=== PATIENT | female | born 1945 | race Caucasian/White ===

== ENCOUNTER 2024-10-03 07:36 | Inpatient (IN) | payer MEDICARE, SELFPAY ==
[2024-10-03] VITALS (14 sets, daily range): BP systolic 109–166; BP diastolic 65–121; PULSE 82–124; RESP 15–92; TEMP 36.5–36.7; O2SAT 94–100; BMI 22.1; BMI 23.0
--- NOTE | 2024-10-03 08:03 | XR_ITS ---
Examination: AP chest single view TECHNIQUE: AP portable upright chest single view Exam date and time: General 25/04/2025 0813 hours COMPARISON: June 14, 2013 INDICATIONS: Onset shortness of breath today. FINDINGS: Moderate enlargement left ventricle Ectatic thoracic aorta Accentuation basilar bronchovascular markings. No pulmonary edema or lobar pneumonia Prominent osteopenia IMPRESSION: Moderate enlargement left ventricle Basilar bronchitis pattern
--- NOTE | 2024-10-03 08:06 | PD.EDADULT ---
ED General RME/HPI General Chief complaint: Shortness of Breath/Dyspnea Stated complaint: SOB Time Seen by Provider: 10/03/24 08:08 Arrival date/time: 10/03/24 07:36 RME / HPI RME / HPI narrative: Chief complaint: shortness of breath HPI: Patient is a 79 year old female with past medical history of asthma, seasonal allergy and sinus arrythmia, who was BIBA for progressively worsening shortness of breath which started 3 days ago. Patient was in her usual state of health, ambulates at baseline, able to carry out ADLs, until 3 days ago whens he started experiencing SOB on strenous activity. But at that time her symptoms improved with rest and home inhalers. Over the next 48 hours patient had significant SOB and audible wheezing even at rest, which was refractory to inhalers. Per patient, she usually has to use oral steroids during this itme of the year because of worsening bronchoconstriction. She has a long standing history of asthma and frequently has exacerbations during winter months. She confirms receiving her flu shot for and denies any fevers or exposure to sick individuals recently. Medication list: Rescue Albuterol INH Combivent INH Metoprolol XL Fexofenadine Allergies: Sulfa drugs - hives Shellfish - angioedema Social history: Marital?Status:? Tobacco?Use:?Denies ETOH?Use:?Denies Drug?Note:?Denies Social?History?Note:?Lives at home?with? Family history: Denies any SCd or stroke or cancers in the family. Related Data Home Medications ?Medication ?Instructions ?Recorded ?Confirmed fluticasone propionate 45 2 puff inhalation BID 12/27/17 05/02/18 mcg-salmeterol 21 mcg/actuation HFA inhaler (Advair HFA) fexofenadine 60 mg tablet (Sharon 60 mg PO BID 05/02/18 05/02/18 Allergy) metoprolol succinate 25 mg 25 mg PO QDAY 05/02/18 05/02/18 tablet,extended release 24 hr Previous Rx's ?Medication ?Instructions ?Recorded albuterol sulfate 90 mcg/actuation 2 puff inhalation Q6HR PRN 04/19/17 aerosol inhaler (ProAir HFA) shortness of breath #1 inh albuterol sulfate 2.5 mg/3 mL 2.5 mg (3 mL) inhalation Q4H PRN 10/03/24 (0.083 %) solution for nebulization shortness of breath or wheezing #75 mL azithromycin 500 mg tablet 500 mg PO QDAY 3 days #3 tabs 10/03/24 (Zithromax TRI-VINCE) prednisone 20 mg tablet 40 mg PO BID 3 days #12 tabs 10/03/24 Allergies Allergy/AdvReac Type Severity Reaction Status Date / Time shellfish derived Allergy Severe ITCHING,DROP Verified 05/02/18 13:31 IN BP Sulfa (Sulfonamide Allergy Severe HIVES AND Verified 05/02/18 13:31 Antibiotics) SWELLING Review of Systems Review of Systems Narrative Review of Systems: GENERAL: Denies fevers/chills or diaphoresis. HEENT: Denies headache or visual/hearing changes. Denies nasal discharge. NEURO: Denies unusual weakness or difficulty speaking. CARDIO: Denies chest pain or palpitations. PULM: SOB, mild coughing, and wheezing. GI: Denies abdominal pain, N/V/C/D. Reports having BMs URO: Denies burning/itching/pain/urinary changes. FUSE COILER: Denies menstrual changes, hot flashes. MSK/EXT/SKIN: Denies joint/skeletal/muscle pain, issues/changes in upper or lower extremities, itchiness, or superficial pain. PSYCH: Cooperative, pleasant mood & affect. The rest of the review of systems is otherwise negative. ED Exam Narrative Physical exam: Constitutional Alert, oriented x4 and on 4L oxygen via NC HEENT Vision grossly intact. Patent nares. Trachea midline. Respiratory Chest normal on inspection and diffuse wheezes and crackles on auscultation bilaterally. Cardiovascular S1 and S2 audible, RRR. No murmurs or carotid bruit. No gross JVD. Abdominal Soft and non tender to palpation in all quadrants. BS + Genitourinary No bladder tenderness, no flank pain. Normal to palpation. Musculoskeletal Extremities tone within normal limits. No LE edema. Neurological CN II - XII grossly intact. Extremity motor and sensation grossly intact. Skin Warm, dry and intact. Senile purpura Psychiatric Patient has a good affect, is cooperative. Course Course Course Narrative: Patient receiving albuterol, budesonide, levalbuterol nebs Also given IV Methylpred 125mg and Unasyn 3g Labs : mild leukocytosis and mild resp acidosis CXR : basilar bronchitis Influenza and COViD negative Quality Measures none Orders Category Date Time Status Bedside COVID-19 Antigen Test NOW Care 10/03/24 08:05 Active Bedside Influenza A&B Antigen Test NOW Care 10/03/24 08:05 Completed COVID-19 Screening Questionnaire NOW Care 10/03/24 13:49 Active Decision to Admit X1 Care 10/03/24 13:49 Active EKG (ED ONLY) *Do not use* NOW Care 10/03/24 07:52 Completed CXRP [XR chest 1V portable] Stat Exams 10/03/24 08:03 Completed EKG (ED Only) Stat Exams 10/03/24 07:52 Ordered ABG [Arterial Blood Gas] Stat Lab 10/03/24 08:47 Completed BNP [B-Type Natriuretic Peptide] Stat Lab 10/03/24 08:31 Completed CBC Stat Lab 10/03/24 08:31 Completed CMP [Comprehensive Metabolic Panel] Stat Lab 10/03/24 08:31 Completed Magnesium Stat Lab 10/03/24 08:31 Completed Sputum Culture and Gram Stain Stat Lab 10/03/24 13:30 Received Troponin I Stat Lab 10/03/24 08:31 Completed Urinalysis Stat Lab 10/03/24 14:00 Completed ACETAMINOPHEN w/COD 300-30 [Tylenol w/Cod #3] Med 10/03/24 08:51 Discontinued 2 tab PO X1 ONE ALBUTEROL RT 3ml [Proventil Rt 3ml] Med 10/03/24 08:03 Discontinued 2.5 mg INH X1 ONE Ampicillin/Sulbac Inj [Unasyn Inj] 3 gm Med 10/03/24 10:15 Discontinued Sodium Chloride 0.9% (P) [NS 0.9% mini bag] 100 ml IV X1 Budesonide Rt [Pulmicort Rt Violet] Med 10/03/24 08:03 Discontinued 0.5 mg INH X1 ONE Levalbuterol Rt [Xopenex Rt Violet] Med 10/03/24 08:49 Discontinued 1.25 mg INH X1 ONE Levalbuterol Rt [Xopenex Rt Violet] Med 10/03/24 09:01 Discontinued 3.75 mg INH X1 ONE Magnesium Sulfate 2 GM Ivpb [Magnesium Sulfate Ivpb] Med 10/03/24 08:27 Discontinued 2 gm in 50 ml IV X1 Magnesium Sulfate 2 GM Ivpb [Magnesium Sulfate Ivpb] Med 10/03/24 08:27 Discontinued 2 gm in 50 ml IV X1 MethylPREDNISolone.* [SoluMEDROL Inj] Med 10/03/24 08:26 Discontinued 125 mg IVP X1 ONE Sodium Chloride Rt Violet 10% [NS Rt Violet 10%] Med 10/03/24 09:31 Discontinued 5 ml INH X1 ONE guaiFENesin/DM [Mucinex DM] Med 10/03/24 08:07 Discontinued 1 each PO X1 ONE Oxygen Delivery NOW RT 10/03/24 08:08 Active Sputum Induction PRN RT 10/03/24 09:45 Ordered Reevaluation(s) Reevaluation #1: 10:07 Patient continues to need oxygen to maintain sats >92% Vital Signs Vital signs: Vital Signs Temperature 97.7 F 10/03/24 07:45 Pulse Rate 83 10/03/24 07:45 Respiratory Rate 17 10/03/24 07:45 Blood Pressure 166/85 H 10/03/24 07:45 Pulse Oximetry (%) 99 10/03/24 07:45 Oxygen Delivery Method Nasal Cannula 10/03/24 07:45 Oxygen Flow Rate 2 10/03/24 07:45 [facility] Patient data External records reviewed:: [facility] previous records Clinical information provided by:: patient Social determinants that could affect healthcare access:: none Patient has the following chronic illnesses:: asthma, seasonal allergy and sinus arrythmia How is presenting disease/condition affected by chronic disease/condition?: exacerbated by Evaluation data The following diagnostics were reviewed and interpreted by me:: lab results, radiology exam(s) and EKG tracing(s) (Sinus rhythm with no acute ST-T changes.) Lab and/or radiology exams considered but not ordered:: None Interpretation Summary: Asthma exacerbation and respiratory failure and low respiratory infection Medications Medications considered but not ordered:: None Medication administrations:: Medication Administration History Acetaminophen (Acetaminophen 325 Mg Tablet) 650 mg PO Q6H PRN PRN Reason: Fever >100.5 Stop: 11/02/24 13:51 Acetaminophen (Acetaminophen 325 Mg Tablet) 650 mg PO Q6H PRN PRN Reason: PAIN SCALE 1-3 (mild Stop: 11/02/24 13:51 Docusate Sodium (Docusate Sod 100 Mg Capsule) 100 mg PO QDAY SONYA; Protocol Stop: 11/03/24 08:59 Heparin Sodium (Porcine) (Heparin Sod Inj 5000 Unit/Ml Vial) 5,000 unit SC Q8HR [facility] Stop: 10/17/24 13:59 Azithromycin 500 mg/ Sodium (Chloride) 250 mls @ 250 mls/hr IV QDAY [facility] Stop: 10/11/24 08:59 Ipratropium [place] (Ipratropium Rt 0.5 Mg/ 2.5 Ml Nebu) 0.5 mg INH Q4HRRT PRN PRN Reason: shortness of breath or wheezing Stop: 11/02/24 14:59 Ipratropium [place] (Ipratropium Rt 0.5 Mg/ 2.5 Ml Nebu) 0.5 mg INH Q6HRRT [facility] Stop: 11/02/24 18:59 Levalbuterol HCl (Levalbuterol Rt 1.25 Mg/0.5 Ml Nebu) 1.25 mg INH Q4HRRT PRN PRN Reason: bronch Stop: 11/02/24 14:59 Levalbuterol HCl (Levalbuterol Rt 1.25 Mg/0.5 Ml Nebu) 1.25 mg INH Q6HRRT [facility] Stop: 11/02/24 18:59 Methylprednisolone Sodium Succinate (Methylprednisolone Sod Succ 40 Mg Vial) 40 mg IVP QDAY [facility] Stop: 10/11/24 08:59 Ondansetron HCl (Ondansetron Inj 2 Mg/Ml Inj 2 Ml) 4 mg IV Q6H PRN; Protocol PRN Reason: NAUSEA OR VOMITING Stop: 11/02/24 13:51 Sodium Chloride (Sodium Chloride Rt Violet 0.9% 3 Ml Nebu) 3 ml INH PRN PRN PRN Reason: SOLN Stop: 11/02/24 13:51 Discontinued Medications Acetaminophen/Codeine Phosphate (Acetaminophen W/Cod 300-30 Tablet) 2 tab PO X1 ONE Stop: 10/03/24 08:52 Last Admin: 10/03/24 10:11 Dose: 2 tab Documented By: MALISSA Albuterol (Albuterol Rt 2.5 Mg/3 Ml Nebu) 2.5 mg INH X1 ONE Stop: 10/03/24 08:04 Last Admin: 10/03/24 08:33 Dose: 2.5 mg Documented By: DENIS Azithromycin (Azithromycin 250 Mg Tablet) 500 mg PO QDAY [facility] Stop: 10/11/24 08:59 Budesonide (Budesonide Rt 0.5 Mg/2 Ml Nebu) 0.5 mg INH X1 ONE Stop: 10/03/24 08:04 Last Admin: 10/03/24 08:33 Dose: 0.5 mg Documented By: DENIS Guaifenesin/Dextromethorphan (Guaifenesin/Dm Tablet) 1 each PO X1 ONE Stop: 10/03/24 08:08 Last Admin: 10/03/24 08:27 Dose: 1 each Documented By: MALISSA Magnesium Sulfate (Magnesium Sulfate Ivpb) 2 gm in 50 mls @ 25 mls/hr IV X1 ONE Stop: 10/03/24 10:26 Last Infusion: 10/03/24 09:00 Dose: 0 mls/hr Documented By: Admin: 10/03/24 08:39 Dose: 25 mls/hr Documented By: MALISSA Magnesium Sulfate (Magnesium Sulfate Ivpb) 2 gm in 50 mls @ 999 mls/hr IV X1 ONE Stop: 10/03/24 08:29 Last Infusion: 10/03/24 09:39 Dose: Infused Documented By: Admin: 10/03/24 09:15 Dose: 999 mls/hr Documented By: MALISSA Ampicillin Sodium/Sulbactam (Sodium 3 gm/ Sodium Chloride) 100 mls @ 200 mls/hr IV X1 ONE Stop: 10/03/24 10:44 Last Infusion: 10/03/24 11:03 Dose: Infused Documented By: Admin: 10/03/24 10:15 Dose: 200 mls/hr Documented By: MALISSA Azithromycin 500 mg/ Sodium (Chloride) 250 mls @ 250 mls/hr IV X1 ONE Stop: 10/03/24 15:14 Ipratropium [place] (Ipratropium Rt 0.5 Mg/ 2.5 Ml Nebu) 0.5 mg INH Q6HR SONYA Stop: 11/02/24 17:59 Levalbuterol HCl (Levalbuterol Rt 1.25 Mg/0.5 Ml Nebu) 1.25 mg INH X1 ONE Stop: 10/03/24 08:50 Last Admin: 10/03/24 09:03 Dose: 1.25 mg Documented By: DENIS Levalbuterol HCl (Levalbuterol Rt 1.25 Mg/0.5 Ml Nebu) 3.75 mg INH X1 ONE Stop: 10/03/24 09:02 Last Admin: 10/03/24 09:03 Dose: 3.75 mg Documented By: DENIS Levalbuterol HCl (Levalbuterol Rt 1.25 Mg/0.5 Ml Nebu) 1.25 mg INH Q6HR SONYA Stop: 11/02/24 17:59 Methylprednisolone Sodium Succinate (Methylprednisolone Sod Succ 62.5 Mg/Ml 2ml Vial) 125 mg IVP X1 ONE Stop: 10/03/24 08:27 Last Admin: 10/03/24 08:34 Dose: 125 mg Documented By: DB Sodium Chloride (Sodium Chloride Rt 10% 15 Ml Nebu) 5 ml INH X1 ONE Stop: 10/03/24 09:32 Neb treatments and Solu-Medrol and magnesium Consultations Consultation(s) initiated? (list below): No Diagnosis Differential Diagnosis ED Complaint MDM: Pneumonia, respiratory failure, asthma exacerbation, CHF, [place] Most likely diagnosis given after review of the tests above:: Asthma exacerbation and respiratory failure and low respiratory infection Admission Indicated Admission indicated?: indicated Explain why admission is indicated or not indicated:: still needing oxygen and no significant improvement Admission Request Was there a request for admission?: Yes Admission Attestation Admission request attestation: Discussed case with Hospitalist service regarding admission. Discussed patients ED course, exam findings, labs, and radiology results. The Hospitalist [agrees,declines] to accept the patient for admission. Disposition Plan Disposition Plan: Admit Medical Decision Making MDM Narrative MDM Narrative: Patient is a 79 year old female BIBA for SOB due to acuet asthma exacerbation. She was treated with nebulizations, IV methylpred and Unasyn, but continues to need oxygen to maintain saturations >90% Diagnosis: Acute asthma exacerbation due to severe bronchitis Plan: - Requested admission for continued oxygen requirement - Sputum culture ordered, follow up results Differential Diagnosis Differential Diagnosis: Pneumonia, respiratory failure, asthma exacerbation, CHF, [place] Lab Data 10/03/24 08:31 10/03/24 08:31 Labs: Lab Results 10/03/24 10/03/24 Range/Units 08:31 08:47 WBC 11.8 H (3.6-11.0) Thou/mm3 RBC 4.92 (4.00-5.20) Miln/mm3 Hgb 14.1 (12.0-16.0) g/dL Hct 42.7 (36.0-46.0) % MCV 87 (80-100) fL MCH 28.7 (25.0-35.0) pg MCHC 33.0 (31.0-37.0) g/dl RDW Std Deviation 42.0 (36.4-46.3) fL Plt Count 275 (140-440) Thou/mm3 Neut % (Auto) 75 (37-80) % Lymph % (Auto) 8 L (10-50) % [place] % (Auto) 7 (0-12) % Eos % (Auto) 10 (0-10) % Baso % (Auto) 1 (0-2.5) % Neut # (Auto) 8.8 H (1.8-7.7) Thou/mm3 Lymph # (Auto) 0.9 L (1.0-4.8) Thou/mm3 [place] # (Auto) 0.8 (0.0-0.8) Thou/mm3 Eos # (Auto) 1.1 H (0.0-0.5) Thou/mm3 Baso # (Auto) 0.2 (0.0-0.2) Thou/mm3 Immature Gran # (Auto) 0.02 H (0.00-0.00) Thou/mm3 Absolute Nucleated RBC 0.00 (0.00-0.00) Thou/mm3 Immature Gran % 0 (0-0) % Nucleated RBC % 0 (0) /100 WBC Puncture Site Right Radial ABG pH 7.34 L (7.35-7.45) ABG pCO2 54 H (32.0-48.0) mmHg ABG pO2 102 (83-108) mmHg ABG HCO3 30 H (20-26) mEq/L ABG O2 Saturation 99 H (91-98) % ABG Base Excess 3 (-3-3) Oxygen Liter Flow 2 L/min Sodium 134 L (136-145) mMol/L Potassium 3.4 (3.4-5.1) mMol/L Chloride 94 L (98-107) mMol/L Carbon Dioxide 30.6 (20.0-31.0) mMol/L Anion Gap 9 (7-16) BUN 9 (9-23) mg/dL Creatinine 0.6 (0.6-1.3) mg/dL Estim Creat Clear Calc 63.9 (>60) mL/min eGFR > 60 (60 - ) See Note BUN/Creatinine Ratio 15 (12-20) Ratio Glucose 101 (74-106) mg/dL Calculated Osmolality 266 L (275-295) Calcium 9.3 (8.3-10.6) mg/dL Corrected Calcium 9.3 (8.5-10.1) mg/dL Magnesium 1.9 (1.6-2.6) mg/dL Total Bilirubin 0.9 (0.3-1.2) mg/dL AST 26 (0-34) U/L ALT 14 (10-49) U/L Alkaline Phosphatase 76 (46-116) U/L Troponin I 0.035 (0.0-0.045) ng/mL B-Natriuretic Peptide 39 (0-100) pg/mL Total Protein 6.9 (5.7-8.2) gm/dL Albumin 4.5 (3.4-4.8) gm/dL Globulin 2.4 (2.3-3.5) gm/dL Albumin/Globulin Ratio 1.9 (1.2-2.2) Discharge Plan Plan Patient Disposition: Admit Acute Care w/in Hospital Patient condition on transfer: Stable Problem List Clinical Impression: Acute asthma exacerbation, Lower respiratory infection, Acute respiratory failure with hypoxia and hypercapnia Patient/Caregiver Discharge Instructions Discharge Activity: activity as tolerated
[2024-10-03] MEDS: guaiFENesin/DM TABLET 1 EACH PO (08:27)
[2024-10-03] MEDS: ALBUTEROL RT 2.5 MG/3 ML NEBU INH (08:33)
[2024-10-03] MEDS: BUDESONIDE RT 0.5 MG/2 ML NEBU INH (08:33)
[2024-10-03] MEDS: MethylPREDNISolone SOD SUCC 62.5 MG/ML 2ML VIAL 125 MG IVP (08:34)
[2024-10-03 08:39] LABS: Basophils # (Auto) 0.2 Thou/mm3 (0.0-0.2); Basophils % (Auto) 1 % (0-2.5); Eosinophils # (Auto) 1.1 Thou/mm3 (0.0-0.5); Eosinophils % (Auto) 10 % (0-10); Hematocrit 42.7 % (36.0-46.0); Hemoglobin 14.1 g/dL (12.0-16.0); Immature Granulocytes % (Auto) 0 % (0-0); Immature Granulocytes Auto 0.02 Thou/mm3 (0.00-0.00); Lymphocytes # (Auto) 0.9 Thou/mm3 (1.0-4.8); Lymphocytes % (Auto) 8 % (10-50); Mean Corpuscular Hemoglobin 28.7 pg (25.0-35.0); Mean Corpuscular Volume 87 fL (80-100); Monocytes # (Auto) 0.8 Thou/mm3 (0.0-0.8); Monocytes % (Auto) 7 % (0-12); Neutrophils # (Auto) 8.8 Thou/mm3 (1.8-7.7); Neutrophils % (Auto) 75 % (37-80); Nucleated Red Blood Cell % 0 /100 WBC (0); Platelet Count 275 Thou/mm3 (140-440); Red Blood Count 4.92 Miln/mm3 (4.00-5.20); White Blood Count 11.8 Thou/mm3 (3.6-11.0)
[2024-10-03] MEDS: Magnesium Sulfate 2 GM Ivpb 2 GM/50 ML BAG IV ×2 (08:39→09:15)
[2024-10-03 08:52] LABS: Base Excess 3 (-3-3); HCO3 30 mEq/L (20-26); O2 Saturation 99 % (91-98); PCO2 54 mmHg (32.0-48.0); PO2 102 mmHg (83-108); pH, Arterial 7.34 (7.35-7.45)
[2024-10-03 08:58] LABS: Alanine Aminotransferase 14 U/L (10-49); Albumin, Serum 4.5 gm/dL (3.4-4.8); Albumin/Globulin Ratio 1.9 (1.2-2.2); Alkaline Phosphatase 76 U/L (46-116); Anion Gap 9 (7-16); Aspartate Amino Transferase 26 U/L (0-34); BUN/Creatinine Ratio 15 Ratio (12-20); Bilirubin,Total 0.9 mg/dL (0.3-1.2); Blood Urea Nitrogen 9 mg/dL (9-23); Calcium 9.3 mg/dL (8.3-10.6); Calcium (Corrected) 9.3 mg/dL (8.5-10.1); Carbon Dioxide 30.6 mMol/L (20.0-31.0); Chloride 94 mMol/L (98-107); Creatinine (Component) 0.6 mg/dL (0.6-1.3); Estimated Creatinine Clearance 63.9 mL/min (>60); Globulin 2.4 gm/dL (2.3-3.5); Glucose 101 mg/dL (74-106); Magnesium 1.9 mg/dL (1.6-2.6); Osmolality,Calculated 266 (275-295); Potassium 3.4 mMol/L (3.4-5.1); Sodium 134 mMol/L (136-145); Total Protein 6.9 gm/dL (5.7-8.2); Troponin I 0.035 ng/mL (0.0-0.045); eGFR > 60 See Note
--- NOTE | 2024-10-03 09:00 | PC.NURSE ---
Dr Rose requests to increase rate of Magnesium. Pharmacy contacted and admised the rate should be no more than over 1 hour. Pharmacy will adjust the ordered rate. made aware.
[2024-10-03] MEDS: LEVALBUTEROL RT 1.25 MG/0.5 ML NEBU INH ×3 (09:03→22:25)
[2024-10-03] MEDS: LEVALBUTEROL RT 1.25 MG/0.5 ML NEBU 3.75 MG INH (09:03)
[2024-10-03 09:09] LABS: Allen Test Performed/OK; Inspired O2, VO2 Liters 2 L/min; Puncture Site Right Radial
[2024-10-03 09:38] LABS: B-Type Natriuretic Peptide 39 pg/mL (0-100)
[2024-10-03] MEDS: ACETAMINOPHEN w/COD 300-30 TABLET 2 TAB PO (10:11)
[2024-10-03] MEDS: AMPICILLIN/SULBAC INJ 3 GM in SODIUM CHLORIDE 0.9% (P) 100 ML IV (10:15)
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
[2024-10-03 14:20] LABS: Collection Type, Urine Clean Catch
--- NOTE | 2024-10-03 14:21 | ECHO_ITS ---
Transthoracic Echo Report Ht (in): 63 Wt (lb): 125 Exam Location: Echo Lab Status: Inpatient Developer Programmer Analyst: Viridiana Saldivar Indications: Procedure Performed: BP: 149 / 86 HR: Technical Quality: Technically difficult study MEASUREMENTS (Male / Female) Normal Values 2D ECHO LV Diastolic Diameter PLAX 4.3 cm 4.2 - 5.9 / 3.9 - 5.3 cm LV Systolic Diameter PLAX 2.6 cm IVS Diastolic Thickness 0.8 cm 0.6 - 1.0 / 0.6 - 0.9 cm LVPW Diastolic Thickness 0.9 cm 0.6 - 1.0 / 0.6 - 0.9 cm LV Relative Wall Thickness 0.4 LVOT Diameter 1.8 cm LA Volume Index 11.0 cm?/m? 16 - 28 cm?/m? M-MODE Aortic Root Diameter MM 3.0 cm LA Systolic Diameter MM 3.3 cm LA Ao Ratio MM 1.1 AV Cusp Separation MM 1.7 cm DOPPLER AV Peak Velocity 109.0 cm/s AV Peak Gradient 4.8 mmHg AV Mean Gradient 3.0 mmHg AV Velocity Time Integral 21.6 cm LVOT Peak Velocity 86.5 cm/s LVOT Peak Gradient 3.0 mmHg LVOT Velocity Time Integral 17.5 cm AV Area Cont Eq vti 2.1 cm? AV Area Cont Eq pk 2.0 cm? MV Area PHT 4.8 cm? MR Peak Velocity 536.0 cm/s MR Peak Gradient 114.9 mmHg Mitral E Point Velocity 79.1 cm/s Mitral A Point Velocity 102.0 cm/s Mitral E to A Ratio 0.8 LV E' Lateral Velocity 5.4 cm/s Mitral E to LV E' Lateral Ratio 14.5 LV E' Septal Velocity 7.6 cm/s Mitral E to LV E' Septal Ratio 10.4 TR Peak Velocity 254.5 cm/s TR Peak Gradient 25.9 mmHg FINDINGS Left Ventricle Normal left ventricular size, wall thickness, systolic function with no obvious regional wall motion abnormalities. Normal left ventricular diastolic filling pattern for age. The ejection fraction is visually estimated at 65 %. Right Ventricle The right ventricle is normal in size and systolic function. The estimated right ventricular systolic pressure, 41mmHg. RAP 5. Left Atrium The left atrium is normal by two-dimensional, color flow and Doppler imaging with no structural abnormalities, no thrombus formation present. Right Atrium The right atrium is normal by two-dimensional imaging, color flow and Doppler imaging with no structural abnormalities, no thrombus formation present. Atrial Septum The interatrial septum appears normal with no evidence of a shunt. Aorta The aorta is normal by two-dimensional, color flow and Doppler interrogation. Mitral Valve Moderate mitral regurgitation. Mild thickening of the mitral valve leaflets. Aortic Valve The aortic valve is trileaflet and normal by two-dimensional, color flow and Doppler interrogation. There is no significant aortic valve regurgitation. Tricuspid Valve The tricuspid valve is normal by two-dimensional, color flow and Doppler interrogation. There is mild to moderate tricuspid valve regurgitation. Pulmonic Valve The pulmonic valve is not well visualized. There is no significant pulmonic valve regurgitation. Vessels The pulmonary artery appears normal. The inferior vena cava pulmonary and hepatic veins appear normal. Pericardium The pericardium is normal by two-dimensional imaging. There is no significant pericardial effusion. CONCLUSIONS Indication: CHF Normal LV size, wall thickness.Estimated EF 65 %. RV is normal in size and systolic function. Estimated RVSP, 41mmHg. RAP 5. Mild thickening of the MV leaflets with moderate 2+mitral regurgitation Mild to modearte DELISA Chambers (Electronically Signed) Final Date: 07 October 2024 00:31
[2024-10-03 14:25] LABS: Bilirubin,Urine Negative (Negative); Blood,Urine Trace (Negative); Clarity,Urine Clear (Clear/Hazy); Color,Urine Yellow (Lt Yel-Yel); Glucose, Urine Negative (Negative); Ketones,Urine 1+ (Negative); Leukocyte Esterase,Urine Negative (Negative); Nitrite,Urine Negative (Negative); PH,Urine 5.5 (5.0-7.0); Protein,Urine Trace (Neg - Trace); RBC,Urine 6 /hpf (0-3); Specific Gravity,Urine 1.025 (1.001-1.035); Squamous Epithelial Cell,Urine 1 /hpf (0-5); Urobilinogen,Urine Negative mg/dL (0.0-1.0); WBC,Urine 1 /hpf (0-5)
[2024-10-03] MEDS: AZITHROMYCIN INJ 500 MG in SODIUM CHLORIDE 0.9% 250 ML 250 ML 250 MG IV (16:46)
[2024-10-03] MEDS: HEPARIN SOD INJ 5000 UNIT/ML VIAL SC (16:47)
[2024-10-03] MEDS: IPRATROPIUM RT 0.5 MG/ 2.5 ML NEBU INH ×2 (18:52→22:24)
[2024-10-04] VITALS (12 sets, daily range): BP systolic 117–134; BP diastolic 67–89; PULSE 88–119; RESP 16–97; TEMP 36.3–36.6; O2SAT 92–98
[2024-10-04] MEDS: LEVALBUTEROL RT 1.25 MG/0.5 ML NEBU INH ×3 (01:51→10:04)
[2024-10-04] MEDS: IPRATROPIUM RT 0.5 MG/ 2.5 ML NEBU INH ×6 (01:51→22:27)
[2024-10-04] MEDS: HEPARIN SOD INJ 5000 UNIT/ML VIAL SC ×2 (05:07→13:22)
[2024-10-04 06:16] LABS: Basophils % (Auto) 0 % (0-2.5); Eosinophils % (Auto) 0 % (0-10); Hematocrit 40.4 % (36.0-46.0); Hemoglobin 13.4 g/dL (12.0-16.0); Immature Granulocytes % (Auto) 0 % (0-0); Immature Granulocytes Auto 0.03 Thou/mm3 (0.00-0.00); Lymphocytes # (Auto) 0.9 Thou/mm3 (1.0-4.8); Lymphocytes % (Auto) 8 % (10-50); Mean Corpuscular HGB Conc 33.2 g/dl (31.0-37.0); Mean Corpuscular Hemoglobin 28.7 pg (25.0-35.0); Mean Corpuscular Volume 87 fL (80-100); Monocytes # (Auto) 1.2 Thou/mm3 (0.0-0.8); Monocytes % (Auto) 11 % (0-12); Neutrophils # (Auto) 8.8 Thou/mm3 (1.8-7.7); Neutrophils % (Auto) 80 % (37-80); Nucleated Red Blood Cell % 0 /100 WBC (0); Platelet Count 294 Thou/mm3 (140-440); RDW Standard Deviation 42.6 fL (36.4-46.3); Red Blood Count 4.67 Miln/mm3 (4.00-5.20)
[2024-10-04 06:57] LABS: Alanine Aminotransferase 12 U/L (10-49); Albumin/Globulin Ratio 1.7 (1.2-2.2); Alkaline Phosphatase 69 U/L (46-116); Anion Gap 8 (7-16); Aspartate Amino Transferase 26 U/L (0-34); BUN/Creatinine Ratio 18 Ratio (12-20); Bilirubin,Total 0.7 mg/dL (0.3-1.2); Blood Urea Nitrogen 11 mg/dL (9-23); Calcium 9.7 mg/dL (8.3-10.6); Calcium (Corrected) 9.7 mg/dL (8.5-10.1); Carbon Dioxide 30.4 mMol/L (20.0-31.0); Chloride 101 mMol/L (98-107); Creatinine (Component) 0.6 mg/dL (0.6-1.3); Estimated Creatinine Clearance 61.1 mL/min (>60); Globulin 2.3 gm/dL (2.3-3.5); Glucose 89 mg/dL (74-106); Magnesium 2.5 mg/dL (1.6-2.6); Osmolality,Calculated 275 (275-295); Potassium 3.8 mMol/L (3.4-5.1); Sodium 139 mMol/L (136-145); Thyroid Stimulating Hormone 0.83 uIU/mL (0.55-4.78); Total Protein 6.3 gm/dL (5.7-8.2); eGFR > 60 See Note
[2024-10-04 07:23] LABS: Cardiac Risk Estimate 2.3 RATIO (3.7-5.6); Cholesterol 154 mg/dL (132-200); HDL Cholesterol 68 mg/dL (40-60); LDL Cholesterol,Calculated 73 mg/dL (0-130); Triglycerides 63 mg/dL (30-150)
[2024-10-04] MEDS: AZITHROMYCIN INJ 500 MG in SODIUM CHLORIDE 0.9% 250 ML 250 ML 250 MG IV (09:50)
[2024-10-04] MEDS: guaiFENesin SYRUP 200 MG/10 ML UDC PO ×3 (11:26→20:37)
--- NOTE | 2024-10-04 12:12 | PC.CC ---
Reported by hospitalist team that patient's steroid Rx from her specialist is getting stuck at [facility] and she has been unable to fill. Per external med history, Rx for prednisolone last filled 05/2024. S/W [facility] - My, her Rx has no refills and her prescriber is not responding to refill requests. Updated Dr. Goldstein.
[2024-10-04] MEDS: LEVALBUTEROL RT 0.63 MG/3 ML NEBU INH ×3 (14:13→22:27)
--- NOTE | 2024-10-04 14:36 | PC.NURSE ---
This am patient resting comfortably on RA with o2 sats of 94% upon ambulation to restroom sats decreased to 79%. Placed on 2L o2 and saturation increased to 93%.
--- NOTE | 2024-10-04 15:41 | PC.SS ---
ACCOUNT LIAISON informed bedside nurse of need to conduct room air evaluation to confirm patient's need for home oxygen.
--- NOTE | 2024-10-04 15:42 | PC.SS ---
Rounding Note: Plan is for the patient to discharge home tomorrow.
--- NOTE | 2024-10-04 15:46 | PC.SS ---
STONE MASON conducted bedside contact with the patient conduct initial assessment and to discuss discharge planning.? Patient confirmed demographic information.? Patient resides at home with spouse, Abel Jansen .? Patient does not utilize any form of DME to assist with ambulation.? Patient does not utilize home oxygen.? Patient currently utilizing 2L of oxygen.? Patient describes the ability to complete ADL?s independently.? Patient identified spouse, Abel Jansen; as medical surrogate decision maker.? Patient?s PCP is Dr. Ochoa, [facility].? Patient does not participate with dialysis.? Patient?s mold filler plastic dolls is Dr. Rojo.? Patient utilizes [facility] for medication services.? Plan is for the patient to return home at the time of discharge.? Family will provide transportation on behalf of the patient.? If home oxygen is required no preferred vendor identified.? No further intervention required at this time, social secretary will be available to address any further concerns.? Next of Kin: Abel Inderjit D/C Plan: Home
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
[2024-10-05] VITALS (12 sets, daily range): BP systolic 139–156; BP diastolic 76–94; PULSE 91–112; RESP 16–96; TEMP 36.2–36.8; O2SAT 90–98
[2024-10-05] MEDS: IPRATROPIUM RT 0.5 MG/ 2.5 ML NEBU INH ×6 (02:07→22:06)
[2024-10-05] MEDS: LEVALBUTEROL RT 0.63 MG/3 ML NEBU INH ×6 (02:08→22:06)
[2024-10-05 05:59] LABS: Basophils % (Auto) 0 % (0-2.5); Eosinophils % (Auto) 0 % (0-10); Hematocrit 43.6 % (36.0-46.0); Hemoglobin 14.3 g/dL (12.0-16.0); Immature Granulocytes % (Auto) 1 % (0-0); Immature Granulocytes Auto 0.06 Thou/mm3 (0.00-0.00); Lymphocytes # (Auto) 0.5 Thou/mm3 (1.0-4.8); Lymphocytes % (Auto) 4 % (10-50); Mean Corpuscular HGB Conc 32.8 g/dl (31.0-37.0); Mean Corpuscular Hemoglobin 28.9 pg (25.0-35.0); Mean Corpuscular Volume 88 fL (80-100); Monocytes # (Auto) 0.3 Thou/mm3 (0.0-0.8); Monocytes % (Auto) 3 % (0-12); Neutrophils # (Auto) 11.9 Thou/mm3 (1.8-7.7); Neutrophils % (Auto) 93 % (37-80); Nucleated Red Blood Cell % 0 /100 WBC (0); Platelet Count 325 Thou/mm3 (140-440); RDW Standard Deviation 43.9 fL (36.4-46.3); Red Blood Count 4.94 Miln/mm3 (4.00-5.20); White Blood Count 12.9 Thou/mm3 (3.6-11.0)
[2024-10-05] MEDS: guaiFENesin SYRUP 200 MG/10 ML UDC PO ×4 (06:30→21:39)
[2024-10-05 06:32] LABS: Alanine Aminotransferase 14 U/L (10-49); Albumin, Serum 4.2 gm/dL (3.4-4.8); Albumin/Globulin Ratio 1.6 (1.2-2.2); Alkaline Phosphatase 69 U/L (46-116); Anion Gap 9 (7-16); Aspartate Amino Transferase 20 U/L (0-34); BUN/Creatinine Ratio 25 Ratio (12-20); Bilirubin,Total 0.6 mg/dL (0.3-1.2); Blood Urea Nitrogen 15 mg/dL (9-23); Calcium 9.4 mg/dL (8.3-10.6); Calcium (Corrected) 9.4 mg/dL (8.5-10.1); Carbon Dioxide 31.1 mMol/L (20.0-31.0); Chloride 99 mMol/L (98-107); Creatinine (Component) 0.6 mg/dL (0.6-1.3); Estimated Creatinine Clearance 61.1 mL/min (>60); Globulin 2.6 gm/dL (2.3-3.5); Glucose 141 mg/dL (74-106); Magnesium 2.2 mg/dL (1.6-2.6); Osmolality,Calculated 280 (275-295); Potassium 3.8 mMol/L (3.4-5.1); Sodium 139 mMol/L (136-145); Total Protein 6.8 gm/dL (5.7-8.2); eGFR > 60 See Note
[2024-10-05] MEDS: HEPARIN SOD INJ 5000 UNIT/ML VIAL SC ×3 (06:32→21:40)
[2024-10-05] MEDS: AZITHROMYCIN INJ 500 MG in SODIUM CHLORIDE 0.9% 250 ML 250 ML 250 MG IV (09:14)
[2024-10-05] MEDS: DOCUSATE SOD 100 MG CAPSULE PO (09:15)
[2024-10-05] MEDS: POTASSIUM CHLORIDE 20 mEq TABCR 40 MEQ PO (09:16)
--- NOTE | 2024-10-05 09:22 | PC.SS ---
SS update: plan is to wean down patient from O2.
--- NOTE | 2024-10-05 10:51 | PC.SS ---
Addendum entered by RYAN Ardon 10/05/24 14:34: SS update: met at bed side with the patient. Patient is refusing home O2. Explained the importance of having her own home DME and patient continues to refuse stating the doctor told her they would wean her off the oxygen. Attending Dr. Goldstein was notified. Original Note: SS met with pt to inform her physicians are ordering home O2. Pt refuses O2 at home. Pt states she does not have room for O2 tanks and concentrator. Pt is refusing for SS to order her own O2. Pt is aware to follow up with PCP for portable O2. SS has spoken to bedside nurse to perform O2 test to check if pt is reacquiring home O2.
--- NOTE | 2024-10-05 13:07 | PD.RESDS ---
Planned Discharge Date 10/05/24 DS: Providers Provider Date of admission: 10/03/24 13:51 Primary care physician: Quinton Ochoa MD Admitting Provider: aFdia Goldstein DO Attending Provider on Admission: Fadia Goldstein DO Consults: 10/03/24 14:22 Consult to Cardiology Stat Comment: Consulting Provider: Darius Rojo Attending Provider on DC: Peewee Naylor MD Discharging Provider: Peewee Naylor MD Hospital Course Hospital Course Hospital course: Patient seen today at the bedside fine awake, alert, oriented x 3. No overnight events reported. States no active complaints at this time. On examination patient is noted to continued bilateral wheezing. Nebulization therapy frequency adjusted. Steroid medication frequency adjusted to 40 mg twice daily. Antitussive was added. Will continue to monitor. Time Spent with Patient Time attestation: Total time spent providing and/or coordinating discharge services: Exam Vital Signs Temp Pulse Resp BP Pulse Ox O2 Del Method O2 Flow Rate 97.7 F 106 H 20 156/76 H 91 L Nasal Cannula 1 10/05/24 12:00 10/05/24 12:00 10/05/24 12:00 10/05/24 12:00 10/05/24 12:10/05/24 12:00 10/05/24 12:00 Discharge Plan Plan Patient condition on transfer: Stable Care Plan Goals: Recommended to follow-up with primary care physician within 1 week of discharge. Recommended to continue antibiotic azithromycin 500 mg for 1 more day. Albuterol inhaler will be discontinued and patient will be started on ipratropium albuterol nebulizations. Patient will be started on guaifenesin liquid as a mucolytic Patient will be discharged on Medrol pack for steroid taper. Should patient's symptoms recur or worsen patient was instructed to return to the ED. Prescriptions/Referrals Prescriptions/Med Rec: New guaifenesin 100 mg/5 mL Liquid 200 mg PO QID 5 Days Qty: 200 0RF ipratropium-albuterol 0.5 mg-3 mg(2.5 mg base)/3 mL solution for nebulization 3 ml inhalation Q6H PRN (Reason: shortness of breath or wheezing) Qty: 180 0RF fluticasone propion-salmeterol [Advair HFA] 115-21 mcg/actuation HFA aerosol inhaler 2 puff inhalation BID Qty: 12 0RF Rx Instructions: administer with spacer azithromycin 500 mg tablet 500 mg PO QDAY 1 Days Qty: 1 0RF methylprednisolone [Medrol (Lobo)] 4 mg tablets,dose pack 4 mg PO QDAY Qty: 21 0RF Continued fexofenadine [Sharon Allergy] 60 mg Tablet 60 mg PO BID metoprolol succinate 25 mg Tablet Extended Release 24 Hr 25 mg PO QDAY Discontinued albuterol sulfate [ProAir HFA] 8.5 GM HFA aerosol inhaler 2 puff Inhalation Q6HR PRN (Reason: shortness of breath) Qty: 1 0RF No Action fluticasone propion-salmeterol [Advair HFA] 45-21 mcg/actuation Hfa Aerosol Inhaler 2 puff INHALATION BID Referrals: Quinton Ochoa MD [Primary Care Provider] - Patient/Caregiver Discharge Instructions Discharge Activity: activity as tolerated Print Language: Frisian Discharge Order Discharge Orders: Discharge (Routine); Ordered 10/05/24 Ordered By: Peewee Naylor
--- NOTE | 2024-10-05 13:11 | PC.NURSE ---
Pt SpO2 at rest on room air 86%, pt SpO2 at rest on 1L O2 via NC 95%
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
--- NOTE | 2024-10-05 15:42 | PC.SS ---
OXYGEN Pt is discharged in a chronic stable state and has been treated optimally and has other respiratory needs. Oxygen has been ordered due to CHF.
[2024-10-06] VITALS (14 sets, daily range): BP systolic 138–148; BP diastolic 74–99; PULSE 83–118; RESP 17–97; TEMP 36.1–36.8; O2SAT 92–99; BMI 23.1
[2024-10-06] MEDS: LEVALBUTEROL RT 0.63 MG/3 ML NEBU INH ×6 (02:23→22:29)
[2024-10-06] MEDS: IPRATROPIUM RT 0.5 MG/ 2.5 ML NEBU INH ×6 (02:23→22:29)
[2024-10-06] MEDS: guaiFENesin SYRUP 200 MG/10 ML UDC PO ×4 (05:22→21:43)
[2024-10-06] MEDS: HEPARIN SOD INJ 5000 UNIT/ML VIAL SC ×2 (05:23→21:43)
[2024-10-06 05:33] LABS: Basophils % (Auto) 0 % (0-2.5); Eosinophils % (Auto) 0 % (0-10); Hematocrit 43.2 % (36.0-46.0); Hemoglobin 14.2 g/dL (12.0-16.0); Immature Granulocytes % (Auto) 0 % (0-0); Immature Granulocytes Auto 0.04 Thou/mm3 (0.00-0.00); Lymphocytes # (Auto) 0.6 Thou/mm3 (1.0-4.8); Lymphocytes % (Auto) 5 % (10-50); Mean Corpuscular HGB Conc 32.9 g/dl (31.0-37.0); Mean Corpuscular Volume 88 fL (80-100); Monocytes # (Auto) 0.5 Thou/mm3 (0.0-0.8); Monocytes % (Auto) 4 % (0-12); Neutrophils # (Auto) 11.4 Thou/mm3 (1.8-7.7); Neutrophils % (Auto) 91 % (37-80); Nucleated Red Blood Cell % 0 /100 WBC (0); Platelet Count 329 Thou/mm3 (140-440); RDW Standard Deviation 43.8 fL (36.4-46.3); White Blood Count 12.6 Thou/mm3 (3.6-11.0)
[2024-10-06 06:07] LABS: Alanine Aminotransferase 14 U/L (10-49); Albumin/Globulin Ratio 1.5 (1.2-2.2); Alkaline Phosphatase 67 U/L (46-116); Anion Gap 9 (7-16); Aspartate Amino Transferase 18 U/L (0-34); BUN/Creatinine Ratio 20 Ratio (12-20); Bilirubin,Total 0.7 mg/dL (0.3-1.2); Blood Urea Nitrogen 12 mg/dL (9-23); Calcium 9.3 mg/dL (8.3-10.6); Calcium (Corrected) 9.3 mg/dL (8.5-10.1); Chloride 103 mMol/L (98-107); Creatinine (Component) 0.6 mg/dL (0.6-1.3); Estimated Creatinine Clearance 61.1 mL/min (>60); Globulin 2.7 gm/dL (2.3-3.5); Glucose 141 mg/dL (74-106); Magnesium 2.1 mg/dL (1.6-2.6); Osmolality,Calculated 282 (275-295); Sodium 141 mMol/L (136-145); Total Protein 6.7 gm/dL (5.7-8.2); eGFR > 60 See Note
--- NOTE | 2024-10-06 07:23 | PC.NURSE ---
Pt SpO2 at rest 85%, pt SpO2 on 1L O2 via NC at rest 93%. pt SpO2 while ambulating on 1L via NC 91%.
[2024-10-06] MEDS: DOCUSATE SOD 100 MG CAPSULE PO (09:26)
[2024-10-06] MEDS: AZITHROMYCIN INJ 500 MG in SODIUM CHLORIDE 0.9% 250 ML 250 ML 250 MG IV (09:40)
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
--- NOTE | 2024-10-06 15:56 | PC.SS ---
Rounding Note: Plan is to d/c the patient home tomorrow. Patient will have family bring home oxygen to bedside prior to discharge.
[2024-10-07] VITALS (13 sets, daily range): BP systolic 121–152; BP diastolic 75–99; PULSE 87–120; RESP 21–31; TEMP 36.2–36.8; O2SAT 91–99
[2024-10-07] MEDS: LEVALBUTEROL RT 0.63 MG/3 ML NEBU INH ×6 (02:48→22:29)
[2024-10-07] MEDS: IPRATROPIUM RT 0.5 MG/ 2.5 ML NEBU INH ×6 (02:48→22:29)
[2024-10-07] MEDS: HEPARIN SOD INJ 5000 UNIT/ML VIAL SC ×3 (05:44→21:42)
[2024-10-07] MEDS: guaiFENesin SYRUP 200 MG/10 ML UDC PO ×4 (05:44→21:24)
[2024-10-07 06:07] LABS: Basophils % (Auto) 0 % (0-2.5); Eosinophils % (Auto) 0 % (0-10); Hematocrit 42.4 % (36.0-46.0); Immature Granulocytes % (Auto) 0 % (0-0); Immature Granulocytes Auto 0.03 Thou/mm3 (0.00-0.00); Lymphocytes # (Auto) 0.7 Thou/mm3 (1.0-4.8); Lymphocytes % (Auto) 6 % (10-50); Mean Corpuscular Hemoglobin 28.6 pg (25.0-35.0); Mean Corpuscular Volume 87 fL (80-100); Monocytes # (Auto) 0.6 Thou/mm3 (0.0-0.8); Monocytes % (Auto) 4 % (0-12); Neutrophils # (Auto) 11.1 Thou/mm3 (1.8-7.7); Neutrophils % (Auto) 90 % (37-80); Nucleated Red Blood Cell % 0 /100 WBC (0); Platelet Count 297 Thou/mm3 (140-440); RDW Standard Deviation 42.8 fL (36.4-46.3); White Blood Count 12.4 Thou/mm3 (3.6-11.0)
[2024-10-07 06:33] LABS: Alanine Aminotransferase 16 U/L (10-49); Albumin, Serum 3.9 gm/dL (3.4-4.8); Albumin/Globulin Ratio 1.6 (1.2-2.2); Alkaline Phosphatase 66 U/L (46-116); Anion Gap 7 (7-16); Aspartate Amino Transferase 17 U/L (0-34); BUN/Creatinine Ratio 23 Ratio (12-20); Bilirubin,Total 0.7 mg/dL (0.3-1.2); Blood Urea Nitrogen 14 mg/dL (9-23); Calcium 9.3 mg/dL (8.3-10.6); Calcium (Corrected) 9.4 mg/dL (8.5-10.1); Carbon Dioxide 29.6 mMol/L (20.0-31.0); Chloride 103 mMol/L (98-107); Creatinine (Component) 0.6 mg/dL (0.6-1.3); Estimated Creatinine Clearance 58.3 mL/min (>60); Globulin 2.5 gm/dL (2.3-3.5); Glucose 138 mg/dL (74-106); Magnesium 2.2 mg/dL (1.6-2.6); Osmolality,Calculated 281 (275-295); Sodium 140 mMol/L (136-145); Total Protein 6.4 gm/dL (5.7-8.2); eGFR > 60 See Note
[2024-10-07] MEDS: AZITHROMYCIN INJ 500 MG in SODIUM CHLORIDE 0.9% 250 ML 250 ML 250 MG IV (08:45)
--- NOTE | 2024-10-07 10:23 | PD.RESDS ---
Planned Discharge Date 10/07/24 DS: Providers Provider Date of admission: 10/03/24 13:51 Primary care physician: Quinton Ochoa MD Admitting Provider: Fadia Goldstein DO Attending Provider on Admission: Fadia Goldstein DO Consults: 10/03/24 14:22 Consult to Cardiology Stat Comment: Consulting Provider: Darius Rojo Attending Provider on DC: Gavino Carranza MD Discharging Provider: Gavino Carranza MD Hospital Course Hospital Course Hospital course: Patient seen today at the bedside found awake, alert, x 3. No overnight events reported. On examination patient continues to have bilateral wheezing. Still unable to wean off oxygen. Steroid medication was increased to 3 times a day. Acapella was also given. Will continue current management Time Spent with Patient Time attestation: Total time spent providing and/or coordinating discharge services: Exam Vital Signs Temp Pulse Resp BP Pulse Ox O2 Del Method O2 Flow Rate 97.1 F 98 23 H 147/99 H 92 L Nasal Cannula 2 10/07/24 08:00 10/07/24 08:00 10/07/24 08:00 10/07/24 08:00 10/07/24 08:00 10/07/24 08:00 10/07/24 08:00 Discharge Plan Plan Patient condition on transfer: Stable Care Plan Goals: Recommended to follow-up with primary care physician within 1 week of discharge. Albuterol inhaler will be discontinued and patient will be started on ipratropium albuterol nebulizations. Patient will be started on guaifenesin liquid as a mucolytic Patient will be discharged on Medrol pack for steroid taper. If you experience any new, worsening or persistent symptoms either call your PCP, dial 911 or present to the emergency department. Prescriptions/Referrals Prescriptions/Med Rec: New guaifenesin 100 mg/5 mL Liquid 200 mg PO QID 5 Days Qty: 200 0RF ipratropium-albuterol 0.5 mg-3 mg(2.5 mg base)/3 mL solution for nebulization 3 ml inhalation Q6H PRN (Reason: shortness of breath or wheezing) Qty: 180 0RF fluticasone propion-salmeterol [Advair HFA] 115-21 mcg/actuation HFA aerosol inhaler 2 puff inhalation BID Qty: 12 0RF Rx Instructions: administer with spacer methylprednisolone [Medrol (Lobo)] 4 mg tablets,dose pack 4 mg PO QDAY Qty: 21 0RF Continued fexofenadine [Sharon Allergy] 60 mg Tablet 60 mg PO BID metoprolol succinate 25 mg Tablet Extended Release 24 Hr 25 mg PO QDAY Discontinued albuterol sulfate [ProAir HFA] 8.5 GM HFA aerosol inhaler 2 puff Inhalation Q6HR PRN (Reason: shortness of breath) Qty: 1 0RF No Action fluticasone propion-salmeterol [Advair HFA] 45-21 mcg/actuation Hfa Aerosol Inhaler 2 puff INHALATION BID Referrals: Quinton Ochoa MD [Primary Care Provider] - Patient/Caregiver Discharge Instructions Discharge Activity: activity as tolerated Print Language: German
--- NOTE | 2024-10-07 11:35 | PC.NURSE ---
0830 PATIENT FOUND WITH O2 OF, O2 SAT 88%. PATIENT INSTRUCTED TO PUT O2 NC BACK ON. STATES SHE TOOK IT OFF TO EAT. PATIENT INFORMED SHE MUST NOT REMOVE THE O2, HER O2 SAT DROPS TO MUCH. PATIENT RESISTANT TO INFORMATION. STATING SHE EATS FAST. PATIENT INFORMED THAT EATING USES MORE OXYGEN CONSUMPTION AND TO PLEASE KEEP THE 02 INPLACE, IT CAN BE LIFE THREATENING IF SHE KEEPS IT OFF AND HER O2 SAT DROPS SIGNIFICANTLY.
--- NOTE | 2024-10-07 11:56 | PC.NURSE ---
WAS CALLED BY CLINICAL REVIEW NURSE THAT PATIENTS HR HAD JUMPED TO 180. WENT TO SEE PATIENT AND FOUND HER WITH HER LEGS DANGLING. ASKED PATIENT IF SHE HAD BEEN UP. STATED SHE WAS TRYING TO DECIDE IF SHE NEEDED TO GO TO THE BATHROOM. HR AT THIS TIME 114. INFORMED PATIENT THAT SHE WILL NEED TO USE A BEDSIDE COMMODE. PATIENT ADAMANTLY REFUSED STATING SHE CAN NOT USE A BEDSIDE COMMODE. PATIENT INFORMED HER HR GOES EXTREMELY HIGH WHEN SHE TRIES TO GET UP AND THEREFORE WALKING TO T HE BATHROOM IS NOT FEASIBLE. PATIENT GOT VERY ANGRY AND STARTED YELLING AT ME. INFORMED PATIENT I WOULD SPEAK THE HER DOCTOR ABOUT PERMISSION TO GET UP. CALLED AND SPOKE TO DR CORDOVA AND INFORMED OF ABOVE ISSUE. STATED HE WAS NOT AWARE AND ASKED IF THIS WAS SOMETHING NEW. INFORMED IT WAS REPORTED FROM THE MANAGER RESPIRATORY CARE. ASKED THAT A DOCTOR COME TO SPEAK TO HER ABOUT THE ABOVE ISSUE. STATED WOULD COME TO SEE PATIENT AND TALK TO HER.
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
[2024-10-07 12:59] LABS: D-Dimer < 250 ng/mL (<600)
--- NOTE | 2024-10-07 15:00 | PC.SS ---
SS met with pt bedside, alert and oriented times 4; provided medicare info
--- NOTE | 2024-10-07 15:00 | PC.SS ---
SS learned pt does not want O2 to be ordered as she has concentrator at home and has O2 portable
--- NOTE | 2024-10-07 15:04 | PC.SS ---
Confirmed services are with [facility]
[2024-10-07] MEDS: predniSONE 20 MG TABLET 40 MG PO (21:24)
[2024-10-08] VITALS (10 sets, daily range): BP systolic 120–147; BP diastolic 78–97; PULSE 72–115; RESP 15–28; TEMP 36.2–36.8; O2SAT 91–100
[2024-10-08] MEDS: LEVALBUTEROL RT 0.63 MG/3 ML NEBU INH ×4 (02:13→14:18)
[2024-10-08] MEDS: IPRATROPIUM RT 0.5 MG/ 2.5 ML NEBU INH ×4 (02:13→14:18)
[2024-10-08 05:44] LABS: Basophils % (Auto) 0 % (0-2.5); Eosinophils % (Auto) 0 % (0-10); Hematocrit 42.3 % (36.0-46.0); Immature Granulocytes % (Auto) 1 % (0-0); Immature Granulocytes Auto 0.06 Thou/mm3 (0.00-0.00); Lymphocytes # (Auto) 0.8 Thou/mm3 (1.0-4.8); Lymphocytes % (Auto) 6 % (10-50); Mean Corpuscular HGB Conc 33.1 g/dl (31.0-37.0); Mean Corpuscular Hemoglobin 28.9 pg (25.0-35.0); Mean Corpuscular Volume 87 fL (80-100); Monocytes # (Auto) 0.5 Thou/mm3 (0.0-0.8); Monocytes % (Auto) 4 % (0-12); Neutrophils # (Auto) 11.4 Thou/mm3 (1.8-7.7); Neutrophils % (Auto) 90 % (37-80); Nucleated Red Blood Cell % 0 /100 WBC (0); Platelet Count 277 Thou/mm3 (140-440); RDW Standard Deviation 44.2 fL (36.4-46.3); Red Blood Count 4.84 Miln/mm3 (4.00-5.20); White Blood Count 12.7 Thou/mm3 (3.6-11.0)
[2024-10-08 06:18] LABS: Alanine Aminotransferase 16 U/L (10-49); Albumin, Serum 3.6 gm/dL (3.4-4.8); Albumin/Globulin Ratio 1.5 (1.2-2.2); Alkaline Phosphatase 60 U/L (46-116); Anion Gap 8 (7-16); Aspartate Amino Transferase 18 U/L (0-34); BUN/Creatinine Ratio 27 Ratio (12-20); Bilirubin,Total 0.8 mg/dL (0.3-1.2); Blood Urea Nitrogen 16 mg/dL (9-23); Calcium 8.6 mg/dL (8.3-10.6); Calcium (Corrected) 8.9 mg/dL (8.5-10.1); Carbon Dioxide 28.7 mMol/L (20.0-31.0); Chloride 102 mMol/L (98-107); Creatinine (Component) 0.6 mg/dL (0.6-1.3); Estimated Creatinine Clearance 58.3 mL/min (>60); Globulin 2.4 gm/dL (2.3-3.5); Glucose 133 mg/dL (74-106); Magnesium 2.1 mg/dL (1.6-2.6); Osmolality,Calculated 280 (275-295); Sodium 139 mMol/L (136-145); eGFR > 60 See Note
[2024-10-08] MEDS: predniSONE 20 MG TABLET PO (09:36)
--- NOTE | 2024-10-08 13:13 | PD.RESDS ---
Planned Discharge Date 10/08/24 DS: Providers Provider Date of admission: 10/03/24 13:51 Primary care physician: Quinton Ochoa MD Admitting Provider: Fadia Goldstein DO Attending Provider on Admission: Fadia Goldstein DO Consults: 10/03/24 14:22 Consult to Cardiology Stat Comment: Consulting Provider: Darius Rojo Attending Provider on DC: Gama Vang MD Discharging Provider: Gama Vang MD DS: Diagnosis Problem List Completed Was Problem List Reviewed/Reconciled?: Yes Hospital Course Hospital Course Hospital course: 79-year-old female with past medical history of asthma, breast cancer, osteoporosis, sinus arrhythmia, eczema and psoriasis seen in the ED on 10/03/2024 for shortness of breath. In the ED patient was saturating 99 on 4 L nasal cannula as a result was started on albuterol, budesonide, methylprednisolone, levalbuterol and chest x-ray showed bronchitis pattern. There was some suspicion for possible CHF the patient having pitting edema in the lower extremities; patient seen by Dr. Rojo outpatient. Patient was not treated for CHF in the hospital; moreover, patient echo on 10/03/2024 showed normal LV function with EF 65%, mild pulmonary hypertension with RVSP of 41 mmHg along with mild thickening of the MV leaflets with moderate 2+ mitral regurgitation. Patient improved initially; however, while ambulating oxygen saturation desatted to less than 88% along with tachycardia. D-dimer was ordered which was negative; suspicion for PE was low. Patient has home oxygen which required recalibration. Patient will be discharged with the following strict instructions. Recommended to follow-up with primary care physician within 1 week of discharge. Albuterol inhaler will be discontinued and patient will be started on ipratropium albuterol nebulizations. Patient will be started on guaifenesin liquid as a mucolytic Patient will be discharged on Medrol pack for steroid taper. If you experience any new, worsening or persistent symptoms either call your PCP, dial 911 or present to the emergency department. Hospital Diagnosis #Acute bronchitis #Asthma exacerbation #Chronic Diastolic Heart Failure [EF 65%] #History of sinus arrhythmia #Mitral Regurgitation #Mild Pulmonaary Hypertension #History of eczema #History of psoriasis #History of osteoporosis Gama Vnag, PGY-1 Senior resident attestation: Patient evaluated and examined at the bedside, plan of care discussed with rest of the team including my attending physician, except as noted. Magdiel PGY2 Status at Discharge Overall status at discharge: patient is progressing back to baseline Time Spent with Patient Time attestation: Total time spent providing and/or coordinating discharge services: 45 minutes Time spent: Greater than 30 minutes Exam Vital Signs Temp Pulse Resp BP Pulse Ox O2 Del Method O2 Flow Rate 98.3 F 114 H 26 H 125/78 93 L Nasal Cannula 0.5 10/08/24 12:10/08/24 12:10/08/24 12:10/08/24 12:10/08/24 12:10/08/24 12:10/08/24 12:00 Narrative Exam Constitutional Alert, oriented x 3 and comfortable. Elderly female, thin HEENT Vision grossly intact. Patent nares. Trachea midline Respiratory Chest normal on inspection and clear auscultation bilaterally, Scattered wheeze in the mid to lower zones Cardiovascular S1 and S2 audible, RRR. No murmurs carotid bruit. No gross JVD. Abdominal Soft and non tender to palpation in all quadrants. BS + Genitourinary No bladder tenderness, no flank pain. Normal to palpation Musculoskeletal Extremities tone within normal limits. No LE edema. Neurological CN II - XII grossly intact. Extremity motor and sensation grossly intact. Skin Warm, dry and intact. No apparent lesions. Psychiatric Patient has good affect, is cooperative Discharge Plan Plan Patient Disposition: HOME (Self Care) Patient condition on transfer: Stable Care Plan Goals: Recommended to follow-up with primary care physician within 1 week of discharge. Albuterol inhaler will be discontinued and patient will be started on ipratropium albuterol nebulizations. Patient will be started on guaifenesin liquid as a mucolytic Patient will be discharged on Medrol pack for steroid taper. If you experience any new, worsening or persistent symptoms either call your PCP, dial 911 or present to the emergency department. Prescriptions/Referrals Prescriptions/Med Rec: New guaifenesin 100 mg/5 mL Liquid 200 mg PO QID 5 Days Qty: 200 0RF ipratropium-albuterol 0.5 mg-3 mg(2.5 mg base)/3 mL solution for nebulization 3 ml inhalation Q6H PRN (Reason: shortness of breath or wheezing) Qty: 180 0RF fluticasone propion-salmeterol [Advair HFA] 115-21 mcg/actuation HFA aerosol inhaler 2 puff inhalation BID Qty: 12 0RF Rx Instructions: administer with spacer methylprednisolone [Medrol (Lobo)] 4 mg tablets,dose pack 4 mg PO QDAY Qty: 21 0RF prednisolone 5 mg tablet 10 mg PO QDAY Qty: 60 0RF budesonide 0.5 mg/2 mL suspension for nebulization 0.5 mg inhalation QDAY Qty: 60 0RF Continued fluticasone propion-salmeterol [Advair HFA] 45-21 mcg/actuation Hfa Aerosol Inhaler 2 puff INHALATION BID fexofenadine [Sharon Allergy] 60 mg Tablet 60 mg PO BID metoprolol succinate 25 mg Tablet Extended Release 24 Hr 25 mg PO QDAY Discontinued albuterol sulfate [ProAir HFA] 8.5 GM HFA aerosol inhaler 2 puff Inhalation Q6HR PRN (Reason: shortness of breath) Qty: 1 0RF Referrals: Quinton Ochoa MD [Primary Care Provider] - Patient/Caregiver Discharge Instructions Discharge Activity: activity as tolerated Education Materials: Asthma and COPD, Asthma Trigger Checklist Print Language: Citizen Of [place] Stand Alone Forms: Shelia Award Info., Patient Portal Info Letter Discharge Order Discharge Orders: Discharge (Routine); Ordered 10/08/24 Ordered By: Gama Vang Quality Discharge Quality Measures VTE prophylaxis Attestestation Attestation I discussed with and supervised the resident physician who took care of this patient. I agree with the assessment and discharge plan as above. Patient should contact her PCP or return to the emergency room for recurrent symptoms.
[2024-10-08] MEDS: HEPARIN SOD INJ 5000 UNIT/ML VIAL SC (13:39)
[2024-10-08] MEDS: guaiFENesin SYRUP 200 MG/10 ML UDC PO (13:39)
--- NOTE | 2024-10-08 17:02 | PC.NURSE ---
Discharging patient home, patient has oxygen equipment and everything needed for transport. Son brought oxygen equipment at bedside for transport home. Called Dr. Rojo because consulted, but did not answer. Called Dr. Vang and said ok for patient to just follow up with primary care physician. Dr. Ly number given to patient in case needs to call to make an appointment. Son was not able to pickle processor budesonide prescription. Notified Dr. Vang about prescription not being able to pickle processor. Ok to still discharge and new order for prescription sent for patient to pickle processor in the morning. Patient verbalized feels safe to discharge and has no further questions.
== END 2024-10-08 17:20 | disposition home or self-care (01) | DRG 202 ==
LOC: SERX 13:50 → SERHOLD 14:01 → S3EX 21:03 → S3SX 10-06 16:26
PROVIDERS: Student in an Organized Health Care Education/Training Program; Admitting Provider Internal Medicine; Emergency Provider Emergency Medicine; PCP Family Medicine; Visit Provider Internal Medicine
DX: J45.901 Unspecified asthma with (acute) exacerbation (principal); I50.32 Chronic diastolic (congestive) heart failure; J20.9 Acute bronchitis, unspecified; M81.0 Age-related osteoporosis without current pathological fracture; L40.9 Psoriasis, unspecified; L30.9 Dermatitis, unspecified; M79.89 Other specified soft tissue disorders; E86.9 Volume depletion, unspecified; R00.0 Tachycardia, unspecified; I27.20 Pulmonary hypertension, unspecified; I34.0 Nonrheumatic mitral (valve) insufficiency; Z96.649 Presence of unspecified artificial hip joint; Z85.3 Personal history of malignant neoplasm of breast; Z79.52 Long term (current) use of systemic steroids; Z90.13 Acquired absence of bilateral breasts and nipples; Z88.2 Allergy status to sulfonamides; Z87.891 Personal history of nicotine dependence; Z91.013 Allergy to seafood; Z90.49 Acquired absence of other specified parts of digestive tract; Z11.52 Encounter for screening for COVID-19
CPT/HCPCS: 36415; 36600; 71045; 80053; 80061; 81001; 82803; 83735; 83880; 84443; 84484; 85025; 85379; 87040; 87205; 87400; 87811; 93005; 93225; 93306; 94640; 94644; 94664; 94667; 96365; 96367; 96372; 96375; 99285; J0295; J0456; J1643; J2919; J3475; J7050; J7512; A9270

== ENCOUNTER 2025-01-22 07:15 | Emergency (ER) | payer MEDICARE, SELFPAY ==
[2025-01-22] VITALS (10 sets, daily range): BP systolic 125–152; BP diastolic 73–91; PULSE 88–110; RESP 16–26; TEMP 36.1–36.7; O2SAT 92–100; BMI 22.8
--- NOTE | 2025-01-22 07:22 | EKG_ITS ---
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
--- NOTE | 2025-01-22 07:42 | EDNOTE_ITS ---
ED SOB =RME/HPI General Chief Complaint: Shortness of Breath/Dyspnea Stated Complaint: SOB Time Seen by Provider: 01/22/25 07:45 Arrival date/time: 01/22/25 07:15 RME / HPI RME / HPI Narrative: DR. CHAIREZ MAIN ED EVALUATION: 79 year old female with past medical history significant for asthma presents to the Emergency Department [facility] with complaint of shortness of breath worsening for the last 3 days. Denies any chest pain or other symptoms at this time. Patient takes prednisode at home and has been on it for the past 2 weeks, last took 40 mg yesterday. Patient has an albuterol inhaler and took more than 10 puffs yesterday; also she has a nebulizer machine and she had x4 treatments at home yesterday. She states she also was prescribed BREO by her lens dotter, last used was 3-4 weeks. No antibiotics. Home oxygen but only uses when needed. Patient denies any tobacco, alcohol, or substance use. Related Data Home Medications ?Medication ?Instructions ?Recorded ?Confirmed fluticasone propionate 45 2 puff inhalation BID 10/03/24 mcg-salmeterol 21 mcg/actuation HFA inhaler (Advair HFA) fexofenadine 60 mg tablet (Sharon 60 mg PO BID 10/03/24 Allergy) metoprolol succinate 25 mg 25 mg PO QDAY 05/02/1809/07 tablet,extended release 24 hr Previous Rx's ?Medication ?Instructions ?Recorded fluticasone propionate 115 2 puff inhalation BID #12 g christine 10/05/24 mcg-salmeterol 21 mcg/actuation HFA inhaler (Advair HFA) ipratropium 0.5 mg-albuterol 3 mg 3 ml inhalation Q6H PRN shortness 10/05/24 (2.5 mg base)/3 mL nebulization of breath or wheezing #180 mL soln methylprednisolone 4 mg tablets in 4 mg PO QDAY #21 ta bs 10/05/24 a dose pack (Medrol (Lobo)) prednisolone 5 mg tablet 10 mg (2 x 5 mg) PO QDAY #60 tabs 10/07/24 budesonide 0.5 mg/2 mL suspension 0.5 mg (2 mL) inhala tion QDAY #60 10/08/24 for nebulization mL Allergies Allergy/AdvReac Type Severity Reaction Status Date / Time shellfish derived Allergy Severe ITCHING,DROP Verified 05/02/18 13:31 IN BP Sulfa (Sulfonamide Allergy Severe HIVES AND Verified 05/02/18 13:31 Antibiotics) SWELLING Review of Systems Review of Systems Systems Reviewed: All systems reviewed, normal except as documented Narrative Review of Systems: GEN: No fever, no chills, no weight loss EYES: No discharge, no visual changes, no pain HEENT: No ear pain, no congestion, no sore throat PULM: + shortness of breath, no cough, no congestion CV: No chest pain, no dyspnea on exertion, no palpitations GI: No nausea, no vomiting, no diarrhea, no pain, no constipation : No frequency, no urgency and no dysuria MUSC/SKEL: No joint pain, no back pain SKIN: No rash PSYCH: No hallucinations, no depression HEME/LYMPH: No easy bleeding or bruising tendencies NEURO: No weakness, no headache Past Medical History Past Medical History NEUROLOGIC: Positive Neurological Disorders and Migraine CARDIAC: Positive Cardiac Arrhythmia and Hypertension RESPIRATORY: Positive Asthma GASTROINTESTINAL: Positive Gastrointestinal Disorders and Diverticulosis REPRODUCTIVE: Positive Breast Cancer (Bilateral) and Previous Pregnancies (3) MUSCULOSKELETAL: Positive Musculoskeletal Disorders, Arthritis and Osteoporosis HEMATOLOGIC: Positive Blood Disorders and Clotting Problems OTHER HISTORY: Positive Hospitalization, Anesthesia Reactions (post op nausea), Chicken Pox, Measles, Mumps, Rubella (Setswana Measles) and Breast Cancer (Bilateral) Family History FAMILY HISTORY: Positive Family Cancer (father-prostate) Surgical History SURGICAL: Positive Joint Replacement (right hip), Arthroscopy and Mastectomy (bilateral) Social History SMOKING STATUS: Never smoker SUBSTANCE USE: does not use ALCOHOL: Never ED Exam Narrative Physical exam: GENERAL APPEARANCE: AxOx4, generally well-appearing, mild tachypnea speaking 5-7 word sentences HEENT: NC, AT. MMM. EOMI, clear conjunctiva, oropharynx clear. NECK: Supple without lymphadenopathy. No stiffness or restricted ROM. HEART: Normal rate and regular rhythm, normal S1/S1, no m/r/g LUNGS: mild tachypnea; bo expiratory wheezing and early inspiratory wheezing; coarse rhonchi throughout ABDOMEN: Soft, nontender, nondistended with good bowel sounds heard. BACK: No midline C/T/L spine pain or deformity, No CVAT, no obvious deformity. EXTREMITIES: Without cyanosis, clubbing or edema. MUSCULOSKELETAL: FROM of all major joints, no chest tenderness NEUROLOGICAL: Grossly nonfocal. Alert and oriented, moving all 4 extremities. CN not formally tested but appear grossly intact. Observed to ambulate with normal gait. Skin: Warm and dry without any rash. Course Quality Measures none Orders Category Date Time Status EKG (ED ONLY) *Do not use* NOW Care 01/22/25 07:22 Completed EKG (ED Only) Stat Exams 01/22/25 07:22 Draft BMP [Basic Metabolic Panel] Stat Lab 01/22/25 12:11 Completed ALBUTEROL RT 0.5ml [Proventil Rt 0.5ml] Med 01/22/25 07:43 Discontinued 10 mg INH X1 ONE ALBUTEROL RT 0.5ml [Proventil Rt 0.5ml] Med 01/22/25 09:53 Discontinued 2.5 mg INH X1 ONE Potassium Chloride [K-Dur] Med 01/22/25 14:12 Discontinued 20 meq PO X1 ONE Sodium Chloride Rt Violet 0.9% [NS Rt Violet 0.9%] Med 01/22/25 07:43 Active 3 ml INH PRN PRN Sodium Chloride Rt Violet 0.9% [NS Rt Violet 0.9%] Med 01/22/25 09:53 Discontinued 3 ml INH PRN PRN predniSONE Med 01/22/25 07:43 Discontinued 60 mg PO X1 ONE Vital Signs Vital signs: Vital Signs Temperature 96.9 F 01/22/25 07:22 Pulse Rate 96 01/22/25 07:22 Respiratory Rate 18 01/22/25 07:22 Blood Pressure 152/91 H 01/22/25 07:22 Pulse Oximetry (%) 100 01/22/25 07:22 Oxygen Delivery Method Nasal Cannula 01/22/25 07:22 Oxygen Flow Rate 6 01/22/25 07:22 Procedures -ED EKG Interpretation #1: Date of EK01/22/25 Time of EK: Rate: 112 Interpretation: Interpreted by me Additional EKG comment: sinus tachycardia, rate 112, no acute ST-T wave changes Shortness of Breath / Dyspnea MDM Narrative MDM Narrative:: IIsatu am scribing for and in the presence of Dr. Chairez. Patient data External records reviewed:: EMS form Clinical information provided by:: patient and EMS Social determinants that could affect healthcare access:: none Patient has the following chronic illnesses:: Asthma How is presenting disease/condition affected by chronic disease/condition?: exacerbated by Evaluation data The following diagnostics were reviewed and interpreted by me:: lab results and EKG tracing(s) Lab and/or radiology exams considered but not ordered:: none Interpretation Summary: Potassium 3.3; will give potassium then discharge. Medications / Prescriptions Medications or Prescriptions considered but not ordered:: none Medication administrations:: Medication Administration History Sodium Chloride (Sodium Chloride Rt Violet 0.9% 3 Ml Nebu) 3 ml INH PRN PRN PRN Reason: SOLN Stop: 02/21/25 07:42 Last Admin: 01/22/25 10:06 Dose: 3 ml Documented By: [facility] Discontinued Medications Albuterol (Albuterol Rt 2.5 Mg/0.5 Ml Nebu) 10 mg INH X1 ONE Stop: 01/22/25 07:44 Last Admin: 01/22/25 07:53 Dose: 10 mg Documented By: [facility] Albuterol (Albuterol Rt 2.5 Mg/0.5 Ml Nebu) 2.5 mg INH X1 ONE Stop: 01/22/25 09:54 Last Admin: 01/22/25 10:07 Dose: 2.5 mg Documented By: [facility] Potassium Chloride (Potassium Chloride 20 Meq Tabcr) 20 meq PO X1 ONE Stop: 01/22/25 14:13 Last Admin: 01/22/25 14:35 Dose: 20 meq Documented By: MALISSA Prednisone (Prednisone 20 Mg Tablet) 60 mg PO X1 ONE Stop: 01/22/25 07:44 Last Admin: 01/22/25 07:50 Dose: 60 mg Documented By: MALISSA Sodium Chloride (Sodium Chloride Rt Violet 0.9% 3 Ml Nebu) 3 ml INH PRN PRN PRN Reason: SOLN Stop: 02/21/25 09:52 see above Consultations Consultation(s) initiated? (list below): No Diagnosis Shortness of Breath Differential Diagnosis: acute exacerbation of chronic obstructive airways disease, community acquired pneumonia and asthma with exacerbation Most likely diagnosis given after review of the tests above:: Acute asthma exacerbation Admission Indicated Admission indicated?: not indicated Admission Request Was there a request for admission?: No Disposition Plan Disposition Plan: Discharge Discharge Attestation Discharge Attestation: The patient and all family members were given an opportunity to ask questions and understood the discharge instructions. Discharge instructions specifically effects, indications for sooner follow up or return to the emergency department, and the expected course of current diagnosis. Patient condition: Stable Critical Care Time Critical Care Time Critical Care Time: Yes Total Critical Care Time (min.): 45 Attestation: The high probability of sudden, clinically significant deterioration in the patient?s condition required the highest level of my preparedness to intervene urgently. The services I provided to this patient were to treat and/or prevent clinically significant deterioration. Services included the following: chart data review, reviewing nursing notes and/or old charts, documentation time, healthcare management consultant collaboration regarding findings and treatment options, medication orders and management, direct patient care, vital sign assessments and ordering, interpreting and reviewing diagnostic studies and lab tests. Aggregate critical care time includes only time during which I was engaged in work directly related to the patient?s care, as described above, whether at bedside or elsewhere in the Emergency Department. It did not include time spent performing other reported procedures or the services of residents, students, nurses or physician assistants. Discharge Plan Plan Patient Disposition: HOME (Self Care) Prescriptions/Referrals Prescriptions/Med Rec: No Action fluticasone propion-salmeterol [Advair HFA] 45-21 mcg/actuation Hfa Aerosol Inhaler 2 puff INHALATION BID fexofenadine [Sharon Allergy] 60 mg Tablet 60 mg PO BID metoprolol succinate 25 mg Tablet Extended Release 24 Hr 25 mg PO QDAY ipratropium-albuterol 0.5 mg-3 mg(2.5 mg base)/3 mL solution for nebulization 3 ml inhalation Q6H PRN (Reason: shortness of breath or wheezing) Qty: 180 0RF fluticasone propion-salmeterol [Advair HFA] 115-21 mcg/actuation HFA aerosol inhaler 2 puff inhalation BID Qty: 12 0RF Rx Instructions: administer with spacer methylprednisolone [Medrol (Lobo)] 4 mg tablets,dose pack 4 mg PO QDAY Qty: 21 0RF prednisolone 5 mg tablet 10 mg PO QDAY Qty: 60 0RF budesonide 0.5 mg/2 mL suspension for nebulization 0.5 mg inhalation QDAY Qty: 60 0RF Referrals: Quinton Ochoa MD [Primary Care Provider] - In 1 week Problem List Clinical Impression: Acute asthma exacerbation Patient/Caregiver Discharge Instructions Education Materials: ED Asthma, Acute (Adult) Additional Instructions: Keep your oxygen on at your setting of 2 L for the next 3 days. Also in these next 3 days give yourself 1 treatment from your albuterol nebulizer every 6 hours while awake. Follow-up with your primary care doctor in 3 to 5 days for recheck. You can return to the emergency department sooner if symptoms worsen or if you notice any new, concerning issues Print Language: Hong Konger Stand Alone Forms: Shelia Award Info., Patient Portal Info Letter
[2025-01-22] MEDS: predniSONE 20 MG TABLET 60 MG PO (07:50)
[2025-01-22] MEDS: ALBUTEROL RT 2.5 MG/0.5 ML NEBU 10 MG INH (07:53)
[2025-01-22] MEDS: SODIUM CHLORIDE RT SOL 0.9% 3 ML NEBU INH (10:06)
[2025-01-22] MEDS: ALBUTEROL RT 2.5 MG/0.5 ML NEBU INH (10:07)
[2025-01-22 13:17] LABS: Anion Gap 12 (7-16); BUN/Creatinine Ratio 13 Ratio (12-20); Blood Urea Nitrogen 8 mg/dL (9-23); Calcium 8.7 mg/dL (8.3-10.6); Carbon Dioxide 27.8 mMol/L (20.0-31.0); Chloride 100 mMol/L (98-107); Creatinine (Component) 0.6 mg/dL (0.6-1.3); Estimated Creatinine Clearance 61.1 mL/min (>60); Glucose 128 mg/dL (74-106); Osmolality,Calculated 279 (275-295); Potassium 3.3 mMol/L (3.4-5.1); Sodium 140 mMol/L (136-145); eGFR > 60 See Note
[2025-01-22] MEDS: POTASSIUM CHLORIDE 20 mEq TABCR PO (14:35)
== END 2025-01-22 14:42 | disposition home or self-care (01) ==
PROVIDERS: Emergency Provider Emergency Medicine; PCP Family Medicine
DX: J45.901 Unspecified asthma with (acute) exacerbation (principal); R00.0 Tachycardia, unspecified; I10 Essential (primary) hypertension; Z79.51 Long term (current) use of inhaled steroids
CPT/HCPCS: 36415; 80048; 93005; 94640; 94644; 99284; J7512; A9270

== ENCOUNTER 2025-01-24 08:37 | Inpatient (IN) | payer MEDICARE, SELFPAY ==
[2025-01-24] VITALS (10 sets, daily range): BP systolic 127–151; BP diastolic 86–106; PULSE 96–128; RESP 18–92; TEMP 36.4–36.8; O2SAT 93–100; BMI 22.8
--- NOTE | 2025-01-24 08:43 | EKG_ITS ---
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
--- NOTE | 2025-01-24 08:44 | EDNOTE_ITS ---
ED General RME/HPI General Chief complaint: Asthma Stated complaint: SHORTNESS OF BREATH Time Seen by Provider: 01/24/25 08:43 Arrival date/time: 01/24/25 08:37 RME / HPI RME / HPI narrative: DR. URBANO MAIN ED EVALUATION: 79 year old female with past medical history significant for asthma presents to the Emergency Department [facility] with complaint of shortness of breath with wheezing since yesterday and worsening today. Patient had x3 albuterol treatments at home and got x2 albuterol treatments prior to arrival by EMS. Per EMS, patient satting at 98% after treatments and sinus tachycardia on the monitor, at 106. She reports smoking cigarettes 6 months in college only. Other PMHx includes osteoarthritis. Related Data Home Medications ?Medication ?Instructions ?Recorded ?Confirmed fluticasone propionate 45 2 puff inhalation BID 10/03/24 mcg-salmeterol 21 mcg/actuation HFA inhaler (Advair HFA) fexofenadine 60 mg tablet (Sharon 60 mg PO BID 10/03/24 Allergy) metoprolol succinate 25 mg 25 mg PO QDAY 05/02/1809/07 tablet,extended release 24 hr Previous Rx's ?Medication ?Instructions ?Recorded fluticasone propionate 115 2 puff inhalation BID #12 g christine 10/05/24 mcg-salmeterol 21 mcg/actuation HFA inhaler (Advair HFA) ipratropium 0.5 mg-albuterol 3 mg 3 ml inhalation Q6H PRN shortness 10/05/24 (2.5 mg base)/3 mL nebulization of breath or wheezing #180 mL soln methylprednisolone 4 mg tablets in 4 mg PO QDAY #21 ta bs 10/05/24 a dose pack (Medrol (Lobo)) prednisolone 5 mg tablet 10 mg (2 x 5 mg) PO QDAY #60 tabs 10/07/24 budesonide 0.5 mg/2 mL suspension 0.5 mg (2 mL) inhala tion QDAY #60 10/08/24 for nebulization mL Allergies Allergy/AdvReac Type Severity Reaction Status Date / Time shellfish derived Allergy Severe ITCHING,DROP Verified 05/02/18 13:31 IN BP Sulfa (Sulfonamide Allergy Severe HIVES AND Verified 05/02/18 13:31 Antibiotics) SWELLING Review of Systems Review of Systems Systems Reviewed: All systems reviewed, normal except as documented Narrative Review of Systems: Constitutional: DENIES: fevers; Eyes: DENIES: loss of vision; Head/Ear/Nose: DENIES: loss of hearing. Throat: DENIES: dysphagia. Cardiovascular: DENIES: chest pain, dyspnea, or syncope. Respiratory: POSITIVES: shortness of breath with wheezing Gastrointestinal: DENIES: rectal bleeding or melena. Genitourinary: DENIES: dysuria (painful or difficult urination); Musculoskeletal: DENIES: arthralgia (pain in a joint); Skin: DENIES: rash; Neurological: DENIES: loss of function or movement; Psychiatric: DENIES: recent major life stressor, emotional problem, illicit drug use or abuse; Endocrinology: DENIES: weight change,; Hematologic/Lymphatic: DENIES: abnormal bruising. Allergic/Immunologic: DENIES: urticaria (hives). Past Medical History Past Medical History NEUROLOGIC: Positive Neurological Disorders and Migraine CARDIAC: Positive Cardiac Disorders, Cardiac Arrhythmia and Hypertension RESPIRATORY: Positive Asthma GASTROINTESTINAL: Positive Gastrointestinal Disorders and Diverticulosis REPRODUCTIVE: Positive Breast Cancer (Bilateral) and Previous Pregnancies (3) MUSCULOSKELETAL: Positive Musculoskeletal Disorders, Arthritis and Osteoporosis HEMATOLOGIC: Positive Blood Disorders and Clotting Problems OTHER HISTORY: Positive Hospitalization, Anesthesia Reactions (post op nausea), Chicken Pox, Measles, Mumps, Rubella ([place] Measles) and Breast Cancer (Bilateral) Family History FAMILY HISTORY: Positive Family Cancer (father-prostate) Surgical History SURGICAL: Positive Joint Replacement (right hip), Arthroscopy and Mastectomy (bilateral) Social History SMOKING STATUS: Former smoker SUBSTANCE USE: does not use ALCOHOL: Never ED Exam Narrative Physical exam: Physical Exam: General: The vital signs were reviewed. The patient is non-toxic, in no apparent distress and appears healthy with a patent airway, no respiratory distress and has no apparent circulatory problems. Head & Scalp: Normocephalic, atraumatic. Face: Appears normal and is without lesions, deformity. Ears: Left external pinna appears normal. Right external pinna appears normal. Eyes: The sclera is anicteric. No obvious photophobia. The Left and Right Orbit/Lid/Conjunctiva appears normal without swelling, discoloration or injection. Nose: The nose is without deformity, discharge or tenderness; Throat: Appears normal. The mucous membranes are pink and moist without exudates, redness or mass seen. The tongue appears normal. Neck: The neck is supple and no apparent mass or adenopathy. Chest: The chest wall is normal in size and symmetry and has no chest wall ten derness or crepitus. The patient displays normal ventilator effort without retractions, accessory muscle use and has bilateral decreased air movement with diffuse wheezes in all lung nayak. Cardiovascular: Regular rate and rhythm; No murmurs, rubs, or gallops; Gastrointestinal: The abdomen appears normal. No obvious hernias or mass. The abdomen is soft and benign, non-distended, with no pain, no guarding and no rebound tenderness. Bowel sounds are present and normal sounding. No CVA tenderness. Genitourinary: Back/Spine: Normal inspection Extremities/Musculoskeletal/lymphatic: The bilateral upper and lower extremities are warm. There is no evidence of arterial insufficiency. There is no evidence of venous insufficiency/edema. The patient spontaneously moves bilateral upper and lower extremities with no pain and no limitation of movement. There is no apparent, injury or trauma. Skin: The skin is warm, dry and intact. No rashes. No petechia. No purpura. No abnormal bruising. The color is appropriate with no cyanosis. Mental status/Psychiatric: Mental status is appropriate for age. The patient has no apparent delusions, visual hallucinations, no apparent audible hallucinations. The patient has no apparent suicidal thoughts/ideation and no apparent homicidal thoughts/ideation. Neurological: The patient is awake, alert, interactive, cordial, cooperative and is oriented to name and situation. The patient follows commands and answers historical question with no impairment. There is no visual disturbance apparent. The pupils are equal and reactive bilaterally with normal eye movements and no diplopia The bilateral upper and lower extremities have normal strength, normal range of motion and normal functioning. The gait, station and balance not tested due to acuity Course Quality Measures none Orders Category Date Time Status Tong Carrier STAT Care 01/24/25 08:43 Active Continuous Pulse Oximetry STAT Care 01/24/25 08:43 Completed EKG (ED ONLY) *Do not use* NOW Care 01/24/25 08:43 Completed Insert IV NOW Care 01/24/25 08:43 Active Miscellaneous Nursing Order NOW Care 01/24/25 08:43 Active NPO STAT Care 01/24/25 08:43 Active EKG (ED Only) Stat Exams 01/24/25 08:43 Draft XR chest 1V portable Stat Exams 01/24/25 08:43 Completed B-Type Natriuretic Peptide Stat Lab 01/24/25 09:05 Completed CBC Stat Lab 01/24/25 09:05 Completed Comprehensive Metabolic Panel Stat Lab 01/24/25 09:05 Completed Lactate (Lactic Acid) Stat Lab 01/24/25 09:05 Completed Magnesium Stat Lab 01/24/25 09:05 Completed Troponin I Stat Lab 01/24/25 09:05 Completed Urinalysis Stat Lab 01/24/25 08:43 Ordered Venous Blood Gas Stat Lab 01/24/25 09:05 Completed ALBUTEROL RT 0.5ml [Proventil Rt 0.5ml] Med 01/24/25 08:43 Discontinued 10 mg INH X1 ONE Ipratropium [place] Rt Violet [Atrovent Rt Violet] Med 01/24/25 08:43 Discontinued 0.5 mg INH X1 ONE MethylPREDNISolone.* [SoluMEDROL Inj] Med 01/24/25 08:43 Discontinued 125 mg IVP X1 ONE Oxygen Delivery NOW RT 01/24/25 08:43 Active Vital Signs Vital signs: Vital Signs Temperature 97.9 F 01/24/25 08:51 Pulse Rate 96 01/24/25 08:51 Respiratory Rate 22 H 01/24/25 08:51 Blood Pressure 151/98 H 01/24/25 08:51 Pulse Oximetry (%) 94 L 01/24/25 08:51 Oxygen Delivery Method Room Air 01/24/25 08:51 Critical Care Time Critical Care Time Critical Care Time: Yes Total Critical Care Time (min.): 45 Attestation: The high probability of sudden, clinically significant deterioration in the patient?s condition required the highest level of my preparedness to intervene urgently. The services I provided to this patient were to treat and/or prevent clinically significant deterioration. Services included the following: chart data review, reviewing nursing notes and/or old charts, documentation time, data power consultant collaboration regarding findings and treatment options, medication orders and management, direct patient care, vital sign assessments and ordering, interpreting and reviewing diagnostic studies and lab tests. Aggregate critical care time includes only time during which I was engaged in work directly related to the patient?s care, as described above, whether at bedside or elsewhere in the Emergency Department. It did not include time spent performing other reported procedures or the services of residents, students, nurses or physician assistants. Discharge Plan Plan Patient Disposition: Admit Acute Care w/in Hospital Discharge Disposition comment: Hospitalist to admit Problem List Clinical Impression: Asthmaticus, status, Acute respiratory distress [facility] Narrative [facility] hospital course: I, Isatudiane Barnes, navin scribing for and in the presence of Dr. Urbano. Patient comes in with a 1 day history of worsening wheezing with a history of asthma took some treatments at home x 3 yesterday and today EMS picked her up and she had 2 more treatments and route and on arrival she was still wheezing with fair to minimal air movement but she is speaking full sentences. No retractions. Will give continuous nebs and reevaluate this patient. Got initial continuous nebs ordered 10 mg albuterol and then was observed for a good hour or 2 and she was still wheezing although slightly improved close she has status asthmaticus. Medical workup reveals white count of 13,000 VBG with a pH of 7.3 creased PaCO2 of 66 with obvious CO2 retention but no old to compare to. Electrolytes are within normal limits other than CO2 is elevated 33.2 BUN 12 creatinine 0.7 glucose was 101 lactic acid 1.0 transaminases are basically normal. Troponin BNP was negative Chest x-ray was clear with some mild cardiomegaly but no infiltration no effusion normal parenchymal appearance. Since patient has status asthmaticus she was admitted hospitalist was called.. Clinical Information Provided by patient Medical Records Reviewed [facility] and EMS Meds/Rx Considered, not Ordered None Labs/Rad/Tests considered, not Ordered None Chronic Illness/Social Conditions Add or document further as needed: asthma and osteoarthritis. She reports smoking cigarettes 6 months in college only. EKG Interpretation EKG #1: Date/time of EK01/24/25 0858 am EKG interpretation: Interpreted by me: sinus rhythm, rate 85, no STEMI Lab Interpretation Labs: see narrative above Imaging Imaging interpretation: see narrative above Radiology reports / interpretation(s): Procedure(s): XR chest 1V portable Accession Number(s): [id number] cc: Te Urbano MD; Ricardo Eubanks MD; Quinton Ochoa MD~ Examination: AP chest single view TECHNIQUE: Portable sitting AP chest single view Date and time: January 24, 2025 0905 hours Comparison October 03, 2024. INDICATIONS: Coughing shortness of breath today. FINDINGS: Mild prominence left ventricle No pneumonia or pulmonary edema Prominent osteopenia IMPRESSION: Mild cardiomegaly No pneumonia or pulmonary edema Dictated By: Ricardo Eubanks MD Medication Administration(s) Medication Administration History Acetaminophen (Acetaminophen 325 Mg Tablet) 650 mg PO Q6H PRN PRN Reason: Fever >101.5 Stop: 02/23/25 14:16 Acetaminophen (Acetaminophen 500 Mg Tablet) 1,000 mg PO Q6H PRN PRN Reason: PAIN SCALE 1-3 (mild Stop: 02/23/25 14:16 Azithromycin (Azithromycin 250 Mg Tablet) 500 mg PO QDAY [facility] Stop: 01/31/25 14:29 Last Admin: 01/24/25 14:47 Dose: 500 mg Documented By: ER Docusate Sodium (Docusate Sod 100 Mg Capsule) 100 mg PO QDAY [facility]; Protocol Stop: 02/24/25 08:59 Enoxaparin Sodium (Enoxaparin Sod Inj 40 Mg/0.4 Ml Syringe) 40 mg SC QDAY [facility] Stop: 02/08/25 08:59 Ipratropium [place] (Ipratropium Rt 0.5 Mg/ 2.5 Ml Nebu) 0.5 mg INH Q6HRRT [facility] Stop: 02/23/25 18:59 Ipratropium [place] (Ipratropium Rt 0.5 Mg/ 2.5 Ml Nebu) 0.5 mg INH Q4HR PRN PRN Reason: SHORTNESS OF BREATH Stop: 02/23/25 14:35 Levalbuterol HCl (Levalbuterol Rt 1.25 Mg/0.5 Ml Nebu) 1.25 mg INH Q6HRRT [facility] Stop: 02/23/25 18:59 Levalbuterol HCl (Levalbuterol Rt 1.25 Mg/0.5 Ml Nebu) 1.25 mg INH Q4HR PRN PRN Reason: WHEEZING Stop: 02/23/25 14:35 Methylprednisolone Sodium Succinate (Methylprednisolone Sod Succ 62.5 Mg/Ml 2ml Vial) 125 mg IVP BID [facility] Stop: 01/31/25 20:59 Ondansetron HCl (Ondansetron Inj 2 Mg/Ml Inj 2 Ml) 4 mg IV Q6H PRN; Protocol PRN Reason: NAUSEA OR VOMITING Stop: 02/23/25 14:16 Sennosides (Senna Tablet) 1 tab PO QDAY [facility]ON[facility]; Protocol Stop: 02/24/25 08:59 Sodium Chloride (Sodium Chloride Rt Violet 0.9% 3 Ml Nebu) 3 ml INH PRN PRN PRN Reason: SOLN Stop: 02/23/25 14:20 Sodium Chloride (Sodium Chloride Rt Violet 0.9% 3 Ml Nebu) 3 ml INH PRN PRN PRN Reason: SOLN Stop: 02/23/25 14:35 Discontinued Medications Albuterol (Albuterol Rt 2.5 Mg/0.5 Ml Nebu) 10 mg INH X1 ONE Stop: 01/24/25 08:44 Last Admin: 01/24/25 09:22 Dose: 10 mg Documented By: AA Ipratropium [place] (Ipratropium Rt 0.5 Mg/ 2.5 Ml Nebu) 0.5 mg INH X1 ONE Stop: 01/24/25 08:44 Last Admin: 01/24/25 09:22 Dose: 0.5 mg Documented By: AA Methylprednisolone Sodium Succinate (Methylprednisolone Sod Succ 62.5 Mg/Ml 2ml Vial) 125 mg IVP X1 ONE Stop: 01/24/25 08:44 Last Admin: 01/24/25 09:08 Dose: 125 mg Documented By: ER Methylprednisolone Sodium Succinate (Methylprednisolone Sod Succ 62.5 Mg/Ml 2ml Vial) 125 mg IVP Q6HR [facility] Stop: 01/31/25 17:59 Methylprednisolone Sodium Succinate (Methylprednisolone Sod Succ 62.5 Mg/Ml 2ml Vial) 125 mg IVP Q8HR [facility] Stop: 01/31/25 21:59 Sodium Chloride (Sodium Chloride Rt 10% 15 Ml Nebu) 5 ml INH X1 ONE Stop: 01/24/25 14:42 Last Admin: 01/24/25 16:17 Dose: Not Given Documented By: DANIELA Non-Admin Reason: Other, see note Consultations/Discussions re: Management Consult #1: Date/time: 01/24/25 1:49 pm Physician, specialty, service, details: Discussed test HPI, PMHx, lab, radiology results and/or management with resident Dr. García working with the hospitalist. Will admit for further evaluation and management. Accepts patient for admission. Diagnosis Differential diagnosis: asthma exacerbation, PE, pneumonia Most likely dx, and/or detailed dx discussion: Asthmaticus, status Acute respiratory distress Dispositon Disposition: Admit Disposition comments: Hospitalist admit for status asthmaticus.
--- NOTE | 2025-01-24 09:01 | PC.NURSE ---
BIBA due to SOB since last night. Patient has hx of Asthma, wheezing at this time. Paient is A&O X4. POC updated patient verbalized understanding.
[2025-01-24] MEDS: MethylPREDNISolone SOD SUCC 62.5 MG/ML 2ML VIAL 125 MG IVP ×2 (09:08→20:44)
[2025-01-24 09:17] LABS: Base Excess, Venous 6 (-3-3); O2 Saturation, Venous 63 % (96-97); PCO2, Venous 66 mmHg (36-56); PO2, Venous 35 mmHg (15-58); pH, Venous 7.33 (7.33-7.66)
[2025-01-24] MEDS: ALBUTEROL RT 2.5 MG/0.5 ML NEBU 10 MG INH (09:22)
[2025-01-24] MEDS: IPRATROPIUM RT 0.5 MG/ 2.5 ML NEBU INH ×2 (09:22→18:45)
[2025-01-24 09:27] LABS: Basophils # (Auto) 0.2 Thou/mm3 (0.0-0.2); Basophils % (Auto) 2 % (0-2.5); Eosinophils # (Auto) 0.8 Thou/mm3 (0.0-0.5); Eosinophils % (Auto) 7 % (0-10); Hematocrit 44.2 % (36.0-46.0); Hemoglobin 14.9 g/dL (12.0-16.0); Immature Granulocytes % (Auto) 0 % (0-0); Immature Granulocytes Auto 0.03 Thou/mm3 (0.00-0.00); Lymphocytes # (Auto) 1.8 Thou/mm3 (1.0-4.8); Lymphocytes % (Auto) 14 % (10-50); Mean Corpuscular HGB Conc 33.7 g/dl (31.0-37.0); Mean Corpuscular Volume 86 fL (80-100); Monocytes # (Auto) 1.1 Thou/mm3 (0.0-0.8); Monocytes % (Auto) 9 % (0-12); Neutrophils % (Auto) 70 % (37-80); Nucleated Red Blood Cell % 0 /100 WBC (0); Platelet Count 354 Thou/mm3 (140-440); RDW Standard Deviation 43.7 fL (36.4-46.3); Red Blood Count 5.13 Miln/mm3 (4.00-5.20)
[2025-01-24 09:41] LABS: Alanine Aminotransferase 33 U/L (10-49); Albumin, Serum 4.4 gm/dL (3.4-4.8); Albumin/Globulin Ratio 1.8 (1.2-2.2); Alkaline Phosphatase 63 U/L (46-116); Anion Gap 10 (7-16); Aspartate Amino Transferase 69 U/L (0-34); BUN/Creatinine Ratio 17 Ratio (12-20); Bilirubin,Total 0.9 mg/dL (0.3-1.2); Blood Urea Nitrogen 12 mg/dL (9-23); Calcium 8.8 mg/dL (8.3-10.6); Calcium (Corrected) 8.8 mg/dL (8.5-10.1); Carbon Dioxide 33.2 mMol/L (20.0-31.0); Chloride 98 mMol/L (98-107); Creatinine (Component) 0.7 mg/dL (0.6-1.3); Estimated Creatinine Clearance 52.4 mL/min (>60); Globulin 2.5 gm/dL (2.3-3.5); Glucose 101 mg/dL (74-106); Magnesium 2.2 mg/dL (1.6-2.6); Osmolality,Calculated 280 (275-295); Potassium 3.5 mMol/L (3.4-5.1); Sodium 141 mMol/L (136-145); Total Protein 6.9 gm/dL (5.7-8.2); Troponin I < 0.020 ng/mL (0.0-0.045); eGFR > 60 See Note
[2025-01-24 09:53] LABS: B-Type Natriuretic Peptide 24 pg/mL (0-100)
--- NOTE | 2025-01-24 14:24 | PD.RESHP ---
Documentation for date of: 01/24/25 HPI History of Present Illness Chief complaint: Shortness of breath History of present illness: 79-year-old female with past medical history of asthma, breast cancer, osteoporosis, sinus arrhythmia is seen by Dr. Garza, eczema, psoriasis who came to the ED due to progressive shortness of breath for about 1 week. Patient states she started having some shortness of breath and saw DrNuris Was prescribed some medications however shortness of breath got worse and called a friend who told her to come to the ER. Patient does also endorse unable to lay flat and is reclined due to the shortness of breath. Patient denies fevers, chest pain, nausea, vomiting, abdominal pain, urinary changes, diarrhea. Patient will be admitted for acute bronchitis secondary to asthma exacerbation. ED course: ED vitals: 151/98, HR 96, RR 22, O2 sat 94% on room air. ED labs: Leukocytosis, elevated bicarb, AST 69, VBG shows some CO2 retention. In the ED patient was given Solu-Medrol 125 mg IV x 1, albuterol, ipratropium PMHx: As above SxHx: Bilateral mastectomy, hip replacement, cholecystectomy Social Hx: Smokes 6 months when she was in college, denies smoking, denies alcohol use, denies illicit drug use including THC FHx: Breast cancer Review of Systems Review of Systems Systems Reviewed: All systems reviewed, normal except as documented Narrative Review of Systems: All 12 systems reviewed and are normal unless otherwise specified in HPI Exam Vital Signs Temp Pulse Resp BP Pulse Ox O2 Del Method O2 Flow Rate 97.9 F 110 H 20 151/98 H 100 Room Air 4 01/24/25 08:51 01/24/25 09:28 01/24/25 09:28 01/24/25 08:51 01/24/25 09:28 01/24/25 08:51 01/24/25 09:28 Narrative Exam Physical Exam GENERAL: NAD, AAOx3, thin, frail HEENT: Moist mucosa. Eyes open, symmetrical, & clear CARDIO: Heart RRR, no obvious murmurs PULM: Coughing and dyspnea, bilateral wheezing GI: Abdomen soft, nondistended, no pain on palpation. BSx4 SKIN/MSK/EXT: Mild scabbed wound in the right lower extremity., no pain Results: Labs 01/25/25 05:20 01/25/25 05:20 Labs: Short CBC 01/24/25 Range/Units 09:05 WBC 13.0 H (3.6-11.0) Thou/mm3 Hgb 14.9 (12.0-16.0) g/dL Hct 44.2 (36.0-46.0) % Plt Count 354 (140-440) Thou/mm3 BMP 01/24/25 09:05 Sodium 141 Potassium 3.5 Chloride 98 Carbon Dioxide 33.2 H BUN 12 Creatinine 0.7 Glucose 101 Calcium 8.8 Cardiac Enzymes 01/24/25 Range/Units 09:05 Troponin I < 0.020 (0.0-0.045) ng/mL Liver Function 01/24/25 Range/Units 09:05 Total Bilirubin 0.9 (0.3-1.2) mg/dL AST 69 H (0-34) U/L ALT 33 (10-49) U/L Alkaline Phosphatase 63 (46-116) U/L Albumin 4.4 (3.4-4.8) gm/dL ABG Interpretation ABG results: 01/24/25 09:05 VBG pH 7.33 VBG pCO2 66 H VBG pO2 35 VBG Base Excess 6 H Quality Measures Quality Measures none Advance care planning discussed with:: patient Medications Home Medications and Allergies Home Medications ?Medication ?Instructions ?Recorded ?Confirmed ?Type fluticasone propionate 45 2 puff inhalation BID 12/27/17 01/25/25 History mcg-salmeterol 21 mcg/actuation HFA inhaler (Advair HFA) fexofenadine 60 mg tablet (Sharon 60 mg PO BID 05/02/18 01/25/25 History Allergy) metoprolol succinate 25 mg 25 mg PO QDAY 05/02/18 01/24/25 History tablet,extended release 24 hr amlodipine 2.5 mg tablet 2.5 mg PO 1XD 01/24/25 01/25/25 History clotrimazole-betamethasone 1 1 applic topical BID 01/24/25 01/24/25 History %-0.05 % topical cream prednisone 20 mg tablet 20 mg PO .COMPLEX 01/24/25 01/25/25 History Allergies Allergy/AdvReac Type Severity Reaction Status Date / Time shellfish derived Allergy Severe ITCHING,DROP Verified 05/02/18 13:31 IN BP Sulfa (Sulfonamide Allergy Severe HIVES AND Verified 05/02/18 13:31 Antibiotics) SWELLING Visit Medications Acetaminophen (Acetaminophen 325 Mg Tablet) 650 mg PO Q6H PRN PRN Reason: Fever >101.5 Stop: 02/23/25 14:16 Acetaminophen (Acetaminophen 500 Mg Tablet) 1,000 mg PO Q6H PRN PRN Reason: PAIN SCALE 1-3 (mild Stop: 02/23/25 14:16 Docusate Sodium (Docusate Sod 100 Mg Capsule) 100 mg PO QDAY [facility]; Protocol Stop: 02/24/25 08:59 Enoxaparin Sodium (Enoxaparin Sod Inj 40 Mg/0.4 Ml Syringe) 40 mg SC QDAY [facility] Stop: 02/08/25 08:59 Ondansetron HCl (Ondansetron Inj 2 Mg/Ml Inj 2 Ml) 4 mg IV Q6H PRN; Protocol PRN Reason: NAUSEA OR VOMITING Stop: 02/23/25 14:16 Sennosides (Senna Tablet) 1 tab PO QDAY [facility]; Protocol Stop: 02/24/25 08:59 Discontinued Medications Albuterol (Albuterol Rt 2.5 Mg/0.5 Ml Nebu) 10 mg INH X1 ONE Stop: 01/24/25 08:44 Last Admin: 01/24/25 09:22 Dose: 10 mg Ipratropium [place] (Ipratropium Rt 0.5 Mg/ 2.5 Ml Nebu) 0.5 mg INH X1 ONE Stop: 01/24/25 08:44 Last Admin: 01/24/25 09:22 Dose: 0.5 mg Methylprednisolone Sodium Succinate (Methylprednisolone Sod Succ 62.5 Mg/Ml 2ml Vial) 125 mg IVP X1 ONE Stop: 01/24/25 08:44 Last Admin: 01/24/25 09:08 Dose: 125 mg Assessment & Plan Assessment 79-year-old female with past medical history of asthma, sinus arrhythmia, eczema, psoriasis presented to the ED due to shortness of breath that was progressive for 1 week patient also reports orthopnea symptoms. Patient will be admitted for acute bronchitis secondary to asthma exacerbation. #Acute bronchitis #Asthma exacerbation For the past week he started developing shortness of breath and wheezing. 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 Rojo Patient does have bilateral leg swelling, no crackles though Echo done in september shows: Normal LV size, wall thickness. Estimated EF 65%. RV is normal in size and systolic function. Estimated RVSP, 41mmHg. RAP 5. Mild thickening of the MV leaflets with moderate 2+mitral regurgitation. 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 Stefani Naylor MD PGY-1 Plan 79-year-old female with multiple comorbidities including history of breast cancer, asthma and sinus arrhythmia follows up with outpatient cardiology who presented to the ER with complaints of shortness of breath found to have acute asthma exacerbation with significant wheezing. As of now, plan to continue breathing treatment, Solu-Medrol 125 mg twice daily and continue to monitor closely. Patient continues to require close telemetry monitoring as patient is at risk for respiratory compromise given significant wheezing on physical exam requiring IV Solu-Medrol therapy.I reviewed above note and agree with findings and plans. I have also personally examined the patient with medicine team and went over assessment and plan with medical team including paid intern and resident physician.
[2025-01-24] MEDS: AZITHROMYCIN 250 MG TABLET 500 MG PO (14:47)
--- NOTE | 2025-01-24 15:39 | PC.RT ---
Sputum sent to lab
[2025-01-24] MEDS: LEVALBUTEROL RT 1.25 MG/0.5 ML NEBU INH (18:45)
[2025-01-24 22:31] LABS: Collection Type, Urine Clean Catch; Squamous Epithelial Cell,Urine 0 /hpf (0-5)
[2025-01-24 22:52] LABS: Bilirubin,Urine Negative (Negative); Blood,Urine Negative (Negative); Clarity,Urine Clear (Clear/Hazy); Color,Urine Colorless (Lt Yel-Yel); Glucose, Urine Negative (Negative); Ketones,Urine Negative (Negative); Leukocyte Esterase,Urine Negative (Negative); Nitrite,Urine Negative (Negative); PH,Urine 6.5 (5.0-7.0); Protein,Urine Negative (Neg - Trace); RBC,Urine < 1 /hpf (0-3); Specific Gravity,Urine 1.006 (1.001-1.035); Urobilinogen,Urine Negative mg/dL (0.0-1.0); WBC,Urine < 1 /hpf (0-5)
[2025-01-25] VITALS (17 sets, daily range): BP systolic 110–152; BP diastolic 64–101; PULSE 86–135; RESP 15–32; TEMP 36.1–36.6; O2SAT 82–99
[2025-01-25] MEDS: IPRATROPIUM RT 0.5 MG/ 2.5 ML NEBU INH ×7 (00:57→22:54)
[2025-01-25] MEDS: LEVALBUTEROL RT 1.25 MG/0.5 ML NEBU INH ×7 (00:57→22:54)
[2025-01-25 05:47] LABS: Basophils % (Auto) 0 % (0-2.5); Eosinophils % (Auto) 0 % (0-10); Hematocrit 44.6 % (36.0-46.0); Hemoglobin 14.8 g/dL (12.0-16.0); Immature Granulocytes % (Auto) 1 % (0-0); Immature Granulocytes Auto 0.07 Thou/mm3 (0.00-0.00); Lymphocytes # (Auto) 0.7 Thou/mm3 (1.0-4.8); Lymphocytes % (Auto) 5 % (10-50); Mean Corpuscular HGB Conc 33.2 g/dl (31.0-37.0); Mean Corpuscular Hemoglobin 29.4 pg (25.0-35.0); Mean Corpuscular Volume 89 fL (80-100); Monocytes # (Auto) 0.3 Thou/mm3 (0.0-0.8); Monocytes % (Auto) 2 % (0-12); Neutrophils # (Auto) 11.6 Thou/mm3 (1.8-7.7); Neutrophils % (Auto) 92 % (37-80); Nucleated Red Blood Cell % 0 /100 WBC (0); Platelet Count 303 Thou/mm3 (140-440); RDW Standard Deviation 44.4 fL (36.4-46.3); Red Blood Count 5.03 Miln/mm3 (4.00-5.20); White Blood Count 12.6 Thou/mm3 (3.6-11.0)
[2025-01-25 06:18] LABS: Alanine Aminotransferase 27 U/L (10-49); Albumin, Serum 3.8 gm/dL (3.4-4.8); Albumin/Globulin Ratio 1.6 (1.2-2.2); Alkaline Phosphatase 54 U/L (46-116); Anion Gap 9 (7-16); Aspartate Amino Transferase 43 U/L (0-34); BUN/Creatinine Ratio 20 Ratio (12-20); Bilirubin,Total 0.7 mg/dL (0.3-1.2); Blood Urea Nitrogen 12 mg/dL (9-23); Calcium (Corrected) 9.2 mg/dL (8.5-10.1); Carbon Dioxide 30.8 mMol/L (20.0-31.0); Chloride 97 mMol/L (98-107); Creatinine (Component) 0.6 mg/dL (0.6-1.3); Estimated Creatinine Clearance 66.1 mL/min (>60); Globulin 2.4 gm/dL (2.3-3.5); Glucose 143 mg/dL (74-106); Magnesium 2.3 mg/dL (1.6-2.6); Osmolality,Calculated 275 (275-295); Potassium 4.4 mMol/L (3.4-5.1); Sodium 137 mMol/L (136-145); Total Protein 6.2 gm/dL (5.7-8.2); eGFR > 60 See Note
[2025-01-25] MEDS: MethylPREDNISolone SOD SUCC 62.5 MG/ML 2ML VIAL 125 MG IVP ×2 (08:27→20:20)
[2025-01-25] MEDS: AZITHROMYCIN 250 MG TABLET 500 MG PO (08:27)
[2025-01-25] MEDS: ENOXAPARIN SOD INJ 40 MG/0.4 ML SYRINGE SC (08:27)
[2025-01-25] MEDS: SENNA TABLET 1 TAB PO (08:28)
[2025-01-25] MEDS: DOCUSATE SOD 100 MG CAPSULE PO (08:28)
[2025-01-25] MEDS: METOPROLOL SUCCINATE XL 25 MG TABCR PO (08:28)
[2025-01-25] MEDS: amLODIPine BESYLATE 2.5 MG TABLET PO (08:31)
[2025-01-25] MEDS: PANTOPRAZOLE 40 MG TABLET PO (10:31)
--- NOTE | 2025-01-25 14:22 | PD.RESPRO ---
Documentation for date of: 01/25/25 Subjective Subjective Interval history: Patient seen today at the bedside found awake, alert, orientedx3. No overnight events reported. States no active complaints at this time, reports symptoms seem to be improving. Vitals and labs reviewed. On physical exam patient is still having bilateral wheezing however improved compared to previously examinations. Will continue current management with breathing treatments, steroids, azithromycin. Exam Vital Signs Temp Pulse Resp BP Pulse Ox O2 Del Method O2 Flow Rate 97.1 F 100 18 140/88 H 98 Nasal Cannula 3 01/25/25 08:00 01/25/25 12:25 01/25/25 12:25 01/25/25 08:31 01/25/25 12:25 01/25/25 08:00 01/25/25 12:25 Narrative Exam Physical Exam GENERAL: NAD, AAOx3, thin, frail HEENT: Moist mucosa. Eyes open, symmetrical, & clear CARDIO: Heart RRR, no obvious murmurs PULM: Coughing and dyspnea, bilateral wheezing-improving GI: Abdomen soft, nondistended, no pain on palpation. BSx4 SKIN/MSK/EXT: Mild scabbed wound in the right lower extremity., no pain Objective Labs 01/25/25 05:20 01/25/25 05:20 Labs: Laboratory Results - last 24 hr 01/24/25 01/25/25 22:00 05:20 WBC 12.6 H RBC 5.03 Hgb 14.8 Hct 44.6 MCV 89 MCH 29.4 MCHC 33.2 RDW Std Deviation 44.4 Plt Count 303 D Neut % (Auto) 92 H Lymph % (Auto) 5 L [place] % (Auto) 2 Eos % (Auto) 0 Baso % (Auto) 0 Neut # (Auto) 11.6 H Lymph # (Auto) 0.7 L [place] # (Auto) 0.3 Eos # (Auto) 0.0 Baso # (Auto) 0.0 Immature Gran # (Auto) 0.07 H Absolute Nucleated RBC 0.00 Immature Gran % 1 H Nucleated RBC % 0 Sodium 137 Potassium 4.4 D Chloride 97 L Carbon Dioxide 30.8 Anion Gap 9 BUN 12 Creatinine 0.6 Estim Creat Clear Calc 66.1 eGFR > 60 BUN/Creatinine Ratio 20 Glucose 143 H Calculated Osmolality 275 Calcium 9.0 Corrected Calcium 9.2 Phosphorus 4.0 Magnesium 2.3 Total Bilirubin 0.7 AST 43 H ALT 27 Alkaline Phosphatase 54 Total Protein 6.2 Albumin 3.8 D Globulin 2.4 Albumin/Globulin Ratio 1.6 Ur Collection Type Clean Catch Urine Color Colorless A Urine Clarity Clear Urine pH 6.5 Ur Specific [place] 1.006 Urine Protein Negative Urine Glucose (UA) Negative Urine Ketones Negative Urine Blood Negative Urine Nitrite Negative Urine Bilirubin Negative Urine Urobilinogen (Auto) Negative Ur Leukocyte Esterase Negative Urine RBC < 1 Urine WBC < 1 Ur Squamous Epith Cells 0 Urine Bacteria None ABG Interpretation ABG results: 01/24/25 09:05 VBG pH 7.33 VBG pCO2 66 H VBG pO2 35 VBG Base Excess 6 H Quality Measures Quality Measures none Advance care planning discussed with:: patient Assessment & Plan Assessment Current Active Medications: Generic Name Dose Route Start Last Admin Trade Name Freq PRN Reason Stop Dose Admin Acetaminophen 650 mg 01/24/25 14:17 Acetaminophen 325 Mg Tablet PO 02/23/25 14:16 Q6H PRN Fever >101.5 Acetaminophen 1,000 mg 01/24/25 14:17 Acetaminophen 500 Mg Tablet PO 02/23/25 14:16 Q6H PRN PAIN SCALE 1-3 (mild Amlodipine Besylate 2.5 mg 01/25/25 08:00 01/25/25 08:31 Amlodipine Besylate 2.5 Mg Tablet PO 02/24/25 07:59 2.5 mg QDAY SONYA Administration Azithromycin 500 mg 01/24/25 14:30 01/25/25 08:27 Azithromycin 250 Mg Tablet PO 01/31/25 14:29 500 mg QDAY SONYA Administration Docusate Sodium 100 mg 01/25/25 09:00 01/25/25 08:28 Docusate Sod 100 Mg Capsule PO 02/24/25 08:59 100 mg QDAY SONYA Administration Protocol Enoxaparin Sodium 40 mg 01/25/25 09:00 01/25/25 08:27 Enoxaparin Sod Inj 40 Mg/0.4 Ml Syringe SC 02/08/25 08:59 40 mg QDAY SONYA Administration Ipratropium [place] 0.5 mg 01/24/25 19:00 01/25/25 12:24 Ipratropium Rt 0.5 Mg/ 2.5 Ml Nebu INH 02/23/25 18:59 0.5 mg Q6HRRT SONYA Administration Ipratropium [place] 0.5 mg 01/24/25 14:36 01/25/25 10:40 Ipratropium Rt 0.5 Mg/ 2.5 Ml Nebu INH 02/23/25 14:35 0.5 mg Q4HR PRN Administration SHORTNESS OF BREATH Levalbuterol HCl 1.25 mg 01/24/25 19:00 01/25/25 12:24 Levalbuterol Rt 1.25 Mg/0.5 Ml Nebu INH 02/23/25 18:59 1.25 mg Q6HRRT SONYA Administration Levalbuterol HCl 1.25 mg 01/24/25 14:36 01/25/25 10:40 Levalbuterol Rt 1.25 Mg/0.5 Ml Nebu INH 02/23/25 14:35 1.25 mg Q4HR PRN Administration WHEEZING Methylprednisolone Sodium Succinate 125 mg 01/24/25 21:00 01/25/25 08:27 Methylprednisolone Sod Succ 62.5 Mg/Ml 2ml Vial IVP 01/31/25 20:59 125 mg BID SONYA Administration Metoprolol Succinate 25 mg 01/25/25 09:00 01/25/25 08:28 Metoprolol Succinate Xl 25 Mg Tabcr PO 02/24/25 08:59 25 mg QDAY SONYA Administration Ondansetron HCl 4 mg 01/24/25 14:17 Ondansetron Inj 2 Mg/Ml Inj 2 Ml IV 02/23/25 14:16 Q6H PRN NAUSEA OR VOMITING Protocol Pantoprazole Sodium 40 mg 01/25/25 10:15 01/25/25 10:31 Pantoprazole 40 Mg Tablet PO 02/24/25 10:14 40 mg QDAY SONYA Administration Sennosides 1 tab 01/25/25 09:00 01/25/25 08:28 Senna Tablet PO 02/24/25 08:59 1 tab QDAY SONYA Administration Protocol Sodium Chloride 3 ml 01/24/25 14:36 Sodium Chloride Rt Violet 0.9% 3 Ml Nebu INH 02/23/25 14:35 PRN PRN SOLN Plan 79-year-old female with past medical history of asthma, sinus arrhythmia, eczema, psoriasis presented to the ED due to shortness of breath that was progressive for 1 week patient also reports orthopnea symptoms. Patient will be admitted for acute bronchitis secondary to asthma exacerbation. #Acute hypoxic respiratory failure secondary to #Acute bronchitis #Asthma exacerbation For the past week he started developing shortness of breath and wheezing. 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 Rojo Patient does have bilateral leg swelling, no crackles though Echo done in september shows: Normal LV size, wall thickness. Estimated EF 65%. RV is normal in size and systolic function. Estimated RVSP, 41mmHg. RAP 5. Mild thickening of the MV leaflets with moderate 2+mitral regurgitation. 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 [facility] -Monitor at this time -Can follow-up as outpatient Disposition: medtele, acute bronchitis, breathing tx, steroids Fluids: None Feeding: Cardiac diet Thrombo prophylaxis: lovenox Gastric Ulcer prophylaxis: none CODE STATUS: Full code Case discussed with my attending Dr. Stefani Naylor MD PGY-1 Attending Provider Attestation/Addendum 79-year-old female with multiple comorbidities including history of breast cancer, asthma and sinus arrhythmia follows up with outpatient cardiology who presented to the ER with complaints of shortness of breath found to have acute asthma exacerbation with significant wheezing. As of now, plan to continue breathing treatment, Solu-Medrol 125 mg twice daily and continue to monitor closely. Patient continues to require close telemetry monitoring as patient is at risk for respiratory compromise given significant wheezing on physical exam requiring IV Solu-Medrol therapy. Overnight, wheezing appears to be improving however continues to be persistent despite being on Solu-Medrol 125 mg twice daily. Respiratory rate in the mid to high 20s for which we will continue to monitor closely and continues to require hospitalization for IV steroid therapy and monitor respiratory function. I reviewed above note and agree with findings and plans. I have also personally examined the patient with medicine team and went over assessment and plan with medical team including internet manager and resident physician.
--- NOTE | 2025-01-25 15:30 | PC.SS ---
SS met with patient who is alert/oriented. Patient was able to verify demographics. Patient resides with her . Patient was admitted for SOB. Patient is independent with ADL's. No DME. She drives. Patient states she has 02 ([employer]) as needed. Patient follows with Dr. Rojo and sees Dr. Ochoa. Last appt. was last week. 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 Patient states her son, Moy, is her alt medical decision maker. Patient d/c plans are to return home. Alt medical decision maker: Moy,
[2025-01-26] VITALS (14 sets, daily range): BP systolic 122–142; BP diastolic 74–90; PULSE 85–120; RESP 17–36; TEMP 36.4–37.2; O2SAT 90–99
[2025-01-26] MEDS: LEVALBUTEROL RT 1.25 MG/0.5 ML NEBU INH ×6 (02:03→18:15)
[2025-01-26] MEDS: IPRATROPIUM RT 0.5 MG/ 2.5 ML NEBU INH ×6 (02:04→18:15)
[2025-01-26 05:58] LABS: Basophils % (Auto) 0 % (0-2.5); Eosinophils % (Auto) 0 % (0-10); Hematocrit 41.7 % (36.0-46.0); Immature Granulocytes % (Auto) 0 % (0-0); Immature Granulocytes Auto 0.05 Thou/mm3 (0.00-0.00); Lymphocytes # (Auto) 0.5 Thou/mm3 (1.0-4.8); Lymphocytes % (Auto) 3 % (10-50); Mean Corpuscular HGB Conc 33.6 g/dl (31.0-37.0); Mean Corpuscular Volume 87 fL (80-100); Monocytes # (Auto) 0.5 Thou/mm3 (0.0-0.8); Monocytes % (Auto) 3 % (0-12); Neutrophils # (Auto) 13.9 Thou/mm3 (1.8-7.7); Neutrophils % (Auto) 93 % (37-80); Nucleated Red Blood Cell % 0 /100 WBC (0); Platelet Count 292 Thou/mm3 (140-440); RDW Standard Deviation 43.8 fL (36.4-46.3); Red Blood Count 4.82 Miln/mm3 (4.00-5.20); White Blood Count 14.9 Thou/mm3 (3.6-11.0)
[2025-01-26 06:26] LABS: Alanine Aminotransferase 24 U/L (10-49); Albumin, Serum 3.9 gm/dL (3.4-4.8); Albumin/Globulin Ratio 1.8 (1.2-2.2); Alkaline Phosphatase 55 U/L (46-116); Anion Gap 8 (7-16); Aspartate Amino Transferase 29 U/L (0-34); BUN/Creatinine Ratio 24 Ratio (12-20); Bilirubin,Total 0.6 mg/dL (0.3-1.2); Blood Urea Nitrogen 17 mg/dL (9-23); Calcium 8.8 mg/dL (8.3-10.6); Calcium (Corrected) 8.9 mg/dL (8.5-10.1); Carbon Dioxide 33.3 mMol/L (20.0-31.0); Chloride 100 mMol/L (98-107); Creatinine (Component) 0.7 mg/dL (0.6-1.3); Estimated Creatinine Clearance 56.7 mL/min (>60); Globulin 2.2 gm/dL (2.3-3.5); Glucose 161 mg/dL (74-106); Magnesium 2.2 mg/dL (1.6-2.6); Osmolality,Calculated 285 (275-295); Phosphorous 3.9 mg/dL (2.4-5.1); Potassium 4.3 mMol/L (3.4-5.1); Sodium 141 mMol/L (136-145); Total Protein 6.1 gm/dL (5.7-8.2); eGFR > 60 See Note
[2025-01-26] MEDS: amLODIPine BESYLATE 2.5 MG TABLET PO (09:04)
[2025-01-26] MEDS: ENOXAPARIN SOD INJ 40 MG/0.4 ML SYRINGE SC (09:04)
[2025-01-26] MEDS: METOPROLOL SUCCINATE XL 25 MG TABCR PO (09:04)
[2025-01-26] MEDS: MethylPREDNISolone SOD SUCC 62.5 MG/ML 2ML VIAL 125 MG IVP (09:04)
[2025-01-26] MEDS: SENNA TABLET 1 TAB PO (09:04)
[2025-01-26] MEDS: AZITHROMYCIN 250 MG TABLET 500 MG PO (09:05)
[2025-01-26] MEDS: DOCUSATE SOD 100 MG CAPSULE PO (09:05)
[2025-01-26] MEDS: PANTOPRAZOLE 40 MG TABLET PO (09:05)
--- NOTE | 2025-01-26 13:51 | ESPR_ITS ---
Documentation for date of: 01/26/25 Subjective Subjective Interval history: Patient seen today at the bedside found awake, alert, orientedx3. No overnight events reported. Vitals and labs reviewed. Leukocytosis noted likely secondary to steroid medication. Patient continues to have bilateral wheezing however improving compared to previous examinations we will decrease steroid medication to once a day, will continue with breathing treatments and azithromycin. Chest physiotherapy and mucinex. Possible discharge in the next 24 hours. Exam Vital Signs Temp Pulse Resp BP Pulse Ox O2 Del Method O2 Flow Rate 98.2 F 93 21 H 142/87 H 99 Nasal Cannula 2 01/26/25 08:00 01/26/25 12:39 01/26/25 12:39 01/26/25 09:04 01/26/25 12:39 01/26/25 08:00 01/26/25 12:39 Narrative Exam Physical Exam GENERAL: NAD, AAOx3, thin, frail HEENT: Moist mucosa. Eyes open, symmetrical, & clear CARDIO: Heart RRR, no obvious murmurs PULM: Coughing and dyspnea, bilateral wheezing-improving GI: Abdomen soft, nondistended, no pain on palpation. BSx4 SKIN/MSK/EXT: Mild scabbed wound in the right lower extremity., no pain Objective Labs 01/27/25 05:33 01/27/25 05:33 Labs: Laboratory Results - last 24 hr 01/26/25 05:29 WBC 14.9 H RBC 4.82 Hgb 14.0 Hct 41.7 MCV 87 MCH 29.0 MCHC 33.6 RDW Std Deviation 43.8 Plt Count 292 Neut % (Auto) 93 H Lymph % (Auto) 3 L [place] % (Auto) 3 Eos % (Auto) 0 Baso % (Auto) 0 Neut # (Auto) 13.9 H Lymph # (Auto) 0.5 L [place] # (Auto) 0.5 Eos # (Auto) 0.0 Baso # (Auto) 0.0 Immature Gran # (Auto) 0.05 H Absolute Nucleated RBC 0.00 Immature Gran % 0 Nucleated RBC % 0 Sodium 141 Potassium 4.3 Chloride 100 Carbon Dioxide 33.3 H Anion Gap 8 BUN 17 Creatinine 0.7 Estim Creat Clear Calc 56.7 L eGFR > 60 BUN/Creatinine Ratio 24 H Glucose 161 H Calculated Osmolality 285 Calcium 8.8 Corrected Calcium 8.9 Phosphorus 3.9 Magnesium 2.2 Total Bilirubin 0.6 AST 29 ALT 24 Alkaline Phosphatase 55 Total Protein 6.1 Albumin 3.9 Globulin 2.2 L Albumin/Globulin Ratio 1.8 ABG Interpretation ABG results: 01/24/25 09:05 VBG pH 7.33 VBG pCO2 66 H VBG pO2 35 VBG Base Excess 6 H Quality Measures Quality Measures none Advance care planning discussed with:: patient Assessment & Plan Assessment Current Active Medications: Generic Name Dose Route Start Last Admin Trade Name Freq PRN Reason Stop Dose Admin Acetaminophen 650 mg 01/24/25 14:17 Acetaminophen 325 Mg Tablet PO 02/23/25 14:16 Q6H PRN Fever >101.5 Acetaminophen 1,000 mg 01/24/25 14:17 Acetaminophen 500 Mg Tablet PO 02/23/25 14:16 Q6H PRN PAIN SCALE 1-3 (mild Amlodipine Besylate 2.5 mg 01/25/25 08:00 01/26/25 09:04 Amlodipine Besylate 2.5 Mg Tablet PO 02/24/25 07:59 2.5 mg QDAY SONYA Administration Azithromycin 500 mg 01/24/25 14:30 01/26/25 09:05 Azithromycin 250 Mg Tablet PO 01/31/25 14:29 500 mg QDAY SONYA Administration Docusate Sodium 100 mg 01/25/25 09:00 01/26/25 09:05 Docusate Sod 100 Mg Capsule PO 02/24/25 08:59 100 mg QDAY SONYA Administration Protocol Enoxaparin Sodium 40 mg 01/25/25 09:00 01/26/25 09:04 Enoxaparin Sod Inj 40 Mg/0.4 Ml Syringe SC 02/08/25 08:59 40 mg QDAY SONYA Administration Ipratropium [place] 0.5 mg 01/24/25 19:00 01/26/25 12:36 Ipratropium Rt 0.5 Mg/ 2.5 Ml Nebu INH 02/23/25 18:59 0.5 mg Q6HRRT SONYA Administration Ipratropium [place] 0.5 mg 01/24/25 14:36 01/26/25 10:13 Ipratropium Rt 0.5 Mg/ 2.5 Ml Nebu INH 02/23/25 14:35 0.5 mg Q4HR PRN Administration SHORTNESS OF BREATH Levalbuterol HCl 1.25 mg 01/24/25 19:00 01/26/25 12:36 Levalbuterol Rt 1.25 Mg/0.5 Ml Nebu INH 02/23/25 18:59 1.25 mg Q6HRRT SONYA Administration Levalbuterol HCl 1.25 mg 01/24/25 14:36 01/26/25 10:13 Levalbuterol Rt 1.25 Mg/0.5 Ml Nebu INH 02/23/25 14:35 1.25 mg Q4HR PRN Administration WHEEZING Methylprednisolone Sodium Succinate 125 mg 01/24/25 21:00 01/26/25 09:04 Methylprednisolone Sod Succ 62.5 Mg/Ml 2ml Vial IVP 01/31/25 20:59 125 mg BID SONYA Administration Metoprolol Succinate 25 mg 01/25/25 09:00 01/26/25 09:04 Metoprolol Succinate Xl 25 Mg Tabcr PO 02/24/25 08:59 25 mg QDAY SONYA Administration Ondansetron HCl 4 mg 01/24/25 14:17 Ondansetron Inj 2 Mg/Ml Inj 2 Ml IV 02/23/25 14:16 Q6H PRN NAUSEA OR VOMITING Protocol Pantoprazole Sodium 40 mg 01/25/25 10:15 01/26/25 09:05 Pantoprazole 40 Mg Tablet PO 02/24/25 10:14 40 mg QDAY SONYA Administration Sennosides 1 tab 01/25/25 09:00 01/26/25 09:04 Senna Tablet PO 02/24/25 08:59 1 tab QDAY SONYA Administration Protocol Sodium Chloride 3 ml 01/24/25 14:36 Sodium Chloride Rt Violet 0.9% 3 Ml Nebu INH 02/23/25 14:35 PRN PRN SOLN Plan 79-year-old female with past medical history of asthma, sinus arrhythmia, eczema, psoriasis presented to the ED due to shortness of breath that was progressive for 1 week patient also reports orthopnea symptoms. Patient will be admitted for acute bronchitis secondary to asthma exacerbation. #Acute hypoxic respiratory failure secondary to #Acute bronchitis #Asthma exacerbation For the past week he started developing shortness of breath and wheezing. 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 Rojo Patient does have bilateral leg swelling, no crackles though Echo done in september shows: Normal LV size, wall thickness. Estimated EF 65%. RV is normal in size and systolic function. Estimated RVSP, 41mmHg. RAP 5. Mild thickening of the MV leaflets with moderate 2+mitral regurgitation. 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 Triston Naylor MD PGY-1 Attending Provider Attestation/Addendum I, Fadia Goldstein, , attest that I was physically present for the [place] portions of the service and evaluated the patient with the resident and I reviewed and discussed the case with the resident and agree with the resident's findings and plans of care as documented above Patient seen and eval this a.m. Patient continues to have some mild wheezing in bilateral lung nayak. Will continue with breathing treatments and steroids. Anticipate discharge in the next 24 to 48 hours if patient condition continues to improve. Patient uses 2 L nasal cannula as needed at home. Will titrate O2 as tolerated. Will add Mucinex as patient reports having some congestion she is unable to expectorate.
[2025-01-26] MEDS: guaiFENesin/P-EPHED TABLET 1 TAB PO ×2 (14:29→21:24)
--- NOTE | 2025-01-26 14:53 | PC.SS ---
Rounding note: patient continues wheezing. Possible d/c over the weekend. Plan to return home.
[2025-01-27] VITALS (15 sets, daily range): BP systolic 136–155; BP diastolic 82–96; PULSE 89–115; RESP 19–28; TEMP 36.1–36.3; O2SAT 91–99
[2025-01-27] MEDS: IPRATROPIUM RT 0.5 MG/ 2.5 ML NEBU INH ×5 (00:55→18:52)
[2025-01-27] MEDS: LEVALBUTEROL RT 1.25 MG/0.5 ML NEBU INH ×5 (00:55→18:52)
[2025-01-27] MEDS: ACETAMINOPHEN 500 MG TABLET 1000 MG PO (04:18)
[2025-01-27 06:09] LABS: Basophils % (Auto) 0 % (0-2.5); Eosinophils % (Auto) 0 % (0-10); Hematocrit 42.9 % (36.0-46.0); Hemoglobin 14.4 g/dL (12.0-16.0); Immature Granulocytes % (Auto) 0 % (0-0); Immature Granulocytes Auto 0.06 Thou/mm3 (0.00-0.00); Lymphocytes # (Auto) 0.9 Thou/mm3 (1.0-4.8); Lymphocytes % (Auto) 6 % (10-50); Mean Corpuscular HGB Conc 33.6 g/dl (31.0-37.0); Mean Corpuscular Volume 86 fL (80-100); Monocytes # (Auto) 1.1 Thou/mm3 (0.0-0.8); Monocytes % (Auto) 7 % (0-12); Neutrophils # (Auto) 13.1 Thou/mm3 (1.8-7.7); Neutrophils % (Auto) 87 % (37-80); Nucleated Red Blood Cell % 0 /100 WBC (0); Platelet Count 267 Thou/mm3 (140-440); RDW Standard Deviation 43.8 fL (36.4-46.3); Red Blood Count 4.97 Miln/mm3 (4.00-5.20); White Blood Count 15.2 Thou/mm3 (3.6-11.0)
[2025-01-27 06:33] LABS: Alanine Aminotransferase 23 U/L (10-49); Albumin, Serum 3.9 gm/dL (3.4-4.8); Alkaline Phosphatase 55 U/L (46-116); Anion Gap 8 (7-16); Aspartate Amino Transferase 30 U/L (0-34); BUN/Creatinine Ratio 29 Ratio (12-20); Bilirubin,Total 0.7 mg/dL (0.3-1.2); Blood Urea Nitrogen 20 mg/dL (9-23); Calcium 8.7 mg/dL (8.3-10.6); Calcium (Corrected) 8.8 mg/dL (8.5-10.1); Carbon Dioxide 33.9 mMol/L (20.0-31.0); Chloride 99 mMol/L (98-107); Creatinine (Component) 0.7 mg/dL (0.6-1.3); Estimated Creatinine Clearance 56.7 mL/min (>60); Glucose 117 mg/dL (74-106); Magnesium 2.1 mg/dL (1.6-2.6); Osmolality,Calculated 284 (275-295); Phosphorous 3.3 mg/dL (2.4-5.1); Potassium 4.1 mMol/L (3.4-5.1); Sodium 141 mMol/L (136-145); Total Protein 5.9 gm/dL (5.7-8.2); eGFR > 60 See Note
[2025-01-27] MEDS: amLODIPine BESYLATE 2.5 MG TABLET PO (08:43)
[2025-01-27] MEDS: MethylPREDNISolone SOD SUCC 62.5 MG/ML 2ML VIAL 125 MG IVP (08:43)
[2025-01-27] MEDS: ENOXAPARIN SOD INJ 40 MG/0.4 ML SYRINGE SC (08:43)
[2025-01-27] MEDS: DOCUSATE SOD 100 MG CAPSULE PO (08:44)
[2025-01-27] MEDS: AZITHROMYCIN 250 MG TABLET 500 MG PO (08:44)
[2025-01-27] MEDS: PANTOPRAZOLE 40 MG TABLET PO (08:44)
[2025-01-27] MEDS: METOPROLOL SUCCINATE XL 25 MG TABCR PO (08:44)
[2025-01-27] MEDS: SENNA TABLET 1 TAB PO (08:44)
[2025-01-27] MEDS: guaiFENesin/P-EPHED TABLET 1 TAB PO ×2 (08:45→20:00)
--- NOTE | 2025-01-27 11:36 | PD.RESPRO ---
Documentation for date of: 01/27/25 Subjective Subjective Interval history: Patient seen today at the bedside found awake, alert, orientedx3. No overnight events reported. Vitals and labs reviewed. Leukocytosis noted likely secondary to steroid medication. Patient continues to have bilateral wheezing however, will continue with breathing treatments and azithromycin,Chest physiotherapy and mucinex. Budesonide added today. Exam Vital Signs Temp Pulse Resp BP Pulse Ox O2 Del Method O2 Flow Rate 97.1 F 89 21 H 155/96 H 99 Nasal Cannula 2 01/27/25 07:55 01/27/25 10:22 01/27/25 10:22 01/27/25 08:44 01/27/25 10:22 01/27/25 07:55 01/27/25 10:22 Narrative Exam Physical Exam GENERAL: NAD, AAOx3, thin, frail HEENT: Moist mucosa. Eyes open, symmetrical, & clear CARDIO: Heart RRR, no obvious murmurs PULM: Coughing and dyspnea, bilateral wheezing GI: Abdomen soft, nondistended, no pain on palpation. BSx4 SKIN/MSK/EXT: Mild scabbed wound in the right lower extremity., no pain Objective Labs 01/28/25 04:52 01/28/25 04:52 Labs: Laboratory Results - last 24 hr 01/27/25 05:33 WBC 15.2 H RBC 4.97 Hgb 14.4 Hct 42.9 MCV 86 MCH 29.0 MCHC 33.6 RDW Std Deviation 43.8 Plt Count 267 Neut % (Auto) 87 H Lymph % (Auto) 6 L [place] % (Auto) 7 Eos % (Auto) 0 Baso % (Auto) 0 Neut # (Auto) 13.1 H Lymph # (Auto) 0.9 L [place] # (Auto) 1.1 H Eos # (Auto) 0.0 Baso # (Auto) 0.0 Immature Gran # (Auto) 0.06 H Absolute Nucleated RBC 0.00 Immature Gran % 0 Nucleated RBC % 0 Sodium 141 Potassium 4.1 Chloride 99 Carbon Dioxide 33.9 H Anion Gap 8 BUN 20 Creatinine 0.7 Estim Creat Clear Calc 56.7 L eGFR > 60 BUN/Creatinine Ratio 29 H Glucose 117 H Calculated Osmolality 284 Calcium 8.7 Corrected Calcium 8.8 Phosphorus 3.3 Magnesium 2.1 Total Bilirubin 0.7 AST 30 ALT 23 Alkaline Phosphatase 55 Total Protein 5.9 Albumin 3.9 Globulin 2.0 L Albumin/Globulin Ratio 2.0 ABG Interpretation ABG results: 01/24/25 09:05 VBG pH 7.33 VBG pCO2 66 H VBG pO2 35 VBG Base Excess 6 H Quality Measures Quality Measures VTE prophylaxis and none Advance care planning discussed with:: patient Assessment & Plan Assessment Current Active Medications: Generic Name Dose Route Start Last Admin Trade Name Freq PRN Reason Stop Dose Admin Acetaminophen 650 mg 01/24/25 14:17 Acetaminophen 325 Mg Tablet PO 02/23/25 14:16 Q6H PRN Fever >101.5 Acetaminophen 1,000 mg 01/24/25 14:17 01/27/25 04:18 Acetaminophen 500 Mg Tablet PO 02/23/25 14:16 1,000 mg Q6H PRN Administration PAIN SCALE 1-3 (mild Amlodipine Besylate 2.5 mg 01/25/25 08:00 01/27/25 08:43 Amlodipine Besylate 2.5 Mg Tablet PO 02/24/25 07:59 2.5 mg QDAY SONYA Administration Azithromycin 500 mg 01/24/25 14:30 01/27/25 08:44 Azithromycin 250 Mg Tablet PO 01/31/25 14:29 500 mg QDAY SONYA Administration Docusate Sodium 100 mg 01/25/25 09:00 01/27/25 08:44 Docusate Sod 100 Mg Capsule PO 02/24/25 08:59 100 mg QDAY SONYA Administration Protocol Enoxaparin Sodium 40 mg 01/25/25 09:00 01/27/25 08:43 Enoxaparin Sod Inj 40 Mg/0.4 Ml Syringe SC 02/08/25 08:59 40 mg QDAY SONYA Administration Guaifenesin 1 tab 01/26/25 14:00 01/27/25 08:45 Guaifenesin/P-Ephed Tablet PO 02/25/25 13:59 1 tab BID SONYA Administration Ipratropium [place] 0.5 mg 01/24/25 19:00 01/27/25 06:52 Ipratropium Rt 0.5 Mg/ 2.5 Ml Nebu INH 02/23/25 18:59 0.5 mg Q6HRRT SONYA Administration Ipratropium [place] 0.5 mg 01/24/25 14:36 01/27/25 10:21 Ipratropium Rt 0.5 Mg/ 2.5 Ml Nebu INH 02/23/25 14:35 0.5 mg Q4HR PRN Administration SHORTNESS OF BREATH Protocol Levalbuterol HCl 1.25 mg 01/24/25 19:00 01/27/25 06:52 Levalbuterol Rt 1.25 Mg/0.5 Ml Nebu INH 02/23/25 18:59 1.25 mg Q6HRRT SONYA Administration Levalbuterol HCl 1.25 mg 01/24/25 14:36 01/27/25 10:21 Levalbuterol Rt 1.25 Mg/0.5 Ml Nebu INH 02/23/25 14:35 1.25 mg Q4HR PRN Administration WHEEZING Protocol Methylprednisolone Sodium Succinate 125 mg 01/27/25 09:00 01/27/25 08:43 Methylprednisolone Sod Succ 62.5 Mg/Ml 2ml Vial IVP 02/03/25 08:59 125 mg DAILY SONYA Administration Metoprolol Succinate 25 mg 01/25/25 09:00 01/27/25 08:44 Metoprolol Succinate Xl 25 Mg Tabcr PO 02/24/25 08:59 25 mg QDAY SONYA Administration Ondansetron HCl 4 mg 01/24/25 14:17 Ondansetron Inj 2 Mg/Ml Inj 2 Ml IV 02/23/25 14:16 Q6H PRN NAUSEA OR VOMITING Protocol Pantoprazole Sodium 40 mg 01/25/25 10:15 01/27/25 08:44 Pantoprazole 40 Mg Tablet PO 02/24/25 10:14 40 mg QDAY SONYA Administration Sennosides 1 tab 01/25/25 09:00 01/27/25 08:44 Senna Tablet PO 02/24/25 08:59 1 tab QDAY SONYA Administration Protocol Sodium Chloride 3 ml 01/24/25 14:36 Sodium Chloride Rt Violet 0.9% 3 Ml Nebu INH 02/23/25 14:35 PRN PRN SOLN Plan 79-year-old female with past medical history of asthma, sinus arrhythmia, eczema, psoriasis presented to the ED due to shortness of breath that was progressive for 1 week patient also reports orthopnea symptoms. Patient will be admitted for acute bronchitis secondary to asthma exacerbation. #Acute hypoxic respiratory failure secondary to #Acute bronchitis #Asthma exacerbation For the past week he started developing shortness of breath and wheezing. 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 Rojo Patient does have bilateral leg swelling, no crackles though Echo done in september shows: Normal LV size, wall thickness. Estimated EF 65%. RV is normal in size and systolic function. Estimated RVSP, 41mmHg. RAP 5. Mild thickening of the MV leaflets with moderate 2+mitral regurgitation. 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 Triston Naylor MD PGY-1 Attending Provider Attestation/Addendum Fadia Garcia DO, attest that I was physically present for the [place] portions of the service and evaluated the patient with the resident and I reviewed and discussed the case with the resident and agree with the resident's findings and plans of care as documented above Patient seen and eval this a.m. She states that she is feeling worse today. She was not able to get one half of her breathing treatments overnight due to an emergency. Patient continues to complain of some congestion. She remains on 2 L nasal cannula at this time. Patient has scattered wheezing and rhonchi noted on exam, worse than yesterday. Will continue with breathing treatments and IV steroids. Encourage patient to use her Acapella to help with expectorating her phlegm.
[2025-01-27] MEDS: LIDOCAINE 5% 1 PATCH TOP (11:54)
--- NOTE | 2025-01-27 12:01 | PC.NURSE ---
Patient ambulated in hallway with assistance approximately 30ft on RA O2 saturation 86%. Patient back in room sitting on edge of bed O2 at 2LNC 92% after 2mins.
--- NOTE | 2025-01-27 13:43 | PC.SS ---
SS met pt bedside to [facility] [employer]; pt alert and oriented x4
[2025-01-27] MEDS: BUDESONIDE RT 0.5 MG/2 ML NEBU 1 MG INH (18:51)
[2025-01-28] VITALS (13 sets, daily range): BP systolic 117–154; BP diastolic 71–91; PULSE 83–107; RESP 17–28; TEMP 36–36.9; O2SAT 93–100
[2025-01-28] MEDS: LEVALBUTEROL RT 1.25 MG/0.5 ML NEBU INH ×4 (00:37→18:16)
[2025-01-28] MEDS: IPRATROPIUM RT 0.5 MG/ 2.5 ML NEBU INH ×4 (00:38→18:15)
[2025-01-28 05:53] LABS: Basophils % (Auto) 0 % (0-2.5); Eosinophils % (Auto) 0 % (0-10); Hematocrit 42.1 % (36.0-46.0); Hemoglobin 14.2 g/dL (12.0-16.0); Immature Granulocytes % (Auto) 0 % (0-0); Immature Granulocytes Auto 0.05 Thou/mm3 (0.00-0.00); Lymphocytes # (Auto) 1.6 Thou/mm3 (1.0-4.8); Lymphocytes % (Auto) 12 % (10-50); Mean Corpuscular HGB Conc 33.7 g/dl (31.0-37.0); Mean Corpuscular Volume 86 fL (80-100); Monocytes # (Auto) 1.1 Thou/mm3 (0.0-0.8); Monocytes % (Auto) 8 % (0-12); Neutrophils # (Auto) 10.2 Thou/mm3 (1.8-7.7); Neutrophils % (Auto) 78 % (37-80); Nucleated Red Blood Cell % 0 /100 WBC (0); Platelet Count 295 Thou/mm3 (140-440); Red Blood Count 4.89 Miln/mm3 (4.00-5.20)
[2025-01-28 06:31] LABS: Alanine Aminotransferase 27 U/L (10-49); Albumin, Serum 3.8 gm/dL (3.4-4.8); Albumin/Globulin Ratio 1.9 (1.2-2.2); Alkaline Phosphatase 51 U/L (46-116); Anion Gap 7 (7-16); Aspartate Amino Transferase 28 U/L (0-34); BUN/Creatinine Ratio 25 Ratio (12-20); Bilirubin,Total 0.8 mg/dL (0.3-1.2); Blood Urea Nitrogen 15 mg/dL (9-23); Calcium 8.5 mg/dL (8.3-10.6); Calcium (Corrected) 8.7 mg/dL (8.5-10.1); Carbon Dioxide 34.6 mMol/L (20.0-31.0); Chloride 100 mMol/L (98-107); Creatinine (Component) 0.6 mg/dL (0.6-1.3); Estimated Creatinine Clearance 66.6 mL/min (>60); Glucose 91 mg/dL (74-106); Magnesium 2.1 mg/dL (1.6-2.6); Osmolality,Calculated 283 (275-295); Phosphorous 3.1 mg/dL (2.4-5.1); Potassium 3.7 mMol/L (3.4-5.1); Sodium 142 mMol/L (136-145); Total Protein 5.8 gm/dL (5.7-8.2); eGFR > 60 See Note
[2025-01-28] MEDS: BUDESONIDE RT 0.5 MG/2 ML NEBU 1 MG INH ×2 (06:43→18:16)
[2025-01-28] MEDS: MethylPREDNISolone SOD SUCC 62.5 MG/ML 2ML VIAL 125 MG IVP (09:07)
[2025-01-28] MEDS: ENOXAPARIN SOD INJ 40 MG/0.4 ML SYRINGE SC (09:07)
[2025-01-28] MEDS: DOCUSATE SOD 100 MG CAPSULE PO (09:08)
[2025-01-28] MEDS: PANTOPRAZOLE 40 MG TABLET PO (09:08)
[2025-01-28] MEDS: guaiFENesin/P-EPHED TABLET 1 TAB PO ×2 (09:08→20:22)
[2025-01-28] MEDS: METOPROLOL SUCCINATE XL 25 MG TABCR PO ×2 (09:08→10:02)
[2025-01-28] MEDS: amLODIPine BESYLATE 2.5 MG TABLET PO (09:08)
[2025-01-28] MEDS: SENNA TABLET 1 TAB PO (09:08)
[2025-01-28] MEDS: AZITHROMYCIN 250 MG TABLET 500 MG PO (09:08)
[2025-01-28] MEDS: LIDOCAINE 5% 1 PATCH TOP (09:09)
--- NOTE | 2025-01-28 13:21 | ESPR_ITS ---
Documentation for date of: 01/28/25 Subjective Subjective Interval history: Patient seen today at the bedside found awake, alert, orientedx3. No overnight events reported. Vitals and labs reviewed. Leukocytosis noted likely secondary to steroid medication. Patient continues to have bilateral wheezing however, improving compared to previous examinations, will continue with breathing treatments and azithromycin,Chest physiotherapy, mucinex and Budesonide Exam Vital Signs Temp Pulse Resp BP Pulse Ox O2 Del Method O2 Flow Rate 97.2 F 83 24 H 135/90 H 99 Nasal Cannula 2 01/28/25 12:00 01/28/25 12:22 01/28/25 12:22 01/28/25 12:00 01/28/25 12:22 01/28/25 12:00 01/28/25 12:22 Narrative Exam Physical Exam GENERAL: NAD, AAOx3, thin, frail HEENT: Moist mucosa. Eyes open, symmetrical, & clear CARDIO: Heart RRR, no obvious murmurs PULM: Coughing and dyspnea, bilateral wheezing-improving GI: Abdomen soft, nondistended, no pain on palpation. BSx4 SKIN/MSK/EXT: Mild scabbed wound in the right lower extremity., no pain Objective Labs 01/28/25 04:52 01/28/25 04:52 Labs: Laboratory Results - last 24 hr 01/28/25 04:52 WBC 13.0 H RBC 4.89 Hgb 14.2 Hct 42.1 MCV 86 MCH 29.0 MCHC 33.7 RDW Std Deviation 43.0 Plt Count 295 Neut % (Auto) 78 Lymph % (Auto) 12 [place] % (Auto) 8 Eos % (Auto) 0 Baso % (Auto) 0 Neut # (Auto) 10.2 H Lymph # (Auto) 1.6 [place] # (Auto) 1.1 H Eos # (Auto) 0.0 Baso # (Auto) 0.0 Immature Gran # (Auto) 0.05 H Absolute Nucleated RBC 0.00 Immature Gran % 0 Nucleated RBC % 0 Sodium 142 Potassium 3.7 Chloride 100 Carbon Dioxide 34.6 H Anion Gap 7 BUN 15 Creatinine 0.6 Estim Creat Clear Calc 66.6 eGFR > 60 BUN/Creatinine Ratio 25 H Glucose 91 Calculated Osmolality 283 Calcium 8.5 Corrected Calcium 8.7 Phosphorus 3.1 Magnesium 2.1 Total Bilirubin 0.8 AST 28 ALT 27 Alkaline Phosphatase 51 Total Protein 5.8 Albumin 3.8 Globulin 2.0 L Albumin/Globulin Ratio 1.9 ABG Interpretation ABG results: 01/24/25 09:05 VBG pH 7.33 VBG pCO2 66 H VBG pO2 35 VBG Base Excess 6 H Quality Measures Quality Measures VTE prophylaxis and none Advance care planning discussed with:: patient Assessment & Plan Assessment Current Active Medications: Generic Name Dose Route Start Last Admin Trade Name Freq PRN Reason Stop Dose Admin Acetaminophen 650 mg 01/24/25 14:17 Acetaminophen 325 Mg Tablet PO 02/23/25 14:16 Q6H PRN Fever >101.5 Acetaminophen 1,000 mg 01/24/25 14:17 01/27/25 04:18 Acetaminophen 500 Mg Tablet PO 02/23/25 14:16 1,000 mg Q6H PRN Administration PAIN SCALE 1-3 (mild Amlodipine Besylate 2.5 mg 01/25/25 08:00 01/28/25 09:08 Amlodipine Besylate 2.5 Mg Tablet PO 02/24/25 07:59 2.5 mg QDAY SONYA Administration Azithromycin 500 mg 01/24/25 14:30 01/28/25 09:08 Azithromycin 250 Mg Tablet PO 01/31/25 14:29 500 mg QDAY SONYA Administration Budesonide 1 mg 01/27/25 19:00 01/28/25 06:43 Budesonide Rt 0.5 Mg/2 Ml Nebu INH 02/26/25 18:59 1 mg BIDRT SONYA Administration Docusate Sodium 100 mg 01/25/25 09:00 01/28/25 09:08 Docusate Sod 100 Mg Capsule PO 02/24/25 08:59 100 mg QDAY SONYA Administration Protocol Enoxaparin Sodium 40 mg 01/25/25 09:00 01/28/25 09:07 Enoxaparin Sod Inj 40 Mg/0.4 Ml Syringe SC 02/08/25 08:59 40 mg QDAY SONYA Administration Guaifenesin 1 tab 01/26/25 14:00 01/28/25 09:08 Guaifenesin/P-Ephed Tablet PO 02/25/25 13:59 1 tab BID SONYA Administration Ipratropium [place] 0.5 mg 01/24/25 19:00 01/28/25 12:20 Ipratropium Rt 0.5 Mg/ 2.5 Ml Nebu INH 02/23/25 18:59 0.5 mg Q6HRRT SONYA Administration Ipratropium [place] 0.5 mg 01/24/25 14:36 01/27/25 10:21 Ipratropium Rt 0.5 Mg/ 2.5 Ml Nebu INH 02/23/25 14:35 0.5 mg Q4HR PRN Administration SHORTNESS OF BREATH Protocol Levalbuterol HCl 1.25 mg 01/24/25 19:00 01/28/25 12:20 Levalbuterol Rt 1.25 Mg/0.5 Ml Nebu INH 02/23/25 18:59 1.25 mg Q6HRRT SONYA Administration Levalbuterol HCl 1.25 mg 01/24/25 14:36 01/27/25 10:21 Levalbuterol Rt 1.25 Mg/0.5 Ml Nebu INH 02/23/25 14:35 1.25 mg Q4HR PRN Administration WHEEZING Protocol Lidocaine 1 patch 01/27/25 11:48 01/28/25 09:09 Lidocaine 5% 1 Patch TOP 02/26/25 11:47 1 patch UD PRN Administration PAIN Methylprednisolone Sodium Succinate 125 mg 01/27/25 09:00 01/28/25 09:07 Methylprednisolone Sod Succ 62.5 Mg/Ml 2ml Vial IVP 02/03/25 08:59 125 mg DAILY SONYA Administration Metoprolol Succinate 50 mg 01/29/25 09:00 Metoprolol Succinate Xl 25 Mg Tabcr PO 02/28/25 08:59 QDAY SONYA Ondansetron HCl 4 mg 01/24/25 14:17 Ondansetron Inj 2 Mg/Ml Inj 2 Ml IV 02/23/25 14:16 Q6H PRN NAUSEA OR VOMITING Protocol Pantoprazole Sodium 40 mg 01/25/25 10:15 01/28/25 09:08 Pantoprazole 40 Mg Tablet PO 02/24/25 10:14 40 mg QDAY SONYA Administration Sennosides 1 tab 01/25/25 09:00 01/28/25 09:08 Senna Tablet PO 02/24/25 08:59 1 tab QDAY SONYA Administration Protocol Sodium Chloride 3 ml 01/24/25 14:36 Sodium Chloride Rt Violet 0.9% 3 Ml Nebu INH 02/23/25 14:35 PRN PRN SOLN Plan 79-year-old female with past medical history of asthma, sinus arrhythmia, eczema, psoriasis presented to the ED due to shortness of breath that was progressive for 1 week patient also reports orthopnea symptoms. Patient will be admitted for acute bronchitis secondary to asthma exacerbation. #Acute hypoxic respiratory failure secondary to #Acute bronchitis #Asthma exacerbation For the past week he started developing shortness of breath and wheezing. 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 Rojo Patient does have bilateral leg swelling, no crackles though Echo done in september shows: Normal LV size, wall thickness. Estimated EF 65%. RV is normal in size and systolic function. Estimated RVSP, 41mmHg. RAP 5. Mild thickening of the MV leaflets with moderate 2+mitral regurgitation. 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 Triston Naylor MD PGY-1 Attending Provider Attestation/Addendum I, Fadia Goldstein, DO, attest that I was physically present for the [place] portions of the service and evaluated the patient with the resident and I reviewed and discussed the case with the resident and agree with the resident's findings and plans of care as documented above Patient seen and evaluated this a.m. She states that she is feeling somewhat improved. She continues to have some rhonchi and wheezing in her left lower lung nayak. Patient states she uses her 's oxygen and does not wish to get her own. She is currently on 2 L nasal cannula which is her baseline. Will continue with current management. Encourage patient to use Acapella. If she continues to improve and remains stable, anticipate discharge within the next 24 hours.
[2025-01-29] VITALS (15 sets, daily range): BP systolic 114–139; BP diastolic 58–87; PULSE 79–103; RESP 16–28; TEMP 36.1–36.6; O2SAT 91–99; BMI 24.8
[2025-01-29] MEDS: IPRATROPIUM RT 0.5 MG/ 2.5 ML NEBU INH ×3 (00:04→10:50)
[2025-01-29] MEDS: LEVALBUTEROL RT 1.25 MG/0.5 ML NEBU INH ×5 (00:04→23:09)
[2025-01-29 06:44] LABS: Basophils % (Auto) 0 % (0-2.5); Eosinophils # (Auto) 0.1 Thou/mm3 (0.0-0.5); Eosinophils % (Auto) 1 % (0-10); Hemoglobin 13.8 g/dL (12.0-16.0); Immature Granulocytes % (Auto) 0 % (0-0); Immature Granulocytes Auto 0.05 Thou/mm3 (0.00-0.00); Lymphocytes # (Auto) 1.9 Thou/mm3 (1.0-4.8); Lymphocytes % (Auto) 16 % (10-50); Mean Corpuscular HGB Conc 33.7 g/dl (31.0-37.0); Mean Corpuscular Hemoglobin 29.7 pg (25.0-35.0); Mean Corpuscular Volume 88 fL (80-100); Monocytes % (Auto) 9 % (0-12); Neutrophils # (Auto) 8.7 Thou/mm3 (1.8-7.7); Neutrophils % (Auto) 74 % (37-80); Nucleated Red Blood Cell % 0 /100 WBC (0); Platelet Count 322 Thou/mm3 (140-440); RDW Standard Deviation 44.6 fL (36.4-46.3); Red Blood Count 4.64 Miln/mm3 (4.00-5.20); White Blood Count 11.7 Thou/mm3 (3.6-11.0)
[2025-01-29 06:55] LABS: Alanine Aminotransferase 34 U/L (10-49); Albumin, Serum 3.5 gm/dL (3.4-4.8); Albumin/Globulin Ratio 1.9 (1.2-2.2); Alkaline Phosphatase 48 U/L (46-116); Anion Gap 6 (7-16); Aspartate Amino Transferase 27 U/L (0-34); BUN/Creatinine Ratio 25 Ratio (12-20); Bilirubin,Total 0.8 mg/dL (0.3-1.2); Blood Urea Nitrogen 15 mg/dL (9-23); Calcium 8.5 mg/dL (8.3-10.6); Calcium (Corrected) 8.9 mg/dL (8.5-10.1); Carbon Dioxide 34.8 mMol/L (20.0-31.0); Chloride 101 mMol/L (98-107); Creatinine (Component) 0.6 mg/dL (0.6-1.3); Estimated Creatinine Clearance 66.6 mL/min (>60); Globulin 1.8 gm/dL (2.3-3.5); Glucose 88 mg/dL (74-106); Magnesium 2.1 mg/dL (1.6-2.6); Osmolality,Calculated 282 (275-295); Phosphorous 2.9 mg/dL (2.4-5.1); Potassium 3.8 mMol/L (3.4-5.1); Sodium 142 mMol/L (136-145); Total Protein 5.3 gm/dL (5.7-8.2); eGFR > 60 See Note
[2025-01-29] MEDS: BUDESONIDE RT 0.5 MG/2 ML NEBU 1 MG INH ×2 (06:55→18:48)
[2025-01-29] MEDS: AZITHROMYCIN 250 MG TABLET 500 MG PO (09:10)
[2025-01-29] MEDS: amLODIPine BESYLATE 2.5 MG TABLET PO (09:10)
[2025-01-29] MEDS: METOPROLOL SUCCINATE XL 25 MG TABCR 50 MG PO (09:11)
[2025-01-29] MEDS: PANTOPRAZOLE 40 MG TABLET PO (09:11)
[2025-01-29] MEDS: ENOXAPARIN SOD INJ 40 MG/0.4 ML SYRINGE SC (09:12)
[2025-01-29] MEDS: MethylPREDNISolone SOD SUCC 62.5 MG/ML 2ML VIAL 60 MG IVP (09:12)
--- NOTE | 2025-01-29 11:31 | PC.NURSE ---
pt was up to the bathroom without oxygen, O2 saturation was 86% when she was done (approx 5 min)
--- NOTE | 2025-01-29 13:22 | ESPR_ITS ---
Documentation for date of: 01/29/25 Subjective Subjective Interval history: Patient was seen and examined at bedside this AM. No acute events overnight. Patient tolerating diet, adequate urine output and mentation is at baseline. She endorses improvement of shortness of breath, oxygen sats now trending 96-99% on 2L. Will titrate down to 1L of oxygen. RN informed of goal sats 88-92%. Patient encouraged to ambulate as tolerated. Steroid dose reduced from 125 -> 60mg IV daily for now. Will continue q4H duonebs as needed. Ordered a bedside inhaler as well for wheezing between nebs. Anticipate DC in 24 hours. Exam Vital Signs Temp Pulse Resp BP Pulse Ox O2 Del Method O2 Flow Rate 97.6 F 92 16 129/83 96 Nasal Cannula 2 01/29/25 12:00 01/29/25 12:01 01/29/25 12:00 01/29/25 12:00 01/29/25 12:00 01/29/25 12:00 01/29/25 12:00 Narrative Exam Constitutional Alert, oriented x3 and comfortable on 2L -> 1L on oxygen via NC HEENT Vision grossly intact. Patent nares. Trachea midline. O2 sats 96-98% at rest Respiratory Chest normal on inspection and diffuse wheezes on auscultation. Cardiovascular S1 and S2 audible, RRR. No murmurs or carotid bruit. No gross JVD. Abdominal Soft and BS + ; non tender to palpation in all quadrants. Genitourinary No bladder tenderness, no flank pain. Normal to palpation. Musculoskeletal Extremities tone within normal limits. No LE edema. Neurological CN II - XII grossly intact. Extremity motor and sensation grossly intact. Skin Warm, dry and intact. No apparent lesions. Senile purpurae, thin build. Psychiatric Patient has a good affect, is cooperative. Objective Labs 01/30/25 04:47 01/30/25 04:47 Labs: Laboratory Results - last 24 hr 01/29/25 04:49 WBC 11.7 H RBC 4.64 Hgb 13.8 Hct 41.0 MCV 88 MCH 29.7 MCHC 33.7 RDW Std Deviation 44.6 Plt Count 322 Neut % (Auto) 74 Lymph % (Auto) 16 [place] % (Auto) 9 Eos % (Auto) 1 Baso % (Auto) 0 Neut # (Auto) 8.7 H Lymph # (Auto) 1.9 [place] # (Auto) 1.0 H Eos # (Auto) 0.1 Baso # (Auto) 0.0 Immature Gran # (Auto) 0.05 H Absolute Nucleated RBC 0.00 Immature Gran % 0 Nucleated RBC % 0 Sodium 142 Potassium 3.8 Chloride 101 Carbon Dioxide 34.8 H Anion Gap 6 L BUN 15 Creatinine 0.6 Estim Creat Clear Calc 66.6 eGFR > 60 BUN/Creatinine Ratio 25 H Glucose 88 Calculated Osmolality 282 Calcium 8.5 Corrected Calcium 8.9 Phosphorus 2.9 Magnesium 2.1 Total Bilirubin 0.8 AST 27 ALT 34 Alkaline Phosphatase 48 Total Protein 5.3 L Albumin 3.5 Globulin 1.8 L Albumin/Globulin Ratio 1.9 ABG Interpretation ABG results: 01/24/25 09:05 VBG pH 7.33 VBG pCO2 66 H VBG pO2 35 VBG Base Excess 6 H Quality Measures Quality Measures VTE prophylaxis and none Advance care planning discussed with:: patient Assessment & Plan Assessment Current Active Medications: Generic Name Dose Route Start Last Admin Trade Name Freq PRN Reason Stop Dose Admin Acetaminophen 650 mg 01/24/25 14:17 Acetaminophen 325 Mg Tablet PO 02/23/25 14:16 Q6H PRN Fever >101.5 Acetaminophen 1,000 mg 01/24/25 14:17 01/27/25 04:18 Acetaminophen 500 Mg Tablet PO 02/23/25 14:16 1,000 mg Q6H PRN Administration PAIN SCALE 1-3 (mild Hydrocodone Bitart/Acetaminophen 1 tab 01/29/25 08:07 Hydrocodone/Apap 5/325 Tablet PO 02/03/25 08:06 Q6HR PRN Pain 4-10 Albuterol 2 puff 01/29/25 09:45 Albuterol Inh 8 Gm INH 02/28/25 09:44 Q1H PRN SHORTNESS OF BREATH OR WHEEZE Amlodipine Besylate 2.5 mg 01/25/25 08:00 01/29/25 09:10 Amlodipine Besylate 2.5 Mg Tablet PO 02/24/25 07:59 2.5 mg QDAY SONYA Administration Azithromycin 500 mg 01/24/25 14:30 01/29/25 09:10 Azithromycin 250 Mg Tablet PO 01/31/25 14:29 500 mg QDAY SONYA Administration Budesonide 1 mg 01/27/25 19:00 01/29/25 06:55 Budesonide Rt 0.5 Mg/2 Ml Nebu INH 02/26/25 18:59 1 mg BIDRT SONYA Administration Docusate Sodium 100 mg 01/25/25 09:00 01/29/25 09:15 Docusate Sod 100 Mg Capsule PO 02/24/25 08:59 Not Given QDAY SONYA Protocol Enoxaparin Sodium 40 mg 01/25/25 09:00 01/29/25 09:12 Enoxaparin Sod Inj 40 Mg/0.4 Ml Syringe SC 02/08/25 08:59 40 mg QDAY SONYA Administration Ipratropium [place] 0.5 mg 01/29/25 09:51 01/29/25 10:50 Ipratropium Rt 0.5 Mg/ 2.5 Ml Nebu INH 02/23/25 14:35 0.5 mg Q4HR PRN Administration SHORTNESS OF BREATH Protocol Levalbuterol HCl 1.25 mg 01/29/25 09:51 01/29/25 10:50 Levalbuterol Rt 1.25 Mg/0.5 [facility] 02/23/25 14:35 1.25 mg Q4HR PRN Administration WHEEZING Protocol Lidocaine 1 patch 01/27/25 11:48 01/28/25 09:09 Lidocaine 5% 1 Patch TOP 02/26/25 11:47 1 patch UD PRN Administration PAIN Methylprednisolone Sodium Succinate 60 mg 01/30/25 09:00 Methylprednisolone Sod Succ 40 Mg Vial IVP 02/05/25 08:59 DAILY SONYA Metoprolol Succinate 50 mg 01/29/25 09:00 01/29/25 09:11 Metoprolol Succinate Xl 25 Mg Tabcr PO 02/28/25 08:59 50 mg QDAY SONYA Administration Ondansetron HCl 4 mg 01/24/25 14:17 Ondansetron Inj 2 Mg/Ml Inj 2 Ml IV 02/23/25 14:16 Q6H PRN NAUSEA OR VOMITING Protocol Pantoprazole Sodium 40 mg 01/25/25 10:15 01/29/25 09:11 Pantoprazole 40 Mg Tablet PO 02/24/25 10:14 40 mg QDAY SONYA Administration Sennosides 1 tab 01/25/25 09:00 01/29/25 09:19 Senna Tablet PO 02/24/25 08:59 Not Given QDAY [facility] Protocol Sodium Chloride 3 ml 01/24/25 14:36 Sodium Chloride Rt Violet 0.9% 3 Ml Nebu INH 02/23/25 14:35 PRN PRN SOLN Plan Ms Jansen is a 79-year-old female with past medical history of asthma, sinus arrhythmia, eczema, psoriasis presented to the ED due to shortness of breath that was progressive for 1 week patient also reports orthopnea symptoms. Patient will be admitted for acute bronchitis secondary to asthma exacerbation. Acute bronchitis In the setting of Asthma exacerbation COPD, unspecified For the past week he started developing shortness of breath and wheezing. 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 Will titrate down to 1L of oxygen. RN informed of goal sats 88-92%. Patient encouraged to ambulate as tolerated. Plan: - PRN Levalbuterol + ipratropium q4H - SONYA Budesonide INH BID - Chest physiotherapy daily - Mucinex BID for congestion - COntinue Azithromycin 500mg qD (01/24 - - IV Methylprednisolone 125 -> 60mg daily Sinus arrhythmia Mitral Regurgitation Pulmonary Hypertension Chronic Diastolic HF pEF 65% Patient is seen by Dr. Rojo Patient does have bilateral leg swelling, no crackles though Echo done in september shows: Normal LV size, wall thickness. Estimated EF 65%. RV is normal in size and systolic function. Estimated RVSP, 41mmHg. RAP 5. Mild thickening of the MV leaflets with moderate 2+mitral regurgitation. Mild to modearte TR 01/29: Metoprolol XL increased from home dose 25 -> 50mg daily. HR trending 80- 90s Plan: - Keep potassium above 4, magnesium above 2 - Continue rate control: Metoprolol XL 50mg daily - Close monitoring while on Duonebs beta agonists History of eczema History of psoriasis History of osteoporosis Patient follows up with Student Development Specialist in [facility] Plan: -Monitor at this time -Can follow-up as outpatient Health maintenance: Disposition: Medtele for acute bronchitis. On duonebs, titrating steroids. A nticipate DC in 24 hours. Feeding: Cardiac diet Thrombo prophylaxis: Lovenox 40mg SC qD Gastric Ulcer prophylaxis: none CODE STATUS: Full code Plan of care discussed with attending Keyshawn Finley M.D. 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 Attending Provider Attestation/Addendum Fadia Garcia DO, attest that I was physically present for the [place] portions of the service and evaluated the patient with the resident and I reviewed and discussed the case with the resident and agree with the resident's findings and plans of care as documented above Patient seen and evaluated this a.m. Patient continues to have scattered wheezing and rhonchi. She states she feels more short of breath today and remains on 2L/NC. Will increase frequency of breathing treatments and continue with rest of management. Anticipate DC within next 24-48hrs if respiratory status improves.
--- NOTE | 2025-01-29 14:52 | PC.SS ---
rounding note: pt requires at least one more day monitoring O2 levels
[2025-01-29] MEDS: SODIUM CHLORIDE RT SOL 0.9% 3 ML NEBU INH (23:09)
[2025-01-30] VITALS (11 sets, daily range): BP systolic 127–152; BP diastolic 72–84; PULSE 80–110; RESP 15–90; TEMP 36.1–36.6; O2SAT 92–99
[2025-01-30] MEDS: IPRATROPIUM RT 0.5 MG/ 2.5 ML NEBU INH ×2 (02:35→11:41)
[2025-01-30] MEDS: LEVALBUTEROL RT 1.25 MG/0.5 ML NEBU INH ×2 (02:35→11:41)
[2025-01-30 05:41] LABS: Basophils % (Auto) 0 % (0-2.5); Eosinophils # (Auto) 0.1 Thou/mm3 (0.0-0.5); Eosinophils % (Auto) 1 % (0-10); Hematocrit 40.6 % (36.0-46.0); Hemoglobin 13.2 g/dL (12.0-16.0); Immature Granulocytes % (Auto) 1 % (0-0); Immature Granulocytes Auto 0.05 Thou/mm3 (0.00-0.00); Lymphocytes % (Auto) 19 % (10-50); Mean Corpuscular HGB Conc 32.5 g/dl (31.0-37.0); Mean Corpuscular Volume 89 fL (80-100); Monocytes # (Auto) 0.9 Thou/mm3 (0.0-0.8); Monocytes % (Auto) 8 % (0-12); Neutrophils # (Auto) 7.7 Thou/mm3 (1.8-7.7); Neutrophils % (Auto) 72 % (37-80); Nucleated Red Blood Cell % 0 /100 WBC (0); Platelet Count 295 Thou/mm3 (140-440); RDW Standard Deviation 44.8 fL (36.4-46.3); Red Blood Count 4.55 Miln/mm3 (4.00-5.20); White Blood Count 10.8 Thou/mm3 (3.6-11.0)
[2025-01-30 06:05] LABS: Alanine Aminotransferase 32 U/L (10-49); Albumin, Serum 3.5 gm/dL (3.4-4.8); Albumin/Globulin Ratio 1.8 (1.2-2.2); Alkaline Phosphatase 47 U/L (46-116); Anion Gap 6 (7-16); Aspartate Amino Transferase 19 U/L (0-34); BUN/Creatinine Ratio 27 Ratio (12-20); Bilirubin,Total 0.9 mg/dL (0.3-1.2); Blood Urea Nitrogen 16 mg/dL (9-23); Calcium 9.3 mg/dL (8.3-10.6); Calcium (Corrected) 9.7 mg/dL (8.5-10.1); Carbon Dioxide 34.2 mMol/L (20.0-31.0); Chloride 99 mMol/L (98-107); Creatinine (Component) 0.6 mg/dL (0.6-1.3); Estimated Creatinine Clearance 64.9 mL/min (>60); Globulin 1.9 gm/dL (2.3-3.5); Glucose 90 mg/dL (74-106); Magnesium 2.3 mg/dL (1.6-2.6); Osmolality,Calculated 278 (275-295); Potassium 3.4 mMol/L (3.4-5.1); Sodium 139 mMol/L (136-145); Total Protein 5.4 gm/dL (5.7-8.2); eGFR > 60 See Note
[2025-01-30] MEDS: BUDESONIDE RT 0.5 MG/2 ML NEBU 1 MG INH (06:41)
[2025-01-30] MEDS: AZITHROMYCIN 250 MG TABLET 500 MG PO (09:18)
[2025-01-30] MEDS: PANTOPRAZOLE 40 MG TABLET PO (09:18)
[2025-01-30] MEDS: METOPROLOL SUCCINATE XL 25 MG TABCR 50 MG PO (09:18)
[2025-01-30] MEDS: amLODIPine BESYLATE 2.5 MG TABLET PO (09:19)
[2025-01-30] MEDS: ENOXAPARIN SOD INJ 40 MG/0.4 ML SYRINGE SC (09:19)
--- NOTE | 2025-01-30 10:35 | ESDS_ITS ---
Planned Discharge Date 01/30/25 DS: Providers Provider Date of admission: 01/25/25 15:03 Primary care physician: Physician No Primary/Family Admitting Provider: Kelle Ko MD Attending Provider on Admission: Fadia Goldstein DO Attending Provider on DC: Fadia Goldstein DO Discharging Provider: Fadia Goldstein DO Diagnosis Problem List Completed Was Problem List Reviewed/Reconciled?: Yes Hospital Course - Hospitalist Hospital Course Hospital course: Acute asthma/COPD exacerbation Acute bronchitis Sinus arrhythmia Mitral regurgitation Pulmonary hypertension Chronic diastolic heart failure with preserved EF Patient is a 79-year-old female with past medical history of asthma, breast cancer, osteoporosis, questionable arrhythmia, psoriasis who scented to the ED with worsening shortness of breath for past 1 week. Patient was admitted for acute bronchitis and asthma exacerbation. Patient received antibiotics and IV steroids with scheduled breathing treatments. Patient uses 2 L nasal cannula as needed at home. Patient was able to be weaned to room air today and resolution of wheezing. Patient is cleared for discharge home and is to follow-up with her PCP within 1 week of discharge. Will refill nebulizers and start patient on Trelegy and to be discharged home with steroid taper. All questions and concerns addressed at bedside. Time Spent with Patient Time attestation: Total time spent providing and/or coordinating discharge services: Time spent: Greater than 30 minutes Discharge Results Labs Diagrams: 01/30/25 04:47 01/30/25 04:47 Labs: Short CBC 01/30/25 Range/Units 04:47 WBC 10.8 (3.6-11.0) Thou/mm3 Hgb 13.2 (12.0-16.0) g/dL Hct 40.6 (36.0-46.0) % Plt Count 295 (140-440) Thou/mm3 BMP 01/30/25 04:47 Sodium 139 Potassium 3.4 Chloride 99 Carbon Dioxide 34.2 H BUN 16 Creatinine 0.6 Glucose 90 Calcium 9.3 Liver Function 01/30/25 Range/Units 04:47 Total Bilirubin 0.9 (0.3-1.2) mg/dL AST 19 (0-34) U/L ALT 32 (10-49) U/L Alkaline Phosphatase 47 (46-116) U/L Albumin 3.5 (3.4-4.8) gm/dL Exam Vital Signs Temp Pulse Resp BP Pulse Ox O2 Del Method O2 Flow Rate 96.9 F 102 H 21 H 132/84 H 92 L Nasal Cannula 2 01/30/25 08:00 01/30/25 09:19 01/30/25 08:00 01/30/25 09:19 01/30/25 08:00 01/30/25 04:00 01/30/25 02:35 Narrative Gen: No acute distress HEENT: NCAT, PERRLOU, Sclera anicteric, conjunctiva noninjected, oral mucosa moist without erythema Neck: Supple, full range of motion, no LAD CV: RRR, no murmurs, rubs or gallops Resp: Mild rhonchi in bibasilar lung nayak GI: abdomen soft, bowel sounds noted, no tenderness to palpation, no guarding or rebound tenderness, no organomegaly Skin: clean, dry, no rashes, lesions or ecchymosis Ext: no clubbing, cyanosis, or edema Neuro: A&O x3, CN II- XII intact b/l, no focal neurological deficits Discharge Plan Plan Patient Disposition: HOME (Self Care) Patient condition on transfer: Stable Prescriptions/Referrals Prescriptions/Med Rec: New metoprolol succinate 25 mg Tablet Extended Release 24 Hr 50 mg PO QDAY 30 Days Qty: 60 0RF amlodipine 2.5 mg Tablet 2.5 mg PO QDAY 30 Days Qty: 30 0RF albuterol sulfate [Ventolin HFA] 90 mcg/actuation Hfa Aerosol Inhaler 2 puff INH Q6H PRN (Reason: Shortness Of Breath Or Wheeze) 30 Days Qty: 6.7 0RF Trelegy Ellipta 100-62.5-25 mcg blister with device 1 inh inhalation Q24H Qty: 28 0RF methylprednisolone [Medrol (Lobo)] 4 mg tablets,dose pack 4 mg PO QDAY Qty: 21 0RF Continued budesonide 0.5 mg/2 mL suspension for nebulization 0.5 mg inhalation QDAY Qty: 60 0RF Discontinued metoprolol succinate 25 mg Tablet Extended Release 24 Hr 25 mg PO QDAY prednisone 20 mg tablet 20 mg PO .COMPLEX Patient Comments: TAKE 2 TABLETS BY MOUTH EVERY DAY FOR 5 DAYS Rx Instructions: 20 mg orally BID for 5 days; amlodipine 2.5 mg tablet 2.5 mg PO 1XD Patient Comments: TAKE 1 TABLET BY MOUTH EVERY DAY ipratropium-albuterol 0.5 mg-3 mg(2.5 mg base)/3 mL solution for nebulization 3 ml inhalation Q6H PRN (Reason: shortness of breath or wheezing) Qty: 180 0RF methylprednisolone [Medrol (Lobo)] 4 mg tablets,dose pack 4 mg PO QDAY Qty: 21 0RF prednisolone 5 mg tablet 10 mg PO QDAY Qty: 60 0RF No Action fluticasone propion-salmeterol [Advair HFA] 45-21 mcg/actuation Hfa Aerosol Inhaler 2 puff INHALATION BID fexofenadine [Sharon Allergy] 60 mg Tablet 60 mg PO BID clotrimazole-betamethasone 1-0.05 % cream 1 applic topical BID fluticasone propion-salmeterol [Advair HFA] 115-21 mcg/actuation HFA aerosol inhaler 2 puff inhalation BID Qty: 12 0RF Rx Instructions: administer with spacer Referrals: No Primary/Family,Physician [Primary Care Provider] - Patient/Caregiver Discharge Instructions Other Discharge Activity Instructions:: Please f/u with PCP wtihin 1 week of discharge Print Language: Cymraes Stand Alone Forms: Shelia Award Info., Patient Portal Info Letter Discharge Order Discharge Orders: Discharge (Routine); Ordered 01/30/25 Ordered By: Fadia Goldstein Quality Discharge Quality Measures VTE prophylaxis (Lovenox)
--- NOTE | 2025-01-30 13:02 | PC.NURSE ---
pt is discharged, discharge instructions are signed, IV is out, she is waiting for her son to pick her up
== END 2025-01-30 16:29 | disposition home or self-care (01) | DRG 202 ==
LOC: SERX 13:48 → SERHOLD 01-25 06:05 → S3NX 01-25 06:05
PROVIDERS: Student in an Organized Health Care Education/Training Program; Admitting Provider Internal Medicine; Emergency Provider Emergency Medicine; Visit Provider Internal Medicine
DX: J20.9 Acute bronchitis, unspecified (principal); J96.01 Acute respiratory failure with hypoxia; I50.32 Chronic diastolic (congestive) heart failure; J45.902 Unspecified asthma with status asthmaticus; J44.0 Chronic obstructive pulmonary disease with (acute) lower respiratory infection; E87.29 Other acidosis; J44.1 Chronic obstructive pulmonary disease with (acute) exacerbation; M19.90 Unspecified osteoarthritis, unspecified site; Z85.3 Personal history of malignant neoplasm of breast; I11.0 Hypertensive heart disease with heart failure; Z90.13 Acquired absence of bilateral breasts and nipples; I34.0 Nonrheumatic mitral (valve) insufficiency; F17.210 Nicotine dependence, cigarettes, uncomplicated; I27.20 Pulmonary hypertension, unspecified; M81.0 Age-related osteoporosis without current pathological fracture; Z96.649 Presence of unspecified artificial hip joint
CPT/HCPCS: 36415; 71045; 80053; 81001; 82803; 83605; 83735; 83880; 84100; 84484; 85025; 87205; 87811; 93005; 93225; 94640; 94644; 94664; 94667; 96374; 99291; G0378; J1650; J2919; J3490; A9270

== ENCOUNTER 2025-02-08 11:50 | Emergency (ER) | payer MEDICARE, SELFPAY ==
[2025-02-08 11:51] VITALS: BMI 22.8
[2025-02-08 12:00] VITALS: BP 152/88; PULSE 98; RESP 18; TEMP 36.7; O2SAT 94
--- NOTE | 2025-02-08 12:05 | EKG_ITS ---
[facility] Test Date: 2025-02-08 Pat Name: HONG BORJA Department: Room: - Gender: Female Education Coordinator: : 1945 Requested By: Navi Ornelas Order Number: [id number] Reading MD: Navi Ornelas Measurements Intervals [place] Rate: 101 P: 63 HI: 155 QRS: -51 QRSD: 98 T: 35 QT: 336 QTc: 437 Interpretive Statements SINUS TACHYCARDIA POSSIBLE LEFT ATRIAL ENLARGEMENT [-0.1mV P-WAVE IN V1/V2] LEFT ANTERIOR FASCICULAR BLOCK [QRS AXIS <= -45, QR IN I, RS IN II] NONSPECIFIC T-WAVE ABNORMALITY Compared to ECG 01/24/2025 08:58:26 Left anterior fascicular block now present T-wave abnormality now present Sinus rhythm no longer present Left-axis deviation no longer present /store/S0/[id number].pdf
--- NOTE | 2025-02-08 12:05 | XR_ITS ---
Examination: PA lateral chest 2 views TECHNIQUE: Upright PA lateral chest 2 views Date and time: February 08, 2025 1321 hours Comparison January 24, 2025 INDICATIONS: Chest pain shortness of breath beginning this morning. FINDINGS: Moderate enlargement left ventricle Moderate hyperexpansion No pneumonia or pulmonary edema Prominent osteopenia with chronic osteoporotic compression upper dorsal vertebral body IMPRESSION: Moderate enlargement left ventricle COPD No pneumonia or pulmonary edema
--- NOTE | 2025-02-08 12:05 | PD.EDRME ---
Rapid Medical Screening Exam RME Arrival date/time: 02/08/25 11:50 79-year-old female with a history of hypertension, asthma, presents to the emergency room with a chief complaint of 5 out of 10 sternal chest pain that radiates to her back x 2 days. I have greeted and performed a focused initial assessment of this patient. A comprehensive ED assessment and evaluation of the patient, analysis of all test results, and completion of the medical decision making process will be conducted by additional ED providers. Chief Complaint: Back Pain/Injury Time Seen by Provider: 02/08/25 11:53 Vital signs: Vital Signs Temperature 98.1 F 02/08/25 12:00 Pulse Rate 98 02/08/25 12:00 Respiratory Rate 18 02/08/25 12:00 Blood Pressure 152/88 H 02/08/25 12:00 Pulse Oximetry (%) 94 L 02/08/25 12:00 Oxygen Delivery Method Room Air 02/08/25 12:00 Vital signs reviewed by provider: Yes
[2025-02-08 13:02] LABS: Basophils # (Auto) 0.1 Thou/mm3 (0.0-0.2); Basophils % (Auto) 1 % (0-2.5); Eosinophils # (Auto) 0.3 Thou/mm3 (0.0-0.5); Eosinophils % (Auto) 2 % (0-10); Hematocrit 41.4 % (36.0-46.0); Hemoglobin 14.1 g/dL (12.0-16.0); Immature Granulocytes % (Auto) 0 % (0-0); Immature Granulocytes Auto 0.05 Thou/mm3 (0.00-0.00); Lymphocytes # (Auto) 0.6 Thou/mm3 (1.0-4.8); Lymphocytes % (Auto) 5 % (10-50); Mean Corpuscular HGB Conc 34.1 g/dl (31.0-37.0); Mean Corpuscular Hemoglobin 29.1 pg (25.0-35.0); Mean Corpuscular Volume 85 fL (80-100); Monocytes # (Auto) 0.3 Thou/mm3 (0.0-0.8); Monocytes % (Auto) 2 % (0-12); Neutrophils # (Auto) 10.9 Thou/mm3 (1.8-7.7); Neutrophils % (Auto) 90 % (37-80); Nucleated Red Blood Cell % 0 /100 WBC (0); Platelet Count 299 Thou/mm3 (140-440); RDW Standard Deviation 43.8 fL (36.4-46.3); Red Blood Count 4.85 Miln/mm3 (4.00-5.20); White Blood Count 12.2 Thou/mm3 (3.6-11.0)
[2025-02-08 13:11] LABS: Partial Thromboplastin Time 28.2 Seconds (22.0-36.0); Prothrombin Time 10.8 Seconds (9.0-12.2)
[2025-02-08 13:13] LABS: B-Type Natriuretic Peptide 22 pg/mL (0-100)
[2025-02-08 13:14] LABS: Alanine Aminotransferase 24 U/L (10-49); Albumin, Serum 4.3 gm/dL (3.4-4.8); Albumin/Globulin Ratio 2.2 (1.2-2.2); Alkaline Phosphatase 65 U/L (46-116); Anion Gap 9 (7-16); Aspartate Amino Transferase 26 U/L (0-34); BUN/Creatinine Ratio 16 Ratio (12-20); Blood Urea Nitrogen 11 mg/dL (9-23); Calcium 9.1 mg/dL (8.3-10.6); Calcium (Corrected) 9.1 mg/dL (8.5-10.1); Chloride 104 mMol/L (98-107); Creatinine (Component) 0.7 mg/dL (0.6-1.3); Estimated Creatinine Clearance 52.4 mL/min (>60); Glucose 97 mg/dL (74-106); Osmolality,Calculated 286 (275-295); Potassium 3.5 mMol/L (3.4-5.1); Sodium 144 mMol/L (136-145); Total Protein 6.3 gm/dL (5.7-8.2); Troponin I < 0.020 ng/mL (0.0-0.045); eGFR > 60 See Note
[2025-02-08 14:42] VITALS: BP 157/92; PULSE 106; RESP 18; TEMP 36.8; O2SAT 95
--- NOTE | 2025-02-08 14:56 | PD.EDADULT ---
ED General RME/HPI General Chief complaint: Back Pain/Injury Stated complaint: BACK PAIN/SOB SINCE YESTERDAY Time Seen by Provider: 02/08/25 11:53 Arrival date/time: 02/08/25 11:50 79-year-old female presents to the ED with a complaint of bilateral mid back pressure with shortness of breath and increased use of her inhaler as well as nausea. She denies fever or chills, she denies any pain in the anterior portion of her chest or radiation to her neck, shoulders or left arm. The pain came on at rest, it is described as a 3/10, and lasted most of the morning. It has since resolved after she fell asleep in the waiting room. She has a past medical history of asthma for which she uses a nebulizer and an albuterol inhaler. She was recently hospitalized in this facility for acute asthma exacerbation with respiratory distress. She contacted her wad lubricator who recommended she come to the ED for further workup and evaluation. Mode of arrival: ambulatory RME / HPI RME / HPI narrative: 02/08/25 11:50 79-year-old female with a history of hypertension, asthma, presents to the emergency room with a chief complaint of 5 out of 10 sternal chest pain that radiates to her back x 2 days. I have greeted and performed a focused initial assessment of this patient. A comprehensive ED assessment and evaluation of the patient, analysis of all test results, and completion of the medical decision making process will be conducted by additional ED providers. Related Data Home Medications ?Medication ?Instructions ?Recorded ?Confirmed fluticasone propionate 45 2 puff inhalation BID 12/27/17 01/25/25 mcg-salmeterol 21 mcg/actuation HFA inhaler (Advair HFA) fexofenadine 60 mg tablet (Sharon 60 mg PO BID 05/02/18 01/25/25 Allergy) clotrimazole-betamethasone 1 1 applic topical BID 01/24/25 01/24/25 %-0.05 % topical cream Previous Rx's ?Medication ?Instructions ?Recorded fluticasone propionate 115 2 puff inhalation BID #12 grams 10/05/24 mcg-salmeterol 21 mcg/actuation HFA inhaler (Advair HFA) budesonide 0.5 mg/2 mL suspension 0.5 mg (2 mL) inhalation QDAY #60 10/08/24 for nebulization mL albuterol sulfate 90 mcg/actuation 2 puff INH Q6H PRN Shortness Of 01/30/25 aerosol inhaler (Ventolin HFA) Breath Or Wheeze 30 days #6.7 grams amlodipine 2.5 mg tablet 2.5 mg PO QDAY 30 days #30 tabs 01/30/25 fluticasone fur. 100 mcg-umeclid 1 inh inhalation Q24H #28 ea 01/30/25 62.5 mcg-vilant 25 mcg inhalat.powder (Trelegy Ellipta) methylprednisolone 4 mg tablets in 4 mg PO QDAY #21 tabs 01/30/25 a dose pack (MINDBODY (Lobo)) metoprolol succinate 25 mg 50 mg (2 x 25 mg) PO QDAY 30 days 01/30/25 tablet,extended release 24 hr #60 tabs Allergies Allergy/AdvReac Type Severity Reaction Status Date / Time shellfish derived Allergy Severe ITCHING,DROP Verified 02/08/25 11:54 IN BP Sulfa (Sulfonamide Allergy Severe HIVES AND Verified 02/08/25 11:54 Antibiotics) SWELLING Review of Systems Review of Systems Systems Reviewed: All systems reviewed, normal except as documented Past Medical History Past Medical History NEUROLOGIC: Positive Neurological Disorders and Migraine; Negative Seizures CARDIAC: Positive Cardiac Disorders, Cardiac Arrhythmia and Hypertension; Negative Congestive Heart Failure RESPIRATORY: Positive Asthma; Negative Chronic Obstructive Pulmonary Disease (COPD) GASTROINTESTINAL: Positive Gastrointestinal Disorders and Diverticulosis GENITOURINARY: Negative Genitourinary Disorders or Renal Disease REPRODUCTIVE: Positive Breast Cancer and Previous Pregnancies MUSCULOSKELETAL: Positive Musculoskeletal Disorders, Arthritis and Osteoporosis ENDOCRINE: Negative Endocrine Disorders, Diabetes Mellitus Type 1 or Diabetes Mellitus Type 2 HEMATOLOGIC: Positive Blood Disorders and Clotting Problems OTHER HISTORY: Positive Hospitalization, Anesthesia Reactions, Chicken Pox, Measles, Mumps, Rubella (Malaysian Measles) and Breast Cancer; Negative Falls, Blood Transfusions or Blood Transfusion Reaction Family History FAMILY HISTORY: Positive Family Cancer Surgical History SURGICAL: Positive Joint Replacement, Arthroscopy and Mastectomy (bilateral) Social History SMOKING STATUS: Former smoker SUBSTANCE USE: does not use ED Exam Narrative Physical exam: Alert and oriented 79-year-old female, no acute distress, breath sounds reveal diminished breath sounds at the bases with mild wheezing noted in the upper nayak, regular rate and rhythm without murmurs, chest is without tenderness to AP or lateral Chest compression. Abdomen is soft and nontender, extremities reveal 1-2+ pitting edema which patient states is new to her since just this morning. Course Orders Category Date Time Status EKG (ED ONLY) *Do not use* NOW Care 02/08/25 12:05 Completed EKG (ED ONLY) *Do not use* NOW Care 02/08/25 15:16 Completed EKG (ED Only) Stat Exams 02/08/25 12:05 Draft EKG (ED Only) Stat Exams 02/08/25 15:16 Draft XR chest 2V Stat Exams 02/08/25 12:05 Completed B-Type Natriuretic Peptide Stat Lab 02/08/25 12:32 Completed CBC Stat Lab 02/08/25 12:32 Completed Comprehensive Metabolic Panel Stat Lab 02/08/25 12:32 Completed Partial Thromboplastin Time Stat Lab 02/08/25 12:32 Completed Prothrombin Time with INR Stat Lab 02/08/25 12:32 Completed Troponin I Stat Lab 02/08/25 12:32 Completed Troponin I Stat Lab 02/08/25 15:24 Completed Urinalysis Stat Lab 02/08/25 16:12 Completed Urine Culture Stat Lab 02/08/25 16:12 Received Vital Signs Vital signs: Vital Signs Temperature 98.1 F 02/08/25 12:00 Pulse Rate 98 02/08/25 12:00 Respiratory Rate 18 02/08/25 12:00 Blood Pressure 152/88 H 02/08/25 12:00 Pulse Oximetry (%) 94 L 02/08/25 12:00 Oxygen Delivery Method Room Air 02/08/25 12:00 Discharge Plan Plan Patient Disposition: HOME (Self Care) Discharge Disposition comment: Stable Prescriptions/Referrals Prescriptions/Med Rec: No Action fluticasone propion-salmeterol [Advair HFA] 45-21 mcg/actuation Hfa Aerosol Inhaler 2 puff INHALATION BID fexofenadine [Sharon Allergy] 60 mg Tablet 60 mg PO BID clotrimazole-betamethasone 1-0.05 % cream 1 applic topical BID metoprolol succinate 25 mg Tablet Extended Release 24 Hr 50 mg PO QDAY 30 Days Qty: 60 0RF amlodipine 2.5 mg Tablet 2.5 mg PO QDAY 30 Days Qty: 30 0RF albuterol sulfate [Ventolin HFA] 90 mcg/actuation Hfa Aerosol Inhaler 2 puff INH Q6H PRN (Reason: Shortness Of Breath Or Wheeze) 30 Days Qty: 6.7 0RF Trelegy Ellipta 100-62.5-25 mcg blister with device 1 inh inhalation Q24H Qty: 28 0RF methylprednisolone [Medrol (Lobo)] 4 mg tablets,dose pack 4 mg PO QDAY Qty: 21 0RF fluticasone propion-salmeterol [Advair HFA] 115-21 mcg/actuation HFA aerosol inhaler 2 puff inhalation BID Qty: 12 0RF Rx Instructions: administer with spacer budesonide 0.5 mg/2 mL suspension for nebulization 0.5 mg inhalation QDAY Qty: 60 0RF Referrals: Quinton Ochoa MD [Primary Care Provider] - In 1 week Problem List Clinical Impression: Chest wall pain Patient/Caregiver Discharge Instructions Education Materials: ED Chest Pain, Uncertain Cause Additional Instructions: Contact Dr. Garza's office tomorrow to schedule a follow-up appointment sometime next week. Follow-up with your primary care physician in 24 to 48 hours. Return to the ED for any new or worsening symptoms. Print Language: Hong Konger Stand Alone Forms: Shelia Award Info., Patient Portal Info Letter PA/PRASANNA Supervising Physician PA/PRASANNA Supervising Physician: Dr Contreras [facility] Radiology reports / interpretation(s): XR Chest: FINDINGS: Moderate enlargement left ventricle Moderate hyperexpansion No pneumonia or pulmonary edema Prominent osteopenia with chronic osteoporotic compression upper dorsal vertebral body IMPRESSION: Moderate enlargement left ventricle COPD No pneumonia or pulmonary edema
--- NOTE | 2025-02-08 15:16 | EKG_ITS ---
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1945 Requested By: Haylie Helton Order Number: [id number] Reading MD: Haylie Helton Measurements Intervals [place] Rate: 99 P: 39 IN: 159 QRS: -40 QRSD: 95 T: 1 QT: 320 QTc: 412 Interpretive Statements SINUS RHYTHM LEFT ATRIAL ENLARGEMENT [-0.15mV P-WAVE IN V1/V2] LEFT AXIS DEVIATION [QRS AXIS < -30] PATTERN CONSISTENT WITH PULMONARY DISEASE POSSIBLE LEFT VENTRICULAR HYPERTROPHY [VOLTAGE CRITERIA PLUS LAE OR QRS WIDENING] Compared to ECG 02/08/2025 12:23:03 Left-axis deviation now present Sinus tachycardia no longer present Left anterior fascicular block no longer present T-wave abnormality no longer present /store/S0/[id number].pdf
[2025-02-08 16:06] LABS: Troponin I < 0.020 ng/mL (0.0-0.045)
[2025-02-08 16:19] LABS: Collection Type, Urine Clean Catch; Squamous Epithelial Cell,Urine 0 /hpf (0-5)
[2025-02-08 16:25] LABS: Bilirubin,Urine Negative (Negative); Blood,Urine Negative (Negative); Clarity,Urine Clear (Clear/Hazy); Color,Urine Lt-Yellow (Lt Yel-Yel); Glucose, Urine Negative (Negative); Ketones,Urine Trace (Negative); Leukocyte Esterase,Urine Negative (Negative); Nitrite,Urine Negative (Negative); PH,Urine 6.5 (5.0-7.0); Protein,Urine Negative (Neg - Trace); RBC,Urine 2 /hpf (0-3); Specific Gravity,Urine 1.016 (1.001-1.035); Urobilinogen,Urine Negative mg/dL (0.0-1.0); WBC,Urine 1 /hpf (0-5)
== END 2025-02-08 17:33 | disposition home or self-care (01) ==
PROVIDERS: Nurse Practitioner Family; Physician Assistant; Emergency Provider Emergency Medicine; PCP Family Medicine
DX: R07.89 Other chest pain (principal); I10 Essential (primary) hypertension; J44.89 Other specified chronic obstructive pulmonary disease; M54.9 Dorsalgia, unspecified
CPT/HCPCS: 36415; 71046; 80053; 81001; 83880; 84484; 85025; 85610; 85730; 87077; 87086; 87186; 93005; 99283

== ENCOUNTER 2025-02-27 07:02 | Inpatient (IN) | payer MEDICARE, SELFPAY ==
[2025-02-27] VITALS (14 sets, daily range): BP systolic 109–137; BP diastolic 64–84; PULSE 90–116; RESP 17–93; TEMP 36.4–37.1; O2SAT 94–99; BMI 23.8; BMI 22.8
--- NOTE | 2025-02-27 07:14 | PD.EDSOB ---
ED SOB =RME/HPI General Chief Complaint: Shortness of Breath/Dyspnea Stated Complaint: SOB Time Seen by Provider: 02/27/25 07:17 Arrival date/time: 02/27/25 07:02 Limitations: no limitations RME / HPI RME / HPI Narrative: DR. PATTERSON MAIN ED EVALUATION: 79 year old female with past medical history significant for asthma presents to the Emergency Department [facility] with complaint of shortness of breath with wheezing onset 3 days, worse today. Associated symptoms a cough and bilateral leg swelling. Patient took an albuterol treatment at 5 AM, prior to arrival, and then EMS gave her another en route. Patient states she has home oxygen and a nebulizer. Other PMHx includes a cholecystectomy. Related Data Home Medications ?Medication ?Instructions ?Recorded ?Confirmed fluticasone propionate 45 2 puff inhalation BID 12/27/17 01/25/25 mcg-salmeterol 21 mcg/actuation HFA inhaler (Advair HFA) fexofenadine 60 mg tablet (Sharon 60 mg PO BID 05/02/18 01/25/25 Allergy) clotrimazole-betamethasone 1 1 applic topical BID 01/24/25 01/24/25 %-0.05 % topical cream Previous Rx's ?Medication ?Instructions ?Recorded fluticasone propionate 115 2 puff inhalation BID #12 grams 10/05/24 mcg-salmeterol 21 mcg/actuation HFA inhaler (Advair HFA) budesonide 0.5 mg/2 mL suspension 0.5 mg (2 mL) inhalation QDAY #60 10/08/24 for nebulization mL albuterol sulfate 90 mcg/actuation 2 puff INH Q6H PRN Shortness Of 01/30/25 aerosol inhaler (Ventolin HFA) Breath Or Wheeze 30 days #6.7 grams amlodipine 2.5 mg tablet 2.5 mg PO QDAY 30 days #30 tabs 01/30/25 fluticasone fur. 100 mcg-umeclid 1 inh inhalation Q24H #28 ea 01/30/25 62.5 mcg-vilant 25 mcg inhalat.powder (Trelegy Ellipta) methylprednisolone 4 mg tablets in 4 mg PO QDAY #21 tabs 01/30/25 a dose pack (Medrol (Lobo)) metoprolol succinate 25 mg 50 mg (2 x 25 mg) PO QDAY 30 days 01/30/25 tablet,extended release 24 hr #60 tabs Allergies Allergy/AdvReac Type Severity Reaction Status Date / Time shellfish derived Allergy Severe ITCHING,DROP Verified 02/27/25 07:16 IN BP Sulfa (Sulfonamide Allergy Severe HIVES AND Verified 02/27/25 07:16 Antibiotics) SWELLING Review of Systems Review of Systems Systems Reviewed: All systems reviewed, normal except as documented Past Medical History Past Medical History NEUROLOGIC: Positive Neurological Disorders and Migraine; Negative Seizures CARDIAC: Positive Cardiac Disorders, Cardiac Arrhythmia and Hypertension; Negative Congestive Heart Failure RESPIRATORY: Positive Asthma; Negative Chronic Obstructive Pulmonary Disease (COPD) GASTROINTESTINAL: Positive Gastrointestinal Disorders and Diverticulosis GENITOURINARY: Negative Genitourinary Disorders or Renal Disease REPRODUCTIVE: Positive Breast Cancer and Previous Pregnancies MUSCULOSKELETAL: Positive Musculoskeletal Disorders, Arthritis and Osteoporosis ENDOCRINE: Negative Endocrine Disorders, Diabetes Mellitus Type 1 or Diabetes Mellitus Type 2 HEMATOLOGIC: Positive Blood Disorders and Clotting Problems OTHER HISTORY: Positive Hospitalization, Anesthesia Reactions, Chicken Pox, Measles, Mumps, Rubella (Persian Measles) and Breast Cancer; Negative Falls, Blood Transfusions or Blood Transfusion Reaction Family History FAMILY HISTORY: Positive Family Cancer Surgical History SURGICAL: Positive Joint Replacement, Arthroscopy and Mastectomy (bilateral) Social History SMOKING STATUS: Former smoker SUBSTANCE USE: does not use ED Exam General Limitations: Present no limitations General appearance: Present alert and in no apparent distress Head Head exam: Present atraumatic, normocephalic and normal inspection Eye Eye exam: Present normal appearance, PERRL and EOMI ENT ENT exam: Present normal exam, normal oropharynx and mucous membranes moist Neck Neck exam: Present normal inspection, full ROM and trachea midline Chest Chest inspection: Present normal inspection and symmetric chest wall rise Respiratory Respiratory exam: Present respiratory distress, wheezes (throughout), accessory muscle use, prolonged expiratory phase and other (rhonchi throughout; decreased breath sounds) Cardiovascular Cardiovascular exam: Present normal rhythm, tachycardia and normal heart sounds Abdominal Exam Abdominal exam: Present soft and normal bowel sounds Extremities Exam Extremities exam: Present full ROM and pedal edema (1-2+ pitting edema bilaterally) Back Exam Back exam: Present normal inspection and full ROM Neurological Exam Neurological exam: Present alert, oriented X3 and CN II-XII intact Psychiatric Psychiatric exam: Present normal affect and normal mood Skin Skin exam: Present warm, dry, intact and normal color Course Quality Measures none Orders Category Date Time Status Bedside COVID-19 Antigen Test NOW Care 02/27/25 11:42 Active COVID-19 Screening Questionnaire NOW Care 02/27/25 11:07 Active Decision to Admit X1 Care 02/27/25 11:07 Completed EKG (ED ONLY) *Do not use* NOW Care 02/27/25 07:19 Completed Insert [Insert IV] NOW Care 02/27/25 07:22 Completed CXRP [XR chest 1V portable] Stat Exams 02/27/25 08:51 Completed EKG (ED Only) Stat Exams 02/27/25 07:19 Draft B-Type Natriuretic Peptide Stat Lab 02/27/25 07:50 Completed Blood Culture (Lab) Stat Lab 02/27/25 08:15 Received CBC Stat Lab 02/27/25 07:50 Completed Comprehensive Metabolic Panel Stat Lab 02/27/25 07:50 Completed Lactic Acid [Lactate (Lactic Acid)] Stat Lab 02/27/25 07:50 Completed Magnesium Stat Lab 02/27/25 07:50 Completed Partial Thromboplastin Time Stat Lab 02/27/25 07:50 Completed Prothrombin Time with INR Stat Lab 02/27/25 07:50 Completed Troponin I Stat Lab 02/27/25 07:50 Completed Urinalysis Stat Lab 02/27/25 09:56 Completed Venous Blood Gas Stat Lab 02/27/25 07:50 Completed ALBUTEROL RT 3ml [Proventil Rt 3ml] Med 02/27/25 07:23 Discontinued 5 mg INH X1 ONE ALBUTEROL RT 3ml [Proventil Rt 3ml] Med 02/27/25 08:50 Discontinued 5 mg INH X1 ONE MethylPREDNISolone.* [SoluMEDROL Inj] Med 02/27/25 07:19 Discontinued 125 mg IVP X1 ONE Sodium Chloride 0.9% 500 ml [Ns] 500 ml Med 02/27/25 07:19 Discontinued IV 999 mls/hr Oxygen Delivery PRN RT 02/27/25 07:45 Active Vital Signs Vital signs: Vital Signs Temperature 97.8 F 02/27/25 07:09 Pulse Rate 91 02/27/25 07:09 Respiratory Rate 18 02/27/25 07:09 Blood Pressure 130/77 02/27/25 07:09 Pulse Oximetry (%) 97 02/27/25 07:09 Oxygen Delivery Method Nasal Cannula 02/27/25 07:09 Oxygen Flow Rate 2 02/27/25 07:09 Shortness of Breath / Dyspnea MDM Narrative MDM Narrative:: I, Isatu Barnes, am scribing for and in the presence of Dr. Patterson. Patient data External records reviewed:: [facility] previous records and EMS form Clinical information provided by:: patient and EMS Social determinants that could affect healthcare access:: other (specify) (She reports smoking cigarettes 6 months in college only. ) Patient has the following chronic illnesses:: Asthma and osteoarthritis. She reports smoking cigarettes 6 months in college only. Cholecystectomy. How is presenting disease/condition affected by chronic disease/condition?: exacerbated by Evaluation data The following diagnostics were reviewed and interpreted by me:: lab results and EKG tracing(s) Lab and/or radiology exams considered but not ordered:: none Interpretation Summary: EKG: Dated 02/27/2025 at 0733 hours. Interpreted by me: sinus rhythm, rate 82, no acute changes Procedure(s): XR chest 1V portable Accession Number(s): [id number] cc: Bartolo Patterson MD; Ricardo Eubanks MD; Quinton Ochoa MD~ Examination: AP chest single view Technique an AP portable upright chest single view Date and time: February 27, 2025 0924 hours INDICATIONS: Shortness of breath today. FINDINGS: Mild prominence left ventricle No pneumonia or pulmonary edema Prominent osteopenia IMPRESSION: No pneumonia or pulmonary edema Dictated By: Ricardo Eubanks MD Medications / Prescriptions Medications or Prescriptions considered but not ordered:: none Medication administrations:: Medication Administration History Acetaminophen (Acetaminophen 325 Mg Tablet) 650 mg PO Q6H PRN PRN Reason: PAIN OR FEVER > 101 Stop: 03/29/25 12:09 Albuterol/Ipratropium (Albuterol/Ipratropium (Duoneb) Rt Violet 3 Ml Nebu) 3 ml INH Q4HRRT [facility] Stop: 03/29/25 14:59 Last Admin: 02/27/25 15:44 Dose: 3 ml Documented By: MACY Amlodipine Besylate (Amlodipine Besylate 2.5 Mg Tablet) 2.5 mg PO QDAY [facility] Stop: 03/30/25 08:59 Heparin Sodium (Porcine) (Heparin Sod Inj 5000 Unit/Ml Vial) 5,000 unit SC Q12H [facility] Stop: 03/13/25 12:14 Last Admin: 02/27/25 15:59 Dose: 5,000 unit Documented By: DANIELA Co-signed By: MELVI Azithromycin 500 mg/ Sodium (Chloride) 250 mls @ 250 mls/hr IV QDAY [facility] Stop: 03/07/25 08:59 Methylprednisolone Sodium Succinate (Methylprednisolone Sod Succ 40 Mg Vial) 40 mg IVP BID [facility] Stop: 03/06/25 20:59 Ondansetron HCl (Ondansetron Inj 2 Mg/Ml Inj 2 Ml) 4 mg IVP Q6H PRN; Protocol PRN Reason: NAUSEA OR VOMITING Stop: 03/29/25 12:09 Pantoprazole Sodium (Pantoprazole 40 Mg Tablet) 40 mg PO QDAY [facility] Stop: 03/29/25 12:14 Last Admin: 02/27/25 15:59 Dose: 40 mg Documented By: DANIELA Sennosides (Senna Tablet) 1 tab PO QDAY [facility]; Protocol Stop: 03/30/25 08:59 Discontinued Medications Albuterol (Albuterol Rt 2.5 Mg/3 Ml Nebu) 5 mg INH X1 ONE Stop: 02/27/25 07:24 Last Admin: 02/27/25 07:44 Dose: 5 mg Documented By: MACY Albuterol (Albuterol Rt 2.5 Mg/3 Ml Nebu) 5 mg INH X1 ONE Stop: 02/27/25 08:51 Last Admin: 02/27/25 09:58 Dose: 5 mg Documented By: MACY Sodium Chloride (Ns) 500 mls @ 999 mls/hr IV .Q31M ONE Stop: 02/27/25 07:49 Last Infusion: 02/27/25 08:33 Dose: Infused Documented By: Admin: 02/27/25 07:47 Dose: 999 mls/hr Documented By: DANIELA Azithromycin 500 mg/ Sodium (Chloride) 250 mls @ 250 mls/hr IV X1 ONE Stop: 02/27/25 13:29 Last Admin: 02/27/25 16:00 Dose: 250 mls/hr Documented By: DANIELA Methylprednisolone Sodium Succinate (Methylprednisolone Sod Succ 62.5 Mg/Ml 2ml Vial) 125 mg IVP X1 ONE Stop: 02/27/25 07:20 Last Admin: 02/27/25 07:47 Dose: 125 mg Documented By: DANIELA Methylprednisolone Sodium Succinate (Methylprednisolone Sod Succ 40 Mg Vial) 40 mg IVP QDAY [facility] Stop: 03/07/25 08:59 see above if any Consultations Consultation(s) initiated? (list below): Yes Consultation #1 (Physician, Specialty, Details): Discussed test HPI, PMHx, lab, radiology results and/or management with resident working with the hospitalist. Will admit for further evaluation and management. Accepts patient for admission. Time: 11:09 Diagnosis Shortness of Breath Differential Diagnosis: acute exacerbation of chronic obstructive airways disease, congestive heart failure, community acquired pneumonia, asthma with exacerbation and pulmonary embolism Most likely diagnosis given after review of the tests above:: COPD exacerbation Admission Indicated Admission indicated?: indicated Admission Request Was there a request for admission?: Yes Admission Attestation Admission request attestation: Discussed case with [] from Hospitalist service regarding admission. Discussed patients ED course, exam findings, labs, and radiology results. The Hospitalist [agrees,declines] to accept the patient for admission. Disposition Plan Disposition Plan: Admit Discharge Plan Plan Patient Disposition: Admit Acute Care w/in Hospital Patient condition on transfer: Stable Problem List Clinical Impression: COPD exacerbation
--- NOTE | 2025-02-27 07:19 | EKG_ITS ---
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
[2025-02-27] MEDS: ALBUTEROL RT 2.5 MG/3 ML NEBU 5 MG INH ×2 (07:44→09:58)
[2025-02-27] MEDS: SODIUM CHLORIDE 0.9% 500 ML 500 ML 999 ML IV (07:47)
[2025-02-27] MEDS: MethylPREDNISolone SOD SUCC 62.5 MG/ML 2ML VIAL 125 MG IVP (07:47)
[2025-02-27 08:10] LABS: Base Excess, Venous 5 (-3-3); Lactate (Lactic Acid) 1.4 mMol/L (0.4-2.0); O2 Saturation, Venous 64 % (96-97); PCO2, Venous 60 mmHg (36-56); PO2, Venous 36 mmHg (15-58); pH, Venous 7.34 (7.33-7.66)
[2025-02-27 08:22] LABS: Basophils # (Auto) 0.2 Thou/mm3 (0.0-0.2); Basophils % (Auto) 1 % (0-2.5); Eosinophils % (Auto) 8 % (0-10); Hematocrit 43.6 % (36.0-46.0); Hemoglobin 14.9 g/dL (12.0-16.0); Immature Granulocytes % (Auto) 0 % (0-0); Immature Granulocytes Auto 0.05 Thou/mm3 (0.00-0.00); Lymphocytes % (Auto) 8 % (10-50); Mean Corpuscular HGB Conc 34.2 g/dl (31.0-37.0); Mean Corpuscular Hemoglobin 28.8 pg (25.0-35.0); Mean Corpuscular Volume 84 fL (80-100); Monocytes # (Auto) 1.2 Thou/mm3 (0.0-0.8); Monocytes % (Auto) 9 % (0-12); Neutrophils # (Auto) 9.6 Thou/mm3 (1.8-7.7); Neutrophils % (Auto) 74 % (37-80); Nucleated Red Blood Cell % 0 /100 WBC (0); Platelet Count 343 Thou/mm3 (140-440); RDW Standard Deviation 42.8 fL (36.4-46.3); Red Blood Count 5.17 Miln/mm3 (4.00-5.20)
--- NOTE | 2025-02-27 08:34 | PC.NURSE ---
PATIENT PRESENTS TO ED VIA AMBULANCE WITH C/O SOB X3 DAY, COUGH, WHEEZING AND DIFF BREATHING. PATIENT IS ALERT ORIENTED, ABLE TO SELF TRANSFER SPEAKING IN 2WORD SENTENCES, NOTED AUDIBLE WHEEZING. PER PRODUCTION HAND ADM X1 NEB TREATMENT, IVL AND BLOOD SUGAR CHECK. PATIENT WITH HOME USE OF 2L OXYGEN VIA NC. PATIENT PLACED ON 2L WITH 93% SATS, PATIENT UPDATED WITH PLAN OF CARE.
[2025-02-27 08:48] LABS: Alanine Aminotransferase 17 U/L (10-49); Albumin, Serum 4.2 gm/dL (3.4-4.8); Albumin/Globulin Ratio 1.9 (1.2-2.2); Alkaline Phosphatase 71 U/L (46-116); Anion Gap 8 (7-16); Aspartate Amino Transferase 29 U/L (0-34); BUN/Creatinine Ratio 16 Ratio (12-20); Blood Urea Nitrogen 8 mg/dL (9-23); Calcium 9.2 mg/dL (8.3-10.6); Calcium (Corrected) 9.2 mg/dL (8.5-10.1); Chloride 95 mMol/L (98-107); Creatinine (Component) 0.5 mg/dL (0.6-1.3); Estimated Creatinine Clearance 73.3 mL/min (>60); Globulin 2.2 gm/dL (2.3-3.5); Glucose 82 mg/dL (74-106); Osmolality,Calculated 265 (275-295); Potassium 3.8 mMol/L (3.4-5.1); Sodium 134 mMol/L (136-145); Total Protein 6.4 gm/dL (5.7-8.2); Troponin I < 0.020 ng/mL (0.0-0.045); eGFR > 60 See Note
--- NOTE | 2025-02-27 08:51 | XR_ITS ---
Examination: AP chest single view Technique an AP portable upright chest single view Date and time: February 27, 2025 0924 hours INDICATIONS: Shortness of breath today. FINDINGS: Mild prominence left ventricle No pneumonia or pulmonary edema Prominent osteopenia IMPRESSION: No pneumonia or pulmonary edema
[2025-02-27 08:54] LABS: Partial Thromboplastin Time 34.3 Seconds (22.0-36.0); Prothrombin Time 11.4 Seconds (9.0-12.2)
[2025-02-27 08:56] LABS: B-Type Natriuretic Peptide 24 pg/mL (0-100)
[2025-02-27 10:02] LABS: Collection Type, Urine Clean Catch
[2025-02-27 10:28] LABS: Bacteria,Urine Rare; Bilirubin,Urine Negative (Negative); Blood,Urine Negative (Negative); Clarity,Urine Clear (Clear/Hazy); Color,Urine Colorless (Lt Yel-Yel); Glucose, Urine Negative (Negative); Ketones,Urine 1+ (Negative); Leukocyte Esterase,Urine Negative (Negative); Nitrite,Urine Negative (Negative); PH,Urine 6.5 (5.0-7.0); Protein,Urine Negative (Neg - Trace); RBC,Urine 1 /hpf (0-3); Specific Gravity,Urine 1.004 (1.001-1.035); Squamous Epithelial Cell,Urine < 1 /hpf (0-5); Urobilinogen,Urine Negative mg/dL (0.0-1.0); WBC,Urine < 1 /hpf (0-5)
[2025-02-27] MEDS: ALBUTEROL/IPRATROPIUM (Duoneb) RT SOL 3 ML NEBU INH ×3 (15:44→22:07)
[2025-02-27] MEDS: PANTOPRAZOLE 40 MG TABLET PO (15:59)
[2025-02-27] MEDS: HEPARIN SOD INJ 5000 UNIT/ML VIAL SC (15:59)
[2025-02-27] MEDS: AZITHROMYCIN INJ 500 MG in SODIUM CHLORIDE 0.9% 250 ML 250 ML 250 MG IV (16:00)
--- NOTE | 2025-02-27 16:18 | PC.NURSE ---
report given to xena palacios patient transferring to [id number].
--- NOTE | 2025-02-27 16:25 | ESHP_ITS ---
Documentation for date of: 02/27/25 [facility] History of Present Illness Chief complaint: SOB History of present illness: Patient is a 79-year-old female with past medical history of asthma, breast cancer, osteoporosis, questionable arrhythmia, psoriasis presenting to ED on 02/27/25 due to worsening dyspnea and cough since past 3-4 days. Patient endorses oxygen use at night on 2 L. Experiences dyspnea that also wakes her up at night occasionally. The past few days there has been increased amount of sputum which is normally clear but now has slight yellow discoloration to it. Denies any intubation in the past. Was not able to recall any specific triggers that cause acute attacks. She has no significant smoking history. Patient denies fevers, chest pain, nausea, vomiting, abdominal pain, urinary changes, diarrhea. In the ED, vitals were stable. Mild leukocytosis 13, VBG unremarkable, sodium 134, potassium 3.8. Chest x-ray negative for any underlying pneumonia or edema. She was given albuterol, half liter NS, IV methylprednisone 125 mg in the ED. Patient will be admitted for management of acute COPD exacerbation. PMH: As noted above PSH:Bilateral mastectomy, hip replacement, cholecystectomy Family Hx: Significant for breast cancer Social: Smoked for 2 months while in college otherwise not an active smoker, denies alcohol use, denies drug use. Meds: Med rec pending Allergies: Sulfa causing rash Review of Systems Review of Systems Systems Reviewed: All systems reviewed, normal except as documented Exam Vital Signs Temp Pulse Resp BP Pulse Ox O2 Del Method O2 Flow Rate 98.7 F 105 H 20 137/84 H 99 Nasal Cannula 2 02/27/25 15:59 02/27/25 15:59 02/27/25 15:59 02/27/25 15:59 02/27/25 15:59 02/27/25 15:59 02/27/25 15:59 Narrative Exam General: Elderly female, no acute distress, cooperative HEENT: NCAT, No JVD noted. Mucosa moist. Pupils are equal and reactive to light bilaterally Cardiovascular: Normal S1 and S2. Regular rate and rhythm. Respiratory: End expiratory wheezing, on 2 L NC Abdomen: Soft, nontender, not distended, normal bowel sounds. Skin: Warm to touch, dry, no rashes noted, senile purpura upper extremities Musculoskeletal: No gross injuries. Able to move all 4 extremities. No pitting edema Neuro: Alert and oriented x3. No focal neuro deficits. Psych: Normal affect and mood Results: Labs 02/28/25 04:46 02/28/25 04:46 Labs: Short CBC 02/27/25 Range/Units 07:50 WBC 13.0 H (3.6-11.0) Thou/mm3 Hgb 14.9 (12.0-16.0) g/dL Hct 43.6 (36.0-46.0) % Plt Count 343 D (140-440) Thou/mm3 BMP 02/27/25 07:50 Sodium 134 L Potassium 3.8 Chloride 95 L Carbon Dioxide 31.0 BUN 8 L Creatinine 0.5 L Glucose 82 Calcium 9.2 Cardiac Enzymes 02/27/25 Range/Units 07:50 Troponin I < 0.020 (0.0-0.045) ng/mL Liver Function 02/27/25 Range/Units 07:50 Total Bilirubin 1.0 (0.3-1.2) mg/dL AST 29 (0-34) U/L ALT 17 (10-49) U/L Alkaline Phosphatase 71 (46-116) U/L Albumin 4.2 (3.4-4.8) gm/dL Urine 02/27/25 Range/Units 09:56 Urine Color Colorless A (Lt Yel-Yel) Urine Clarity Clear (Clear/Hazy) Urine pH 6.5 (5.0-7.0) Ur Specific [place] 1.004 (1.001-1.035) Urine Protein Negative (Neg - Trace) Urine Glucose (UA) Negative (Negative) ABG Interpretation ABG results: 02/27/25 07:50 VBG pH 7.34 VBG pCO2 60 H VBG pO2 36 VBG Base Excess 5 H Quality Measures Quality Measures none Advance care planning discussed with:: patient Medications Home Medications and Allergies Home Medications ?Medication ?Instructions ?Recorded ?Confirmed ?Type fluticasone propionate 45 2 puff inhalation BID 01/25/25 History mcg-salmeterol 21 mcg/actuation HFA inhaler (Advair HFA) fexofenadine 60 mg tablet (Sharon 60 mg PO BID 01/25/25 History Allergy) clotrimazole-betamethasone 1 1 applic topical BID 0509/3001/24/25 History %-0.05 % topical cream Allergies Allergy/AdvReac Type Severity Reaction Status Date / Time shellfish derived Allergy Severe ITCHING,DROP Verified 02/27/25 07:16 IN BP Sulfa (Sulfonamide Allergy Severe HIVES AND Verified 02/27/25 07:16 Antibiotics) SWELLING Visit Medications Acetaminophen (Acetaminophen 325 Mg Tablet) 650 mg PO Q6H PRN PRN Reason: PAIN OR FEVER > 101 Stop: 03/29/25 12:09 Albuterol/Ipratropium (Albuterol/Ipratropium (Duoneb) Rt Violte 3 Ml Nebu) 3 ml INH Q4HRRT SONYA Stop: 03/29/25 14:59 Last Admin: 02/27/25 15:44 Dose: 3 ml Amlodipine Besylate (Amlodipine Besylate 2.5 Mg Tablet) 2.5 mg PO QDAY [facility] Stop: 03/30/25 08:59 Heparin Sodium (Porcine) (Heparin Sod Inj 5000 Unit/Ml Vial) 5,000 unit SC Q12H [facility] Stop: 03/13/25 12:14 Last Admin: 02/27/25 15:59 Dose: 5,000 unit Azithromycin 500 mg/ Sodium (Chloride) 250 mls @ 250 mls/hr IV QDAY [facility] Stop: 03/07/25 08:59 Methylprednisolone Sodium Succinate (Methylprednisolone Sod Succ 40 Mg Vial) 40 mg IVP QDAY [facility] Stop: 03/07/25 08:59 Ondansetron HCl (Ondansetron Inj 2 Mg/Ml Inj 2 Ml) 4 mg IVP Q6H PRN; Protocol PRN Reason: NAUSEA OR VOMITING Stop: 03/29/25 12:09 Pantoprazole Sodium (Pantoprazole 40 Mg Tablet) 40 mg PO QDAY [facility] Stop: 03/29/25 12:14 Last Admin: 02/27/25 15:59 Dose: 40 mg Sennosides (Senna Tablet) 1 tab PO QDAY [facility]; Protocol Stop: 03/30/25 08:59 Discontinued Medications Albuterol (Albuterol Rt 2.5 Mg/3 Ml Nebu) 5 mg INH X1 ONE Stop: 02/27/25 07:24 Last Admin: 02/27/25 07:44 Dose: 5 mg Albuterol (Albuterol Rt 2.5 Mg/3 Ml Nebu) 5 mg INH X1 ONE Stop: 02/27/25 08:51 Last Admin: 02/27/25 09:58 Dose: 5 mg Sodium Chloride (Ns) 500 mls @ 999 mls/hr IV .Q31M ONE Stop: 02/27/25 07:49 Last Infusion: 02/27/25 08:33 Dose: Infused Azithromycin 500 mg/ Sodium (Chloride) 250 mls @ 250 mls/hr IV X1 ONE Stop: 02/27/25 13:29 Last Admin: 02/27/25 16:00 Dose: 250 mls/hr Methylprednisolone Sodium Succinate (Methylprednisolone Sod Succ 62.5 Mg/Ml 2ml Vial) 125 mg IVP X1 ONE Stop: 02/27/25 07:20 Last Admin: 02/27/25 07:47 Dose: 125 mg Assessment & Plan Plan Patient is a 79-year-old female with past medical history of asthma, breast cancer, osteoporosis, questionable arrhythmia, psoriasis presenting to ED on 02/27/25 due to worsening dyspnea and cough since past 3-4 days. Patient will be admitted for management of acute COPD exacerbation. #COPD exacerbation Patient endorses oxygen use at night on 2 L. Experiences dyspnea that also wakes her up at night occasionally. Increased sputum, yellow color. Has needed to use rescue inhaler more often past days. Vitals in ED stable, oxygen saturation stable on 2 L nasal cannula, mild leukocytosis 13. Chest x-ray negative for any underlying pneumonia or edema. She was given albuterol, half liter NS, IV methylprednisone 125 mg in the ED. ?IV Azithromycin 500 mg p.o. daily -IV Solu-Medrol 40 mg BID -Duonebs Q4HRRT scheduled -Oxygen Support, goal of 88-92% SpO2 ? Follow-up with blood cultures from ED #Sinus arrhythmia #Mitral Regurgitation #Mild Pulmonary Hypertension #Chronic Diastolic Heart Failure [EF 65%] Patient is seen by Dr. Rojo. No crackles, no LE swelling. Echo 10/03/24: Normal LV size, wall thickness. Estimated EF 65%. RV is normal in size and systolic function. Moderate 2+mitral regurgitation. -Keep potassium above 4, magnesium above 2 -resume Metoprolol XL 50mg daily -resume amlodipine 2.5mg daily #Eczema #Psoriasis #Osteoporosis Patient follows up with Digital Media Specialist in [facility] Plan: -Monitor at this time -Can follow-up as outpatient Health maintenance: Dispo: basim COPD exacerbation FEN: cardiac DVT prophylaxis: Subcu heparin CODE STATUS: DNR The patient's management plan was discussed with my attending physician Dr. Perez. Martha Stone, PGY-1 Attending Provider Attestation/Addendum I have examined the patient, reviewed labs and imaging findings, discussed the case with the resident(s), and reviewed entered orders. I agree with the plan of care as outlined in this note, with these additional summaries/recommendations: After examination of the patient and review of the clinical data, I feel that this patient needs admission to the hospital for further treatment and evaluation. Patient is a 79-year-old female with a medical history of COPD on 2 L nasal cannula, primary hypertension, seasonal allergies, hyperlipidemia, breast cancer, osteoporosis, HFpEF, and mitral regurgitation presents to [facility] emergency department on 02/27/2025 with chief complaint of shortness of breath. Patient seen at bedside. Patient diagnosed with acute COPD exacerbation. Start bronchodilator therapy with scheduled DuoNebs and as needed. Start IV steroids. Patient has 2 out of 3 cardinal signs for COPD exacerbation and start IV azithromycin. Chest x-ray shows no pneumonia or pulmonary edema. VBG showed normal pH and minimal hypercapnia. Okay to continue home MDIs as tolerated. Continue home antihypertensives. Wean O2 requirement as tolerated. Patient updated on the plan and in agreement. All questions answered to satisfaction. Please see residents note for additional details and management. Dr. Ana MD
--- NOTE | 2025-02-27 22:21 | PC.NURSE ---
ATTEMPTED TO DO MED REC, PT STATES DAUGHTER WILL BRING MEDICATIONS TOMORROW
[2025-02-28] VITALS (17 sets, daily range): BP systolic 110–150; BP diastolic 76–86; PULSE 85–123; RESP 18–33; TEMP 36–37.2; O2SAT 91–99
[2025-02-28] MEDS: ALBUTEROL/IPRATROPIUM (Duoneb) RT SOL 3 ML NEBU INH ×6 (02:36→22:08)
[2025-02-28 06:00] LABS: Basophils % (Auto) 0 % (0-2.5); Eosinophils % (Auto) 0 % (0-10); Hematocrit 37.5 % (36.0-46.0); Hemoglobin 13.1 g/dL (12.0-16.0); Immature Granulocytes % (Auto) 1 % (0-0); Immature Granulocytes Auto 0.08 Thou/mm3 (0.00-0.00); Lymphocytes # (Auto) 0.5 Thou/mm3 (1.0-4.8); Lymphocytes % (Auto) 3 % (10-50); Mean Corpuscular HGB Conc 34.9 g/dl (31.0-37.0); Mean Corpuscular Hemoglobin 29.6 pg (25.0-35.0); Mean Corpuscular Volume 85 fL (80-100); Monocytes # (Auto) 0.6 Thou/mm3 (0.0-0.8); Monocytes % (Auto) 5 % (0-12); Neutrophils # (Auto) 13.1 Thou/mm3 (1.8-7.7); Neutrophils % (Auto) 92 % (37-80); Nucleated Red Blood Cell % 0 /100 WBC (0); Platelet Count 319 Thou/mm3 (140-440); RDW Standard Deviation 43.5 fL (36.4-46.3); Red Blood Count 4.43 Miln/mm3 (4.00-5.20); White Blood Count 14.3 Thou/mm3 (3.6-11.0)
[2025-02-28 06:22] LABS: Glucose Estimated Average 111 mg/dL (80-131); Hemoglobin A1C 5.5 % Hgb (4.8-6.0)
[2025-02-28 06:43] LABS: Alanine Aminotransferase 12 U/L (10-49); Albumin, Serum 3.7 gm/dL (3.4-4.8); Albumin/Globulin Ratio 1.9 (1.2-2.2); Alkaline Phosphatase 64 U/L (46-116); Anion Gap 10 (7-16); Aspartate Amino Transferase 20 U/L (0-34); BUN/Creatinine Ratio 15 Ratio (12-20); Bilirubin,Total 0.4 mg/dL (0.3-1.2); Blood Urea Nitrogen 9 mg/dL (9-23); Calcium 8.9 mg/dL (8.3-10.6); Calcium (Corrected) 9.1 mg/dL (8.5-10.1); Carbon Dioxide 29.4 mMol/L (20.0-31.0); Cardiac Risk Estimate 2.2 RATIO (3.7-5.6); Chloride 102 mMol/L (98-107); Cholesterol 158 mg/dL (132-200); Creatinine (Component) 0.6 mg/dL (0.6-1.3); Estimated Creatinine Clearance 61.1 mL/min (>60); Globulin 1.9 gm/dL (2.3-3.5); Glucose 157 mg/dL (74-106); HDL Cholesterol 72 mg/dL (40-60); LDL Cholesterol,Calculated 75 mg/dL (0-130); Magnesium 2.3 mg/dL (1.6-2.6); Osmolality,Calculated 282 (275-295); Phosphorous 2.8 mg/dL (2.4-5.1); Potassium 3.7 mMol/L (3.4-5.1); Sodium 141 mMol/L (136-145); Total Protein 5.6 gm/dL (5.7-8.2); Triglycerides 54 mg/dL (30-150); eGFR > 60 See Note
[2025-02-28] MEDS: POTASSIUM CHLORIDE 20 mEq TABCR PO (08:56)
[2025-02-28] MEDS: PANTOPRAZOLE 40 MG TABLET PO (08:57)
[2025-02-28] MEDS: amLODIPine BESYLATE 2.5 MG TABLET PO (08:57)
[2025-02-28] MEDS: METOPROLOL SUCCINATE XL 25 MG TABCR 50 MG PO (08:57)
[2025-02-28] MEDS: AZITHROMYCIN INJ 500 MG in SODIUM CHLORIDE 0.9% 250 ML 250 ML 250 MG IV (08:58)
--- NOTE | 2025-02-28 09:46 | PC.SS ---
SS update: per PT-Carey the patient is independent. No PT needs.
--- NOTE | 2025-02-28 10:26 | PC.NURSE ---
Received Discharge orders. Patient upset and wants to speak to doctor. Notified Dr. Stone of patients concerns. They will come talk to patient during rounds.
--- NOTE | 2025-02-28 11:36 | PC.PT ---
PT eval only. Patient is I with transfers and ambulation without AD.
--- NOTE | 2025-02-28 12:21 | PC.SS ---
Initial assessment: this is 79-year old female admitted for COPD exacerbation. DYE COLORIST DYER conducted bedside contact with the patient to conduct assessment and discuss discharge planning.?Patient confirmed demographic information.?Patient resides at home with spouse, Abel Jansen . Patient does not utilize any form of DME to assist with ambulation. Patient utilizes home oxygen at night time on 2L.? Patient describes the ability to complete ADL?s independently.?Patient identified spouse, Abel Jansen; as her emergency contact.?Patient?s PCP is Dr. Ochoa with [facility].?Patient does not participate with dialysis.?Patient?s full service supervisor is Dr. Rojo.?Patient utilizes [facility] for medication needs.?Plan is for the patient to return home at the time of discharge.? Family will provide transportation on behalf of the patient.?No needs identified at this time. Next of Kin: spouse, Abel Jansen D/C Plan: Home
[2025-02-28] MEDS: HEPARIN SOD INJ 5000 UNIT/ML VIAL SC (12:39)
--- NOTE | 2025-02-28 15:13 | PD.RESPRO ---
Documentation for date of: 02/28/25 Subjective Subjective Interval history: Patient examined at bedside. No events overnight. Complains of some generalized fatigue otherwise cough and shortness of breath is improving. Wheezing also has significantly improved and saturating at 94% O2 on 2 L. Vitals are stable, leukocytosis likely secondary to her steroids. Continue antibiotics in setting of COPD exacerbation and DuoNebs as needed. Anticipate discharge in next 24 hours. Exam Vital Signs Temp Pulse Resp BP Pulse Ox O2 Del Method O2 Flow Rate 96.8 F 98 31 H 120/82 98 Nasal Cannula 3 02/28/25 11:40 02/28/25 12:15 02/28/25 12:15 02/28/25 11:40 02/28/25 12:15 02/28/25 11:40 02/28/25 12:15 Narrative Exam General: Elderly female, no acute distress, cooperative HEENT: NCAT, No JVD noted. Mucosa moist. Pupils are equal and reactive to light bilaterally Cardiovascular: Normal S1 and S2. Regular rate and rhythm. Respiratory: No wheezing, on 2 L NC Abdomen: Soft, nontender, not distended, normal bowel sounds. Skin: Warm to touch, dry, no rashes noted, senile purpura upper extremities Musculoskeletal: No gross injuries. Able to move all 4 extremities. No pitting edema Neuro: Alert and oriented x3. No focal neuro deficits. Psych: Irritable Objective Labs 03/01/25 04:47 03/01/25 04:47 Labs: Laboratory Results - last 24 hr 02/28/25 04:46 WBC 14.3 H RBC 4.43 Hgb 13.1 Hct 37.5 MCV 85 MCH 29.6 MCHC 34.9 RDW Std Deviation 43.5 Plt Count 319 Neut % (Auto) 92 H Lymph % (Auto) 3 L [place] % (Auto) 5 Eos % (Auto) 0 Baso % (Auto) 0 Neut # (Auto) 13.1 H Lymph # (Auto) 0.5 L [place] # (Auto) 0.6 Eos # (Auto) 0.0 Baso # (Auto) 0.0 Immature Gran # (Auto) 0.08 H Absolute Nucleated RBC 0.00 Immature Gran % 1 H Nucleated RBC % 0 Sodium 141 Potassium 3.7 Chloride 102 Carbon Dioxide 29.4 Anion Gap 10 BUN 9 Creatinine 0.6 Estim Creat Clear Calc 61.1 eGFR > 60 BUN/Creatinine Ratio [address] Glu mg/dL 111 Hemoglobin A1c 5.5 Calculated Osmolality 282 Calcium 8.9 Corrected Calcium 9.1 Phosphorus 2.8 Magnesium 2.3 Total Bilirubin 0.4 D AST 20 ALT 12 Alkaline Phosphatase 64 Total Protein 5.6 L Albumin 3.7 D Globulin 1.9 L Albumin/Globulin Ratio 1.9 Triglycerides 54 Cholesterol 158 LDL Cholesterol, Calc 75 HDL Cholesterol 72 H Cholesterol/HDL Ratio 2.2 L ABG Interpretation ABG results: 02/27/25 07:50 VBG pH 7.34 VBG pCO2 60 H VBG pO2 36 VBG Base Excess 5 H Quality Measures Quality Measures none Advance care planning discussed with:: patient Assessment & Plan Assessment Current Active Medications: Generic Name Dose Route Start Last Admin Trade Name Freq PRN Reason Stop Dose Admin Acetaminophen 650 mg 02/27/25 12:10 Acetaminophen 325 Mg Tablet PO 03/29/25 12:09 Q6H PRN PAIN OR FEVER > 101 Albuterol/Ipratropium 3 ml 02/27/25 15:00 02/28/25 12:14 Albuterol/Ipratropium (Duoneb) Rt Violet 3 Ml Nebu INH 03/29/25 14:59 3 ml Q4HRRT SONYA Administration Amlodipine Besylate 2.5 mg 02/28/25 09:00 02/28/25 08:57 Amlodipine Besylate 2.5 Mg Tablet PO 03/30/25 08:59 2.5 mg QDAY SONYA Administration Heparin Sodium (Porcine) 5,000 unit 02/27/25 12:15 02/28/25 12:39 Heparin Sod Inj 5000 Unit/Ml Vial SC 03/13/25 12:14 5,000 unit Q12H SONYA Administration Azithromycin 500 mg/ Sodium 250 mls @ 250 mls/hr 02/28/25 09:00 02/28/25 08:58 Chloride IV 03/07/25 08:59 250 mls/hr QDAY SONYA Administration Methylprednisolone Sodium Succinate 40 mg 02/27/25 21:00 02/28/25 08:57 Methylprednisolone Sod Succ 40 Mg Vial IVP 03/06/25 20:59 40 mg BID SONYA Administration Metoprolol Succinate 50 mg 02/28/25 09:00 02/28/25 08:57 Metoprolol Succinate Xl 25 Mg Tabcr PO 03/30/25 08:59 50 mg QDAY SONYA Administration Ondansetron HCl 4 mg 02/27/25 12:10 Ondansetron Inj 2 Mg/Ml Inj 2 Ml IVP 03/29/25 12:09 Q6H PRN NAUSEA OR VOMITING Protocol Pantoprazole Sodium 40 mg 02/27/25 12:15 02/28/25 08:57 Pantoprazole 40 Mg Tablet PO 03/29/25 12:14 40 mg QDAY SONYA Administration Sennosides 1 tab 02/28/25 09:00 02/28/25 09:05 Senna Tablet PO 03/30/25 08:59 Not Given QDAY SONYA Protocol Plan Patient is a 79-year-old female with past medical history of asthma, breast cancer, osteoporosis, questionable arrhythmia, psoriasis presenting to ED on 02/27/25 due to worsening dyspnea and cough since past 3-4 days. Patient will be admitted for management of acute COPD exacerbation. #COPD exacerbation Patient endorses oxygen use at night on 2 L. Experiences dyspnea that also wakes her up at night occasionally. Increased sputum, yellow color. Has needed to use rescue inhaler more often past days. Vitals in ED stable, oxygen saturation stable on 2 L nasal cannula, mild leukocytosis 13. Chest x-ray negative for any underlying pneumonia or edema. She was given albuterol, half liter NS, IV methylprednisone 125 mg in the ED. ?IV Azithromycin 500 mg p.o. daily -IV Solu-Medrol 40 mg BID -Duonebs Q4HRRT scheduled -Oxygen Support, goal of 88-92% SpO2 ? Follow-up with blood cultures from ED #Sinus arrhythmia #Mitral Regurgitation #Mild Pulmonary Hypertension #Chronic Diastolic Heart Failure [EF 65%] Patient is seen by Dr. Rojo. No crackles, no LE swelling. Echo 10/03/24: Normal LV size, wall thickness. Estimated EF 65%. RV is normal in size and systolic function. Moderate 2+mitral regurgitation. -Keep potassium above 4, magnesium above 2 -resume Metoprolol XL 50mg daily -resume amlodipine 2.5mg daily #Eczema #Psoriasis #Osteoporosis Patient follows up with Public Affairs Manager in [facility] Plan: -Monitor at this time -Can follow-up as outpatient Health maintenance: Dispo: mesruge COPD exacerbation FEN: cardiac DVT prophylaxis: Subcu heparin CODE STATUS: DNR The patient's management plan was discussed with my attending physician Dr. Perez. Martha Chase, PGY-1 Attending Provider Attestation/Addendum I have examined the patient, reviewed labs and imaging findings, discussed the case with the resident(s), and reviewed entered orders. I agree with the plan of care as outlined in this note, with these additional summaries/recommendations: Patient and daughter seen at bedside. No acute overnight events. Today patient continues to endorse significant shortness of breath and unable to speak in full sentences. She reports she has never been formally diagnosed with asthma or COPD although does follow with a healthcare administration intern in [place]. Discussed that she will need pulmonary function test to receive a formal diagnosis if desired. She has minimal wheezing in right lower lobe. Continue breathing treatments, IV azithromycin, and IV Solu-Medrol for COPD/asthma exacerbation. Continue supplemental oxygen and wean as tolerated. Continue home antihypertensives. Patient has history of have HFpEF although does not appear to be in exacerbation at this time. Anticipate discharge in the next 24 to 48 hours. Patient updated on the plan and in agreement. All questions answered to satisfaction. Please see residents note for additional details and management. Dr. Ana MD
--- NOTE | 2025-02-28 16:07 | PC.SS ---
Rounding note: pending one more day of IV steroids before d/c. Plan is to return home.
[2025-03-01] VITALS (13 sets, daily range): BP systolic 115–135; BP diastolic 74–86; PULSE 81–104; RESP 16–23; TEMP 36.3–36.8; O2SAT 92–99; BMI 22.3
[2025-03-01] MEDS: HEPARIN SOD INJ 5000 UNIT/ML VIAL SC
[2025-03-01] MEDS: ALBUTEROL/IPRATROPIUM (Duoneb) RT SOL 3 ML NEBU INH ×4 (02:32→14:20)
[2025-03-01 05:55] LABS: Basophils % (Auto) 0 % (0-2.5); Eosinophils % (Auto) 0 % (0-10); Hematocrit 40.4 % (36.0-46.0); Hemoglobin 13.3 g/dL (12.0-16.0); Immature Granulocytes % (Auto) 1 % (0-0); Immature Granulocytes Auto 0.12 Thou/mm3 (0.00-0.00); Lymphocytes # (Auto) 0.5 Thou/mm3 (1.0-4.8); Lymphocytes % (Auto) 2 % (10-50); Mean Corpuscular HGB Conc 32.9 g/dl (31.0-37.0); Mean Corpuscular Hemoglobin 29.4 pg (25.0-35.0); Mean Corpuscular Volume 89 fL (80-100); Monocytes # (Auto) 0.7 Thou/mm3 (0.0-0.8); Monocytes % (Auto) 3 % (0-12); Neutrophils # (Auto) 19.6 Thou/mm3 (1.8-7.7); Neutrophils % (Auto) 94 % (37-80); Nucleated Red Blood Cell % 0 /100 WBC (0); Platelet Count 362 Thou/mm3 (140-440); RDW Standard Deviation 46.9 fL (36.4-46.3); Red Blood Count 4.53 Miln/mm3 (4.00-5.20)
[2025-03-01 06:47] LABS: Alanine Aminotransferase 14 U/L (10-49); Albumin, Serum 3.8 gm/dL (3.4-4.8); Alkaline Phosphatase 67 U/L (46-116); Anion Gap 8 (7-16); Aspartate Amino Transferase 19 U/L (0-34); BUN/Creatinine Ratio 20 Ratio (12-20); Bilirubin,Total 0.4 mg/dL (0.3-1.2); Blood Urea Nitrogen 12 mg/dL (9-23); Calcium (Corrected) 9.2 mg/dL (8.5-10.1); Carbon Dioxide 29.6 mMol/L (20.0-31.0); Chloride 102 mMol/L (98-107); Creatinine (Component) 0.6 mg/dL (0.6-1.3); Estimated Creatinine Clearance 61.1 mL/min (>60); Globulin 1.9 gm/dL (2.3-3.5); Glucose 173 mg/dL (74-106); Magnesium 2.1 mg/dL (1.6-2.6); Osmolality,Calculated 283 (275-295); Phosphorous 2.6 mg/dL (2.4-5.1); Potassium 4.1 mMol/L (3.4-5.1); Sodium 140 mMol/L (136-145); Total Protein 5.7 gm/dL (5.7-8.2); eGFR > 60 See Note
[2025-03-01] MEDS: METOPROLOL SUCCINATE XL 25 MG TABCR 50 MG PO (09:50)
[2025-03-01] MEDS: AZITHROMYCIN INJ 500 MG in SODIUM CHLORIDE 0.9% 250 ML 250 ML 250 MG IV (09:50)
[2025-03-01] MEDS: PANTOPRAZOLE 40 MG TABLET PO (09:51)
[2025-03-01] MEDS: amLODIPine BESYLATE 2.5 MG TABLET PO (09:51)
[2025-03-01] MEDS: SENNA TABLET 1 TAB PO (09:51)
--- NOTE | 2025-03-01 11:54 | ESDS_ITS ---
Planned Discharge Date 03/01/25 DS: Providers Provider Date of admission: 02/27/25 12:10 Primary care physician: Quinton Ochoa MD Admitting Provider: Rupesh Perez MD Attending Provider on Admission: Rupesh Perez MD Consults: 02/27/25 17:31 Referral Physical Therapy Routine Comment: Physician Instructions: Referral Respiratory Therapy Routine Comment: Attending Provider on DC: Rupesh Perez MD Discharging Provider: Rupesh Perez MD DS: Diagnosis Problem List Completed Was Problem List Reviewed/Reconciled?: Yes Hospital Course Hospital Course Hospital course: Patient is a 79-year-old female with past medical history of asthma, breast cancer, osteoporosis, questionable arrhythmia, psoriasis presenting to ED on 02/27/25 due to worsening dyspnea and cough for few days. Patient endorses oxygen use at night on 2 L, ocasionally dyspnea wakes her up at night, and had increased amount of sputum. Patient was admitted to COPD exacerbation. Started on duonebs, antibiotics, steroids, and oxygen via NC. Her wheezing improved that next and was at baseline oxygen requirements. She reports she has never been formally diagnosed with asthma or COPD although does follow with a meter/relay craftsman in [place]. Patient is now in stable condition and ready for discharge. Recommendations were given as below. Discharge Recommendations: Continue taking previous medications. We sent another DuoNeb inhaler, rescue inhaler, and prednisone for your asthma exacerbation. Follow up with your PCP in 1 week to repeat labs for monitoring your white bloods cells as they can be elevated while taking steroids. Avoid any possible triggers and continue using oxygen at night. Hospital Diagnoses: #COPD exacerbation #Sinus arrhythmia #Mitral Regurgitation #Mild Pulmonary Hypertension #Chronic Diastolic Heart Failure [EF 65%] #Eczema #Psoriasis #Osteoporosis The patient's management plan was discussed with my attending physician Dr. Perez. Martha Stone MD, PGY-1 Time Spent with Patient Time attestation: Total time spent providing and/or coordinating discharge services: Time spent: Greater than 30 minutes Exam Vital Signs Temp Pulse Resp BP Pulse Ox O2 Del Method O2 Flow Rate 97.3 F 96 18 115/80 99 Nasal Cannula 2 03/01/25 07:45 03/01/25 10:51 03/01/25 10:51 03/01/25 09:51 03/01/25 10:51 03/01/25 07:45 03/01/25 10:51 Narrative Exam General: Elderly female, no acute distress, cooperative HEENT: NCAT, No JVD noted. Mucosa moist. Pupils are equal and reactive to light bilaterally Cardiovascular: Normal S1 and S2. Regular rate and rhythm. Respiratory: bilateral wheezing, on 2 L NC Abdomen: Soft, nontender, not distended, normal bowel sounds. Skin: Warm to touch, dry, no rashes noted, senile purpura upper extremities Musculoskeletal: No gross injuries. Able to move all 4 extremities. No pitting edema Neuro: Alert and oriented x3. No focal neuro deficits. Psych: Irritable Discharge Plan Plan Patient Disposition: HOME (Self Care) Patient condition on transfer: Stable Prescriptions/Referrals Prescriptions/Med Rec: New prednisone 20 mg tablet 20 mg PO QDAY 5 Days Qty: 5 0RF ipratropium-albuterol 0.5 mg-3 mg(2.5 mg base)/3 mL solution for nebulization 3 ml inhalation Q4H PRN (Reason: shortness of breath or wheezing) 30 Days Qty: 90 0RF albuterol sulfate 90 mcg/actuation HFA aerosol inhaler 2 puff inhalation Q6H PRN (Reason: shortness of breath or wheezing) Qty: 6.7 2RF Continued fexofenadine [Sharon Allergy] 60 mg Tablet 60 mg PO BID clotrimazole-betamethasone 1-0.05 % cream 1 applic topical BID fluticasone propion-salmeterol [Advair HFA] 115-21 mcg/actuation HFA aerosol inhaler 2 puff inhalation BID Qty: 12 0RF Rx Instructions: administer with spacer budesonide 0.5 mg/2 mL suspension for nebulization 0.5 mg inhalation QDAY Qty: 60 0RF Discontinued Trelegy Ellipta 100-62.5-25 mcg blister with device 1 inh inhalation Q24H Qty: 28 0RF methylprednisolone [Medrol (Lobo)] 4 mg tablets,dose pack 4 mg PO QDAY Qty: 21 0RF Referrals: Quinton Ochoa MD [Primary Care Provider] - Patient/Caregiver Discharge Instructions Other Discharge Activity Instructions:: Continue taking previous medications. We sent another DuoNeb inhaler, rescue inhaler, and prednisone for your asthma exacerbation. Follow up with your PCP in 1 week to repeat labs for monitoring your white bloods cells as they can be elevated while taking steroids. Avoid any possible triggers and continue using oxygen at night. Education Materials: Asthma and COPD, Asthma Print Language: Maori Stand Alone Forms: Shelia Award Info., Patient Portal Info Letter Discharge Order Discharge Orders: Discharge (Routine); Ordered 03/01/25 Ordered By: Martha Stone Quality Discharge Quality Measures VTE prophylaxis Attestestation MD Attestation I have examined the patient, reviewed labs and imaging findings, discussed the case with the resident(s), and reviewed entered orders. I agree with the plan of care as outlined in this note. Time Spent: [address] Ana MD
== END 2025-03-01 16:19 | disposition home or self-care (01) | DRG 191 ==
LOC: SERX 11:08 → SERHOLD 12:22 → S3NX 16:59
PROVIDERS: Student in an Organized Health Care Education/Training Program; Admitting Provider Student in an Organized Health Care Education/Training Program; Emergency Provider Family Medicine; PCP Family Medicine; Visit Provider Student in an Organized Health Care Education/Training Program
DX: J44.1 Chronic obstructive pulmonary disease with (acute) exacerbation (principal); I50.32 Chronic diastolic (congestive) heart failure; J45.901 Unspecified asthma with (acute) exacerbation; M81.0 Age-related osteoporosis without current pathological fracture; L40.9 Psoriasis, unspecified; I34.0 Nonrheumatic mitral (valve) insufficiency; I27.20 Pulmonary hypertension, unspecified; I11.0 Hypertensive heart disease with heart failure; F17.210 Nicotine dependence, cigarettes, uncomplicated; E78.5 Hyperlipidemia, unspecified; L30.9 Dermatitis, unspecified; Z96.649 Presence of unspecified artificial hip joint; Z85.3 Personal history of malignant neoplasm of breast; Z66 Do not resuscitate; Z90.13 Acquired absence of bilateral breasts and nipples; D72.829 Elevated white blood cell count, unspecified
CPT/HCPCS: 36415; 71045; 80053; 80061; 81001; 82803; 83036; 83605; 83735; 83880; 84100; 84484; 85025; 85610; 85730; 87040; 87081; 87811; 93005; 93225; 94640; 94762; 96361; 96365; 96372; 96375; 97161; 99285; A9270; J0456; J1644; J2919; J7050; J7999

== ENCOUNTER 2025-03-29 01:42 | Inpatient (IN) | payer MEDICARE, SELFPAY ==
[2025-03-29] VITALS (23 sets, daily range): BP systolic 106–169; BP diastolic 57–108; PULSE 87–145; RESP 14–88; TEMP 36.2–37.1; O2SAT 92–992; BMI 24.7; BMI 21.3
--- NOTE | 2025-03-29 01:46 | EDNOTE_ITS ---
ED SOB =RME/HPI General Chief Complaint: Shortness of Breath/Dyspnea Stated Complaint: SOB Time Seen by Provider: 03/29/25 01:46 Arrival date/time: 03/29/25 01:42 RME / HPI RME / HPI Narrative: Dr. Cruz?s Main ED Evaluation: 79yo female with a history of COPD, asthma, breast cancer, HTN BIBA from home presents to the ED as a STAT medical for shortness of breath. Patient was seen by me immediately upon arrival. Per EMS, patient has been dealing with her asthma throughout the day today, reporting it significantly worsened tonight. She was initially saturating at 76% room air per family on scene and went up to 93% on 4L. EMS administered 2 nebulizer treatements en route, 2g Magnesium, and CPAP, which improved the patient to 97-98%. Patient reports feeling nauseated and having a cough. She denies any other associated symptoms. Related Data Home Medications ?Medication ?Instructions ?Recorded ?Confirmed fexofenadine 60 mg tablet (Sharon 60 mg PO BID 02/28/25 Allergy) clotrimazole-betamethasone 1 1 applic topical BID 01/0502/28/25 %-0.05 % topical cream Previous Rx's ?Medication ?Instructions ?Recorded fluticasone propionate 115 2 puff inhalation BID #12 g christine 10/05/24 mcg-salmeterol 21 mcg/actuation HFA inhaler (Advair HFA) budesonide 0.5 mg/2 mL suspension 0.5 mg (2 mL) inhala tion QDAY #60 10/08/24 for nebulization mL ipratropium 0.5 mg-albuterol 3 mg 3 ml inhalation Q4H PRN shortness 02/28/25 (2.5 mg base)/3 mL nebulization of breath or wheezing 30 days #90 soln mL albuterol sulfate 90 mcg/actuation 2 puff inhalation Q 6H PRN 03/01/25 aerosol inhaler shortness of breath or wheez ing #6.7 grams Allergies Allergy/AdvReac Type Severity Reaction Status Date / Time shellfish derived Allergy Severe ITCHING,DROP Verified 03/29/25 01:45 IN BP Sulfa (Sulfonamide Allergy Severe HIVES AND Verified 03/29/25 01:45 Antibiotics) SWELLING ED Exam Narrative Physical exam: GENERAL APPEARANCE: alert and oriented x 4, well-developed, well-nourished, no acute distress VITALS: All vitals were reviewed and the pulse ox is % on room air, which is normal according to my interpretation. HEENT: Normocephalic, atraumatic; pupils equal, round, reactive to light; EOMI; mucous membranes pink, moist; oropharynx clear NECK: Supple LUNGS: decreased air movement, wheezes throughout, no rales, no rhonchi HEART: Regular rate, regular rhythm; normal S1, S2; no murmurs ABDOMEN: non distended; normal BS; soft, no tenderness, no guarding, no rebound; no masses, no organomegaly, no hernia BACK: no CVA tenderness EXTREMITIES: atraumatic; no edema NEUROLOGIC: awake; alert and oriented x4; cranial nerves II-XII grossly intact; no focal sensory or motor deficits PSYCHIATRIC: appropriate mood and affect SKIN: warm, dry, normal color; no rashes Course Course Course Narrative: CXR is ordered for determining the etiology of shortness of breath. Quality Measures none Orders Category Date Time Status Bedside COVID-19 Antigen Test NOW Care 03/29/25 02:25 Active Bedside Influenza A&B Antigen Test NOW Care 03/29/25 02:25 Completed COVID-19 Screening Questionnaire NOW Care 03/29/25 02:25 Active Insurance Application Investigator NOW Care 03/29/25 01:47 Active EKG (ED ONLY) *Do not use* NOW Care 03/29/25 01:47 Completed EKG (ED Only) Stat Exams 03/29/25 01:47 Draft XR chest 1V portable Stat Exams 03/29/25 01:47 Taken B-Type Natriuretic Peptide Stat Lab 03/29/25 01:50 Completed CBC Stat Lab 03/29/25 01:50 Completed Comprehensive Metabolic Panel Stat Lab 03/29/25 01:50 Completed Lipase Stat Lab 03/29/25 01:50 Completed Magnesium Stat Lab 03/29/25 01:50 Completed Troponin I Stat Lab 03/29/25 01:50 Completed ALBUTEROL RT 0.5ml [Proventil Rt 0.5ml] Med 03/29/25 01:46 Discontinued 10 mg INH X1 ONE Ipratropium [place] Rt Violet [Atrovent Rt Violet] Med 03/29/25 01:46 Discontinued 0.5 mg INH X1 ONE MethylPREDNISolone.* [SoluMEDROL Inj] Med 03/29/25 01:46 Discontinued 125 mg IVP X1 ONE Sodium Chloride Rt Violet 0.9% [NS Rt Violet 0.9%] Med 03/29/25 01:46 Active 3 ml INH PRN PRN Sodium Chloride Rt Violet 0.9% [NS Rt Violet 0.9%] Med 03/29/25 01:46 Discontinued 3 ml INH PRN PRN BiPAP / CPAP NEEDED RT 03/29/25 02:19 Active O2 [Oxygen Delivery] PRN RT 03/29/25 04:43 Active Reevaluation(s) Reevaluation #1: Patient is resting comfortably at this time. She states she feels significantly better and is currently saturating at 92% on 2L. She has significantly better air movement. Patient does have oxygen at home and is stable to be discharged home. Time: 05:04 Vital Signs Vital signs: Vital Signs Pulse Rate 111 H 03/29/25 01:45 Respiratory Rate 29 H 03/29/25 01:45 Blood Pressure 169/108 H 03/29/25 01:45 Pulse Oximetry (%) 94 L 03/29/25 01:45 Oxygen Delivery Method BiPAP 03/29/25 01:45 Shortness of Breath / Dyspnea MDM Narrative MDM Narrative:: Scribe Attestation: 03/29/25 - Angeles Garcia am scribing for and in the presence of Dr. Cruz. Patient data External records reviewed:: [facility] previous records (Per chart review, patient was admitted here on 02/27/25 for COPD exacerbation.) and EMS form Clinical information provided by:: patient and EMS Social determinants that could affect healthcare access:: none Patient has the following chronic illnesses:: asthma, breast cancer, COPD, HTN, osteoporosis How is presenting disease/condition affected by chronic disease/condition?: exacerbated by Evaluation data The following diagnostics were reviewed and interpreted by me:: lab results, radiology exam(s) and EKG tracing(s) Lab and/or radiology exams considered but not ordered:: none Interpretation Summary: COVID/Influenza negative, WBC 13.2, CMP normal, Troponin normal, BNP normal. CXR shows hyperinflation, no pleural effusions, normal cardiac silhouette, no bony abnormalities, according to my interpretation. EKG done at 0152, sinus tachycardia, rate of 108, baseline wander, significant artifact, no obvious ST elevations or depressions, difficult to interpret, according to my interpretation. Medications / Prescriptions Medications or Prescriptions considered but not ordered:: none Medication administrations:: Medication Administration History Sodium Chloride (Sodium Chloride Rt Violet 0.9% 3 Ml Nebu) 3 ml INH PRN PRN PRN Reason: SOLN Stop: 04/28/25 01:45 Last Admin: 03/29/25 02:17 Dose: 3 ml Documented By: NICO Discontinued Medications Albuterol (Albuterol Rt 2.5 Mg/0.5 Ml Nebu) 10 mg INH X1 ONE Stop: 03/29/25 01:47 Last Admin: 03/29/25 02:17 Dose: 10 mg Documented By: NICO Ipratropium [place] (Ipratropium Rt 0.5 Mg/ 2.5 Ml Nebu) 0.5 mg INH X1 ONE Stop: 03/29/25 01:47 Last Admin: 03/29/25 02:17 Dose: 0.5 mg Documented By: NICO Methylprednisolone Sodium Succinate (Methylprednisolone Sod Succ 62.5 Mg/Ml 2ml Vial) 125 mg IVP X1 ONE Stop: 03/29/25 01:47 Last Admin: 03/29/25 02:15 Dose: 125 mg Documented By: EDWIN Sodium Chloride (Sodium Chloride Rt Violet 0.9% 3 Ml Nebu) 3 ml INH PRN PRN PRN Reason: SOLN Stop: 04/28/25 01:45 see above Consultations Consultation(s) initiated? (list below): No Diagnosis Shortness of Breath Differential Diagnosis: acute exacerbation of chronic obstructive airways disease, congestive heart failure, community acquired pneumonia and asthma with exacerbation Most likely diagnosis given after review of the tests above:: see clinical impression below Admission Indicated Admission indicated?: not indicated Explain why admission is indicated or not indicated:: With significant improvement and no condition needing emergent intervention, there was no indication for admission. Admission Request Was there a request for admission?: No Disposition Plan Disposition Plan: Discharge Discharge Attestation Discharge Attestation: The patient and all family members were given an opportunity to ask questions and understood the discharge instructions. Discharge instructions specifically effects, indications for sooner follow up or return to the emergency department, and the expected course of current diagnosis. Patient condition: Stable Discharge Plan Plan Patient Disposition: HOME (Self Care) Prescriptions/Referrals Prescriptions/Med Rec: No Action fexofenadine [Sharon Allergy] 60 mg Tablet 60 mg PO BID clotrimazole-betamethasone 1-0.05 % cream 1 applic topical BID fluticasone propion-salmeterol [Advair HFA] 115-21 mcg/actuation HFA aerosol inhaler 2 puff inhalation BID Qty: 12 0RF Rx Instructions: administer with spacer budesonide 0.5 mg/2 mL suspension for nebulization 0.5 mg inhalation QDAY Qty: 60 0RF ipratropium-albuterol 0.5 mg-3 mg(2.5 mg base)/3 mL solution for nebulization 3 ml inhalation Q4H PRN (Reason: shortness of breath or wheezing) 30 Days Qty: 90 0RF albuterol sulfate 90 mcg/actuation HFA aerosol inhaler 2 puff inhalation Q6H PRN (Reason: shortness of breath or wheezing) Qty: 6.7 2RF Problem List Clinical Impression: Acute asthma exacerbation Patient/Caregiver Discharge Instructions Education Materials: ED Asthma, Acute (Adult) Print Language: [place] Verdean Stand Alone Forms: Shelia Award Info., Patient Portal Info Letter
--- NOTE | 2025-03-29 01:47 | EKG_ITS ---
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: : 1945 Requested By: Lizeth Helton Order Number: [id number] Reading MD: Lizeth Helton Measurements Intervals [place] Rate: 108 P: 49 MI: 161 QRS: -40 QRSD: 90 T: -3 QT: 344 QTc: 462 Interpretive Statements SINUS TACHYCARDIA POSSIBLE RIGHT ATRIAL ENLARGEMENT [0.25mV P-WAVE] LEFT ATRIAL ENLARGEMENT [-0.15mV P-WAVE IN V1/V2] LEFT AXIS DEVIATION [QRS AXIS < -30] POSSIBLE RIGHT VENTRICULAR CONDUCTION DELAY [RSR (QR) IN V1/V2] LEFT VENTRICULAR HYPERTROPHY AND ST-T CHANGE [VOLTAGE CRITERIA PLUS ST/T ABNORMALITY] Compared to ECG 02/27/2025 07:33:49 Atrial abnormality now present Left-axis deviation now present ST (T wave) deviation now present Sinus rhythm no longer present /store/S0/[id number].pdf
--- NOTE | 2025-03-29 01:47 | XR_ITS ---
Examination: AP chest single view Technique one AP portable upright chest single view Date and time: March 29, 2025, 0158 hours INDICATIONS: Chest pain today. FINDINGS: Comparison February 27, 2025 Mild enlargement cardiac contour. Mild vascular congestion. No lobar pneumonia or pulmonary edema. Prominent osteopenia IMPRESSION: No pneumonia or pulmonary edema
[2025-03-29] MEDS: MethylPREDNISolone SOD SUCC 62.5 MG/ML 2ML VIAL 125 MG IVP (02:15)
[2025-03-29] MEDS: SODIUM CHLORIDE RT SOL 0.9% 3 ML NEBU INH (02:17)
[2025-03-29] MEDS: IPRATROPIUM RT 0.5 MG/ 2.5 ML NEBU INH ×3 (02:17→11:29)
[2025-03-29] MEDS: ALBUTEROL RT 2.5 MG/0.5 ML NEBU 10 MG INH ×2 (02:17→07:09)
[2025-03-29 02:28] LABS: Basophils # (Auto) 0.2 Thou/mm3 (0.0-0.2); Basophils % (Auto) 1 % (0-2.5); Eosinophils # (Auto) 1.0 Thou/mm3 (0.0-0.5); Eosinophils % (Auto) 7 % (0-10); Hematocrit 47.3 % (36.0-46.0); Hemoglobin 15.9 g/dL (12.0-16.0); Immature Granulocytes Auto 0.04 Thou/mm3 (0.00-0.00); Lymphocytes # (Auto) 2.0 Thou/mm3 (1.0-4.8); Lymphocytes % (Auto) 15 % (10-50); Mean Corpuscular HGB Conc 33.6 g/dl (31.0-37.0); Mean Corpuscular Hemoglobin 29.9 pg (25.0-35.0); Mean Corpuscular Volume 89 fL (80-100); Monocytes # (Auto) 1.2 Thou/mm3 (0.0-0.8); Monocytes % (Auto) 9 % (0-12); Neutrophils # (Auto) 8.9 Thou/mm3 (1.8-7.7); Neutrophils % (Auto) 67 % (37-80); Nucleated Red Blood Cell # 0.00 Thou/mm3 (0.00-0.00); Nucleated Red Blood Cell % 0 /100 WBC (0); Platelet Count 348 Thou/mm3 (140-440); RDW Standard Deviation 47.6 fL (36.4-46.3); Red Blood Count 5.32 Miln/mm3 (4.00-5.20); White Blood Count 13.2 Thou/mm3 (3.6-11.0)
[2025-03-29 02:46] LABS: Alanine Aminotransferase 16 U/L (10-49); Albumin, Serum 4.7 gm/dL (3.4-4.8); Albumin/Globulin Ratio 2.0 (1.2-2.2); Alkaline Phosphatase 68 U/L (46-116); Anion Gap 11 (7-16); Aspartate Amino Transferase 32 U/L (0-34); BUN/Creatinine Ratio 13 Ratio (12-20); Bilirubin,Total 0.6 mg/dL (0.3-1.2); Blood Urea Nitrogen 9 mg/dL (9-23); Calcium 9.4 mg/dL (8.3-10.6); Calcium (Corrected) 9.4 mg/dL (8.5-10.1); Carbon Dioxide 30.3 mMol/L (20.0-31.0); Chloride 100 mMol/L (98-107); Creatinine (Component) 0.7 mg/dL (0.6-1.3); Estimated Creatinine Clearance 59.4 mL/min (>60); Globulin 2.4 gm/dL (2.3-3.5); Glucose 111 mg/dL (74-106); Lipase 43 U/L (12-53); Magnesium 2.6 mg/dL (1.6-2.6); Osmolality,Calculated 280 (275-295); Potassium 4.0 mMol/L (3.4-5.1); Sodium 141 mMol/L (136-145); Total Protein 7.1 gm/dL (5.7-8.2); Troponin I < 0.020 ng/mL (0.0-0.045); eGFR > 60 See Note
[2025-03-29 03:04] LABS: B-Type Natriuretic Peptide 50 pg/mL (0-100)
--- NOTE | 2025-03-29 07:19 | PD.EDADDENDU ---
Emergency Room Addendum <Isatu Barnes - Last Filed: 03/29/25 08:57> Addendum Narrative: 0659: Patient was already discharged by the night provider, but complaining of shortness of again. Patient had previously received a breathing treatment, was discharged, and reported feeling better until symptoms returned. Will order another breathing treatment and reevaluated. Differential diagnoses include asthma exacerbation, reactive airway disease flare, and incomplete response to bronchodilator therapy. <Shania Leonard MD - Last Filed: 03/29/25 09:48> Addendum Narrative: 0659: Patient was already discharged by the night provider, but complaining of shortness of again. Patient had previously received a breathing treatment, was discharged, and reported feeling better until symptoms returned. Patient is chronically oxygen dependent in the evening time secondary to very severe asthma. Patient states that she has never been intubated before. Patient has a history of hypertension no other medical problems. Patient is allergic to sulfa. On my assessment, patient is tripoding, has severe wheezes bilaterally expiratory. Patient is dyspneic. Will order another breathing treatment and likely admit. Differential diagnoses include asthma exacerbation, reactive airway disease flare, and incomplete response to bronchodilator therapy. 8:49a reassessed patient, patient no longer tripoding, breathing more comfortable, however continues to have bilateral expiratory wheezes. Provided patient with an additional hour-long breathing treatment, magnesium and fluids. Discussed admission with the hospitalist. Critical Care Time <Isatu Barnes - Last Filed: 03/29/25 08:57> Critical Care Time Critical Care Time: Yes Total Critical Care Time (min.): 60 Attestation: The high probability of sudden, clinically significant deterioration in the patient?s condition required the highest level of my preparedness to intervene urgently. The services I provided to this patient were to treat and/or prevent clinically significant deterioration. Services included the following: chart data review, reviewing nursing notes and/or old charts, documentation time, network pricing consultant collaboration regarding findings and treatment options, medication orders and management, direct patient care, vital sign assessments and ordering, interpreting and reviewing diagnostic studies and lab tests. Aggregate critical care time includes only time during which I was engaged in work directly related to the patient?s care, as described above, whether at bedside or elsewhere in the Emergency Department. It did not include time spent performing other reported procedures or the services of residents, students, nurses or physician assistants. Results <Isatu Barnes - Last Filed: 03/29/25 08:57> Objective Laboratory: Laboratory Last Values WBC 13.2 Thou/mm3 (3.6-11.0) H 03/29/25 01:50 RBC 5.32 Miln/mm3 (4.00-5.20) H 03/29/25 01:50 Hgb 15.9 g/dL (12.0-16.0) 03/29/25 01:50 Hct 47.3 % (36.0-46.0) H 03/29/25 01:50 MCV 89 fL (80-100) 03/29/25 01:50 MCH 29.9 pg (25.0-35.0) 03/29/25 01:50 MCHC 33.6 g/dl (31.0-37.0) 03/29/25 01:50 RDW Std Deviation 47.6 fL (36.4-46.3) H 03/29/25 01:50 Plt Count 348 Thou/mm3 (140-440) 03/29/25 01:50 Neut % (Auto) 67 % (37-80) 03/29/25 01:50 Lymph % (Auto) 15 % (10-50) 03/29/25 01:50 [place] % (Auto) 9 % (0-12) 03/29/25 01:50 Eos % (Auto) 7 % (0-10) 03/29/25 01:50 Baso % (Auto) 1 % (0-2.5) 03/29/25 01:50 Neut # (Auto) 8.9 Thou/mm3 (1.8-7.7) H 03/29/25 01:50 Lymph # (Auto) 2.0 Thou/mm3 (1.0-4.8) 03/29/25 01:50 [place] # (Auto) 1.2 Thou/mm3 (0.0-0.8) H 03/29/25 01:50 Eos # (Auto) 1.0 Thou/mm3 (0.0-0.5) H 03/29/25 01:50 Baso # (Auto) 0.2 Thou/mm3 (0.0-0.2) 03/29/25 01:50 Immature Gran # (Auto) 0.04 Thou/mm3 (0.00-0.00) H 03/29/25 01:50 Absolute Nucleated RBC 0.00 Thou/mm3 (0.00-0.00) 03/29/25 01:50 Immature Gran % 0 % (0-0) 03/29/25 01:50 Nucleated RBC % 0 /100 WBC (0) 03/29/25 01:50 Sodium 141 mMol/L (136-145) 03/29/25 01:50 Potassium 4.0 mMol/L (3.4-5.1) 03/29/25 01:50 Chloride 100 mMol/L (98-107) 03/29/25 01:50 Carbon Dioxide 30.3 mMol/L (20.0-31.0) 03/29/25 01:50 Anion Gap 11 (7-16) 03/29/25 01:50 BUN 9 mg/dL (9-23) 03/29/25 01:50 Creatinine 0.7 mg/dL (0.6-1.3) 03/29/25 01:50 Estim Creat Clear Calc 59.4 mL/min (>60) L 03/29/25 01:50 eGFR > 60 See Note (60-) 03/29/25 01:50 BUN/Creatinine Ratio 13 Ratio (12-20) 03/29/25 01:50 Glucose 111 mg/dL (74-106) H 03/29/25 01:50 Calculated Osmolality 280 (275-295) 03/29/25 01:50 Calcium 9.4 mg/dL (8.3-10.6) 03/29/25 01:50 Corrected Calcium 9.4 mg/dL (8.5-10.1) 03/29/25 01:50 Magnesium 2.6 mg/dL (1.6-2.6) 03/29/25 01:50 Total Bilirubin 0.6 mg/dL (0.3-1.2) 03/29/25 01:50 AST 32 U/L (0-34) 03/29/25 01:50 ALT 16 U/L (10-49) 03/29/25 01:50 Alkaline Phosphatase 68 U/L (46-116) 03/29/25 01:50 Troponin I < 0.020 ng/mL (0.0-0.045) 03/29/25 01:50 B-Natriuretic Peptide 50 pg/mL (0-100) 03/29/25 01:50 Total Protein 7.1 gm/dL (5.7-8.2) 03/29/25 01:50 Albumin 4.7 gm/dL (3.4-4.8) 03/29/25 01:50 Globulin 2.4 gm/dL (2.3-3.5) 03/29/25 01:50 Albumin/Globulin Ratio 2.0 (1.2-2.2) 03/29/25 01:50 Lipase 43 U/L (12-53) 03/29/25 01:50 Imaging: Procedure(s): XR chest 1V portable Accession Number(s): [id number] cc: Ricardo Eubanks MD; NO PRIMARY/FAMILY,PHYSICIAN; Lizeth Cruz MD~ Examination: AP chest single view Technique one AP portable upright chest single view Date and time: March 29, 2025, 0158 hours INDICATIONS: Chest pain today. FINDINGS: Comparison February 27, 2025 Mild enlargement cardiac contour. Mild vascular congestion. No lobar pneumonia or pulmonary edema. Prominent osteopenia IMPRESSION: No pneumonia or pulmonary edema Dictated By: Ricardo Eubanks MD <Shania Leonard MD - Last Filed: 03/29/25 09:48> Objective Laboratory: Laboratory Last Values WBC 13.2 Thou/mm3 (3.6-11.0) H 03/29/25 01:50 RBC 5.32 Miln/mm3 (4.00-5.20) H 03/29/25 01:50 Hgb 15.9 g/dL (12.0-16.0) 03/29/25 01:50 Hct 47.3 % (36.0-46.0) H 03/29/25 01:50 MCV 89 fL (80-100) 03/29/25 01:50 MCH 29.9 pg (25.0-35.0) 03/29/25 01:50 MCHC 33.6 g/dl (31.0-37.0) 03/29/25 01:50 RDW Std Deviation 47.6 fL (36.4-46.3) H 03/29/25 01:50 Plt Count 348 Thou/mm3 (140-440) 03/29/25 01:50 Neut % (Auto) 67 % (37-80) 03/29/25 01:50 Lymph % (Auto) 15 % (10-50) 03/29/25 01:50 [place] % (Auto) 9 % (0-12) 03/29/25 01:50 Eos % (Auto) 7 % (0-10) 03/29/25 01:50 Baso % (Auto) 1 % (0-2.5) 03/29/25 01:50 Neut # (Auto) 8.9 Thou/mm3 (1.8-7.7) H 03/29/25 01:50 Lymph # (Auto) 2.0 Thou/mm3 (1.0-4.8) 03/29/25 01:50 [place] # (Auto) 1.2 Thou/mm3 (0.0-0.8) H 03/29/25 01:50 Eos # (Auto) 1.0 Thou/mm3 (0.0-0.5) H 03/29/25 01:50 Baso # (Auto) 0.2 Thou/mm3 (0.0-0.2) 03/29/25 01:50 Immature Gran # (Auto) 0.04 Thou/mm3 (0.00-0.00) H 03/29/25 01:50 Absolute Nucleated RBC 0.00 Thou/mm3 (0.00-0.00) 03/29/25 01:50 Immature Gran % 0 % (0-0) 03/29/25 01:50 Nucleated RBC % 0 /100 WBC (0) 03/29/25 01:50 Sodium 141 mMol/L (136-145) 03/29/25 01:50 Potassium 4.0 mMol/L (3.4-5.1) 03/29/25 01:50 Chloride 100 mMol/L (98-107) 03/29/25 01:50 Carbon Dioxide 30.3 mMol/L (20.0-31.0) 03/29/25 01:50 Anion Gap 11 (7-16) 03/29/25 01:50 BUN 9 mg/dL (9-23) 03/29/25 01:50 Creatinine 0.7 mg/dL (0.6-1.3) 03/29/25 01:50 Estim Creat Clear Calc 59.4 mL/min (>60) L 03/29/25 01:50 eGFR > 60 See Note (60-) 03/29/25 01:50 BUN/Creatinine Ratio 13 Ratio (12-20) 03/29/25 01:50 Glucose 111 mg/dL (74-106) H 03/29/25 01:50 Calculated Osmolality 280 (275-295) 03/29/25 01:50 Calcium 9.4 mg/dL (8.3-10.6) 03/29/25 01:50 Corrected Calcium 9.4 mg/dL (8.5-10.1) 03/29/25 01:50 Magnesium 2.6 mg/dL (1.6-2.6) 03/29/25 01:50 Total Bilirubin 0.6 mg/dL (0.3-1.2) 03/29/25 01:50 AST 32 U/L (0-34) 03/29/25 01:50 ALT 16 U/L (10-49) 03/29/25 01:50 Alkaline Phosphatase 68 U/L (46-116) 03/29/25 01:50 Troponin I < 0.020 ng/mL (0.0-0.045) 03/29/25 01:50 B-Natriuretic Peptide 50 pg/mL (0-100) 03/29/25 01:50 Total Protein 7.1 gm/dL (5.7-8.2) 03/29/25 01:50 Albumin 4.7 gm/dL (3.4-4.8) 03/29/25 01:50 Globulin 2.4 gm/dL (2.3-3.5) 03/29/25 01:50 Albumin/Globulin Ratio 2.0 (1.2-2.2) 03/29/25 01:50 Lipase 43 U/L (12-53) 03/29/25 01:50
[2025-03-29] MEDS: RINGERS LACTATED 1000 ML 1,000 ML 999 ML IV (07:24)
[2025-03-29] MEDS: Magnesium Sulfate 2 GM Ivpb 2 GM/50 ML BAG IV (09:43)
[2025-03-29 09:46] LABS: Base Excess 3 (-3-3); HCO3 28 mEq/L (20-26); Inspired O2, VO2 Liters 3 L/min; O2 Saturation 92 % (91-98); PCO2 46 mmHg (32.0-48.0); PO2 60 mmHg (83-108); pH, Arterial 7.40 (7.35-7.45)
[2025-03-29 09:47] LABS: Allen Test Performed/OK; Puncture Site Right Radial
[2025-03-29] MEDS: FAMOTIDINE 20 MG TABLET PO ×2 (10:07→20:14)
[2025-03-29] MEDS: AZITHROMYCIN INJ 500 MG in SODIUM CHLORIDE 0.9% 250 ML 250 ML 250 MG IV (10:07)
[2025-03-29] MEDS: LEVALBUTEROL RT 0.63 MG/3 ML NEBU INH ×2 (11:30→18:49)
--- NOTE | 2025-03-29 11:33 | PC.CC ---
Patient is a 79 year-old female who presents to the hospital for Asthma Exacerbation. Isamar RENTERIA made [id number] contact with patient. ASW introduced self, role, and reason for visit.?Patient appeared alert and oriented to self, location, and situation.?Patient was pleasant and engaged in initial assessment. Patient reports she lives at home with her , Abel Jansen . Patient reports that her would be her medical decision maker or her son, Moy Jansen . At home patient reports she ambulates independently and is able to complete her own ADLs. Patient reports she uses oxygen at home 2L. Patient is not a dialysis patient and does not require any other DME. Patient reports she is followed by Dr. Ochoa and uses [facility] for prescription medications. Upon discharge the patient plans to return back home. manager clinical services to follow up with any discharge needs.
[2025-03-29 13:01] LABS: Cocci Serology, IgM Negative (Negative)
--- NOTE | 2025-03-29 13:58 | PC.NURSE ---
tachycardia noted, HR in the 130's. provider called and notified. per provider will review chart and put in orders.
--- NOTE | 2025-03-29 15:00 | EKG_ITS ---
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
--- NOTE | 2025-03-29 15:01 | PD.RESHP ---
Documentation for date of: 03/29/25 Patient is a 74-year-old female with a past medical history of extensive asthma history since the age of 18, with 3 asthma exacerbations within this year that have required hospitilization, HFpEF 65% (10/03/2024), miltral regurgitation, and mild pulmonary artery hypertension who presented to the emergency room with a chief complain of shortness of breath. Patient was examined at bedside and noted to have decreased vesicular breath sounds bilaterally with wheezing noted through out all lung nayak. Patient was started on bipap in the ER and ABG obtained. ABG pH within normal limits, pCO2 within normal limits, and HCO3 28. Patient was admitted for acute hypoxic respiratory failure secondary to asthma exacerbation. Patient was started on levalbuterol, ipratropium and budesonide. Methylprednisone 40 milligram IV twice daily. Pending sputum cultures. Flu and COVID-negative. This is patient's fourth admission for asthma exacerbation this year, given worsening symptoms patient is recommended to follow-up outpatient doctors. Patient may benefit from montelukast as an outpatient, no benefit in acute asthma exacerbation. Given asthma exacerbation patient may benefit from SpO2 93-95%. Possible asthma COPD overlap given previous ABGs noted to be elevated CO2. Chest x-ray noted for possible emphysema pattern. Continue breathing treatments, resume metoprolol xl 25 mg AM, erik physio, and antibiotics. Montelukast outpatient. Pending sputum cultures, If worsening Repeat ABG and bipap. Corina Barraza, PGY -2 HPI History of Present Illness History of present illness: Chief complaints: Shortness of breathe Patient is a 79-year-old female with past medical history asthma since age of 18, CHF HFpEF 65 (09/2024), mitral regurgitations, mild pulmonary artery hypertension, history of breast cancer, osteoporosis, cirrhosis presented to the ED on 03/29/2025 due to acute shortness of breath. Patient noted that her asthma was worsening throughout the day. She was initially saturating at 76% room air and went up to 93% on 4 L. Feels out of breath with nausea and notes that her cough was also getting worse. She does not recall any specific events that could have triggered this attack, but admits that this attacks has been happening much more frequently over the last month. However she was able to walk slowly on stairs without difficulty. Patient denies chest pain, palpitations, vomiting, abdominal pain, fevers, or chills. ED Course: Prior to arrival, EMS administered 2 nebulizer treatements en route, 2g Magnesium, and CPAP, which improved the patient to 97-98%. In the ED, vitals were 97.8F, MO:117, RR:26, BP:143/99 93% O2sat on 2L, leukocytosis of 13.2, ABG pO2:60, ABG HCO3: 28, Sodium: 141, Potassium:4.0. Chest X-ray showed hyperinflation, was negative for pneumonia or pulmonary edema, normal cardiac silhouette, no bony abnormalities. EKG showed sinus tachycardia, rate of 108, no obvious ST elevations or depressions. Medication: Patient was given albuterol, Ipratropium, IV methylprednisone 125 mg in ED. Patient will be admitted for management of acute COPD exacerbation. Medical history: As stated above Surgical history: Bilateral mastectomy, hip replacement, cholecystectomy Allergies: Sulfa drugs causing hives and swelling. Shell fish causing itchess. Medications: Pending official med rec Family history: Breast cancer throughout family. Social history: Denies smoking cigarettes, drinking alcohol or using other illicit drugs ROS: All 12 systems assessed and the patient denies unless otherwise stated in HPI Exam Vital Signs Temp Pulse Resp BP Pulse Ox O2 Del Method O2 Flow Rate 98.1 F 105 H 18 135/81 H 95 Nasal Cannula 2 03/29/25 14:17 03/29/25 14:17 03/29/25 14:17 03/29/25 14:17 03/29/25 14:17 03/29/25 14:17 03/29/25 14:17 FiO2 40 03/29/25 04:33 Narrative Exam General: No acute distress, well nourished Eye: PERRL, EOMI, normal conjunctiva, no scleral icterus HENT: Normocephalic, atraumatic, hearing intact to conversation at normal volume, moist oral mucosa Neck: Supple, non-tender, no JVD, no lymphadenopathy Lungs: Decreased breath sounds bilaterally, Wheezing. Currently on 2L NC Heart: Peripheral pulses intact bilaterally, Regular Rate and Rhythm Abdomen: Soft, non-tender, non-distended Musculoskeletal: Normal range of motion and strength Skin: Skin is warm, dry, no rashes or lesions. Psychiatric: Cooperative, appropriate mood and affect Neuro: Cranial nerves II-XII grossly intact. Strength 5/5 throughout. Sensations intact to light touch. Results: Labs 03/30/25 05:34 03/30/25 05:34 Labs: Short CBC 03/29/25 Range/Units 01:50 WBC 13.2 H (3.6-11.0) Thou/mm3 Hgb 15.9 (12.0-16.0) g/dL Hct 47.3 H (36.0-46.0) % Plt Count 348 (140-440) Thou/mm3 BMP 03/29/25 01:50 Sodium 141 Potassium 4.0 Chloride 100 Carbon Dioxide 30.3 BUN 9 Creatinine 0.7 Glucose 111 H Calcium 9.4 Cardiac Enzymes 03/29/25 Range/Units 01:50 Troponin I < 0.020 (0.0-0.045) ng/mL Liver Function 03/29/25 Range/Units 01:50 Total Bilirubin 0.6 (0.3-1.2) mg/dL AST 32 (0-34) U/L ALT 16 (10-49) U/L Alkaline Phosphatase 68 (46-116) U/L Albumin 4.7 (3.4-4.8) gm/dL ABG Interpretation ABG results: 03/29/25 09:42 ABG pH 7.40 ABG pCO2 46 ABG pO2 60 L ABG HCO3 28 H ABG O2 Saturation 92 ABG Base Excess 3 Quality Measures Quality Measures none Advance care planning discussed with:: patient Medications Home Medications and Allergies Home Medications ?Medication ?Instructions ?Recorded ?Confirmed ?Type fexofenadine 60 mg tablet (Sharon 60 mg PO BID 05/02/18 03/29/25 History Allergy) clotrimazole-betamethasone 1 1 applic topical BID PRN cracked 01/24/25 03/29/25 History %-0.05 % topical cream skin alendronate 70 mg tablet 70 mg PO QWEEK 03/29/25 03/29/25 History Held on 03/29/25. Instructions: pend md ricks to start amlodipine 2.5 mg tablet 2.5 mg PO .day 03/29/25 03/29/25 History fluticasone furoate 200 1 inh inhalation Q24H 03/29/25 03/29/25 History mcg-vilanterol 25 mcg/dose inhalation powder (Breo Ellipta) metoprolol succinate 25 mg 25 mg PO HS 03/29/25 03/29/25 History tablet,extended release 24 hr Allergies Allergy/AdvReac Type Severity Reaction Status Date / Time shellfish derived Allergy Severe ITCHING,DROP Verified 03/29/25 01:45 IN BP Sulfa (Sulfonamide Allergy Severe HIVES AND Verified 03/29/25 01:45 Antibiotics) SWELLING Visit Medications Acetaminophen (Acetaminophen 325 Mg Tablet) 650 mg PO Q6H PRN PRN Reason: Mild Pain 1-3 or Fever 100.3 Stop: 04/28/25 09:33 Budesonide (Budesonide Rt 0.5 Mg/2 Ml Nebu) 0.5 mg INH BIDRT [facility] Stop: 04/28/25 18:59 Famotidine (Famotidine 20 Mg Tablet) 20 mg PO BID [facility] Stop: 04/28/25 09:44 Last Admin: 03/29/25 10:07 Dose: 20 mg Heparin Sodium (Porcine) (Heparin Sod Inj 5000 Unit/Ml Vial) 5,000 unit SC Q12HR [facility] Stop: 04/12/25 20:59 Azithromycin 500 mg/ Sodium (Chloride) 250 mls @ 250 mls/hr IV QDAY [facility] Stop: 04/06/25 08:59 Ipratropium [place] (Ipratropium Rt 0.5 Mg/ 2.5 Ml Nebu) 0.5 mg INH Q4HR PRN PRN Reason: SHORTNESS OF BREATH Stop: 04/28/25 09:40 Last Admin: 03/29/25 11:29 Dose: 0.5 mg Levalbuterol HCl (Levalbuterol Rt 0.63 Mg/3 Ml Nebu) 0.63 mg INH Q4HRRT PRN PRN Reason: Bronchospasm Stop: 04/28/25 10:59 Last Admin: 03/29/25 11:30 Dose: 0.63 mg Methylprednisolone Sodium Succinate (Methylprednisolone Sod Succ 40 Mg Vial) 40 mg IV Q12HR [facility] Stop: 04/05/25 20:59 Ondansetron HCl (Ondansetron Inj 2 Mg/Ml Inj 2 Ml) 4 mg IVP Q6H PRN; Protocol PRN Reason: NAUSEA OR VOMITING Stop: 04/28/25 09:33 Sennosides (Senna Tablet) 1 tab PO QDAY PRN; Protocol PRN Reason: constipation Stop: 04/28/25 09:33 Sodium Chloride (Sodium Chloride Rt Violet 0.9% 3 Ml Nebu) 3 ml INH PRN PRN PRN Reason: SOLN Stop: 04/28/25 07:02 Discontinued Medications Albuterol (Albuterol Rt 2.5 Mg/0.5 Ml Nebu) 10 mg INH X1 ONE Stop: 03/29/25 01:47 Last Admin: 03/29/25 02:17 Dose: 10 mg Albuterol (Albuterol Rt 2.5 Mg/3 Ml Nebu) 5 mg INH X1 ONE Stop: 03/29/25 07:16 Albuterol (Albuterol Rt 2.5 Mg/0.5 Ml Nebu) 10 mg INH X1 ONE Stop: 03/29/25 07:04 Last Admin: 03/29/25 07:09 Dose: 10 mg Albuterol (Albuterol Rt 2.5 Mg/3 Ml Nebu) 5 mg INH X1 ONE Stop: 03/29/25 08:45 Lactated Ringer's (Lactated Ringers) 1,000 mls @ 999 mls/hr IV .Q1H1M ONE Stop: 03/29/25 08:02 Last Infusion: 03/29/25 09:40 Dose: Infused Magnesium Sulfate (Magnesium Sulfate Ivpb) 2 gm in 50 mls @ 25 mls/hr IV X1 ONE Stop: 03/29/25 10:43 Last Infusion: 03/29/25 11:52 Dose: Infused Azithromycin 500 mg/ Sodium (Chloride) 250 mls @ 250 mls/hr IV X1 ONE Stop: 03/29/25 10:44 Last Infusion: 03/29/25 11:30 Dose: Infused Ipratropium [place] (Ipratropium Rt 0.5 Mg/ 2.5 Ml Nebu) 0.5 mg INH X1 ONE Stop: 03/29/25 01:47 Last Admin: 03/29/25 02:17 Dose: 0.5 mg Ipratropium [place] (Ipratropium Rt 0.5 Mg/ 2.5 Ml Nebu) 0.5 mg INH X1 ONE Stop: 03/29/25 07:01 Last Admin: 03/29/25 07:10 Dose: 0.5 mg Ipratropium [place] (Ipratropium Rt 0.5 Mg/ 2.5 Ml Nebu) 0.5 mg INH X1 ONE Stop: 03/29/25 08:45 Levalbuterol HCl (Levalbuterol Rt 0.31 Mg/3 Ml Nebu) 0.31 mg INH Q4HR PRN PRN Reason: WHEEZING Stop: 04/28/25 09:40 Methylprednisolone Sodium Succinate (Methylprednisolone Sod Succ 62.5 Mg/Ml 2ml Vial) 125 mg IVP X1 ONE Stop: 03/29/25 01:47 Last Admin: 03/29/25 02:15 Dose: 125 mg Sodium Chloride (Sodium Chloride Rt Violet 0.9% 3 Ml Nebu) 3 ml INH PRN PRN PRN Reason: SOLN Stop: 04/28/25 01:45 Last Admin: 03/29/25 02:17 Dose: 3 ml Sodium Chloride (Sodium Chloride Rt Violet 0.9% 3 Ml Nebu) 3 ml INH PRN PRN PRN Reason: SOLN Stop: 04/28/25 01:45 Sodium Chloride (Sodium Chloride Rt 10% 15 Ml Nebu) 5 ml INH X1 ONE Stop: 03/29/25 09:35 Assessment & Plan Plan Patient is a 79-year-old female with past medical history of COPD, asthma, breast cancer, osteoporosis, cirrhosis presented to the ED on 03/29/2025 due to acute shortness of breath. Patient will be admitted for management of acute COPD exacerbation. #Acute Hypoxic Respiratory Failure likely secondary to Asthma #Acute on Chronic Asthma Exacerbation #History of Asthma #Asthma-COPD Overlap Pattern -Oxygen saturation stable on 2L nasal cannula -Chest XR: hyperinflation, was negative for pneumonia or pulmonary edema, normal cardiac silhouette, no bony abnormalities. -Patient was given albuterol, Ipratropium, IV methylprednisone 125 mg in ED. -EKG showed sinus tachycardia, rate of 108, no obvious ST elevations or depressions. -COVID-19 is negative, Influenza A/B is negative. Plan: -Methylprednisolone 40mg IV Q12hr -Breathing treatment (Levalbutrol 0,63g and Ipratropium 0.5mg, budesnoide) -IV Azithromycin 500mg IV qd and IV cefriaxone 1g IV qd. (03/29/2025--) -Chest physio AM -Cocci serology IgM and IgG pending -Sputum culture and Gran stain pending. -Outpatient start Montelukast #Leukocytosis likely Corticosteroid induced -Patient's WBC level of 13.2 -VS Stress response from hypoxia VS Pneumonia no pyrexia, ruled out from CXR Plan: -Continue to monitor CBC. #Sinus Tachycardia #History of Congestive Heart Failure #HFpEF 65% (10/03/2024) #Miltral Regurgitation #RVSP 41 mmHg Patient has a past medical history of CHF exacerbation, dating back to September of 2024. Patient is an established patient of Dr. Rojo. Home medication of metoprolol succinate 25 mg PO HS. No acute CHF exacerbation, no crackles, vascular congestion noted on Cxr, and BNP within normal limits. Echo (10/03/2024): Normal LV size, wall thickness.Estimated EF 65 %. RV is normal in size and systolic function. Estimated RVSP, 41mmHg. RAP 5. Mild thickening of the MV leaflets with moderate 2+mitral regurgitation. Mild to modearte TR Plan -Currently Holding off Metoprolol Succcinate 25 mg PO HS given acute CHF exacerbation, consider restarting AM as this is cardioselective -No lasix, patient does not appear fluid overloaded -Fluid Restricted 2,000 Liters per day -K>4 and Mg >2 -Consider cardiology consult, DR. Rojo. 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 -Monitor at this time -Can follow-up as outpatient Disposition: Management of COPD exacerbation Diet: Cardiac Diet GI prophylaxis: Famotidine DVT prophylaxis: subq Heparin q12 Code: DNR Assessment and plan discussed with my attending physician Dr. Perez and Dr. Barraza (PGY-2) Dr. Roldan (PGY-1)- Internal medicine resident - The patient's plan was discussed with attending Dr. Ana Barraza MD PGY2 Internal Medicine Attending Provider Attestation/Addendum I have examined the patient, reviewed labs and imaging findings, discussed the case with the resident(s), and reviewed entered orders. I agree with the plan of care as outlined in this note, with these additional summaries/recommendations: After examination of the patient and review of the clinical data, I feel that this patient needs admission to the hospital for further treatment and evaluation. Patient is a 79-year-old female with a medical history of COPD on 2 L nasal cannula, primary hypertension, seasonal allergies, hyperlipidemia, breast cancer, osteoporosis, HFpEF, and mitral regurgitation presents to [facility] emergency department on 03/29/2025 with chief complaint of shortness of breath. Patient seen at bedside. Patient diagnosed with acute COPD exacerbation. Start bronchodilator therapy with scheduled DuoNebs and as needed. Start IV steroids. Patient has 2 out of 3 cardinal signs for COPD exacerbation and start IV azithromycin. Chest x-ray shows no pneumonia or pulmonary edema. ABG showed normal pH and no hypercapnia. Okay to continue home MDIs as tolerated. Patient does have history of mild pulmonary hypertension and leukocytosis present which is most likely reactive. Continue home antihypertensives. Wean O2 requirement as tolerated. Patient updated on the plan and in agreement. All questions answered to satisfaction. Please see residents note for additional details and management. Dr. Ana MD
[2025-03-29] MEDS: cefTRIAXone/D5w 1gm IV premix 1 GM/50 ML BAG IV (18:03)
--- NOTE | 2025-03-29 18:06 | PD.RESCONSUL ---
HPI Data of Consult Requesting Physician: Rupesh Perez MD Admitting Provider: Rupesh Perez MD Attending Provider: Rupesh Perez MD Primary Care Provider: Physician No Primary/Family Consult Narrative History of present illness: Ms. Jansen is a 79-year-old female with past medical history of COPD, asthma, breast cancer s/p double mastectomy, osteoporosis, cirrhosis presented to the ED on 03/29/2025 due to acute shortness of breath. Initially saturating at 76% room air, improved to 93% on 4 L. Admitted for COPD exacerbation. Neurology consulted for concern for seizures, as primary was told that she had multiple falls recently. Patient examined at bedside. Denies hx of seizure, hx of neurological disorders, recent falls, or memory loss. cc:: cc: Rupesh Perez MD Review of Systems Review of Systems Narrative Review of Systems: 14 point review of systems negative other than HPI Exam Vital Signs Temp Pulse Resp BP Pulse Ox O2 Del Method O2 Flow Rate 97.2 F 98 17 143/73 H 98 Nasal Cannula 2 03/29/25 16:00 03/29/25 16:00 03/29/25 16:00 03/29/25 16:00 03/29/25 16:00 03/29/25 16:00 03/29/25 16:00 FiO2 40 03/29/25 16:00 Narrative Exam General: No acute distress, well nourished Eye: PERRL, EOMI, normal conjunctiva, no scleral icterus HENT: Normocephalic, atraumatic, no difficulty with hearing, moist oral mucosa Neck: Supple, non-tender, no JVD, no lymphadenopathy Lungs: Non-labored respirations, symmetric chest rise Heart: Peripheral pulses intact bilaterally Abdomen: Soft, non-tender, non-distended Musculoskeletal: Normal range of motion and strength Skin: Skin is warm, dry, no rashes or lesions. Neuro: AOx3, CN II-XII grossly intact Speech and language: Normal with no dysarthria or dysphasia. No pronator drift noted. No ataxia, no dysmetria, or dysdiadochokinesia noted. No intention tremors noted. Psychiatric: Cooperative, appropriate mood and affect Results Labs 03/29/25 01:50 03/29/25 01:50 Labs: Short CBC 03/29/25 Range/Units 01:50 WBC 13.2 H (3.6-11.0) Thou/mm3 Hgb 15.9 (12.0-16.0) g/dL Hct 47.3 H (36.0-46.0) % Plt Count 348 (140-440) Thou/mm3 BMP 03/29/25 01:50 Sodium 141 Potassium 4.0 Chloride 100 Carbon Dioxide 30.3 BUN 9 Creatinine 0.7 Glucose 111 H Calcium 9.4 Cardiac Enzymes 03/29/25 Range/Units 01:50 Troponin I < 0.020 (0.0-0.045) ng/mL Liver Function 03/29/25 Range/Units 01:50 Total Bilirubin 0.6 (0.3-1.2) mg/dL AST 32 (0-34) U/L ALT 16 (10-49) U/L Alkaline Phosphatase 68 (46-116) U/L Albumin 4.7 (3.4-4.8) gm/dL ABG Interpretation ABG results: 03/29/25 09:42 ABG pH 7.40 ABG pCO2 46 ABG pO2 60 L ABG HCO3 28 H ABG O2 Saturation 92 ABG Base Excess 3 Quality Measures Quality Measures none Advance care planning discussed with:: patient Medications Home Medications and Allergies Home Medications ?Medication ?Instructions ?Recorded ?Confirmed ?Type fexofenadine 60 mg tablet (Sharon 60 mg PO BID 05/02/18 03/29/25 History Allergy) clotrimazole-betamethasone 1 1 applic topical BID PRN cracked 01/24/25 03/29/25 History %-0.05 % topical cream skin alendronate 70 mg tablet 70 mg PO QWEEK 03/29/25 03/29/25 History Held on 03/29/25. Instructions: pend md ricks to start amlodipine 2.5 mg tablet 2.5 mg PO .day 03/29/25 03/29/25 History fluticasone furoate 200 1 inh inhalation Q24H 03/29/25 03/29/25 History mcg-vilanterol 25 mcg/dose inhalation powder (Breo Ellipta) metoprolol succinate 25 mg 25 mg PO HS 03/29/25 03/29/25 History tablet,extended release 24 hr Allergies Allergy/AdvReac Type Severity Reaction Status Date / Time shellfish derived Allergy Severe ITCHING,DROP Verified 03/29/25 01:45 IN BP Sulfa (Sulfonamide Allergy Severe HIVES AND Verified 03/29/25 01:45 Antibiotics) SWELLING Visit Medications Acetaminophen (Acetaminophen 325 Mg Tablet) 650 mg PO Q6H PRN PRN Reason: Mild Pain 1-3 or Fever 100.3 Stop: 04/28/25 09:33 Budesonide (Budesonide Rt 0.5 Mg/2 Ml Nebu) 0.5 mg INH BIDRT [facility] Stop: 04/28/25 18:59 Famotidine (Famotidine 20 Mg Tablet) 20 mg PO BID [facility] Stop: 04/28/25 09:44 Last Admin: 03/29/25 10:07 Dose: 20 mg Heparin Sodium (Porcine) (Heparin Sod Inj 5000 Unit/Ml Vial) 5,000 unit SC Q12HR [facility] Stop: 04/12/25 20:59 Azithromycin 500 mg/ Sodium (Chloride) 250 mls @ 250 mls/hr IV QDAY [facility] Stop: 04/06/25 08:59 Ceftriaxone Sodium/Dextrose (Rocephin/D5w 1gm Iv Premix) 1 gm in 50 mls @ 100 mls/hr IV QDAY [facility] Stop: 04/05/25 17:18 Last Admin: 03/29/25 18:03 Dose: 100 mls/hr Ipratropium [place] (Ipratropium Rt 0.5 Mg/ 2.5 Ml Nebu) 0.5 mg INH Q4HR PRN PRN Reason: SHORTNESS OF BREATH Stop: 04/28/25 09:40 Last Admin: 03/29/25 11:29 Dose: 0.5 mg Levalbuterol HCl (Levalbuterol Rt 0.63 Mg/3 Ml Nebu) 0.63 mg INH Q4HRRT PRN PRN Reason: Bronchospasm Stop: 04/28/25 10:59 Last Admin: 03/29/25 11:30 Dose: 0.63 mg Methylprednisolone Sodium Succinate (Methylprednisolone Sod Succ 40 Mg Vial) 40 mg IV Q12HR [facility] Stop: 04/05/25 20:59 Ondansetron HCl (Ondansetron Inj 2 Mg/Ml Inj 2 Ml) 4 mg IVP Q6H PRN; Protocol PRN Reason: NAUSEA OR VOMITING Stop: 04/28/25 09:33 Sennosides (Senna Tablet) 1 tab PO QDAY PRN; Protocol PRN Reason: constipation Stop: 04/28/25 09:33 Sodium Chloride (Sodium Chloride Rt Violet 0.9% 3 Ml Nebu) 3 ml INH PRN PRN PRN Reason: SOLN Stop: 04/28/25 07:02 Discontinued Medications Albuterol (Albuterol Rt 2.5 Mg/0.5 Ml Nebu) 10 mg INH X1 ONE Stop: 03/29/25 01:47 Last Admin: 03/29/25 02:17 Dose: 10 mg Albuterol (Albuterol Rt 2.5 Mg/3 Ml Nebu) 5 mg INH X1 ONE Stop: 03/29/25 07:16 Albuterol (Albuterol Rt 2.5 Mg/0.5 Ml Nebu) 10 mg INH X1 ONE Stop: 03/29/25 07:04 Last Admin: 03/29/25 07:09 Dose: 10 mg Albuterol (Albuterol Rt 2.5 Mg/3 Ml Nebu) 5 mg INH X1 ONE Stop: 03/29/25 08:45 Lactated Ringer's (Lactated Ringers) 1,000 mls @ 999 mls/hr IV .Q1H1M ONE Stop: 03/29/25 08:02 Last Infusion: 03/29/25 09:40 Dose: Infused Magnesium Sulfate (Magnesium Sulfate Ivpb) 2 gm in 50 mls @ 25 mls/hr IV X1 ONE Stop: 03/29/25 10:43 Last Infusion: 03/29/25 11:52 Dose: Infused Azithromycin 500 mg/ Sodium (Chloride) 250 mls @ 250 mls/hr IV X1 ONE Stop: 03/29/25 10:44 Last Infusion: 03/29/25 11:30 Dose: Infused Ipratropium [place] (Ipratropium Rt 0.5 Mg/ 2.5 Ml Nebu) 0.5 mg INH X1 ONE Stop: 03/29/25 01:47 Last Admin: 03/29/25 02:17 Dose: 0.5 mg Ipratropium [place] (Ipratropium Rt 0.5 Mg/ 2.5 Ml Nebu) 0.5 mg INH X1 ONE Stop: 03/29/25 07:01 Last Admin: 03/29/25 07:10 Dose: 0.5 mg Ipratropium [place] (Ipratropium Rt 0.5 Mg/ 2.5 Ml Nebu) 0.5 mg INH X1 ONE Stop: 03/29/25 08:45 Levalbuterol HCl (Levalbuterol Rt 0.31 Mg/3 Ml Nebu) 0.31 mg INH Q4HR PRN PRN Reason: WHEEZING Stop: 04/28/25 09:40 Methylprednisolone Sodium Succinate (Methylprednisolone Sod Succ 62.5 Mg/Ml 2ml Vial) 125 mg IVP X1 ONE Stop: 03/29/25 01:47 Last Admin: 03/29/25 02:15 Dose: 125 mg Sodium Chloride (Sodium Chloride Rt Violet 0.9% 3 Ml Nebu) 3 ml INH PRN PRN PRN Reason: SOLN Stop: 04/28/25 01:45 Last Admin: 03/29/25 02:17 Dose: 3 ml Sodium Chloride (Sodium Chloride Rt Violet 0.9% 3 Ml Nebu) 3 ml INH PRN PRN PRN Reason: SOLN Stop: 04/28/25 01:45 Sodium Chloride (Sodium Chloride Rt 10% 15 Ml Nebu) 5 ml INH X1 ONE Stop: 03/29/25 09:35 Assessment & Plan Plan # Seizure rule out # Repeated falls Denies history of seizure, convulsions, repeated falls, memory loss. No focal neuro deficit appreciated on exam. Plan: - No concern for seizures at this time. Neurology will sign off at this time # Syncopal episodes # Hx COPD # Hx Asthma # Hypertension # Breast cancer s/p bilateral mastectomy Plan: Management per primary Plan discussed with Dr. Ana Renteria, PGY1 Attending Provider Attestation/Addendum I personally have seen and examined the patient at the bedside and I agreed with the resident's findings, assessment and plan of care. Patient does not have any history of seizures, syncope and denies any history of recent falls. Neurologically afocal. Patient does not require any workup.
[2025-03-29] MEDS: BUDESONIDE RT 0.5 MG/2 ML NEBU INH (18:49)
[2025-03-29] MEDS: HEPARIN SOD INJ 5000 UNIT/ML VIAL SC (20:14)
--- NOTE | 2025-03-29 22:46 | PC.RT ---
Sputum collected and sent to lab.
[2025-03-30] VITALS (17 sets, daily range): BP systolic 119–157; BP diastolic 86–95; PULSE 78–131; RESP 18–24; TEMP 36.2–36.9; O2SAT 16–98
[2025-03-30] MEDS: IPRATROPIUM RT 0.5 MG/ 2.5 ML NEBU INH ×2 (02:05→18:56)
[2025-03-30] MEDS: BUDESONIDE RT 0.5 MG/2 ML NEBU INH ×2 (06:24→18:40)
[2025-03-30] MEDS: LEVALBUTEROL RT 0.63 MG/3 ML NEBU 1.25 MG INH ×2 (06:24→14:12)
[2025-03-30 06:32] LABS: Basophils # (Auto) 0.0 Thou/mm3 (0.0-0.2); Basophils % (Auto) 0 % (0-2.5); Eosinophils # (Auto) 0.0 Thou/mm3 (0.0-0.5); Eosinophils % (Auto) 0 % (0-10); Hematocrit 40.4 % (36.0-46.0); Hemoglobin 13.6 g/dL (12.0-16.0); Immature Granulocytes Auto 0.06 Thou/mm3 (0.00-0.00); Lymphocytes # (Auto) 0.8 Thou/mm3 (1.0-4.8); Lymphocytes % (Auto) 5 % (10-50); Mean Corpuscular HGB Conc 33.7 g/dl (31.0-37.0); Mean Corpuscular Hemoglobin 29.6 pg (25.0-35.0); Mean Corpuscular Volume 88 fL (80-100); Monocytes # (Auto) 0.7 Thou/mm3 (0.0-0.8); Monocytes % (Auto) 4 % (0-12); Neutrophils # (Auto) 13.7 Thou/mm3 (1.8-7.7); Neutrophils % (Auto) 90 % (37-80); Nucleated Red Blood Cell # 0.00 Thou/mm3 (0.00-0.00); Nucleated Red Blood Cell % 0 /100 WBC (0); Platelet Count 332 Thou/mm3 (140-440); RDW Standard Deviation 48.6 fL (36.4-46.3); Red Blood Count 4.60 Miln/mm3 (4.00-5.20); White Blood Count 15.2 Thou/mm3 (3.6-11.0)
[2025-03-30 07:06] LABS: Alanine Aminotransferase 11 U/L (10-49); Albumin, Serum 3.6 gm/dL (3.4-4.8); Albumin/Globulin Ratio 1.8 (1.2-2.2); Alkaline Phosphatase 50 U/L (46-116); Anion Gap 9 (7-16); Aspartate Amino Transferase 20 U/L (0-34); BUN/Creatinine Ratio 17 Ratio (12-20); Bilirubin,Total 0.5 mg/dL (0.3-1.2); Blood Urea Nitrogen 10 mg/dL (9-23); Calcium 8.7 mg/dL (8.3-10.6); Calcium (Corrected) 9.0 mg/dL (8.5-10.1); Carbon Dioxide 31.3 mMol/L (20.0-31.0); Chloride 105 mMol/L (98-107); Creatinine (Component) 0.6 mg/dL (0.6-1.3); Estimated Creatinine Clearance 63.9 mL/min (>60); Globulin 2.0 gm/dL (2.3-3.5); Glucose 137 mg/dL (74-106); Magnesium 1.9 mg/dL (1.6-2.6); Osmolality,Calculated 289 (275-295); Phosphorous 3.3 mg/dL (2.4-5.1); Potassium 4.1 mMol/L (3.4-5.1); Sodium 145 mMol/L (136-145); Thyroid Stimulating Hormone 1.13 uIU/mL (0.55-4.78); Total Protein 5.6 gm/dL (5.7-8.2); eGFR > 60 See Note
[2025-03-30] MEDS: ALBUTEROL RT 2.5 MG/0.5 ML NEBU 10 MG INH (09:40)
--- NOTE | 2025-03-30 10:00 | XR_ITS ---
Examination: AP chest single view TECHNIQUE: AP portable upright chest single view Date and time: March 30, 2025 1012 hours INDICATIONS: Worsening shortness of breath today FINDINGS: Comparison March 29, 2025 Mild enlargement cardiac contour No pneumonia or pulmonary edema Prominent osteopenia IMPRESSION: No pneumonia or pulmonary edema
[2025-03-30 10:10] LABS: Base Excess 5 (-3-3); HCO3 32 mEq/L (20-26); Inspired Oxygen, FIO2 21 %; O2 Saturation 99 % (91-98); PCO2 54 mmHg (32.0-48.0); PO2 111 mmHg (83-108); pH, Arterial 7.38 (7.35-7.45)
[2025-03-30] MEDS: FAMOTIDINE 20 MG TABLET PO ×2 (10:10→21:12)
[2025-03-30 10:11] LABS: Allen Test Performed/OK; Puncture Site Right Radial
[2025-03-30] MEDS: cefTRIAXone/D5w 1gm IV premix 1 GM/50 ML BAG IV (10:11)
[2025-03-30] MEDS: HEPARIN SOD INJ 5000 UNIT/ML VIAL SC ×2 (10:11→21:16)
[2025-03-30] MEDS: Magnesium Sulfate 4 GM Ivpb 4 GM/50 ML BAG IV (11:25)
[2025-03-30] MEDS: AZITHROMYCIN INJ 500 MG in SODIUM CHLORIDE 0.9% 250 ML 250 ML 250 MG IV (12:36)
[2025-03-30 13:34] LABS: Cocci Serology, IgG Negative (Negative)
--- NOTE | 2025-03-30 13:44 | PD.RESPRO ---
Documentation for date of: 03/30/25 Senior resident attestation: Patient evaluated and examined at the bedside, plan of care discussed with rest of the team including my attending physician, except as noted. Patient admitted for acute asthma exacerbation, noted to be in acute respiratory distress this a.m., tachypneic, increased work of breathing, condition improved after hour-long continuous nebulizer treatment with albuterol. Currently on IV steroids and scheduled DuoNebs. BiPAP was offered but patient said that makes her more panicked. Currently maintaining oxygen saturations on nasal cannula oxygen, continue IV antibiotics. Quresh PGY3 Subjective Subjective Interval history: Overnight, patient was having difficult breathing. Levalbutrol 1.25mg, INH, Q4HRRT was given. Labs reviewed and patient examined at the bedside. This morning patient was having labored breathing with respiratory rate of 36. Patient was saturating at 91% on nasal cannula 2 L. Continuous nebulizer has been given. Notes that she is normally off of oxygen at home. Patient's current pulse rate: 128. Restarted Metoprolol Succcinate 25 mg PO HS as it is cardioselective. It can cause COPD exacerbation. Hold if worsening asthma. Patient denies chest pain, palpitations, abdominal pain, nausea, vomiting, fever, or chills. Exam Vital Signs Temp Pulse Resp BP Pulse Ox O2 Del Method O2 Flow Rate 97.2 F 102 H 20 119/88 H 97 Room Air 2 03/30/25 08:00 03/30/25 09:47 03/30/25 09:47 03/30/25 08:00 03/30/25 09:47 03/30/25 08:00 03/30/25 09:47 FiO2 40 03/29/25 16:00 Narrative Exam General: No acute distress, well nourished Eye: PERRL, EOMI, normal conjunctiva, no scleral icterus HENT: Normocephalic, atraumatic, hearing intact to conversation at normal volume, moist oral mucosa Neck: Supple, non-tender, no JVD, no lymphadenopathy Lungs: Decreased breath sounds bilaterally, Wheezing. Currently on 2L NC Heart: Peripheral pulses intact bilaterally, Regular Rate and Rhythm Abdomen: Soft, non-tender, non-distended Musculoskeletal: Normal range of motion and strength Skin: Skin is warm, dry, no rashes or lesions. Psychiatric: Cooperative, appropriate mood and affect Neuro: Cranial nerves II-XII grossly intact. Strength 5/5 throughout. Sensations intact to light touch Objective Labs 03/31/25 04:31 03/31/25 04:31 Labs: Laboratory Results - last 24 hr 03/29/25 03/30/25 03/30/25 09:58 05:34 09:55 WBC 15.2 H RBC 4.60 Hgb 13.6 D Hct 40.4 MCV 88 MCH 29.6 MCHC 33.7 RDW Std Deviation 48.6 H Plt Count 332 Neut % (Auto) 90 H Lymph % (Auto) 5 L [place] % (Auto) 4 Eos % (Auto) 0 Baso % (Auto) 0 Neut # (Auto) 13.7 H Lymph # (Auto) 0.8 L [place] # (Auto) 0.7 Eos # (Auto) 0.0 Baso # (Auto) 0.0 Immature Gran # (Auto) 0.06 H Absolute Nucleated RBC 0.00 Immature Gran % 0 Nucleated RBC % 0 Puncture Site Right Radial ABG pH 7.38 ABG pCO2 54 H ABG pO2 111 H D ABG HCO3 32 H ABG O2 Saturation 99 H ABG Base Excess 5 H FiO2 21 Sodium 145 Potassium 4.1 Chloride 105 Carbon Dioxide 31.3 H Anion Gap 9 BUN 10 Creatinine 0.6 Estim Creat Clear Calc 63.9 eGFR > 60 BUN/Creatinine Ratio 17 Glucose 137 H Calculated Osmolality 289 Calcium 8.7 Corrected Calcium 9.0 Phosphorus 3.3 Magnesium 1.9 Total Bilirubin 0.5 AST 20 ALT 11 Alkaline Phosphatase 50 D Total Protein 5.6 L Albumin 3.6 D Globulin 2.0 L Albumin/Globulin Ratio 1.8 TSH 1.13 Coccidioides IgG Ab Negative ABG Interpretation ABG results: 03/29/25 03/30/25 09:42 09:55 ABG pH 7.40 7.38 ABG pCO2 46 54 H ABG pO2 60 L 111 H D ABG HCO3 28 H 32 H ABG O2 Saturation 92 99 H ABG Base Excess 3 5 H Quality Measures Quality Measures none Advance care planning discussed with:: patient Assessment & Plan Assessment Current Active Medications: Generic Name Dose Route Start Last Admin Trade Name Freq PRN Reason Stop Dose Admin Acetaminophen 650 mg 03/29/25 09:34 Acetaminophen 325 Mg Tablet PO 04/28/25 09:33 Q6H PRN Mild Pain 1-3 or Fever 100.3 Budesonide 0.5 mg 03/29/25 19:00 03/30/25 06:24 Budesonide Rt 0.5 Mg/2 Ml Nebu INH 04/28/25 18:59 0.5 mg BIDRT SONYA Administration Famotidine 20 mg 03/29/25 09:45 03/30/25 10:10 Famotidine 20 Mg Tablet PO 04/28/25 09:44 20 mg BID SONYA Administration Heparin Sodium (Porcine) 5,000 unit 03/29/25 21:00 03/30/25 10:11 Heparin Sod Inj 5000 Unit/Ml Vial SC 04/12/25 20:59 5,000 unit Q12HR SONYA Administration Azithromycin 500 mg/ Sodium 250 mls @ 250 mls/hr 03/30/25 09:00 03/30/25 12:36 Chloride IV 04/06/25 08:59 250 mls/hr QDAY SONYA Administration Ceftriaxone Sodium/Dextrose 1 gm in 50 mls @ 100 mls/hr 03/29/25 17:19 03/30/25 10:11 Rocephin/D5w 1gm Iv Premix IV 04/05/25 17:18 100 mls/hr QDAY SONYA Administration Magnesium Sulfate 4 gm in 50 mls @ 12.5 mls/hr 03/30/25 10:56 03/30/25 11:25 Magnesium Sulfate Ivpb IV 03/30/25 14:55 12.5 mls/hr X1 ONE Administration Ipratropium [place] 0.5 mg 03/29/25 09:41 03/30/25 02:05 Ipratropium Rt 0.5 Mg/ 2.5 Ml Nebu INH 04/28/25 09:40 0.5 mg Q4HR PRN Administration SHORTNESS OF BREATH Levalbuterol HCl 1.25 mg 03/30/25 03:00 03/30/25 10:54 Levalbuterol Rt 0.63 Mg/3 Ml Nebu INH 04/29/25 02:59 Not Given Q4HRRT SONYA Methylprednisolone Sodium Succinate 40 mg 03/29/25 21:00 03/30/25 10:11 Methylprednisolone Sod Succ 40 Mg Vial IV 04/05/25 20:59 40 mg Q12HR SONYA Administration Ondansetron HCl 4 mg 03/29/25 09:34 Ondansetron Inj 2 Mg/Ml Inj 2 Ml IVP 04/28/25 09:33 Q6H PRN NAUSEA OR VOMITING Protocol Sennosides 1 tab 03/29/25 09:34 Senna Tablet PO 04/28/25 09:33 QDAY PRN constipation Protocol Sodium Chloride 3 ml 03/30/25 09:32 Sodium Chloride Rt Violet 0.9% 3 Ml Nebu INH 04/29/25 09:31 PRN PRN SOLN Plan Patient is a 79-year-old female with past medical history of COPD, asthma, breast cancer, osteoporosis, cirrhosis presented to the ED on 03/29/2025 due to acute shortness of breath. Patient will be admitted for management of acute COPD exacerbation. #Acute Hypoxic Respiratory Failure likely secondary to Asthma #Acute on Chronic Asthma Exacerbation #History of Asthma #Asthma-COPD Overlap Pattern -Oxygen saturation stable on 2L nasal cannula -Chest XR: hyperinflation, was negative for pneumonia or pulmonary edema, normal cardiac silhouette, no bony abnormalities. -Patient was given albuterol, Ipratropium, IV methylprednisone 125 mg in ED. -EKG showed sinus tachycardia, rate of 108, no obvious ST elevations or depressions. -COVID-19 is negative, Influenza A/B is negative. -Sputum Gram stain: >25 epithelial cells/1pf, Occasional WBCs, 1+ Mixed carlota Plan: -Methylprednisolone 40mg IV Q12hr -Breathing treatment (Levalbutrol 0,63g and Ipratropium 0.5mg, budesnoide) -IV Azithromycin 500mg IV qd and IV cefriaxone 1g IV qd. (03/29/2025--) -Chest physio AM -Cocci serology IgM and IgG pending -Sputum culture pending. -Outpatient start Montelukast -Chest Physiotherapy ordered. -IgE antibody pending. #Leukocytosis likely Corticosteroid induced -Patient's WBC level of 15.2 -VS Stress response from hypoxia VS Pneumonia no pyrexia, ruled out from CXR Plan: -Continue to monitor CBC. #Sinus Tachycardia #History of Congestive Heart Failure #HFpEF 65% (10/03/2024) #Miltral Regurgitation #RVSP 41 mmHg Patient has a past medical history of CHF exacerbation, dating back to September of 2024. Patient is an established patient of Dr. Rojo. Home medication of metoprolol succinate 25 mg PO HS. No acute CHF exacerbation, no crackles, vascular congestion noted on Cxr, and BNP within normal limits. Echo (10/03/2024): Normal LV size, wall thickness.Estimated EF 65 %. RV is normal in size and systolic function. Estimated RVSP, 41mmHg. RAP 5. Mild thickening of the MV leaflets with moderate 2+mitral regurgitation. Mild to modearte TR Plan -Restarted Metoprolol Succcinate 25 mg PO HS as it is cardioselective. It can cause COPD exacerbation. Hold if worsening asthma. -No lasix, patient does not appear fluid overloaded -Fluid Restricted 2,000 Liters per day -K>4 and Mg >2 -Consider cardiology consult, DR. Rojo. 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 Perez and Dr. Veloz (PGY-3) Dr. Roldan (PGY-1)- Internal medicine resident Attending Provider Attestation/Addendum I have examined the patient, reviewed labs and imaging findings, discussed the case with the resident(s), and reviewed entered orders. I agree with the plan of care as outlined in this note, with these additional summaries/recommendations: Patient is a 79-year-old female with a medical history of COPD on 2 L nasal cannula, primary hypertension, seasonal allergies, hyperlipidemia, breast cancer, osteoporosis, HFpEF, and mitral regurgitation presents to [facility] emergency department on 03/29/2025 with chief complaint of shortness of breath. Patient seen at bedside. No acute overnight events. Patient appeared more short of breath this morning and stat ABG was obtained which showed minimal hypercapnia. Patient diagnosed with acute COPD/asthma exacerbation. Patient reports she was diagnosed with asthma in childhood although multiple blood gases have revealed hypercapnia which either indicates patient has severe underlying asthma or she has contaminant COPD. Continue bronchodilator therapy with scheduled DuoNebs and as needed. Continue IV steroids & azithromycin. Chest x-ray shows no pneumonia or pulmonary edema. Okay to continue home MDIs as tolerated. Patient does have history of mild pulmonary hypertension and leukocytosis present which is most likely reactive/steroid induced. Continue home antihypertensives. Wean O2 requirement as tolerated. Patient updated on the plan and in agreement. All questions answered to satisfaction. Please see residents note for additional details and management. Dr. Ana MD
--- NOTE | 2025-03-30 14:50 | PC.SS ---
Rounding note: Patient on highflow, continues wheezing.
[2025-03-30] MEDS: METOPROLOL SUCCINATE XL 25 MG TABCR PO (17:29)
[2025-03-30] MEDS: LEVALBUTEROL RT 1.25 MG/0.5 ML NEBU INH ×2 (18:56→22:40)
[2025-03-30] MEDS: SODIUM CHLORIDE RT SOL 0.9% 3 ML NEBU INH (22:40)
[2025-03-31] VITALS (14 sets, daily range): BP systolic 135–142; BP diastolic 86–105; PULSE 75–132; RESP 18–22; TEMP 36.2–36.3; O2SAT 91–99; BMI 21.3
[2025-03-31] MEDS: IPRATROPIUM RT 0.5 MG/ 2.5 ML NEBU INH (02:28)
[2025-03-31] MEDS: LEVALBUTEROL RT 1.25 MG/0.5 ML NEBU INH ×3 (02:28→11:06)
[2025-03-31 05:28] LABS: Basophils # (Auto) 0.0 Thou/mm3 (0.0-0.2); Basophils % (Auto) 0 % (0-2.5); Eosinophils # (Auto) 0.0 Thou/mm3 (0.0-0.5); Eosinophils % (Auto) 0 % (0-10); Hematocrit 43.0 % (36.0-46.0); Hemoglobin 13.9 g/dL (12.0-16.0); Immature Granulocytes Auto 0.04 Thou/mm3 (0.00-0.00); Lymphocytes # (Auto) 0.6 Thou/mm3 (1.0-4.8); Lymphocytes % (Auto) 4 % (10-50); Mean Corpuscular HGB Conc 32.3 g/dl (31.0-37.0); Mean Corpuscular Hemoglobin 29.1 pg (25.0-35.0); Mean Corpuscular Volume 90 fL (80-100); Monocytes # (Auto) 0.4 Thou/mm3 (0.0-0.8); Monocytes % (Auto) 3 % (0-12); Neutrophils # (Auto) 12.8 Thou/mm3 (1.8-7.7); Neutrophils % (Auto) 93 % (37-80); Nucleated Red Blood Cell # 0.00 Thou/mm3 (0.00-0.00); Nucleated Red Blood Cell % 0 /100 WBC (0); Platelet Count 340 Thou/mm3 (140-440); RDW Standard Deviation 49.6 fL (36.4-46.3); Red Blood Count 4.78 Miln/mm3 (4.00-5.20); White Blood Count 13.9 Thou/mm3 (3.6-11.0)
[2025-03-31 06:11] LABS: Alanine Aminotransferase 16 U/L (10-49); Albumin, Serum 3.8 gm/dL (3.4-4.8); Albumin/Globulin Ratio 1.8 (1.2-2.2); Alkaline Phosphatase 53 U/L (46-116); Anion Gap 9 (7-16); Aspartate Amino Transferase 21 U/L (0-34); BUN/Creatinine Ratio 17 Ratio (12-20); Bilirubin,Total 0.5 mg/dL (0.3-1.2); Blood Urea Nitrogen 10 mg/dL (9-23); Calcium 8.7 mg/dL (8.3-10.6); Calcium (Corrected) 8.9 mg/dL (8.5-10.1); Carbon Dioxide 31.1 mMol/L (20.0-31.0); Chloride 104 mMol/L (98-107); Creatinine (Component) 0.6 mg/dL (0.6-1.3); Estimated Creatinine Clearance 63.9 mL/min (>60); Globulin 2.1 gm/dL (2.3-3.5); Glucose 133 mg/dL (74-106); Magnesium 2.3 mg/dL (1.6-2.6); Osmolality,Calculated 287 (275-295); Phosphorous 2.8 mg/dL (2.4-5.1); Potassium 4.0 mMol/L (3.4-5.1); Sodium 144 mMol/L (136-145); Total Protein 5.9 gm/dL (5.7-8.2); eGFR > 60 See Note
[2025-03-31] MEDS: BUDESONIDE RT 0.5 MG/2 ML NEBU INH ×2 (06:18→18:51)
[2025-03-31] MEDS: FAMOTIDINE 20 MG TABLET PO ×2 (08:57→21:22)
[2025-03-31] MEDS: METOPROLOL SUCCINATE XL 25 MG TABCR PO (08:57)
[2025-03-31] MEDS: cefTRIAXone/D5w 1gm IV premix 1 GM/50 ML BAG IV (08:59)
[2025-03-31] MEDS: HEPARIN SOD INJ 5000 UNIT/ML VIAL SC ×2 (09:04→21:22)
--- NOTE | 2025-03-31 09:30 | ESPR_ITS ---
Documentation for date of: 03/31/25 Subjective Subjective Interval history: No Overnight events. Labs reviewed and patient examined at the bedside. Patient currently on 91% O2sat with Nasal Cannula 1L. Patient restarted her home medication, Breo Ellipta and Adavair HFA. Patient started on Duoneb 5ml INH Q4HRRT. Will continue IV abx and Methylprednisolone 40mg IV Q12hr. Patient's main complaint as of now is shortness of breathe. Denies chest pain, nauea, vomiting, fever or chills. Exam Vital Signs Temp Pulse Resp BP Pulse Ox O2 Del Method O2 Flow Rate 97.3 F 106 H 22 H 142/105 H 91 L Room Air 2 03/31/25 08:00 03/31/25 08:57 03/31/25 08:00 03/31/25 08:57 03/31/25 08:00 03/31/25 08:00 03/31/25 04:00 FiO2 40 03/29/25 16:00 Narrative Exam General: No acute distress, well nourished Eye: PERRL, EOMI, normal conjunctiva, no scleral icterus HENT: Normocephalic, atraumatic, hearing intact to conversation at normal volume, moist oral mucosa Neck: Supple, non-tender, no JVD, no lymphadenopathy Lungs: Decreased breath sounds bilaterally, Wheezing. Currently on 1L NC Heart: Peripheral pulses intact bilaterally, Regular Rate and Rhythm Abdomen: Soft, non-tender, non-distended Musculoskeletal: Normal range of motion and strength Skin: Skin is warm, dry, no rashes or lesions. Psychiatric: Cooperative, appropriate mood and affect Neuro: Cranial nerves II-XII grossly intact. Strength 5/5 throughout. Sensations intact to light touch Objective Labs 04/01/25 04:36 04/01/25 04:36 Labs: Laboratory Results - last 24 hr 03/29/25 03/30/25 03/31/25 09:58 09:55 04:31 WBC 13.9 H RBC 4.78 Hgb 13.9 Hct 43.0 MCV 90 MCH 29.1 MCHC 32.3 RDW Std Deviation 49.6 H Plt Count 340 Neut % (Auto) 93 H Lymph % (Auto) 4 L [place] % (Auto) 3 Eos % (Auto) 0 Baso % (Auto) 0 Neut # (Auto) 12.8 H Lymph # (Auto) 0.6 L [place] # (Auto) 0.4 Eos # (Auto) 0.0 Baso # (Auto) 0.0 Immature Gran # (Auto) 0.04 H Absolute Nucleated RBC 0.00 Immature Gran % 0 Nucleated RBC % 0 Puncture Site Right Radial ABG pH 7.38 ABG pCO2 54 H ABG pO2 111 H D ABG HCO3 32 H ABG O2 Saturation 99 H ABG Base Excess 5 H FiO2 21 Sodium 144 Potassium 4.0 Chloride 104 Carbon Dioxide 31.1 H Anion Gap 9 BUN 10 Creatinine 0.6 Estim Creat Clear Calc 63.9 eGFR > 60 BUN/Creatinine Ratio 17 Glucose 133 H Calculated Osmolality 287 Calcium 8.7 Corrected Calcium 8.9 Phosphorus 2.8 Magnesium 2.3 Total Bilirubin 0.5 AST 21 ALT 16 Alkaline Phosphatase 53 Total Protein 5.9 Albumin 3.8 Globulin 2.1 L Albumin/Globulin Ratio 1.8 Coccidioides IgG Ab Negative ABG Interpretation ABG results: 03/29/25 03/30/25 09:42 09:55 ABG pH 7.40 7.38 ABG pCO2 46 54 H ABG pO2 60 L 111 H D ABG HCO3 28 H 32 H ABG O2 Saturation 92 99 H ABG Base Excess 3 5 H Quality Measures Quality Measures none Advance care planning discussed with:: patient Assessment & Plan Assessment Current Active Medications: Generic Name Dose Route Start Last Admin Trade Name Freq PRN Reason Stop Dose Admin Acetaminophen 650 mg 03/29/25 09:34 Acetaminophen 325 Mg Tablet PO 04/28/25 09:33 Q6H PRN Mild Pain 1-3 or Fever 100.3 Albuterol 2.5 mg 03/30/25 18:47 Albuterol Rt 2.5 Mg/0.5 Ml Nebu INH Q30MIN PRN Wheezing Budesonide 0.5 mg 03/29/25 19:00 03/31/25 06:18 Budesonide Rt 0.5 Mg/2 Ml Nebu INH 04/28/25 18:59 0.5 mg BIDRT SONYA Administration Famotidine 20 mg 03/29/25 09:45 03/31/25 08:57 Famotidine 20 Mg Tablet PO 04/28/25 09:44 20 mg BID SONYA Administration Heparin Sodium (Porcine) 5,000 unit 03/29/25 21:00 03/31/25 09:04 Heparin Sod Inj 5000 Unit/Ml Vial SC 04/12/25 20:59 5,000 unit Q12HR SONYA Administration Azithromycin 500 mg/ Sodium 250 mls @ 250 mls/hr 03/30/25 09:00 03/30/25 12:36 Chloride IV 04/06/25 08:59 250 mls/hr QDAY SONYA Administration Ceftriaxone Sodium/Dextrose 1 gm in 50 mls @ 100 mls/hr 03/29/25 17:19 03/31/25 08:59 Rocephin/D5w 1gm Iv Premix IV 04/05/25 17:18 100 mls/hr QDAY SONYA Administration Ipratropium [place] 0.5 mg 03/29/25 09:41 03/31/25 02:28 Ipratropium Rt 0.5 Mg/ 2.5 Ml Nebu INH 04/28/25 09:40 0.5 mg Q4HR PRN Administration SHORTNESS OF BREATH Levalbuterol HCl 1.25 mg 03/30/25 19:00 03/31/25 06:18 Levalbuterol Rt 1.25 Mg/0.5 Ml Nebu INH 04/29/25 18:59 1.25 mg Q4HRRT SONYA Administration Methylprednisolone Sodium Succinate 40 mg 03/29/25 21:00 03/31/25 08:58 Methylprednisolone Sod Succ 40 Mg Vial IV 04/05/25 20:59 40 mg Q12HR SONYA Administration Metoprolol Succinate 25 mg 03/30/25 17:15 03/31/25 08:57 Metoprolol Succinate Xl 25 Mg Tabcr PO 04/29/25 17:14 25 mg QDAY SONYA Administration Ondansetron HCl 4 mg 03/29/25 09:34 Ondansetron Inj 2 Mg/Ml Inj 2 Ml IVP 04/28/25 09:33 Q6H PRN NAUSEA OR VOMITING Protocol Sennosides 1 tab 03/29/25 09:34 Senna Tablet PO 04/28/25 09:33 QDAY PRN constipation Protocol Sodium Chloride 3 ml 03/30/25 09:32 03/30/25 22:40 Sodium Chloride Rt Violet 0.9% 3 Ml Nebu INH 04/29/25 09:31 3 ml PRN PRN Administration SOLN Plan Patient is a 79-year-old female with past medical history of COPD, asthma, breast cancer, osteoporosis, cirrhosis presented to the ED on 03/29/2025 due to acute shortness of breath. Patient will be admitted for management of acute COPD exacerbation. #Acute Hypoxic Respiratory Failure likely secondary to Asthma #Acute on Chronic Asthma Exacerbation #History of Asthma #Asthma-COPD Overlap Pattern -Oxygen saturation stable on 2L nasal cannula -Chest XR: hyperinflation, was negative for pneumonia or pulmonary edema, normal cardiac silhouette, no bony abnormalities. -Patient was given albuterol, Ipratropium, IV methylprednisone 125 mg in ED. -EKG showed sinus tachycardia, rate of 108, no obvious ST elevations or depressions. -COVID-19 is negative, Influenza A/B is negative. -Cocci IgG antibody: Negative, Cocci IgM antibody: Negative -Sputum Gram stain: >25 Epithelial cells/1pf, Occasional WBCs, 1+Mixed carlota -Sputum Culture: 2+ Mixed oral carlota Plan: -Methylprednisolone 40mg IV Q12hr -Started on Duoneb 5ml INH Q4HRRT and Budesonide -Patient restarted her home medication, Breo Ellipta and Adavair HFA -IV Azithromycin 500mg IV qd and IV cefriaxone 1g IV qd. (03/29/2025--) -Outpatient start Montelukast -Chest Physiotherapy ordered. -IgE antibody pending. #Leukocytosis likely Corticosteroid induced -Patient's WBC level of 13.9 -VS Stress response from hypoxia VS Pneumonia no pyrexia, ruled out from CXR Plan: -Continue to monitor CBC. #Sinus Tachycardia #History of Congestive Heart Failure #HFpEF 65% (10/03/2024) #Miltral Regurgitation #RVSP 41 mmHg Patient has a past medical history of CHF exacerbation, dating back to September of 2024. Patient is an established patient of Dr. Rojo. Home medication of metoprolol succinate 25 mg PO HS. No acute CHF exacerbation, no crackles, vascular congestion noted on Cxr, and BNP within normal limits. Echo (10/03/2024): Normal LV size, wall thickness.Estimated EF 65 %. RV is normal in size and systolic function. Estimated RVSP, 41mmHg. RAP 5. Mild thickening of the MV leaflets with moderate 2+mitral regurgitation. Mild to modearte TR Plan -Restarted Metoprolol Succcinate 25 mg PO HS as it is cardioselective. It can cause COPD exacerbation. Hold if worsening asthma. -No lasix, patient does not appear fluid overloaded -Fluid Restricted 2,000 Liters per day -K>4 and Mg >2 -Consider cardiology consult, DR. Rojo. 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 Ana Roldan (PGY-1)- Internal medicine resident Attending Provider Attestation/Addendum I have examined the patient, reviewed labs and imaging findings, discussed the case with the resident(s), and reviewed entered orders. I agree with the plan of care as outlined in this note, with these additional summaries/recommendations: Patient is a 79-year-old female with a medical history of COPD on 2 L nasal cannula, primary hypertension, seasonal allergies, hyperlipidemia, breast cancer, osteoporosis, HFpEF, and mitral regurgitation presents to [facility] emergency department on 03/29/2025 with chief complaint of shortness of breath. Patient & daughter seen at bedside. No acute overnight events. Patient diagnosed with acute COPD/asthma exacerbation. Patient reports she was diagnosed with asthma in childhood although multiple blood gases have revealed hypercapnia which either indicates patient has severe underlying asthma or she has contaminant COPD. Continue bronchodilator therapy with scheduled DuoNebs and as needed. Continue IV steroids & azithromycin. Chest x-ray shows no pneumonia or pulmonary edema. Okay to continue home MDIs as tolerated. Patient does have history of mild pulmonary hypertension and leukocytosis present which is most likely reactive/steroid induced. Continue home antihypertensives. Wean O2 requirement as tolerated. Patient updated on the plan and in agreement. All questions answered to satisfaction. Please see residents note for additional details and management. Dr. Ana MD
[2025-03-31] MEDS: AZITHROMYCIN INJ 500 MG in SODIUM CHLORIDE 0.9% 250 ML 250 ML 250 MG IV (09:45)
[2025-03-31] MEDS: ALBUTEROL/IPRATROPIUM (Duoneb) RT SOL 3 ML NEBU 5 ML INH ×3 (15:01→22:21)
[2025-04-01] VITALS (12 sets, daily range): BP systolic 115–140; BP diastolic 75–94; PULSE 85–113; RESP 18–22; TEMP 36.4–36.6; O2SAT 91–99
[2025-04-01] MEDS: ALBUTEROL/IPRATROPIUM (Duoneb) RT SOL 3 ML NEBU 5 ML INH ×5 (02:29→18:50)
[2025-04-01 05:56] LABS: Basophils # (Auto) 0.0 Thou/mm3 (0.0-0.2); Basophils % (Auto) 0 % (0-2.5); Eosinophils # (Auto) 0.0 Thou/mm3 (0.0-0.5); Eosinophils % (Auto) 0 % (0-10); Hematocrit 43.6 % (36.0-46.0); Hemoglobin 14.0 g/dL (12.0-16.0); Immature Granulocytes Auto 0.04 Thou/mm3 (0.00-0.00); Lymphocytes # (Auto) 0.6 Thou/mm3 (1.0-4.8); Lymphocytes % (Auto) 4 % (10-50); Mean Corpuscular HGB Conc 32.1 g/dl (31.0-37.0); Mean Corpuscular Hemoglobin 28.9 pg (25.0-35.0); Mean Corpuscular Volume 90 fL (80-100); Monocytes # (Auto) 0.3 Thou/mm3 (0.0-0.8); Monocytes % (Auto) 3 % (0-12); Neutrophils # (Auto) 11.9 Thou/mm3 (1.8-7.7); Neutrophils % (Auto) 93 % (37-80); Nucleated Red Blood Cell # 0.00 Thou/mm3 (0.00-0.00); Nucleated Red Blood Cell % 0 /100 WBC (0); Platelet Count 323 Thou/mm3 (140-440); RDW Standard Deviation 49.1 fL (36.4-46.3); Red Blood Count 4.84 Miln/mm3 (4.00-5.20); White Blood Count 12.9 Thou/mm3 (3.6-11.0)
[2025-04-01 06:18] LABS: Alanine Aminotransferase 19 U/L (10-49); Albumin, Serum 3.7 gm/dL (3.4-4.8); Albumin/Globulin Ratio 1.9 (1.2-2.2); Alkaline Phosphatase 53 U/L (46-116); Anion Gap 9 (7-16); Aspartate Amino Transferase 20 U/L (0-34); BUN/Creatinine Ratio 18 Ratio (12-20); Bilirubin,Total 0.6 mg/dL (0.3-1.2); Blood Urea Nitrogen 11 mg/dL (9-23); Calcium 8.8 mg/dL (8.3-10.6); Calcium (Corrected) 9.0 mg/dL (8.5-10.1); Carbon Dioxide 31.2 mMol/L (20.0-31.0); Chloride 104 mMol/L (98-107); Creatinine (Component) 0.6 mg/dL (0.6-1.3); Estimated Creatinine Clearance 61.1 mL/min (>60); Globulin 2.0 gm/dL (2.3-3.5); Glucose 142 mg/dL (74-106); Magnesium 2.2 mg/dL (1.6-2.6); Osmolality,Calculated 288 (275-295); Phosphorous 3.8 mg/dL (2.4-5.1); Potassium 3.7 mMol/L (3.4-5.1); Sodium 144 mMol/L (136-145); Total Protein 5.7 gm/dL (5.7-8.2); eGFR > 60 See Note
[2025-04-01] MEDS: BUDESONIDE RT 0.5 MG/2 ML NEBU INH ×2 (06:32→18:52)
[2025-04-01] MEDS: FAMOTIDINE 20 MG TABLET PO (08:25)
[2025-04-01] MEDS: METOPROLOL SUCCINATE XL 25 MG TABCR PO (08:25)
[2025-04-01] MEDS: cefTRIAXone/D5w 1gm IV premix 1 GM/50 ML BAG IV (08:26)
[2025-04-01] MEDS: HEPARIN SOD INJ 5000 UNIT/ML VIAL SC (08:31)
--- NOTE | 2025-04-01 14:41 | PD.RESPRO ---
Documentation for date of: 04/01/25 Exam Vital Signs Temp Pulse Resp BP Pulse Ox O2 Del Method O2 Flow Rate 97.6 F 106 H 20 140/82 H 98 Nasal Cannula 2 04/01/25 12:00 04/01/25 14:01 04/01/25 14:01 04/01/25 12:00 04/01/25 14:01 04/01/25 12:00 04/01/25 14:01 FiO2 40 03/31/25 16:00 Objective Labs 04/01/25 04:36 04/01/25 04:36 Labs: Laboratory Results - last 24 hr 04/01/25 04:36 WBC 12.9 H RBC 4.84 Hgb 14.0 Hct 43.6 MCV 90 MCH 28.9 MCHC 32.1 RDW Std Deviation 49.1 H Plt Count 323 Neut % (Auto) 93 H Lymph % (Auto) 4 L [place] % (Auto) 3 Eos % (Auto) 0 Baso % (Auto) 0 Neut # (Auto) 11.9 H Lymph # (Auto) 0.6 L [place] # (Auto) 0.3 Eos # (Auto) 0.0 Baso # (Auto) 0.0 Immature Gran # (Auto) 0.04 H Absolute Nucleated RBC 0.00 Immature Gran % 0 Nucleated RBC % 0 Sodium 144 Potassium 3.7 Chloride 104 Carbon Dioxide 31.2 H Anion Gap 9 BUN 11 Creatinine 0.6 Estim Creat Clear Calc 61.1 eGFR > 60 BUN/Creatinine Ratio 18 Glucose 142 H Calculated Osmolality 288 Calcium 8.8 Corrected Calcium 9.0 Phosphorus 3.8 Magnesium 2.2 Total Bilirubin 0.6 AST 20 ALT 19 Alkaline Phosphatase 53 Total Protein 5.7 Albumin 3.7 Globulin 2.0 L Albumin/Globulin Ratio 1.9 ABG Interpretation ABG results: 03/29/25 03/30/25 09:42 09:55 ABG pH 7.40 7.38 ABG pCO2 46 54 H ABG pO2 60 L 111 H D ABG HCO3 28 H 32 H ABG O2 Saturation 92 99 H ABG Base Excess 3 5 H Quality Measures Quality Measures none Assessment & Plan Assessment Current Active Medications: Generic Name Dose Route Start Last Admin Trade Name Freq PRN Reason Stop Dose Admin Acetaminophen 650 mg 03/29/25 09:34 Acetaminophen 325 Mg Tablet PO 04/28/25 09:33 Q6H PRN Mild Pain 1-3 or Fever 100.3 Albuterol/Ipratropium 5 ml 03/31/25 15:00 04/01/25 14:01 Albuterol/Ipratropium (Duoneb) Rt Violet 3 Ml Nebu INH 04/30/25 14:59 5 ml Q4HRRT SONYA Administration Budesonide 0.5 mg 03/29/25 19:00 04/01/25 06:32 Budesonide Rt 0.5 Mg/2 Ml Nebu INH 04/28/25 18:59 0.5 mg BIDRT SONYA Administration Famotidine 20 mg 03/29/25 09:45 04/01/25 08:25 Famotidine 20 Mg Tablet PO 04/28/25 09:44 20 mg BID SONYA Administration Heparin Sodium (Porcine) 5,000 unit 03/29/25 21:00 04/01/25 08:31 Heparin Sod Inj 5000 Unit/Ml Vial SC 04/12/25 20:59 5,000 unit Q12HR SONYA Administration Azithromycin 500 mg/ Sodium 250 mls @ 250 mls/hr 03/30/25 09:00 03/31/25 09:45 Chloride IV 04/06/25 08:59 250 mls/hr QDAY SONYA Administration Ceftriaxone Sodium/Dextrose 1 gm in 50 mls @ 100 mls/hr 03/29/25 17:19 04/01/25 08:26 Rocephin/D5w 1gm Iv Premix IV 04/05/25 17:18 100 mls/hr QDAY SONYA Administration Methylprednisolone Sodium Succinate 40 mg 03/29/25 21:00 04/01/25 08:26 Methylprednisolone Sod Succ 40 Mg Vial IV 04/05/25 20:59 40 mg Q12HR SONYA Administration Metoprolol Succinate 25 mg 03/30/25 17:15 04/01/25 08:25 Metoprolol Succinate Xl 25 Mg Tabcr PO 04/29/25 17:14 25 mg QDAY SONYA Administration Home Medication- 1 inh 03/31/25 11:00 04/01/25 11:07 Please Speak With 04/30/25 10:59 Not Given Patient Caregiver To Q24H SONYA Have Rx Brought To [facility] Home Medication- 2 puff 03/31/25 11:00 04/01/25 11:07 Please Speak With 04/30/25 10:59 Not Given Patient Caregiver To BID SONYA Have Rx Brought To [facility] Ondansetron HCl 4 mg 03/29/25 09:34 Ondansetron Inj 2 Mg/Ml Inj 2 Ml IVP 04/28/25 09:33 Q6H PRN NAUSEA OR VOMITING Protocol Sennosides 1 tab 03/29/25 09:34 Senna Tablet PO 04/28/25 09:33 QDAY PRN constipation Protocol Sodium Chloride 3 ml 03/30/25 09:32 03/30/25 22:40 Sodium Chloride Rt Violet 0.9% 3 Ml Nebu INH 04/29/25 09:31 3 ml PRN PRN Administration SOLN
--- NOTE | 2025-04-01 16:11 | PC.SS ---
Per afternoon rounding, pt may need O2 at home. No d/c orders yet.
--- NOTE | 2025-04-01 16:24 | ESDS_ITS ---
Planned Discharge Date 04/01/25 DS: Providers Provider Date of admission: 03/29/25 09:34 Primary care physician: Physician No Primary/Family Admitting Provider: Rupesh Perez MD Attending Provider on Admission: Rupesh Perez MD Attending Provider on DC: Corina Barraza MD Discharging Provider: Corina Barraza MD DS: Diagnosis Problem List Completed Was Problem List Reviewed/Reconciled?: Yes Hospital Course Hospital Course Hospital course: Summary: Patient is a 79 year old female with a past medical history of asthma, with history COPD overlaping features, 3 recent hospitilizations for Asthma exacerbataion, 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 MRSA screen negative. ER Course: Prior to arrival, EMS administered 2 nebulizer treatements en route, 2g Magnesium, and CPAP, which improved the patient to 97-98%. In the ED, vitals were 97.8F, MI:117, RR:26, BP:143/99 93% O2sat on 2L, leukocytosis of 13.2, ABG pO2:60, ABG HCO3: 28, Sodium: 141, Potassium:4.0. Chest X-ray showed hyperinflation, was negative for pneumonia or pulmonary edema, normal cardiac silhouette, no bony abnormalities. EKG showed sinus tachycardia, rate of 108, no obvious ST elevations or depressions. Medication: Patient was given albuterol, Ipratropium, IV methylprednisone 125 mg in ED. Hospital Course: Patient was started on scheduled Levalbuterol, Ipratropium, and budesonide. In addition, scheduled methylprednisolone 40 mg IV BID. Chest physiology added. Cocci negative. Flu and COVID negative. IgE pending. Sputum culture negative, mostly epithelial cells. Patient's home medication eventually resumed onf Breo Ellipta and Adavair HFA. Patient saturating well on 2 liters NC. Walk test 91% on no oxygen. Bibi has home oxygen for night time use, advice to continue as needed. Please follow up with your still pump operator and rheumatoligist as outpatient. Instructions: -Please complete methylprednisolone steroid paulina -new medication of ondansetron as needed for nausea and vomiting -continue all medications as prescribed -Please follow up with our still pump operator within one week of discharge given recent hospitalization -Per patient history, no longer taking alendronate 70 mg orally once weekly, please follow up with your outpatient physician and confirm. -Please follow up with your primary care provider within one week of discharge -If your symptoms worsen,please seek immediate medical attention and return to your nearest emergency room -If you do not have a primary care provider, [facility] [address], [place] [address], Stable to return home. #Acute Hypoxic Respiratory Failure likely secondary to Asthma #Acute on Chronic Asthma Exacerbation #History of Asthma #Asthma-COPD Overlap Pattern #Leukocytosis likely Corticosteroid induced #Sinus Tachycardia #History of Congestive Heart Failure #HFpEF 65% (10/03/2024) #Miltral Regurgitation #RVSP 41 mmHg #History of eczema #History of psoriasis #History of osteoporosis - The patient's plan was discussed with attending Dr. Ana Barraza MD PGY2 Internal Medicine Time Spent with Patient Time attestation: Total time spent providing and/or coordinating discharge services: at least 30 minutes of care and coordination Time spent: Greater than 30 minutes Exam Vital Signs Temp Pulse Resp BP Pulse Ox O2 Del Method O2 Flow Rate 97.6 F 110 H 22 H 115/75 91 L Room Air 2 04/01/25 16:00 04/01/25 16:00 04/01/25 16:00 04/01/25 16:00 04/01/25 16:00 04/01/25 16:00 04/01/25 14:01 FiO2 40 03/31/25 16:00 Narrative Exam General Appearance: Alert & Oriented X3, well-nourished femal who is lying in bed in no acute distress on spO2 of 94% on 2 liters oxygen. HEENT: Skull symmetrical and atraumatic. Conjunctivae pink and moist. Pupils equal, round, reactive to light and accommodation (PERRL). External ear without lesion or discharge. Straight, nares patient, mucosa pink, no discharge. Cardio: Normal Rate and Rhythm with S1 and S2 heart sounds. No murmurs or extra heart sounds auscultated. No bruits on carotid auscultation. No peripheral edema or cyanosis. Lungs: Symmetric with good expansion. Chest and back non-tender. Improved vesicular breath sounds and mild wheezing noted on physical exam. Abdomen: Non-tender, Non-distended, Normal Reactive Bowel Sounds Neuro: Alert, cooperative, oriented to person, place, and time. Speech clear. CN grossly intact. Upper motor strength 5/5 and Lower motor strength 5/5. Sensation intact. Discharge Plan Plan Patient Disposition: HOME (Self Care) Patient condition on transfer: Stable Care Plan Goals: Instructions: -Please complete methylprednisolone steroid paulina -new medication of ondansetron as needed for nasusea and vomiting -continue all medications as prescribed -Please follow up with your still pump operator within one week of discharge given recent hospitalization -Per patient history, no longer taking alendronate 70 mg orally once weekly, please follow up with your outpatient physician and confirm. -Please follow up with your primary care provider within one week of discharge -If your symptoms worsen,please seek immediate medical attention and return to your nearest emergency room -If you do not have a primary care provider, you may follow up at the [facility] at [facility] [address], [place] [address], Prescriptions/Referrals Prescriptions/Med Rec: New methylprednisolone 4 mg tablets,dose pack 4 mg PO QDAY Qty: 21 0RF Rx Instructions: dose taper ondansetron HCl 4 mg tablet 4 mg PO Q8H PRN (Reason: nausea and vomiting) 30 Days Qty: 90 0RF Continued fexofenadine [Sharon Allergy] 60 mg Tablet 60 mg PO BID clotrimazole-betamethasone 1-0.05 % cream 1 applic topical BID PRN (Reason: cracked skin ) fluticasone furoate-vilanterol [Breo Ellipta] 200-25 mcg/dose blister with device 1 inh INHALATION Q24H metoprolol succinate 25 mg tablet extended release 24 hr 25 mg PO HS Patient Comments: TAKE 2 TABLETS BY MOUTH DAILY amlodipine 2.5 mg tablet 2.5 mg PO .day Patient Comments: TAKE 1 TABLET BY MOUTH EVERY DAY fluticasone propion-salmeterol [Advair HFA] 115-21 mcg/actuation HFA aerosol inhaler 2 puff inhalation BID Qty: 12 0RF Rx Instructions: administer with spacer albuterol sulfate 90 mcg/actuation HFA aerosol inhaler 2 puff inhalation Q6H PRN (Reason: shortness of breath or wheezing) Qty: 6.7 2RF Held alendronate 70 mg tablet 70 mg PO QWEEK Hold Instructions: Resume on 04/05/25. Please follow up with your primary care physician/handyman Discontinued budesonide 0.5 mg/2 mL suspension for nebulization 0.5 mg inhalation QDAY Qty: 60 0RF Referrals: No Primary/Family,Physician [Primary Care Provider] - Patient/Caregiver Discharge Instructions Education Materials: Asthma Trigger Checklist, Asthma Print Language: Ukrainian Stand Alone Forms: Shelia Award Info., Patient Portal Info Letter Discharge Order Discharge Orders: Discharge (Routine); Ordered 04/01/25 Ordered By: Corina Barraza Quality Discharge Quality Measures VTE prophylaxis MD Attestestation MD Attestation I have examined the patient, reviewed labs and imaging findings, discussed the case with the resident(s), and reviewed entered orders. I agree with the plan of care as outlined in this note. Time Spent: [address] Ana MD
--- NOTE | 2025-04-01 19:58 | PC.NURSE ---
Patient d/c'd from facility on04/01/25 at 1956. KATE Alonso wheeled patient down to lobby where patient's ride is waiting.
[2025-04-04 06:41] LABS: IgE, Serum* 174 kU/L (114 OR LESS)
== END 2025-04-01 19:57 | disposition home or self-care (01) | DRG 202 ==
LOC: SERX 08:56 → SERHOLD 09:58 → S3SX 14:47
PROVIDERS: Emergency Medicine; Student in an Organized Health Care Education/Training Program; Admitting Provider Student in an Organized Health Care Education/Training Program; Emergency Provider Emergency Medicine; Visit Provider Student in an Organized Health Care Education/Training Program
DX: J45.901 Unspecified asthma with (acute) exacerbation (principal); J96.01 Acute respiratory failure with hypoxia; I50.32 Chronic diastolic (congestive) heart failure; J44.1 Chronic obstructive pulmonary disease with (acute) exacerbation; Z85.3 Personal history of malignant neoplasm of breast; Z99.81 Dependence on supplemental oxygen; Z88.2 Allergy status to sulfonamides; E78.5 Hyperlipidemia, unspecified; I11.0 Hypertensive heart disease with heart failure; I27.21 Secondary pulmonary arterial hypertension; I34.0 Nonrheumatic mitral (valve) insufficiency; K74.60 Unspecified cirrhosis of liver; R00.0 Tachycardia, unspecified; M81.0 Age-related osteoporosis without current pathological fracture; L30.9 Dermatitis, unspecified; T38.0X5A Adverse effect of glucocorticoids and synthetic analogues, initial encounter; Z66 Do not resuscitate; L40.9 Psoriasis, unspecified; Z79.83 Long term (current) use of bisphosphonates; Z90.13 Acquired absence of bilateral breasts and nipples
CPT/HCPCS: 36415; 36600; 71045; 80053; 82785; 82803; 83690; 83735; 83880; 84100; 84443; 84484; 85025; 86331; 86635; 87205; 87400; 87811; 93005; 93225; 94640; 94644; 94660; 94667; 96361; 96365; 96366; 96375; 99284; A9270; J0456; J0696; J1644; J2919; J3475; J7050; J7120; J7609

== ENCOUNTER 2025-05-08 05:03 | Emergency (ER) | payer MEDICARE, SELFPAY ==
[2025-05-08] VITALS (9 sets, daily range): BP systolic 115–162; BP diastolic 71–102; PULSE 110–137; RESP 19–24; TEMP 37–37.1; O2SAT 90–99; BMI 20.5
--- NOTE | 2025-05-08 05:07 | EDNOTE_ITS ---
ED Asthma RME/HPI General Chief Complaint: Shortness of Breath/Dyspnea Stated Complaint: SOB Time Seen by Provider: 05/08/25 05:16 Arrival date/time: 05/08/25 05:03 RME / HPI RME / HPI Narrative: See MDM for Dr. Rose's HPI Documentation. Related Data Home Medications ?Medication ?Instructions ?Recorded ?Confirmed fexofenadine 60 mg tablet (Sharon 60 mg PO BID 03/29/25 Allergy) clotrimazole-betamethasone 1 1 applic topical BID PRN cracked 01/24/25 03/29/25 %-0.05 % topical cream skin alendronate 70 mg tablet 70 mg PO QWEEK 03/29/2503/07 Held on 04/01/25. Instructions: Resume on 04/05/25. Please follow up with your primary care physician/hair boiler operator amlodipine 2.5 mg tablet 2.5 mg PO .day 03/29/2503/07 fluticasone furoate 200 1 inh inhalation Q24H 03/29/25 mcg-vilanterol 25 mcg/dose inhalation powder (Breo Ellipta) metoprolol succinate 25 mg 25 mg PO HS 03/29/25 tablet,extended release 24 hr Previous Rx's ?Medication ?Instructions ?Recorded fluticasone propionate 115 2 puff inhalation BID #12 g christine 10/05/24 mcg-salmeterol 21 mcg/actuation HFA inhaler (Advair HFA) albuterol sulfate 90 mcg/actuation 2 puff inhalation Q 6H PRN 03/01/25 aerosol inhaler shortness of breath or wheez ing #6.7 grams methylprednisolone 4 mg tablets in 4 mg PO QDAY #21 ta bs 04/01/25 a dose pack Allergies Allergy/AdvReac Type Severity Reaction Status Date / Time shellfish derived Allergy Severe ITCHING,DROP Verified 03/29/25 01:45 IN BP Sulfa (Sulfonamide Allergy Severe HIVES AND Verified 03/29/25 01:45 Antibiotics) SWELLING Review of Systems Review of Systems Systems Reviewed: All systems reviewed, normal except as documented Past Medical History Past Medical History NEUROLOGIC: Positive Neurological Disorders and Migraine (aura) CARDIAC: Positive Cardiac Disorders, Cardiac Arrhythmia and Hypertension RESPIRATORY: Positive Asthma and Pneumonia GASTROINTESTINAL: Positive Gastrointestinal Disorders and Diverticulosis REPRODUCTIVE: Positive Breast Cancer and Previous Pregnancies MUSCULOSKELETAL: Positive Musculoskeletal Disorders, Arthritis, Osteoporosis and Fractures (r wrist, tailbone) HEMATOLOGIC: Positive Blood Disorders, Anemia and Clotting Problems PSYCHO/SOCIAL: Positive Recreational Drug Use and Anxiety OTHER HISTORY: Positive Hospitalization, Anesthesia Reactions, Chicken Pox, Measles, Mumps, Rubella (Hebrew Measles) and Breast Cancer Family History FAMILY HISTORY: Positive Family Cancer Surgical History SURGICAL: Positive Abdominal Surgery, Joint Replacement, Arthroscopy and Mastectomy (bilateral) ED Exam Narrative Physical exam: See [facility] for Dr. Rose's Physical Exam Documentation. Course Course Course Narrative: CXR was ordered for determining the etiology of shortness of breath. Quality Measures none Asthma [facility] Narrative [facility] Narrative:: This section includes all my notes and documentations, including HPI, PE, and ED course. Parish Rose MD HPI: 79 y/o female with Hx of Asthma and Recreational Drug Use BIBA presents with worsening shortness of breath x several days. No cough. No fever. Reports using 2 L of oxygen only at night. Albuterol 7.5 mg neb treatment given by EMS. No other complaints. ROS: All negative except as documented in HPI. Physical Exam: General: Alert and oriented. In severe respiratory distress. Eyes: Conjunctivae and lids clear. ENT: No nasal congestion. Neck: Supple. No JVD. Heart: Tachycardia noted. Lungs: Severe respiratory distress. Decreased air movement with wheezing. Abdomen: Soft and nontender. Legs: Mild edema of the lower legs noted. Skin: Warm and dry. Neuro: Alert and oriented X 3. I ordered Solu-Medrol 25 mg IV, Benadryl 50 mg IV, Xopenex neb treatments, and diagnostic tests. At 6 AM on 05/08/2025, the care of the patient was transferred to Dr. CRUZ. Parish Rose MD Patient data External records reviewed:: [facility] [place] previous records (Reviewed prior ED records from 04/01/25. Patient was seen for Acute asthma exacerbation.) and EMS form Clinical information provided by:: patient and EMS Social determinants that could affect healthcare access:: substance use Patient has the following chronic illnesses:: Asthma How is presenting disease/condition affected by chronic disease/condition?: exacerbated by Evaluation data The following diagnostics were reviewed and interpreted by me:: lab results, radiology exam(s) and EKG tracing(s) (My interpretation of the EKG is: Sinus tachycardia (128 bpm) with nonspecific ST-T changes. Parish Rose MD) Lab and/or radiology exams considered but not ordered:: None Interpretation Summary: Complete diagnostic tests are pending. Medications / Prescriptions Medications or Prescriptions considered but not ordered:: None Medication administrations:: I ordered Solu-Medrol 125 mg IV, Benadryl 50 mg IV, and Xopenex neb treatments. Consultations Consultation(s) initiated? (list below): No Diagnosis Differential diagnosis asthma: Acute exacerbation, Status asthmaticus, Acute asthmatic bronchitis, PE, Pneumonia, Pulmonary edema systolic, Pulmonary edema dystolic, ARDS, Pneumothorax and Foreign body in trachea Most likely diagnosis given after review of the tests above:: Complete diagnostic tests are pending. Admission Indicated Admission indicated?: not indicated Explain why admission is indicated or not indicated:: Complete diagnostic tests are pending. Admission Request Was there a request for admission?: No Disposition Plan Disposition Plan: other (specify) (Signed out to Dr. Cruz at 6 AM.) Discharge Plan Prescriptions/Referrals Prescriptions/Med Rec: No Action fexofenadine [Sharon Allergy] 60 mg Tablet 60 mg PO BID clotrimazole-betamethasone 1-0.05 % cream 1 applic topical BID PRN (Reason: cracked skin ) fluticasone furoate-vilanterol [Breo Ellipta] 200-25 mcg/dose blister with device 1 inh INHALATION Q24H metoprolol succinate 25 mg tablet extended release 24 hr 25 mg PO HS Patient Comments: TAKE 2 TABLETS BY MOUTH DAILY amlodipine 2.5 mg tablet 2.5 mg PO .day Patient Comments: TAKE 1 TABLET BY MOUTH EVERY DAY alendronate 70 mg tablet 70 mg PO QWEEK methylprednisolone 4 mg tablets,dose pack 4 mg PO QDAY Qty: 21 0RF Rx Instructions: dose taper fluticasone propion-salmeterol [Advair HFA] 115-21 mcg/actuation HFA aerosol inhaler 2 puff inhalation BID Qty: 12 0RF Rx Instructions: administer with spacer albuterol sulfate 90 mcg/actuation HFA aerosol inhaler 2 puff inhalation Q6H PRN (Reason: shortness of breath or wheezing) Qty: 6.7 2RF Problem List Clinical Impression: Shortness of breath Patient/Caregiver Discharge Instructions Print Language: Spanish
[2025-05-08] MEDS: LEVALBUTEROL RT 1.25 MG/0.5 ML NEBU 2.5 MG INH (05:23)
[2025-05-08] MEDS: MethylPREDNISolone SOD SUCC 62.5 MG/ML 2ML VIAL 125 MG IVP (05:25)
[2025-05-08 05:28] LABS: Base Excess 2 (-3-3); HCO3 29 mEq/L (20-26); Inspired O2, VO2 Liters 4 L/min; Inspired Oxygen, FIO2 21 %; O2 Saturation 96 % (91-98); PCO2 51 mmHg (32.0-48.0); PO2 80 mmHg (83-108); pH, Arterial 7.36 (7.35-7.45)
[2025-05-08 05:31] LABS: Allen Test Performed/OK; Puncture Site Left Radial
--- NOTE | 2025-05-08 06:14 | PC.NURSE ---
Addendum entered by Le Stark RN 05/08/25 06:35: Correction DR Cruz notified Original Note: Notified Dr. Cheema of hr 135-140's and audible wheezing post treatments. New orders pending
--- NOTE | 2025-05-08 06:18 | XR_ITS ---
Examination: AP chest single view Technique one AP portable upright chest single view Date and time: May 08, 2025, 0701 hrs., Comparison March 30, 2025 Indications: Shortness of breath today. Findings: Mild enlargement left ventricle. Mild vascular congestion. Accentuation basilar bronchovascular markings. Prominent osteopenia. Impression: Basilar bronchitis pattern
[2025-05-08] MEDS: Magnesium Sulfate 2 GM Ivpb 2 GM/50 ML BAG IV (06:37)
[2025-05-08] MEDS: IPRATROPIUM RT 0.5 MG/ 2.5 ML NEBU 2.5 MG INH (06:40)
[2025-05-08] MEDS: ALBUTEROL RT 2.5 MG/0.5 ML NEBU 10 MG INH (06:41)
--- NOTE | 2025-05-08 06:43 | EDNOTE_ITS ---
Emergency Room Addendum Addendum Narrative: 0600: Care assumed from Dr. Rose, the previous shift emergency physician. Past medical, surgical, social and family history reviewed. Vitals and home medications reviewed. I will assume the care of the patient at this time, pending labs/cxr and final disposition. Please refer to the emergency department record for history and examination from initial visit.?The following addendum documentation note is intended to reflect any pending information, findings, or radiology results not included in the patient?s initial chart. Patient remains clinically stable throughout the emergency department visit. We reviewed all the results, analysis, and treatment plans. Patient is amenable to discharge. Strict return precautions were outlined. RADIOLOGY ___ Ordering Physician: Lizeth Cruz MD Date of Service: 05/08/25 Procedure(s): XR chest 1V portable Accession Number(s): [id number] cc: Ricardo Eubanks MD; Quinton Ochoa MD; Lizeth Cruz MD~ Examination: AP chest single view Technique one AP portable upright chest single view Date and time: May 08, 2025, 0701 hrs., Comparison March 30, 2025 Indications: Shortness of breath today. Findings: Mild enlargement left ventricle. Mild vascular congestion. Accentuation basilar bronchovascular markings. Prominent osteopenia. Impression: Basilar bronchitis pattern Dictated By: Ricardo Eubanks MD Signed By: <Electronically signed by Ricardo Eubanks MD in OV> 05/08/25 0732 ___
--- NOTE | 2025-05-08 07:10 | PC.NURSE ---
Pt. here from home to room 2, pt. states she feels much better and can rest, pt. is on home 02, pt. on O2 here and tolerating well. Pt. resting with her eyes closed. No s/s of distress noted at this time.
[2025-05-08 07:11] LABS: Basophils # (Auto) 0.2 Thou/mm3 (0.0-0.2); Basophils % (Auto) 2 % (0-2.5); Eosinophils # (Auto) 1.7 Thou/mm3 (0.0-0.5); Eosinophils % (Auto) 14 % (0-10); Hematocrit 42.4 % (36.0-46.0); Hemoglobin 14.1 g/dL (12.0-16.0); Immature Granulocytes Auto 0.06 Thou/mm3 (0.00-0.00); Lymphocytes # (Auto) 0.9 Thou/mm3 (1.0-4.8); Lymphocytes % (Auto) 7 % (10-50); Mean Corpuscular HGB Conc 33.3 g/dl (31.0-37.0); Mean Corpuscular Hemoglobin 29.4 pg (25.0-35.0); Mean Corpuscular Volume 89 fL (80-100); Monocytes # (Auto) 0.8 Thou/mm3 (0.0-0.8); Monocytes % (Auto) 6 % (0-12); Neutrophils # (Auto) 9.1 Thou/mm3 (1.8-7.7); Neutrophils % (Auto) 71 % (37-80); Nucleated Red Blood Cell # 0.00 Thou/mm3 (0.00-0.00); Nucleated Red Blood Cell % 0 /100 WBC (0); Platelet Count 308 Thou/mm3 (140-440); RDW Standard Deviation 45.9 fL (36.4-46.3); Red Blood Count 4.79 Miln/mm3 (4.00-5.20); White Blood Count 12.9 Thou/mm3 (3.6-11.0)
[2025-05-08 07:28] LABS: INR 1.0 (0.9-1.3); Partial Thromboplastin Time 30.8 Seconds (22.0-36.0); Prothrombin Time 11.4 Seconds (9.0-12.2)
[2025-05-08 07:31] LABS: B-Type Natriuretic Peptide 25 pg/mL (0-100)
[2025-05-08 07:42] LABS: Alanine Aminotransferase 10 U/L (10-49); Albumin, Serum 4.1 gm/dL (3.4-4.8); Albumin/Globulin Ratio 2.3 (1.2-2.2); Alkaline Phosphatase 64 U/L (46-116); Anion Gap 9 (7-16); Aspartate Amino Transferase 21 U/L (0-34); BUN/Creatinine Ratio 9 Ratio (12-20); Bilirubin,Total 0.8 mg/dL (0.3-1.2); Blood Urea Nitrogen 6 mg/dL (9-23); Calcium 9.6 mg/dL (8.3-10.6); Calcium (Corrected) 9.6 mg/dL (8.5-10.1); Carbon Dioxide 30.1 mMol/L (20.0-31.0); Chloride 102 mMol/L (98-107); Creatinine (Component) 0.7 mg/dL (0.6-1.3); Estimated Creatinine Clearance 54.8 mL/min (>60); Globulin 1.8 gm/dL (2.3-3.5); Glucose 106 mg/dL (74-106); Lipase 35 U/L (12-53); Magnesium 2.1 mg/dL (1.6-2.6); Osmolality,Calculated 278 (275-295); Potassium 3.5 mMol/L (3.4-5.1); Sodium 141 mMol/L (136-145); Total Protein 5.9 gm/dL (5.7-8.2); Troponin I < 0.020 ng/mL (0.0-0.045); eGFR > 60 See Note
[2025-05-08] MEDS: ALBUTEROL/IPRATROPIUM (Duoneb) RT SOL 3 ML NEBU INH (09:36)
[2025-05-08] MEDS: AZITHROMYCIN INJ 500 MG in SODIUM CHLORIDE 0.9% 250 ML 250 ML 250 MG IV (09:42)
--- NOTE | 2025-05-08 12:25 | PC.NURSE ---
Dr. Cruz aware pt. heart rate 126, Dr. Cruz states ok to let pt. go home.
== END 2025-05-08 12:30 | disposition home or self-care (01) ==
PROVIDERS: Emergency Medicine; Emergency Provider Emergency Medicine; PCP Family Medicine
DX: R06.02 Shortness of breath (principal); R00.0 Tachycardia, unspecified; I10 Essential (primary) hypertension
CPT/HCPCS: 36415; 36600; 71045; 80053; 82803; 83690; 83735; 83880; 84484; 85025; 85610; 85730; 87400; 87811; 93005; 94640; 94644; 96365; 96366; 96375; 99284; A9270; J0456; J1200; J2919; J3475; J7050; J7609

== ENCOUNTER → 2025-05-30 | Outpatient (CLI) | payer MEDICARE, SELFPAY ==
[2025-05-30 10:50] LABS: Basophils # (Auto) 0.2 Thou/mm3 (0.0-0.2); Basophils % (Auto) 2 % (0-2.5); Eosinophils # (Auto) 1.1 Thou/mm3 (0.0-0.5); Eosinophils % (Auto) 11 % (0-10); Hematocrit 46.2 % (36.0-46.0); Hemoglobin 15.3 g/dL (12.0-16.0); Immature Granulocytes Auto 0.03 Thou/mm3 (0.00-0.00); Lymphocytes # (Auto) 1.0 Thou/mm3 (1.0-4.8); Lymphocytes % (Auto) 10 % (10-50); Mean Corpuscular HGB Conc 33.1 g/dl (31.0-37.0); Mean Corpuscular Hemoglobin 29.4 pg (25.0-35.0); Mean Corpuscular Volume 89 fL (80-100); Monocytes # (Auto) 0.7 Thou/mm3 (0.0-0.8); Monocytes % (Auto) 7 % (0-12); Neutrophils # (Auto) 6.9 Thou/mm3 (1.8-7.7); Neutrophils % (Auto) 70 % (37-80); Nucleated Red Blood Cell # 0.00 Thou/mm3 (0.00-0.00); Nucleated Red Blood Cell % 0 /100 WBC (0); Platelet Count 344 Thou/mm3 (140-440); RDW Standard Deviation 45.0 fL (36.4-46.3); Red Blood Count 5.20 Miln/mm3 (4.00-5.20); White Blood Count 9.9 Thou/mm3 (3.6-11.0)
[2025-05-30 11:14] LABS: Alanine Aminotransferase 12 U/L (10-49); Albumin, Serum 4.5 gm/dL (3.4-4.8); Alkaline Phosphatase 59 U/L (46-116); Anion Gap 9 (7-16); Aspartate Amino Transferase 24 U/L (0-34); BUN/Creatinine Ratio 12 Ratio (12-20); Bilirubin,Direct 0.3 mg/dL (0.0-0.3); Bilirubin,Total 0.9 mg/dL (0.3-1.2); Blood Urea Nitrogen 7 mg/dL (9-23); Calcium 10.0 mg/dL (8.3-10.6); Carbon Dioxide 32.0 mMol/L (20.0-31.0); Cardiac Risk Estimate 2.1 RATIO (3.7-5.6); Chloride 99 mMol/L (98-107); Cholesterol 191 mg/dL (132-200); Creatinine (Component) 0.6 mg/dL (0.6-1.3); Free T4 (Free Thyroxine) 1.68 ng/dL (0.89-1.76); Glucose 84 mg/dL (74-106); HDL Cholesterol 90 mg/dL (40-60); LDL Cholesterol,Calculated 89 mg/dL (0-130); Osmolality,Calculated 276 (275-295); Potassium 4.0 mMol/L (3.4-5.1); Sodium 140 mMol/L (136-145); Thyroid Stimulating Hormone 1.61 uIU/mL (0.55-4.78); Total Protein 6.5 gm/dL (5.7-8.2); Triglycerides 58 mg/dL (30-150); eGFR > 60 See Note
== END | disposition home or self-care (01) ==
PROVIDERS: PCP Family Medicine; Referring Provider Internal Medicine Cardiovascular Disease; Visit Provider Internal Medicine Cardiovascular Disease
DX: I10 Essential (primary) hypertension (principal); E78.5 Hyperlipidemia, unspecified; E07.9 Disorder of thyroid, unspecified
CPT/HCPCS: 36415; 80048; 80061; 80076; 84439; 84443; 85025

== ENCOUNTER 2025-06-01 00:19 | Inpatient (IN) | payer MEDICARE, SELFPAY ==
[2025-06-01] VITALS (28 sets, daily range): BP systolic 100–165; BP diastolic 66–107; PULSE 95–131; RESP 12–38; TEMP 36.4–36.9; O2SAT 93–99; BMI 19.7
--- NOTE | 2025-06-01 00:55 | XR_ITS ---
Examination: AP chest single view Technique: Upright AP portable chest single view Date and time: June 01 thousand 25, 0102 hrs., Comparison 9 2024 Indications: Shortness of breath today. Findings: Mild to moderate enlargement left ventricle Moderate vascular congestion including central vascular engorgement Suspicious for early septal edema at the lung bases. No lobar pneumonia. Prominent osteopenia Impression: Early heart failure
[2025-06-01 01:08] LABS: Basophils # (Auto) 0.2 Thou/mm3 (0.0-0.2); Basophils % (Auto) 2 % (0-2.5); Eosinophils # (Auto) 1.6 Thou/mm3 (0.0-0.5); Eosinophils % (Auto) 13 % (0-10); Hematocrit 46.6 % (36.0-46.0); Hemoglobin 15.7 g/dL (12.0-16.0); Immature Granulocytes Auto 0.03 Thou/mm3 (0.00-0.00); Lymphocytes # (Auto) 1.6 Thou/mm3 (1.0-4.8); Lymphocytes % (Auto) 13 % (10-50); Mean Corpuscular HGB Conc 33.7 g/dl (31.0-37.0); Mean Corpuscular Hemoglobin 29.4 pg (25.0-35.0); Mean Corpuscular Volume 87 fL (80-100); Monocytes # (Auto) 1.0 Thou/mm3 (0.0-0.8); Monocytes % (Auto) 8 % (0-12); Neutrophils # (Auto) 7.9 Thou/mm3 (1.8-7.7); Neutrophils % (Auto) 65 % (37-80); Nucleated Red Blood Cell # 0.00 Thou/mm3 (0.00-0.00); Nucleated Red Blood Cell % 0 /100 WBC (0); Platelet Count 331 Thou/mm3 (140-440); RDW Standard Deviation 44.0 fL (36.4-46.3); Red Blood Count 5.34 Miln/mm3 (4.00-5.20); White Blood Count 12.3 Thou/mm3 (3.6-11.0)
[2025-06-01] MEDS: MethylPREDNISolone SOD SUCC 62.5 MG/ML 2ML VIAL 125 MG IV (01:13)
[2025-06-01] MEDS: SODIUM CHLORIDE 0.9% 250 ML 250 ML 999 ML IV (01:14)
[2025-06-01 01:35] LABS: B-Type Natriuretic Peptide 21 pg/mL (0-100)
[2025-06-01] MEDS: ALBUTEROL RT 2.5 MG/3 ML NEBU 10 MG INH (01:35)
[2025-06-01] MEDS: IPRATROPIUM RT 0.5 MG/ 2.5 ML NEBU INH (01:36)
[2025-06-01 02:01] LABS: Base Excess 2 (-3-3); HCO3 29 mEq/L (20-26); Inspired Oxygen, FIO2 21 %; O2 Saturation 100 % (91-98); PCO2 57 mmHg (32.0-48.0); PO2 182 mmHg (83-108); pH, Arterial 7.32 (7.35-7.45)
[2025-06-01 02:07] LABS: Allen Test Performed/OK; Puncture Site Right Radial
[2025-06-01 02:08] LABS: Alanine Aminotransferase 11 U/L (10-49); Albumin, Serum 4.2 gm/dL (3.4-4.8); Albumin/Globulin Ratio 2.1 (1.2-2.2); Alkaline Phosphatase 56 U/L (46-116); Anion Gap 10 (7-16); Aspartate Amino Transferase 22 U/L (0-34); BUN/Creatinine Ratio 12 Ratio (12-20); Bilirubin,Total 0.7 mg/dL (0.3-1.2); Blood Urea Nitrogen 7 mg/dL (9-23); Calcium 9.4 mg/dL (8.3-10.6); Calcium (Corrected) 9.4 mg/dL (8.5-10.1); Carbon Dioxide 31.7 mMol/L (20.0-31.0); Chloride 97 mMol/L (98-107); Creatinine (Component) 0.6 mg/dL (0.6-1.3); Estimated Creatinine Clearance 63.6 mL/min (>60); Globulin 2.0 gm/dL (2.3-3.5); Glucose 119 mg/dL (74-106); Magnesium 2.9 mg/dL (1.6-2.6); Osmolality,Calculated 276 (275-295); Potassium 3.4 mMol/L (3.4-5.1); Sodium 139 mMol/L (136-145); Total Protein 6.2 gm/dL (5.7-8.2); Troponin I < 0.020 ng/mL (0.0-0.045); eGFR > 60 See Note
--- NOTE | 2025-06-01 03:20 | PD.EDSOB ---
ED SOB =RME/HPI General Chief Complaint: Shortness of Breath/Dyspnea Stated Complaint: SOB Time Seen by Provider: 06/01/25 00:57 Arrival date/time: 06/01/25 00:19 RME / HPI RME / HPI Narrative: DR. DENT MAIN ED EVALUATION: Patient with Hx of asthma/? COPD presenting with dyspnea x 24 hour duration. Reports cough and difficult expectorating, no fever, vomiting, or diarrhea, no relief despite home nebulizer use. Paramedics arrived and patient administered multiple nebulizer treatments en route with worsening clinical condition. Patient started on CPAP with improving oxygenation and respiratory pattern. PMH: Asthma/? COPD, HTN, Negative DM, CAD, or TIA. PSH: Unremarkable. Social: Reports remote Hx of tobacco use, no alcohol or drug abuse Allergies: Sulfonamide Antibiotics. Related Data Home Medications ?Medication ?Instructions ?Recorded ?Confirmed fexofenadine 60 mg tablet (Sharon 60 mg PO BID 05/02/18 03/29/25 Allergy) clotrimazole-betamethasone 1 1 applic topical BID PRN cracked 01/24/25 03/29/25 %-0.05 % topical cream skin alendronate 70 mg tablet 70 mg PO QWEEK 03/29/25 03/29/25 Held on 04/01/25. Instructions: Resume on 04/05/25. Please follow up with your primary care physician/skein winder amlodipine 2.5 mg tablet 2.5 mg PO .day 03/29/25 03/29/25 fluticasone furoate 200 1 inh inhalation Q24H 03/29/25 03/29/25 mcg-vilanterol 25 mcg/dose inhalation powder (Breo Ellipta) metoprolol succinate 25 mg 25 mg PO HS 03/29/25 03/29/25 tablet,extended release 24 hr Previous Rx's ?Medication ?Instructions ?Recorded fluticasone propionate 115 2 puff inhalation BID #12 grams 10/05/24 mcg-salmeterol 21 mcg/actuation HFA inhaler (Advair HFA) albuterol sulfate 90 mcg/actuation 2 puff inhalation Q6H PRN 03/01/25 aerosol inhaler shortness of breath or wheezing #6.7 grams methylprednisolone 4 mg tablets in 4 mg PO QDAY #21 tabs 04/01/25 a dose pack methylprednisolone 4 mg tablets in 4 mg PO QAM #21 tabs 05/08/25 a dose pack Allergies Allergy/AdvReac Type Severity Reaction Status Date / Time shellfish derived Allergy Severe ITCHING,DROP Verified 06/01/25 00:35 IN BP Sulfa (Sulfonamide Allergy Severe HIVES AND Verified 06/01/25 00:35 Antibiotics) SWELLING Review of Systems Review of Systems Systems Reviewed: All systems reviewed, normal except as documented Past Medical History Past Medical History NEUROLOGIC: Positive Neurological Disorders and Migraine (aura) CARDIAC: Positive Cardiac Disorders, Cardiac Arrhythmia and Hypertension RESPIRATORY: Positive Asthma and Pneumonia GASTROINTESTINAL: Positive Gastrointestinal Disorders and Diverticulosis REPRODUCTIVE: Positive Breast Cancer and Previous Pregnancies MUSCULOSKELETAL: Positive Musculoskeletal Disorders, Arthritis, Osteoporosis and Fractures (r wrist, tailbone) HEMATOLOGIC: Positive Blood Disorders, Anemia and Clotting Problems PSYCHO/SOCIAL: Positive Recreational Drug Use and Anxiety OTHER HISTORY: Positive Hospitalization, Anesthesia Reactions, Chicken Pox, Measles, Mumps, Rubella ([place] Measles) and Breast Cancer Family History FAMILY HISTORY: Positive Family Cancer Surgical History SURGICAL: Positive Abdominal Surgery, Joint Replacement, Arthroscopy and Mastectomy (bilateral) ED Exam Narrative Physical exam: GEN. APPEARANCE: The patient is alert awake oriented X-3 in no distress, lying down comfortably, does not look ill/toxic. Patient has good eye contact. Patient is cooperative. VITALS: All vitals were reviewed and the pulse ox is 97% on room air which is normal according to my interpretation. HEENT: Normocephalic, atraumatic. Pupils are equal and reactive. Oral mucosa is moist. Patent Nares NECK: Supple, nontender, no thyromegaly, no meningismus, no JVD, no step offs CHEST: Symmetrical, atraumatic, and with equal expansion , Nontender on palpation no deformity and no crepitus. CARDIOVASCULAR: Heart regular rhythm no murmur or gallop rub or extra beats. LUNGS: Mild to moderate respiratory distress with scattered wheezing throughout lung nayak with symmetrical chest rise. No laboring tachypnea or wheezing. No intercostal subcostal retraction. No rales and no rhonchi. ABDOMEN: Soft, flat, nontender to palpation, no guarding or rebound tenderness. There are no abnormal masses palpated. Active and normal bowel sounds. EXTREMITIES: Nontender. No edema. No cyanosis. Patient is able to move all 4 extremities well, with full ROM and good CSM. SKIN: Warm and dry, no jaundice or rashes noted. MUSCULOSKELETAL: No lubar or midline bony tenderness. There is no CVA tenderness. No paraspinal muscle spasm or tenderness. NEURO: Patient is MILLER x 4, Cranial nerves II through XII grossly intact. There is no focal neurologic deficits noted. GCS is 15, PNS and TRIAGE CLINICIAN appear grossly intact. PSYCHIATRIC: Patient is in normal mood and affect, cooperative, no SI or HI or hallucinations. Course Quality Measures none Orders Category Date Time Status Bedside COVID-19 Antigen Test NOW Care 06/01/25 02:46 Active Bedside Influenza A&B Antigen Test NOW Care 06/01/25 02:46 Completed Industrial Relations Worker NOW Care 06/01/25 01:00 Active Continuous Pulse Oximetry NOW Care 06/01/25 00:58 Completed Insert IV NOW Care 06/01/25 01:00 Active XR chest 1V portable Stat Exams 06/01/25 00:55 Taken ABG [Arterial Blood Gas] Stat Lab 06/01/25 05:03 Completed Arterial Blood Gas Stat Lab 06/01/25 01:54 Completed B-Type Natriuretic Peptide Stat Lab 06/01/25 00:45 Completed CBC Auto Diff Post-Transfusion Stat Lab 06/01/25 00:45 Completed CBC Stat Lab 06/01/25 00:45 Completed CMP [Comprehensive Metabolic Panel] Stat Lab 06/01/25 01:26 Completed Magnesium Stat Lab 06/01/25 01:26 Completed Troponin I Stat Lab 06/01/25 01:26 Completed ALBUTEROL RT 3ml [Proventil Rt 3ml] Med 06/01/25 01:02 Discontinued 10 mg INH X1 ONE Ipratropium [place] Rt Violet [Atrovent Rt Violet] Med 06/01/25 01:02 Discontinued 0.5 mg INH X1 ONE MethylPREDNISolone.* [SoluMEDROL Inj] Med 06/01/25 00:58 Discontinued 125 mg IV X1 ONE Sodium Chloride 0.9% 250 ml [Ns] 250 ml Med 06/01/25 00:58 Discontinued IV 999 mls/hr BiPAP / CPAP NOW RT 06/01/25 00:58 Active Vital Signs Vital signs: Vital Signs Pulse Rate 107 H 06/01/25 00:21 Respiratory Rate 26 H 06/01/25 00:21 Blood Pressure 165/107 H 06/01/25 00:21 Pulse Oximetry (%) 94 L 06/01/25 00:21 Shortness of Breath / Dyspnea MDM Narrative MDM Narrative:: Scribe Attestation: I, Philomena Moya, am scribing for and in the presence of Dr. Dent. Provider Notation: Although this document has been carefully reviewed, there may still be some phonetic and other typographical errors. These errors are purely grammatical due to imperfections in the software program and should not be construed in any way to compromise the substance of the patient's medical care during this visit. Patient with Hx of asthma/? COPD presenting with dyspnea x 24 hour duration. Reports cough and difficult expectorating, no fever, vomiting, or diarrhea, no relief despite home nebulizer use. Please see PE findings. Laboratory markers demonstrate marginally elevated WBC of 12.3, hemoglobin of 15.7, no left shift or associated bandemia. Predominance of eosinophils. Serum chemistries elevated CO2, normal renal function, and undetected Troponin I. Chest x-ray 1v interpreted by ED physician demonstrates hyper-expanded lung nayak, mild scoliosis, no infiltrate, effusion, or pneumothorax. EKG without acute ischemic changes, Patient placed on BiPAP, administered serial steroid treatments, in addition to IV steroids, with gradual improvement. Evaluation shows persistent harsh wheezes, will consider admission for COPD exacerbation. Clinical impressions is COPD exacerbation. Will discuss with the hospitalist for consideration of admission. Patient data External records reviewed:: [facility] previous records (Reviewed prior ED records from 05/08/25. Patient was seen for Acute asthma exacerbation.) and EMS form Clinical information provided by:: patient and EMS Social determinants that could affect healthcare access:: substance use Patient has the following chronic illnesses:: Migraine, Cardiac Arrhythmia, Hypertension, Asthma, Diverticulosis, Breast Cancer, Arthritis, Osteoporosis, Fractures, Anemia, Recreational Drug Use, Anxiety How is presenting disease/condition affected by chronic disease/condition?: exacerbated by Evaluation data The following diagnostics were reviewed and interpreted by me:: lab results and radiology exam(s) Lab and/or radiology exams considered but not ordered:: None Interpretation Summary: RADIOLOGY Chest X-Ray: Pending official radiology report. Medications / Prescriptions Medications or Prescriptions considered but not ordered:: None Medication administrations:: Medication Administration History Albuterol/Ipratropium (Albuterol/Ipratropium (Duoneb) Rt Violet 3 Ml Nebu) 3 ml INH Q2HR PRN PRN Reason: SHORTNESS OF BREATH OR WHEEZE Stop: 07/01/25 04:51 Albuterol/Ipratropium (Albuterol/Ipratropium (Duoneb) Rt Violet 3 Ml Nebu) 3 ml INH Q6HRRT SONYA Stop: 07/01/25 06:59 Heparin Sodium (Porcine) (Heparin Sod Inj 5000 Unit/Ml Vial) 5,000 unit SC BID SONYA Stop: 06/15/25 08:59 Ceftriaxone Sodium/Dextrose (Rocephin/D5w 1gm Iv Premix) 1 gm in 50 mls @ 100 mls/hr IV QDAY SONYA Stop: 06/08/25 08:59 Azithromycin 500 mg/ Sodium (Chloride) 250 mls @ 250 mls/hr IV QDAY SNOYA Stop: 06/08/25 08:59 Ceftriaxone Sodium/Dextrose (Rocephin/D5w 1gm Iv Premix) 1 gm in 50 mls @ 100 mls/hr IV X1 ONE Stop: 06/01/25 05:29 Last Admin: 06/01/25 05:08 Dose: 100 mls/hr Documented By: OMID Azithromycin 500 mg/ Sodium (Chloride) 250 mls @ 250 mls/hr IV X1 ONE Stop: 06/01/25 05:59 Last Admin: 06/01/25 05:09 Dose: 250 mls/hr Documented By: OMID Methylprednisolone Sodium Succinate (Methylprednisolone Sod Succ 40 Mg/Ml Vial) 40 mg IVP QDAY SONYA Stop: 06/08/25 08:59 Discontinued Medications Albuterol (Albuterol Rt 2.5 Mg/3 Ml Nebu) 10 mg INH X1 ONE Stop: 06/01/25 01:03 Last Admin: 06/01/25 01:35 Dose: 10 mg Documented By: NICO Albuterol/Ipratropium (Albuterol/Ipratropium (Duoneb) Rt Violet 3 Ml Nebu) 3 ml INH Q4HRRT [facility] Stop: 07/01/25 06:59 Sodium Chloride (Ns) 250 mls @ 999 mls/hr IV .Q16M ONE Stop: 06/01/25 01:13 Last Infusion: 06/01/25 01:35 Dose: Infused Documented By: Admin: 06/01/25 01:14 Dose: 999 mls/hr Documented By: EDWIN Ipratropium [place] (Ipratropium Rt 0.5 Mg/ 2.5 Ml Nebu) 0.5 mg INH X1 ONE Stop: 06/01/25 01:03 Last Admin: 06/01/25 01:36 Dose: 0.5 mg Documented By: NICO Methylprednisolone Sodium Succinate (Methylprednisolone Sod Succ 62.5 Mg/Ml 2ml Vial) 125 mg IV X1 ONE Stop: 06/01/25 00:59 Last Admin: 06/01/25 01:13 Dose: 125 mg Documented By: EDWIN Methylprednisolone Sodium Succinate (Methylprednisolone Sod Succ 40 Mg/Ml Vial) 40 mg IVP BID SONYA Stop: 06/08/25 08:59 Sodium Chloride (Sodium Chloride Rt 10% 15 Ml Nebu) 5 ml INH X1 ONE Stop: 06/01/25 04:53 Last Admin: 06/01/25 05:09 Dose: 5 ml Documented By: NICO See above if any Consultations Consultation(s) initiated? (list below): Yes Consultation #1 (Physician, Specialty, Details): Discussed with resident physician for Hospitalist for admission. Reviewed the patient?s HPI, PMHx, lab and/or radiology results. Discussed treatment plan. Will consult an admission to the hospitalist. Time: 03:42 Diagnosis Shortness of Breath Differential Diagnosis: acute exacerbation of chronic obstructive airways disease, congestive heart failure, community acquired pneumonia, asthma with exacerbation and pulmonary embolism Most likely diagnosis given after review of the tests above:: COPD exacerbation Admission Indicated Admission indicated?: indicated Explain why admission is indicated or not indicated:: COPD exacerbation Admission Request Was there a request for admission?: Yes Admission Attestation Admission request attestation: Discussed case with [] from Hospitalist service regarding admission. Discussed patients ED course, exam findings, labs, and radiology results. The Hospitalist [agrees,declines] to accept the patient for admission. Disposition Plan Disposition Plan: Admit Discharge Plan Plan Patient Disposition: Admit Acute Care w/in Hospital Problem List Clinical Impression: COPD exacerbation
--- NOTE | 2025-06-01 04:24 | PC.NURSE ---
PT APPEARS IN NO DISTRESS IS ASLEEP ON BIPAP. AROUSES EASILY.
--- NOTE | 2025-06-01 04:54 | PD.RESHP ---
Documentation for date of: 06/01/25 [facility] History of Present Illness History of present illness: Mrs. Jansen is a 79-year-old female past medical history known of osteoporosis, hypertension, breast cancer, asthma presented to [facility] on 06/01/2025 with chief complaint of worsening dyspnea and cough. Patient reported about 2 days ago having worsening shortness of breath. Patient reported that she uses 2 L home oxygen when she goes to bed. She also endorses intermittent cough with difficulty expectorating. Usually sees clear phlegm. Patient reported she can sleep flat on the bed when she needs assistance of 1 or 2 pillow. She can walk few blocks without shortness of breath. She does not endorses occasional PND when she does not sleep with her home oxygen. Patient does have a history of previous asthma exacerbation that required utilization Patient denies fever, chills, chest pain, dizziness vomiting, diarrhea, chest pain, abdominal pain, urinary symptoms. ED Course: -Initial vitals were BP 165/107, pulse 107, respiratory 26, temp 97.6, O2 sat 94% on CPAP -Labs significant for WBC 12.3, chloride 97, bicarb 31.7 magnesium 2.9. ABGs pH 7.32, pCO2 57, pO2 182, bicarb 29 -Imaging included chest x-ray COPD pattern -In the ED, patient was given methylprednisolone 125 mg IV x 1, 1 L NS, Motrin 10 mg x 1 ipratropium bromide 0.5 mg x 1 -Patient was admitted for acute hypoxic respiratory failure secondary to COPD exacerbation Review of Systems Review of systems otherwise negative except what is mentioned above. Past Medical History: Mentioned above Family History: has congestive heart failure and Parkinson disease Surgical History: Bilateral mastectomy, hip replacement, cholecystectomy Social History: Denies history of smoking quit in the , denies current alcohol use, denies recreational drug use. lives with her Current Medications: Pending med Allergies: Shellfish, sulfa antibiotic Exam Vital Signs Temp Pulse Resp BP Pulse Ox O2 Del Method FiO2 97.6 F 98 17 121/72 93 L BiPAP 30 06/01/25 00:33 06/01/25 04:00 06/01/25 04:00 06/01/25 04:00 06/01/25 04:00 06/01/25 04:00 06/01/25 01:45 Narrative Exam General: Alert, moderate respiratory distress.Conversational and non-toxic appearing. Skin: Warm, dry, intact. No rash or ecchymoses. Head: Normocephalic, atraumatic. Eye: Normal conjunctiva, PERRL. Throat: Oral mucosa moist. No obvious lesions in oropharynx. Cardiovascular: Regular rate and rhythm, no murmur, +S1/S2. Respiratory: Bilateral wheezing, bilateral air entry respirations unlabored. Gastrointestinal: Soft, nontender, non-distended. No guarding or rebound tenderness. Extremities: Bilateral lower extremity lymphedema, no cyanosis, no clubbing. Neuro: Alert and oriented x3.No focal deficits observed. Conversant, moving all extremities. No overt cerebellar signs/incoordination. Psychiatric: Cooperative, appropriate affect Results: Labs 06/02/25 05:07 06/02/25 05:07 Labs: Short CBC 06/01/25 Range/Units 00:45 WBC 12.3 H (3.6-11.0) Thou/mm3 Hgb 15.7 (12.0-16.0) g/dL Hct 46.6 H (36.0-46.0) % Plt Count 331 (140-440) Thou/mm3 BMP 06/01/25 01:26 Sodium 139 Potassium 3.4 D Chloride 97 L Carbon Dioxide 31.7 H BUN 7 L Creatinine 0.6 Glucose 119 H Calcium 9.4 Cardiac Enzymes 06/01/25 Range/Units 01:26 Troponin I < 0.020 (0.0-0.045) ng/mL Liver Function 06/01/25 Range/Units 01:26 Total Bilirubin 0.7 (0.3-1.2) mg/dL AST 22 (0-34) U/L ALT 11 (10-49) U/L Alkaline Phosphatase 56 (46-116) U/L Albumin 4.2 (3.4-4.8) gm/dL ABG Interpretation ABG results: 06/01/25 01:54 ABG pH 7.32 L ABG pCO2 57 H ABG pO2 182 H ABG HCO3 29 H ABG O2 Saturation 100 H ABG Base Excess 2 Quality Measures Quality Measures none Advance care planning discussed with:: patient Medications Home Medications and Allergies Home Medications ?Medication ?Instructions ?Recorded ?Confirmed ?Type fexofenadine 60 mg tablet (Sharon 60 mg PO BID 05/02/18 06/01/25 History Allergy) clotrimazole-betamethasone 1 1 applic topical BID PRN cracked 01/24/25 06/01/25 History %-0.05 % topical cream skin alendronate 70 mg tablet 70 mg PO QWEEK 03/29/25 06/01/25 History Held on 06/02/25. Instructions: Resume on 06/15/25. Please follow-up with residential pest control technician before restarting amlodipine 2.5 mg tablet 2.5 mg PO .day 03/29/25 06/01/25 History fluticasone furoate 200 1 inh inhalation Q24H 03/29/25 06/01/25 History mcg-vilanterol 25 mcg/dose inhalation powder (Breo Ellipta) metoprolol succinate 25 mg 25 mg PO HS 03/29/25 06/01/25 History tablet,extended release 24 hr Held on 06/02/25. Instructions: Resume on 06/08/25. Hold until you are seen by Dr. Rojo (golf club repairer); ask why you are taking this medication. Allergies Allergy/AdvReac Type Severity Reaction Status Date / Time shellfish derived Allergy Severe ITCHING,DROP Verified 06/01/25 00:35 IN BP Sulfa (Sulfonamide Allergy Severe HIVES AND Verified 06/01/25 00:35 Antibiotics) SWELLING Visit Medications Albuterol/Ipratropium (Albuterol/Ipratropium (Duoneb) Rt Violet 3 Ml Nebu) 3 ml INH Q2HR PRN PRN Reason: SHORTNESS OF BREATH OR WHEEZE Stop: 07/01/25 04:51 Albuterol/Ipratropium (Albuterol/Ipratropium (Duoneb) Rt Violet 3 Ml Nebu) 3 ml INH Q4HRRT SONYA Stop: 07/01/25 06:59 Ceftriaxone Sodium/Dextrose (Rocephin/D5w 1gm Iv Premix) 1 gm in 50 mls @ 100 mls/hr IV QDAY SONYA Stop: 06/08/25 08:59 Azithromycin 500 mg/ Sodium (Chloride) 250 mls @ 250 mls/hr IV QDAY SONYA Stop: 06/08/25 08:59 Methylprednisolone Sodium Succinate (Methylprednisolone Sod Succ 40 Mg/Ml Vial) 40 mg IVP BID SONYA Stop: 06/08/25 08:59 Sodium Chloride (Sodium Chloride Rt 10% 15 Ml Nebu) 5 ml INH X1 ONE Stop: 06/01/25 04:53 Discontinued Medications Albuterol (Albuterol Rt 2.5 Mg/3 Ml Nebu) 10 mg INH X1 ONE Stop: 06/01/25 01:03 Last Admin: 06/01/25 01:35 Dose: 10 mg Sodium Chloride (Ns) 250 mls @ 999 mls/hr IV .Q16M ONE Stop: 06/01/25 01:13 Last Infusion: 06/01/25 01:35 Dose: Infused Ipratropium [place] (Ipratropium Rt 0.5 Mg/ 2.5 Ml Nebu) 0.5 mg INH X1 ONE Stop: 06/01/25 01:03 Last Admin: 06/01/25 01:36 Dose: 0.5 mg Methylprednisolone Sodium Succinate (Methylprednisolone Sod Succ 62.5 Mg/Ml 2ml Vial) 125 mg IV X1 ONE Stop: 06/01/25 00:59 Last Admin: 06/01/25 01:13 Dose: 125 mg Assessment & Plan Plan Mrs. Jansen is a 79-year-old female past medical history known of COPD, asthma, osteoporosis, hypertension, breast cancer, presented to [facility] on 06/01/2025 with chief complaint of worsening dyspnea and cough. Admitted for acute respiratory secondary to COPD exacerbation evaluation and management. #Acute on chronic hypoxic respiratory failure secondary to #COPD exacerbation #History of asthma #Respiratory acidosis Patient with worsening dyspnea and cough for 2 days and saturating 96% on CPAP on arrival. Patient is on 2 L home oxygen. AHRF likely secondary to COPD exacerbation as on physical lamination patient moderate respiratory distress with bilateral wheezing noted. Also patient has apparent barrel chest and chest x-ray show flattening of the diaphragm and increased AP diameter and some chronic bronchitis pattern is noted. Lab was significant for leukocytosis of 12.3 with eosinophil% of 13 indicating positive concurrent asthma exacerbation. ABGs pH 7.32, pCO2 57, pO2 182, bicarb 29 getting respiratory acidosis with mild metabolic compensation. COVID-negative, influenza A and influenza B negative. -Repeat ABG ordered - Continue BiPAP/CPAP as needed - Started ceftriaxone 1 mg daily - Started azithromycin 500 mg daily - Started methylprednisolone 40 mg daily - Sputum culture and Gram stain ordered, pending #Leukocytosis Likely methylprednisolone induced. On admission WBC was 12.3 -Continue to monitor CBC #Primary hypertension Patient has hypertension on amlodipine 2.5 mg p.o. -Consider resuming home medication if needed -Pending med rec #Osteoporosis On home medication alendronate 70 mg p.o. - Pending med rec Hospital management: Lines: peripheral IV DVT prophylaxis: Heparin SC Disposition: Acute respiratory failure secondary to COPD exacerbation evaluation and management CODE STATUS: DNR/DNI Patient seen and assessed under supervision of attending physician Dr.Alhalaibeh Yue Domínguez MD PGY-1, Internal Medicine Please note: this document was transcribed using voice recognition technology; minor inaccuracies may be present. Attending Provider Attestation/Addendum After examination of the patient and review of the clinical data I feel that this patient needs admission to the hospital for further treatment/evaluation. Plan of care discussed with patient and is in agreement. I Marquis Mccurdy MD, attest that I was physically present for [place] portions of evaluation, and examined patient, labs and imagings and plan of care were discussed with IM residents team, and I agree with the findings and plans documented above.
[2025-06-01 05:03] LABS: Basophils # (Auto) 0.1 Thou/mm3 (0.0-0.2); Basophils % (Auto) 1 % (0-2.5); Eosinophils # (Auto) 0.2 Thou/mm3 (0.0-0.5); Eosinophils % (Auto) 2 % (0-10); Hematocrit 42.5 % (36.0-46.0); Hemoglobin 14.0 g/dL (12.0-16.0); Immature Granulocytes Auto 0.04 Thou/mm3 (0.00-0.00); Lymphocytes # (Auto) 0.3 Thou/mm3 (1.0-4.8); Lymphocytes % (Auto) 3 % (10-50); Mean Corpuscular HGB Conc 32.9 g/dl (31.0-37.0); Mean Corpuscular Hemoglobin 29.0 pg (25.0-35.0); Mean Corpuscular Volume 88 fL (80-100); Monocytes # (Auto) 0.1 Thou/mm3 (0.0-0.8); Monocytes % (Auto) 1 % (0-12); Neutrophils # (Auto) 11.0 Thou/mm3 (1.8-7.7); Neutrophils % (Auto) 93 % (37-80); Nucleated Red Blood Cell # 0.00 Thou/mm3 (0.00-0.00); Nucleated Red Blood Cell % 0 /100 WBC (0); Platelet Count 316 Thou/mm3 (140-440); RDW Standard Deviation 43.9 fL (36.4-46.3); Red Blood Count 4.82 Miln/mm3 (4.00-5.20); White Blood Count 11.8 Thou/mm3 (3.6-11.0)
[2025-06-01 05:08] LABS: Allen Test Performed/OK; Base Excess 3 (-3-3); HCO3 30 mEq/L (20-26); Inspired Oxygen, FIO2 21 %; O2 Saturation 95 % (91-98); PCO2 51 mmHg (32.0-48.0); PO2 70 mmHg (83-108); Puncture Site Right Radial; pH, Arterial 7.37 (7.35-7.45)
[2025-06-01] MEDS: cefTRIAXone/D5w 1gm IV premix 1 GM/50 ML BAG IV (05:08)
[2025-06-01] MEDS: SODIUM CHLORIDE RT 10% 15 ML NEBU 5 ML INH (05:09)
[2025-06-01] MEDS: AZITHROMYCIN INJ 500 MG in SODIUM CHLORIDE 0.9% 250 ML 250 ML 250 MG IV (05:09)
[2025-06-01 05:18] LABS: Anion Gap 10 (7-16); BUN/Creatinine Ratio 10 Ratio (12-20); Blood Urea Nitrogen 6 mg/dL (9-23); Calcium 9.2 mg/dL (8.3-10.6); Carbon Dioxide 31.1 mMol/L (20.0-31.0); Chloride 97 mMol/L (98-107); Creatinine (Component) 0.6 mg/dL (0.6-1.3); Estimated Creatinine Clearance 63.6 mL/min (>60); Glucose 138 mg/dL (74-106); Magnesium 2.4 mg/dL (1.6-2.6); Osmolality,Calculated 275 (275-295); Potassium 3.1 mMol/L (3.4-5.1); Sodium 138 mMol/L (136-145); eGFR > 60 See Note
--- NOTE | 2025-06-01 05:32 | PC.RT ---
Sputum induction tried but pt could not produce a specimen even after sputum induction.
[2025-06-01] MEDS: ALBUTEROL/IPRATROPIUM (Duoneb) RT SOL 3 ML NEBU INH ×5 (05:59→21:56)
--- NOTE | 2025-06-01 07:36 | PC.LAC ---
patient is resting in bed currentlly on bipap,
--- NOTE | 2025-06-01 09:55 | PD.RESPRO ---
Documentation for date of: 06/01/25 Subjective Subjective Interval history: Overnight events: Patient admitted overnight. Patient was seen and examined at bedside. AM vitals and labs reviewed. Patient does not appear to be in any acute distress at this time. Breathing comfortably on 3 L nasal cannula saturating at 95% oxygen. Heart rate noted to be elevated at 125, which increases to low 140s when coughing. WBC 11.8, potassium 3.1 Repeat ABG pH 7.37, pCO2 51 Chest x-ray negative for pneumonia. Resumed home metoprolol 25 mg and amlodipine 2.5 mg Continue azithromycin, however discontinued Rocephin given low suspicion for pneumonia at this time. Continue methylprednisolone 4 mg daily and DuoNebs 3 mL every 6 hours with additional DuoNeb 3 mL every 2 hours as needed. Review of systems otherwise negative except for what is mentioned above. Exam Vital Signs Temp Pulse Resp BP Pulse Ox O2 Del Method O2 Flow Rate 97.9 F 131 H 18 125/82 96 Room Air 3 06/01/25 09:37 06/01/25 09:37 06/01/25 09:37 06/01/25 09:37 06/01/25 09:37 06/01/25 09:37 06/01/25 08:55 FiO2 30 06/01/25 05:59 Narrative Exam Physical Exam: General: Alert, no acute distress. Skin: Warm, dry, intact. Head: Normocephalic, atraumatic. Eye: Normal conjunctiva, PERRL. Throat: Oral mucosa dry. No obvious lesions in oropharynx. Cardiovascular: Regular rate and rhythm, no murmur, +S1/S2. Respiratory: Respirations slightly labored on 3L NC, no crackles, diffuse wheezing throughout all lung nayak. Gastrointestinal: Soft, nontender, non-distended. No guarding or rebound tenderness. Extremities: No edema, no cyanosis, no clubbing. Neuro: No focal deficits observed. Conversant, moving all extremities. No overt cerebellar signs/incoordination. Psychiatric: Cooperative, appropriate affect. Objective Labs 06/01/25 04:58 06/01/25 04:58 Labs: Laboratory Results - last 24 hr 06/01/25 06/01/25 06/01/25 00:45 01:26 01:54 WBC 12.3 H RBC 5.34 H Hgb 15.7 Hct 46.6 H MCV 87 MCH 29.4 MCHC 33.7 RDW Std Deviation 44.0 Plt Count 331 Neut % (Auto) 65 Lymph % (Auto) 13 [place] % (Auto) 8 Eos % (Auto) 13 H Baso % (Auto) 2 Neut # (Auto) 7.9 H Lymph # (Auto) 1.6 [place] # (Auto) 1.0 H Eos # (Auto) 1.6 H Baso # (Auto) 0.2 Immature Gran # (Auto) 0.03 H Absolute Nucleated RBC 0.00 Immature Gran % 0 Nucleated RBC % 0 Puncture Site Right Radial ABG pH 7.32 L ABG pCO2 57 H ABG pO2 182 H ABG HCO3 29 H ABG O2 Saturation 100 H ABG Base Excess 2 FiO2 21 Sodium 139 Potassium 3.4 D Chloride 97 L Carbon Dioxide 31.7 H Anion Gap 10 BUN 7 L Creatinine 0.6 Estim Creat Clear Calc 63.6 eGFR > 60 BUN/Creatinine Ratio 12 Glucose 119 H Calculated Osmolality 276 Calcium 9.4 Corrected Calcium 9.4 Magnesium 2.9 H Total Bilirubin 0.7 AST 22 ALT 11 Alkaline Phosphatase 56 Troponin I < 0.020 B-Natriuretic Peptide 21 Total Protein 6.2 Albumin 4.2 Globulin 2.0 L Albumin/Globulin Ratio 2.1 06/01/25 06/01/25 04:58 05:03 WBC 11.8 H RBC 4.82 Hgb 14.0 Hct 42.5 MCV 88 MCH 29.0 MCHC 32.9 RDW Std Deviation 43.9 Plt Count 316 Neut % (Auto) 93 H Lymph % (Auto) 3 L [place] % (Auto) 1 Eos % (Auto) 2 Baso % (Auto) 1 Neut # (Auto) 11.0 H Lymph # (Auto) 0.3 L [place] # (Auto) 0.1 Eos # (Auto) 0.2 Baso # (Auto) 0.1 Immature Gran # (Auto) 0.04 H Absolute Nucleated RBC 0.00 Immature Gran % 0 Nucleated RBC % 0 Puncture Site Right Radial ABG pH 7.37 ABG pCO2 51 H ABG pO2 70 L D ABG HCO3 30 H ABG O2 Saturation 95 ABG Base Excess 3 FiO2 21 Sodium 138 Potassium 3.1 L Chloride 97 L Carbon Dioxide 31.1 H Anion Gap 10 BUN 6 L Creatinine 0.6 Estim Creat Clear Calc 63.6 eGFR > 60 BUN/Creatinine Ratio 10 L Glucose 138 H Calculated Osmolality 275 Calcium 9.2 Corrected Calcium Magnesium 2.4 Total Bilirubin AST ALT Alkaline Phosphatase Troponin I B-Natriuretic Peptide Total Protein Albumin Globulin Albumin/Globulin Ratio ABG Interpretation ABG results: 06/01/25 06/01/25 01:54 05:03 ABG pH 7.32 L 7.37 ABG pCO2 57 H 51 H ABG pO2 182 H 70 L D ABG HCO3 29 H 30 H ABG O2 Saturation 100 H 95 ABG Base Excess 2 3 Quality Measures Quality Measures VTE prophylaxis and none Advance care planning discussed with:: patient Assessment & Plan Assessment Current Active Medications: Generic Name Dose Route Start Last Admin Trade Name Freq PRN Reason Stop Dose Admin Albuterol/Ipratropium 3 ml 06/01/25 04:52 Albuterol/Ipratropium (Duoneb) Rt Violet 3 Ml Nebu INH 07/01/25 04:51 Q2HR PRN SHORTNESS OF BREATH OR WHEEZE Albuterol/Ipratropium 3 ml 06/01/25 07:00 06/01/25 05:59 Albuterol/Ipratropium (Duoneb) Rt Violet 3 Ml Nebu INH 07/01/25 06:59 3 ml Q6HRRT SONYA Administration Heparin Sodium (Porcine) 5,000 unit 06/01/25 09:00 Heparin Sod Inj 5000 Unit/Ml Vial SC 06/15/25 08:59 BID SONYA Ceftriaxone Sodium/Dextrose 1 gm in 50 mls @ 100 mls/hr 06/02/25 09:00 Rocephin/D5w 1gm Iv Premix IV 06/08/25 08:59 QDAY SONYA Azithromycin 500 mg/ Sodium 250 mls @ 250 mls/hr 06/02/25 09:00 Chloride IV 06/08/25 08:59 QDAY SONYA Methylprednisolone Sodium Succinate 40 mg 06/01/25 09:00 Methylprednisolone Sod Succ 40 Mg/Ml Vial IVP 06/08/25 08:59 QDAY SONYA Plan This patient is a 79-year-old female with past medical history of hypertension, breast cancer status post bilateral mastectomy, asthma, osteoporosis, and HFpEF (EF 65% 10/03/2024) who presented to [facility] ED on 06/01 due to shortness of breath, dyspnea, and cough for the past 2 days prior to admission. Patient was admitted for management of acute fracture respiratory failure. #Acute hypoxic respiratory failure 2/2 #Asthma vs COPD #Respiratory acidosis, resolving #Metabolic alkalosis, compensatory Patient has a long history of repeat admissions for acute hypoxic respiratory failure, likely secondary to asthma given wheezing found on exam and lack of smoking history, but COPD still possible. Initial ABG in ED showed pH of 7.32 with elevated pCO2 of 57. Repeat ABG several hours later showed pH of 7.37 and pCO2 of 51. Patient was noted to have very slightly elevated bicarb levels, which is likely compensatory. Patient initially was put on BiPAP for management of her AHRF with respiratory acidosis, however appears to be tolerating nasal cannula afterwards. Patient is noted to use about 2L nasal cannula at home but only when she is sleeping, she does not use oxygen at home regularly for daily activities. Plan: Continue methylprednisolone 40 mg daily, complete 5 day course on 06/05 Continue DuoNebs 3 mL every 6 hours with additional 3 mL every 2 hours as needed Fluticasone-salmeterol 100/50 2 puff twice daily #HFpEF, EF 65% 10/03/2024 Patient does have a history of HFpEF with her most recent echocardiogram, 10/03/2024 showing an ejection fraction of 65%. Patient does not appear to be fluid overloaded at this time, so HFpEF is seemingly under control. Plan: Cardiac diet Keep potassium over 4 and magnesium over 2 #Primary hypertension Patient noted to have a history of hypertension. Takes amlodipine and metoprolol at home. Patient is also noted to have tachycardia that seems to increase with coughing. Plan: Resume home metoprolol succinate 25 mg daily Resume home amlodipine 2.5 mg daily Potentially replace metoprolol with losartan as metoprolol may be exacerbating respiratory distress symptoms #Leukocytosis On admission, the patient was noted to have WBC of 12.3, which is likely secondary to her methylprednisolone use at home and the loading dose of 125 mg given in the ED. Plan: Continue to monitor #Osteoporosis Patient is noted to have a history of osteoporosis. Patient was on alendronate in the past, but has since stopped taking it as it was put on hold. Plan: Continue to hold alendronate Patient to follow-up with outpatient DVT Prophylaxis: Heparin GI Prophylaxis: N/A Bowel: N/A Diet: Cardiac Camacho: N/A Lines: Peripheral IV Antibiotics: Azithromycin Code Status: FULL Reason for Hospitalization: AHRF Other Barriers to Discharge: O2 requirement Patient plan of care was discussed with attending physician Dr. Portia Calderón, PGY1 Attending Provider Attestation/Addendum I have discussed and was present for the essential components of the history, physical examination, diagnosis, and treatment plan with the resident. I agree with the patient's care as documented by the resident and amended herein by me. Maurilio Pearce, DO. Although this document has been carefully reviewed, there may still be some phonetic and other typographical errors. These errors are purely grammatical due to imperfections in the software program and should not be construed in any way to compromise the substance of the patient's medical care during this visit.
[2025-06-01] MEDS: HEPARIN SOD INJ 5000 UNIT/ML VIAL SC ×2 (10:09→23:14)
--- NOTE | 2025-06-01 10:26 | PC.NURSE ---
pt's HR has been running in the 120's-130's. Pt takes metoprolol at home. Completed med Rec and called Dr. Calderón to make aware of HR.
[2025-06-01] MEDS: METOPROLOL SUCCINATE XL 25 MG TABCR PO (11:11)
--- NOTE | 2025-06-01 18:31 | PC.RT ---
unable to locate pts wrist band, she said it was on her and is unsure where it went. Will tell nurse after shift change
[2025-06-01] MEDS: FLUTICASONE/SALMETEROL 100/50 14 DOSE INH 2 PUFF INH (21:00)
[2025-06-02] VITALS (17 sets, daily range): BP systolic 109–130; BP diastolic 72–92; PULSE 97–123; RESP 13–33; TEMP 36.1–36.7; O2SAT 91–100
[2025-06-02] MEDS: ALBUTEROL/IPRATROPIUM (Duoneb) RT SOL 3 ML NEBU INH ×5 (00:25→20:54)
[2025-06-02 06:14] LABS: Basophils # (Auto) 0.0 Thou/mm3 (0.0-0.2); Basophils % (Auto) 0 % (0-2.5); Eosinophils # (Auto) 0.0 Thou/mm3 (0.0-0.5); Eosinophils % (Auto) 0 % (0-10); Hematocrit 41.6 % (36.0-46.0); Hemoglobin 13.6 g/dL (12.0-16.0); Immature Granulocytes Auto 0.07 Thou/mm3 (0.00-0.00); Lymphocytes # (Auto) 1.2 Thou/mm3 (1.0-4.8); Lymphocytes % (Auto) 8 % (10-50); Mean Corpuscular HGB Conc 32.7 g/dl (31.0-37.0); Mean Corpuscular Hemoglobin 29.1 pg (25.0-35.0); Mean Corpuscular Volume 89 fL (80-100); Monocytes # (Auto) 1.3 Thou/mm3 (0.0-0.8); Monocytes % (Auto) 9 % (0-12); Neutrophils # (Auto) 12.5 Thou/mm3 (1.8-7.7); Neutrophils % (Auto) 83 % (37-80); Nucleated Red Blood Cell # 0.00 Thou/mm3 (0.00-0.00); Nucleated Red Blood Cell % 0 /100 WBC (0); Platelet Count 337 Thou/mm3 (140-440); RDW Standard Deviation 45.7 fL (36.4-46.3); Red Blood Count 4.67 Miln/mm3 (4.00-5.20); White Blood Count 15.1 Thou/mm3 (3.6-11.0)
[2025-06-02] MEDS: FLUTICASONE/SALMETEROL 100/50 14 DOSE INH 2 PUFF INH ×2 (06:41→18:00)
[2025-06-02 06:42] LABS: Anion Gap 8 (7-16); BUN/Creatinine Ratio 22 Ratio (12-20); Blood Urea Nitrogen 11 mg/dL (9-23); Calcium 9.4 mg/dL (8.3-10.6); Carbon Dioxide 30.2 mMol/L (20.0-31.0); Chloride 100 mMol/L (98-107); Creatinine (Component) 0.5 mg/dL (0.6-1.3); Estimated Creatinine Clearance 76.4 mL/min (>60); Glucose 105 mg/dL (74-106); Magnesium 2.3 mg/dL (1.6-2.6); Osmolality,Calculated 275 (275-295); Phosphorous 2.8 mg/dL (2.4-5.1); Potassium 3.4 mMol/L (3.4-5.1); Sodium 138 mMol/L (136-145); eGFR > 60 See Note
[2025-06-02] MEDS: METOPROLOL SUCCINATE XL 25 MG TABCR PO (08:10)
[2025-06-02] MEDS: HEPARIN SOD INJ 5000 UNIT/ML VIAL SC ×2 (08:11→20:44)
--- NOTE | 2025-06-02 09:31 | PD.RESPRO ---
Documentation for date of: 06/02/25 Exam Vital Signs Temp Pulse Resp BP Pulse Ox O2 Del Method O2 Flow Rate 97.6 F 110 H 33 H 116/72 92 L Nasal Cannula 2 06/02/25 08:00 06/02/25 08:10 06/02/25 08:00 06/02/25 08:10 06/02/25 08:00 06/02/25 08:00 06/02/25 08:00 FiO2 30 06/02/25 08:00 Objective Labs 06/02/25 05:07 06/02/25 05:07 Labs: Laboratory Results - last 24 hr 06/02/25 05:07 WBC 15.1 H RBC 4.67 Hgb 13.6 Hct 41.6 MCV 89 MCH 29.1 MCHC 32.7 RDW Std Deviation 45.7 Plt Count 337 Neut % (Auto) 83 H Lymph % (Auto) 8 L [place] % (Auto) 9 Eos % (Auto) 0 Baso % (Auto) 0 Neut # (Auto) 12.5 H Lymph # (Auto) 1.2 [place] # (Auto) 1.3 H Eos # (Auto) 0.0 Baso # (Auto) 0.0 Immature Gran # (Auto) 0.07 H Absolute Nucleated RBC 0.00 Immature Gran % 1 H Nucleated RBC % 0 Sodium 138 Potassium 3.4 Chloride 100 Carbon Dioxide 30.2 Anion Gap 8 BUN 11 Creatinine 0.5 L Estim Creat Clear Calc 76.4 eGFR > 60 BUN/Creatinine Ratio 22 H Glucose 105 Calculated Osmolality 275 Calcium 9.4 Phosphorus 2.8 Magnesium 2.3 ABG Interpretation ABG results: 06/01/25 06/01/25 01:54 05:03 ABG pH 7.32 L 7.37 ABG pCO2 57 H 51 H ABG pO2 182 H 70 L D ABG HCO3 29 H 30 H ABG O2 Saturation 100 H 95 ABG Base Excess 2 3 Quality Measures Quality Measures VTE prophylaxis and none Assessment & Plan Assessment Current Active Medications: Generic Name Dose Route Start Last Admin Trade Name Freq PRN Reason Stop Dose Admin Albuterol/Ipratropium 3 ml 06/01/25 04:52 06/01/25 21:56 Albuterol/Ipratropium (Duoneb) Rt Violet 3 Ml Nebu INH 07/01/25 04:51 3 ml Q2HR PRN Administration SHORTNESS OF BREATH OR WHEEZE Albuterol/Ipratropium 3 ml 06/01/25 07:00 06/02/25 06:40 Albuterol/Ipratropium (Duoneb) Rt Violet 3 Ml Nebu INH 07/01/25 06:59 3 ml Q6HRRT SONYA Administration Amlodipine Besylate 2.5 mg 06/01/25 10:45 06/02/25 08:09 Amlodipine Besylate 2.5 Mg Tablet PO 07/01/25 10:44 2.5 mg QDAY SONYA Administration Heparin Sodium (Porcine) 5,000 unit 06/01/25 09:00 06/02/25 08:11 Heparin Sod Inj 5000 Unit/Ml Vial SC 06/15/25 08:59 5,000 unit BID SONYA Administration Azithromycin 500 mg/ Sodium 250 mls @ 250 mls/hr 06/02/25 09:00 Chloride IV 06/03/25 09:59 QDAY SONYA Methylprednisolone Sodium Succinate 40 mg 06/01/25 09:00 06/02/25 08:11 Methylprednisolone Sod Succ 40 Mg/Ml Vial IVP 06/08/25 08:59 40 mg QDAY SONYA Administration Metoprolol Succinate 25 mg 06/01/25 10:30 06/02/25 08:10 Metoprolol Succinate Xl 25 Mg Tabcr PO 07/01/25 10:29 25 mg QDAY SONYA Administration Fluticasone/Salmeterol 2 puff 06/01/25 11:45 06/02/25 06:41 Fluticasone/Salmeterol 100/50 14 Dose Inh INH 07/01/25 11:44 2 puff BID SONYA Administration
[2025-06-02] MEDS: AZITHROMYCIN INJ 500 MG in SODIUM CHLORIDE 0.9% 250 ML 250 ML 250 MG IV (10:50)
--- NOTE | 2025-06-02 11:56 | PD.RESDS ---
Planned Discharge Date 06/02/25 DS: Providers Provider Date of admission: 06/01/25 04:48 Primary care physician: Physician No Primary/Family Admitting Provider: Marquis Mccurdy MD Attending Provider on Admission: Chidi Pearce DO Attending Provider on DC: Chidi Pearce DO Discharging Provider: Boyd Calderón DO DS: Diagnosis Problem List Completed Was Problem List Reviewed/Reconciled?: Yes Hospital Course Hospital Course Hospital course: Reason for hospitalization: Summary: Imaging: Discharge Recommendations: - Follow up with PCP within 1 week of discharge - Continue rest of medications as previously prescribed - Return to the ED or call EMS if symptoms return and/or worsen If you don't have a PCP, you can make an appointment at the [facility]: [address] [place] [address] Hospital Diagnoses: - Patient plan of care was discussed with the senior resident [...] and attending physician [...] Boyd Calderón, PGY-1 Time Spent with Patient Time attestation: Total time spent providing and/or coordinating discharge services: Exam Vital Signs Temp Pulse Resp BP Pulse Ox O2 Del Method O2 Flow Rate 97.6 F 110 H 20 116/72 100 Nasal Cannula 2 06/02/25 08:00 06/02/25 10:23 06/02/25 10:23 06/02/25 08:10 06/02/25 10:23 06/02/25 08:00 06/02/25 10:23 FiO2 30 06/02/25 08:00 Discharge Plan Plan Patient Disposition: HOME (Self Care) Patient condition on transfer: Stable Care Plan Goals: Please take prednisone 40 mg tablet for 5 days for asthma exacerbation Hold alendronate 70mg every week until you are seen by your virtualization consultant Hold metoprolol succinate 25 mg tablet by mouth daily until you are seen by your historic interpreter Please follow-up with your Pigs Feet Finisher as soon as possible for better management of your asthma/COPD Please follow-up with your PCP within 1 week of discharge or follow-up at the [facility] [address] [place] [address] If your symptoms worsen or if you develop new chest pain, shortness of breath, dizziness or loss of consiousness - please come back to the ED immediately. Prescriptions/Referrals Prescriptions/Med Rec: New prednisone 20 mg tablet 50 mg PO QDAY 5 Days Qty: 13 0RF Taper: Prednisone Taper 40 mg DAILY for 5 Days and 0 Hour Continued fexofenadine [Sharon Allergy] 60 mg Tablet 60 mg PO BID clotrimazole-betamethasone 1-0.05 % cream 1 applic topical BID PRN (Reason: cracked skin ) fluticasone furoate-vilanterol [Breo Ellipta] 200-25 mcg/dose blister with device 1 inh INHALATION Q24H amlodipine 2.5 mg tablet 2.5 mg PO .day Patient Comments: TAKE 1 TABLET BY MOUTH EVERY DAY albuterol sulfate 90 mcg/actuation HFA aerosol inhaler 2 puff inhalation Q6H PRN (Reason: shortness of breath or wheezing) Qty: 6.7 2RF Held metoprolol succinate 25 mg tablet extended release 24 hr 25 mg PO HS Hold Instructions: Resume on 06/08/25. Hold until you are seen by Dr. Rojo (historic interpreter); ask why you are taking this medication. alendronate 70 mg tablet 70 mg PO QWEEK Hold Instructions: Resume on 06/15/25. Please follow-up with virtualization consultant before restarting Discontinued fluticasone propion-salmeterol [Advair HFA] 115-21 mcg/actuation HFA aerosol inhaler 2 puff inhalation BID Qty: 12 0RF Rx Instructions: administer with spacer Referrals: No Primary/Family,Physician [Primary Care Provider] Patient/Caregiver Discharge Instructions Discharge Activity: activity as tolerated Education Materials: Asthma Action Plan, Asthma Trigger Checklist Print Language: Divehi Stand Alone Forms: Shelia Award Info., Patient Portal Info Letter
--- NOTE | 2025-06-02 13:58 | PC.NURSE ---
While ambulating patient down approximately 100ft, patient oxygen saturation remained above 92%, while patient HR increased to 125.
--- NOTE | 2025-06-02 14:06 | ESPR_ITS ---
Documentation for date of: 06/02/25 Subjective Subjective Interval history: Overnight events: No acute events overnight. Patient was seen and examined at bedside. AM vitals and labs reviewed. Patient appears to be doing well at this time. No longer coughing as much. Breathing comfortably on 2 L O2 nasal cannula. Potassium 3.4, WBC 15.1. Was considering discharging the patient as she tolerated walking without O2 desaturations below 92%, however patient continues to have persistent tachycardia that will increase to the 120s when speaking and walking, and to the 140s when having an episode of coughing. Discussed with Dr. Rojo, the patient's renewable energy technician, about concerns of metoprolol possibly exacerbating asthma, who noted that the patient was put on metoprolol given PVCs, and can be taken off of metoprolol until he evaluates her. Will hold metoprolol for now. Will also hold amlodipine. Will consider possibly diltiazem if heart rate continues to be elevated. Continue methylprednisolone 40 mg daily to complete 5 day course on 06/05. Continue Azithromycin 500 mg daily to complete 3 day course on 06/03. Review of systems otherwise negative except for what is mentioned above. Exam Vital Signs Temp Pulse Resp BP Pulse Ox O2 Del Method O2 Flow Rate 97.0 F 111 H 22 H 115/78 95 Nasal Cannula 2 06/02/25 12:00 06/02/25 13:11 06/02/25 13:11 06/02/25 12:00 06/02/25 13:11 06/02/25 12:00 06/02/25 13:11 FiO2 30 06/02/25 08:00 Narrative Exam Physical Exam: General: Alert, no acute distress. Skin: Warm, dry, intact. Head: Normocephalic, atraumatic. Eye: Normal conjunctiva, PERRL. Throat: Oral mucosa dry. No obvious lesions in oropharynx. Cardiovascular: Tachycardic rate and rhythm, no murmur, +S1/S2. Respiratory: Respirations slightly labored on 3L [place], no crackles, light wheezing throughout all lung nayak. Gastrointestinal: Soft, nontender, non-distended. No guarding or rebound tenderness. Extremities: No edema, no cyanosis, no clubbing. Neuro: No focal deficits observed. Conversant, moving all extremities. No overt cerebellar signs/incoordination. Psychiatric: Cooperative, appropriate affect. Objective Labs 06/03/25 05:00 06/03/25 05:00 Labs: Laboratory Results - last 24 hr 06/02/25 05:07 WBC 15.1 H RBC 4.67 Hgb 13.6 Hct 41.6 MCV 89 MCH 29.1 MCHC 32.7 RDW Std Deviation 45.7 Plt Count 337 Neut % (Auto) 83 H Lymph % (Auto) 8 L [place] % (Auto) 9 Eos % (Auto) 0 Baso % (Auto) 0 Neut # (Auto) 12.5 H Lymph # (Auto) 1.2 [place] # (Auto) 1.3 H Eos # (Auto) 0.0 Baso # (Auto) 0.0 Immature Gran # (Auto) 0.07 H Absolute Nucleated RBC 0.00 Immature Gran % 1 H Nucleated RBC % 0 Sodium 138 Potassium 3.4 Chloride 100 Carbon Dioxide 30.2 Anion Gap 8 BUN 11 Creatinine 0.5 L Estim Creat Clear Calc 76.4 eGFR > 60 BUN/Creatinine Ratio 22 H Glucose 105 Calculated Osmolality 275 Calcium 9.4 Phosphorus 2.8 Magnesium 2.3 ABG Interpretation ABG results: 06/01/25 06/01/25 01:54 05:03 ABG pH 7.32 L 7.37 ABG pCO2 57 H 51 H ABG pO2 182 H 70 L D ABG HCO3 29 H 30 H ABG O2 Saturation 100 H 95 ABG Base Excess 2 3 Quality Measures Quality Measures VTE prophylaxis Advance care planning discussed with:: patient Assessment & Plan Assessment Current Active Medications: Generic Name Dose Route Start Last Admin Trade Name Freq PRN Reason Stop Dose Admin Albuterol/Ipratropium 3 ml 06/01/25 04:52 06/01/25 21:56 Albuterol/Ipratropium (Duoneb) Rt Violet 3 Ml Nebu INH 07/01/25 04:51 3 ml Q2HR PRN Administration SHORTNESS OF BREATH OR WHEEZE Albuterol/Ipratropium 3 ml 06/01/25 07:00 06/02/25 13:10 Albuterol/Ipratropium (Duoneb) Rt Violet 3 Ml Nebu INH 07/01/25 06:59 3 ml Q6HRRT SONYA Administration Amlodipine Besylate 2.5 mg 06/01/25 10:45 06/02/25 08:09 Amlodipine Besylate 2.5 Mg Tablet PO 07/01/25 10:44 2.5 mg QDAY SONYA Administration Heparin Sodium (Porcine) 5,000 unit 06/01/25 09:00 06/02/25 08:11 Heparin Sod Inj 5000 Unit/Ml Vial SC 06/15/25 08:59 5,000 unit BID SONYA Administration Azithromycin 500 mg/ Sodium 250 mls @ 250 mls/hr 06/02/25 09:00 06/02/25 10:50 Chloride IV 06/03/25 09:59 250 mls/hr QDAY SONYA Administration Methylprednisolone Sodium Succinate 40 mg 06/01/25 09:00 06/02/25 08:11 Methylprednisolone Sod Succ 40 Mg/Ml Vial IVP 06/08/25 08:59 40 mg QDAY SONYA Administration Fluticasone/Salmeterol 2 puff 06/01/25 11:45 06/02/25 06:41 Fluticasone/Salmeterol 100/50 14 Dose Inh INH 07/01/25 11:44 2 puff BID SONYA Administration Plan This patient is a 79-year-old female with past medical history of hypertension, breast cancer status post bilateral mastectomy, asthma, osteoporosis, and HFpEF (EF 65% 10/03/2024) who presented to [facility] ED on 06/01 due to shortness of breath, dyspnea, and cough for the past 2 days prior to admission. Patient was admitted for management of acute fracture respiratory failure. #Sinus tachycardia Patient noted to have persistent sinus tachycardia even on home dose of metoprolol 25 mg. Tachycardia worsens when patient is speaking and when patient is active. Worsens even further when patient is having an episode of coughing. Likely contributed to by her acute asthma exacerbation. Plan: Will continue to monitor Will hold home amlodipine and metoprolol, will consider starting diltiazem on 06/03 depending on tachycardia status #Acute hypoxic respiratory failure 2/2 # Acute asthma exacerbation #Respiratory acidosis, resolving #Metabolic alkalosis, compensatory Patient has a long history of repeat admissions for acute hypoxic respiratory failure, likely secondary to asthma given wheezing found on exam and lack of smoking history, but COPD still possible. Initial ABG in ED showed pH of 7.32 with elevated pCO2 of 57. Repeat ABG several hours later showed pH of 7.37 and pCO2 of 51. Patient was noted to have very slightly elevated bicarb levels, which is likely compensatory. Patient initially was put on BiPAP for management of her AHRF with respiratory acidosis, however appears to be tolerating nasal cannula afterwards. Patient is noted to use about 2L nasal cannula at home but only when she is sleeping, she does not use oxygen at home regularly for daily activities. Plan: Continue methylprednisolone 40 mg daily, complete 5 day course on 06/05 Continue DuoNebs 3 mL every 6 hours with additional 3 mL every 2 hours as needed Fluticasone-salmeterol 100/50 2 puff twice daily #HFpEF, EF 65% 10/03/2024 Patient does have a history of HFpEF with her most recent echocardiogram, 10/03/2024 showing an ejection fraction of 65%. Patient does not appear to be fluid overloaded at this time, so HFpEF is seemingly under control. Plan: Cardiac diet Keep potassium over 4 and magnesium over 2 #Primary hypertension Patient noted to have a history of hypertension. Takes amlodipine and metoprolol at home. Patient is also noted to have tachycardia that seems to increase with coughing. Plan: Resumed home metoprolol succinate 25 mg daily, held 06/02 Resumed home amlodipine 2.5 mg daily, held 06/02 Discussed with patient's renewable energy technician, Dr. Rojo, who agrees with holding home metoprolol until evaluation outpatient #Leukocytosis On admission, the patient was noted to have WBC of 12.3, which is likely secondary to her methylprednisolone use at home and the loading dose of 125 mg given in the ED. Plan: Continue to monitor #Osteoporosis Patient is noted to have a history of osteoporosis. Patient was on alendronate in the past, but has since stopped taking it as it was put on hold. Plan: Continue to hold alendronate Patient to follow-up with outpatient DVT Prophylaxis: Heparin GI Prophylaxis: N/A Bowel: N/A Diet: Cardiac Camacho: N/A Lines: Peripheral IV Antibiotics: Azithromycin Code Status: FULL Reason for Hospitalization: AHRF Other Barriers to Discharge: Sinus tachycardia Patient plan of care was discussed with attending physician Dr. Portia Calderón, PGY1 Attending Provider Attestation/Addendum I have discussed and was present for the essential components of the history, physical examination, diagnosis, and treatment plan with the resident. I agree with the patient's care as documented by the resident and amended herein by me. Maurilio Pearce DO. Although this document has been carefully reviewed, there may still be some phonetic and other typographical errors. These errors are purely grammatical due to imperfections in the software program and should not be construed in any way to compromise the substance of the patient's medical care during this visit.
[2025-06-03] VITALS (17 sets, daily range): BP systolic 114–138; BP diastolic 82–91; PULSE 89–124; RESP 12–46; TEMP 36.1–36.6; O2SAT 92–100
[2025-06-03] MEDS: ALBUTEROL/IPRATROPIUM (Duoneb) RT SOL 3 ML NEBU INH ×8 (01:04→23:47)
[2025-06-03 05:34] LABS: Basophils # (Auto) 0.1 Thou/mm3 (0.0-0.2); Basophils % (Auto) 0 % (0-2.5); Eosinophils # (Auto) 0.1 Thou/mm3 (0.0-0.5); Eosinophils % (Auto) 1 % (0-10); Hematocrit 42.0 % (36.0-46.0); Hemoglobin 13.8 g/dL (12.0-16.0); Immature Granulocytes Auto 0.05 Thou/mm3 (0.00-0.00); Lymphocytes # (Auto) 1.7 Thou/mm3 (1.0-4.8); Lymphocytes % (Auto) 13 % (10-50); Mean Corpuscular HGB Conc 32.9 g/dl (31.0-37.0); Mean Corpuscular Hemoglobin 29.9 pg (25.0-35.0); Mean Corpuscular Volume 91 fL (80-100); Monocytes # (Auto) 1.2 Thou/mm3 (0.0-0.8); Monocytes % (Auto) 8 % (0-12); Neutrophils # (Auto) 10.9 Thou/mm3 (1.8-7.7); Neutrophils % (Auto) 78 % (37-80); Nucleated Red Blood Cell # 0.00 Thou/mm3 (0.00-0.00); Nucleated Red Blood Cell % 0 /100 WBC (0); Platelet Count 340 Thou/mm3 (140-440); RDW Standard Deviation 48.6 fL (36.4-46.3); Red Blood Count 4.61 Miln/mm3 (4.00-5.20); White Blood Count 14.0 Thou/mm3 (3.6-11.0)
[2025-06-03 05:58] LABS: Anion Gap 5 (7-16); BUN/Creatinine Ratio 18 Ratio (12-20); Blood Urea Nitrogen 9 mg/dL (9-23); Calcium 9.8 mg/dL (8.3-10.6); Carbon Dioxide 32.1 mMol/L (20.0-31.0); Chloride 103 mMol/L (98-107); Creatinine (Component) 0.5 mg/dL (0.6-1.3); Estimated Creatinine Clearance 76.4 mL/min (>60); Glucose 87 mg/dL (74-106); Magnesium 2.3 mg/dL (1.6-2.6); Osmolality,Calculated 277 (275-295); Phosphorous 3.0 mg/dL (2.4-5.1); Potassium 4.2 mMol/L (3.4-5.1); Sodium 140 mMol/L (136-145); eGFR > 60 See Note
[2025-06-03] MEDS: FLUTICASONE/SALMETEROL 100/50 14 DOSE INH 2 PUFF INH ×2 (07:04→18:28)
[2025-06-03] MEDS: AZITHROMYCIN INJ 500 MG in SODIUM CHLORIDE 0.9% 250 ML 250 ML 250 MG IV (09:35)
[2025-06-03] MEDS: HEPARIN SOD INJ 5000 UNIT/ML VIAL SC ×2 (09:36→21:17)
--- NOTE | 2025-06-03 11:52 | XR_ITS ---
Examination: AP chest single view Technique one AP portable semiupright chest single view Date and time: May 26, 2025, 11:59 AM, comparison 06/01/2025 Indications: Shortness of breath today. Findings: Moderate enlargement left ventricle Moderate vascular congestion No melissa pulmonary edema No lobar pneumonia Prominent osteopenia Impression: Moderate enlargement left ventricle Moderate vascular congestion
--- NOTE | 2025-06-03 11:57 | PD.RESPRO ---
Documentation for date of: 06/03/25 Subjective Subjective Interval history: Overnight events: No acute events overnight. Patient was seen and examined at bedside. AM vitals and labs reviewed. Patient continues to improve, however does still have increased work of breathing. Patient does not cough is much and feels that it is easier to breathe now. Patient continues to be tachycardic and tachypneic. Saturating well on room air. Diffuse wheezing still present. WBC 14.0 Patient finishes last dose of azithromycin today. Resumed home amlodipine as patient's heart rate does seem to be decreased as compared to yesterday. Given patient's continued respiratory status, chest x-ray and procalcitonin was ordered. Procalcitonin was within normal limits while chest x-ray does show some moderate vascular congestion. Will attempt to gently diurese with 20 mg of Lasix IV. Will reassess respiratory status tomorrow. Review of systems otherwise negative except for what is mentioned above. Exam Vital Signs Temp Pulse Resp BP Pulse Ox O2 Del Method O2 Flow Rate 97.1 F 100 30 H 131/82 H 99 Nasal Cannula 1 06/03/25 08:00 06/03/25 11:29 06/03/25 11:29 06/03/25 08:00 06/03/25 11:29 06/03/25 08:00 06/03/25 11:29 FiO2 30 06/02/25 15:49 Narrative Exam Physical Exam: General: Alert, no acute distress. Skin: Warm, dry, intact. Head: Normocephalic, atraumatic. Eye: Normal conjunctiva, PERRL. Throat: Oral mucosa dry. No obvious lesions in oropharynx. Cardiovascular: Tachycardic rate and rhythm, no murmur, +S1/S2. Respiratory: Respirations slightly labored on 3L NC, no crackles, diffuse wheezing throughout all lung nayak. Gastrointestinal: Soft, nontender, non-distended. No guarding or rebound tenderness. Extremities: No edema, no cyanosis, no clubbing. Neuro: No focal deficits observed. Conversant, moving all extremities. No overt cerebellar signs/incoordination. Psychiatric: Cooperative, appropriate affect. Objective Labs 06/03/25 05:00 06/03/25 05:00 Labs: Laboratory Results - last 24 hr 06/03/25 05:00 WBC 14.0 H RBC 4.61 Hgb 13.8 Hct 42.0 MCV 91 MCH 29.9 MCHC 32.9 RDW Std Deviation 48.6 H Plt Count 340 Neut % (Auto) 78 Lymph % (Auto) 13 [place] % (Auto) 8 Eos % (Auto) 1 Baso % (Auto) 0 Neut # (Auto) 10.9 H Lymph # (Auto) 1.7 [place] # (Auto) 1.2 H Eos # (Auto) 0.1 Baso # (Auto) 0.1 Immature Gran # (Auto) 0.05 H Absolute Nucleated RBC 0.00 Immature Gran % 0 Nucleated RBC % 0 Sodium 140 Potassium 4.2 D Chloride 103 Carbon Dioxide 32.1 H Anion Gap 5 L BUN 9 Creatinine 0.5 L Estim Creat Clear Calc 76.4 eGFR > 60 BUN/Creatinine Ratio 18 Glucose 87 Calculated Osmolality 277 Calcium 9.8 Phosphorus 3.0 Magnesium 2.3 ABG Interpretation ABG results: 06/01/25 06/01/25 01:54 05:03 ABG pH 7.32 L 7.37 ABG pCO2 57 H 51 H ABG pO2 182 H 70 L D ABG HCO3 29 H 30 H ABG O2 Saturation 100 H 95 ABG Base Excess 2 3 Quality Measures Quality Measures VTE prophylaxis Advance care planning discussed with:: patient and child Assessment & Plan Assessment Current Active Medications: Generic Name Dose Route Start Last Admin Trade Name Freq PRN Reason Stop Dose Admin Albuterol/Ipratropium 3 ml 06/01/25 04:52 06/03/25 11:26 Albuterol/Ipratropium (Duoneb) Rt Violet 3 Ml Nebu INH 07/01/25 04:51 3 ml Q2HR PRN Administration SHORTNESS OF BREATH OR WHEEZE Albuterol/Ipratropium 3 ml 06/01/25 07:00 06/03/25 07:04 Albuterol/Ipratropium (Duoneb) Rt Violet 3 Ml Nebu INH 07/01/25 06:59 3 ml Q6HRRT SONYA Administration Amlodipine Besylate 2.5 mg 06/01/25 10:45 06/02/25 08:09 Amlodipine Besylate 2.5 Mg Tablet PO 07/01/25 10:44 2.5 mg QDAY SONYA Administration Heparin Sodium (Porcine) 5,000 unit 06/01/25 09:00 06/03/25 09:36 Heparin Sod Inj 5000 Unit/Ml Vial SC 06/15/25 08:59 5,000 unit BID SONYA Administration Methylprednisolone Sodium Succinate 40 mg 06/01/25 09:00 06/03/25 09:34 Methylprednisolone Sod Succ 40 Mg/Ml Vial IVP 06/05/25 09:01 40 mg QDAY SONYA Administration Fluticasone/Salmeterol 2 puff 06/01/25 11:45 06/03/25 07:04 Fluticasone/Salmeterol 100/50 14 Dose Inh INH 07/01/25 11:44 2 puff BID SONYA Administration Plan This patient is a 79-year-old female with past medical history of hypertension, breast cancer status post bilateral mastectomy, asthma, osteoporosis, and HFpEF (EF 65% 10/03/2024) who presented to [facility] ED on 06/01 due to shortness of breath, dyspnea, and cough for the past 2 days prior to admission. Patient was admitted for management of acute fracture respiratory failure. #Acute hypoxic respiratory failure 2/2 # Acute asthma exacerbation #Respiratory acidosis, resolving #Metabolic alkalosis, compensatory Patient has a long history of repeat admissions for acute hypoxic respiratory failure, likely secondary to asthma given wheezing found on exam and lack of smoking history, but COPD still possible. Initial ABG in ED showed pH of 7.32 with elevated pCO2 of 57. Repeat ABG several hours later showed pH of 7.37 and pCO2 of 51. Patient was noted to have very slightly elevated bicarb levels, which is likely compensatory. Patient initially was put on BiPAP for management of her AHRF with respiratory acidosis, however appears to be tolerating nasal cannula afterwards. Patient is noted to use about 2L nasal cannula at home but only when she is sleeping, she does not use oxygen at home regularly for daily activities. Plan: Continue methylprednisolone 40 mg daily, complete 5 day course on 06/05 Continue DuoNebs 3 mL every 6 hours with additional 3 mL every 2 hours as needed Fluticasone-salmeterol 100/50 2 puff twice daily Repeat chest x-ray ordered on 06/03, shows moderate vascular congestion, gave one-time dose of Lasix 20 mg IV for diuresis on 06/03 #HFpEF, EF 65% 10/03/2024 Patient does have a history of HFpEF with her most recent echocardiogram, 10/03/2024 showing an ejection fraction of 65%. Patient does not appear to be fluid overloaded at this time, so HFpEF is seemingly under control. Plan: Cardiac diet Keep potassium over 4 and magnesium over 2 #Sinus tachycardia Patient noted to have persistent sinus tachycardia even on home dose of metoprolol 25 mg. Tachycardia worsens when patient is speaking and when patient is active. Worsens even further when patient is having an episode of coughing. Likely contributed to by her acute asthma exacerbation. Plan: Will continue to monitor Holding home metoprolol given possible contributor in worsening asthma Patient to follow up with outpatient cardiology #Primary hypertension Patient noted to have a history of hypertension. Takes amlodipine and metoprolol at home. Patient is also noted to have tachycardia that seems to increase with coughing. Plan: Resumed home metoprolol succinate 25 mg daily, held 06/02 Resumed home amlodipine 2.5 mg daily Discussed with patient's zigzag tunnel elastic operator, Dr. Rojo, who agrees with holding home metoprolol until evaluation outpatient #Leukocytosis On admission, the patient was noted to have WBC of 12.3, which is likely secondary to her methylprednisolone use at home and the loading dose of 125 mg given in the ED. Plan: Continue to monitor #Osteoporosis Patient is noted to have a history of osteoporosis. Patient was on alendronate in the past, but has since stopped taking it as it was put on hold. Plan: Continue to hold alendronate Patient to follow-up with outpatient DVT Prophylaxis: Heparin GI Prophylaxis: N/A Bowel: N/A Diet: Cardiac Camacho: N/A Lines: Peripheral IV Antibiotics: Azithromycin Code Status: FULL Reason for Hospitalization: AHRF Other Barriers to Discharge: Sinus tachycardia Patient plan of care was discussed with attending physician Dr. Portia Calderón, PGY1
[2025-06-03 12:16] LABS: Procalcitonin 0.11 ng/ml (0.0-0.49)
[2025-06-03] MEDS: FUROSEMIDE INJ 10 MG/ML 4ML VIAL 20 MG IVP (15:00)
[2025-06-04] VITALS (11 sets, daily range): BP systolic 108–144; BP diastolic 72–94; PULSE 90–127; RESP 16–30; TEMP 36–36.2; O2SAT 93–98
[2025-06-04] MEDS: Magnesium Sulfate 2 GM Ivpb 2 GM/50 ML BAG IV (00:03)
[2025-06-04] MEDS: ALBUTEROL/IPRATROPIUM (Duoneb) RT SOL 3 ML NEBU INH ×4 (01:17→12:53)
[2025-06-04 05:48] LABS: Basophils # (Auto) 0.1 Thou/mm3 (0.0-0.2); Basophils % (Auto) 1 % (0-2.5); Eosinophils # (Auto) 0.1 Thou/mm3 (0.0-0.5); Eosinophils % (Auto) 1 % (0-10); Hematocrit 41.6 % (36.0-46.0); Hemoglobin 13.4 g/dL (12.0-16.0); Immature Granulocytes Auto 0.03 Thou/mm3 (0.00-0.00); Lymphocytes # (Auto) 1.9 Thou/mm3 (1.0-4.8); Lymphocytes % (Auto) 18 % (10-50); Mean Corpuscular HGB Conc 32.2 g/dl (31.0-37.0); Mean Corpuscular Hemoglobin 29.3 pg (25.0-35.0); Mean Corpuscular Volume 91 fL (80-100); Monocytes # (Auto) 0.9 Thou/mm3 (0.0-0.8); Monocytes % (Auto) 9 % (0-12); Neutrophils # (Auto) 7.6 Thou/mm3 (1.8-7.7); Neutrophils % (Auto) 72 % (37-80); Nucleated Red Blood Cell # 0.00 Thou/mm3 (0.00-0.00); Nucleated Red Blood Cell % 0 /100 WBC (0); Platelet Count 321 Thou/mm3 (140-440); RDW Standard Deviation 47.6 fL (36.4-46.3); Red Blood Count 4.58 Miln/mm3 (4.00-5.20); White Blood Count 10.5 Thou/mm3 (3.6-11.0)
[2025-06-04 06:25] LABS: Alanine Aminotransferase 13 U/L (10-49); Albumin, Serum 4.0 gm/dL (3.4-4.8); Albumin/Globulin Ratio 2.2 (1.2-2.2); Alkaline Phosphatase 48 U/L (46-116); Anion Gap 6 (7-16); Aspartate Amino Transferase 22 U/L (0-34); BUN/Creatinine Ratio 17 Ratio (12-20); Bilirubin,Total 0.6 mg/dL (0.3-1.2); Blood Urea Nitrogen 10 mg/dL (9-23); Calcium 9.5 mg/dL (8.3-10.6); Calcium (Corrected) 9.5 mg/dL (8.5-10.1); Carbon Dioxide 35.1 mMol/L (20.0-31.0); Chloride 100 mMol/L (98-107); Creatinine (Component) 0.6 mg/dL (0.6-1.3); Estimated Creatinine Clearance 62.7 mL/min (>60); Globulin 1.8 gm/dL (2.3-3.5); Glucose 87 mg/dL (74-106); Osmolality,Calculated 279 (275-295); Phosphorous 3.3 mg/dL (2.4-5.1); Potassium 3.6 mMol/L (3.4-5.1); Sodium 141 mMol/L (136-145); Total Protein 5.8 gm/dL (5.7-8.2); eGFR > 60 See Note
[2025-06-04] MEDS: HEPARIN SOD INJ 5000 UNIT/ML VIAL SC (08:08)
[2025-06-04] MEDS: FLUTICASONE/SALMETEROL 100/50 14 DOSE INH 2 PUFF INH (08:49)
--- NOTE | 2025-06-04 11:26 | PD.RESDS ---
Planned Discharge Date 06/04/25 DS: Providers Provider Date of admission: 06/01/25 04:48 Primary care physician: Physician No Primary/Family Admitting Provider: Marquis Mccurdy MD Attending Provider on Admission: Chidi Pearce DO Consults: 06/03/25 14:41 PT [Referral Physical Therapy] Routine Comment: Physician Instructions: Attending Provider on DC: Chidi Pearce DO Discharging Provider: Boyd Calderón DO Anticipated date of discharge: 06/04/25 DS: Diagnosis Problem List Completed Was Problem List Reviewed/Reconciled?: Yes Hospital Course Hospital Course Hospital course: Reason for hospitalization: Acute hypoxic respiratory failure Summary: This patient is a 79-year-old female with past medical history of hypertension, breast cancer status post bilateral mastectomy, asthma, osteoporosis, and HFpEF (EF 65% on 10/03/2024) who presented to [facility] ED on 06/01 due to shortness of breath, dyspnea, and cough for the past 2 days prior to admission. Patient was admitted for management of acute hypoxic respiratory failure. The patient has had multiple hospitalizations for similar presentations. After discussing with the patient's family, it was noted that the patient may not be fully compliant with her home medications, however the patient states that she is very compliant. The patient does have a small business sales representative, but she has not seen the small business sales representative in a while, but does note that when she does see the small business sales representative and follows the small business sales representative directions, she is able to have very good control of her asthma. Additionally, the patient states that she thinks she ran out of her home dose of methylprednisolone 4 mg daily about a day or 2 before her symptoms started. When the patient presented to the ED, she was noted to have a blood pressure of 165/107, heart rate of 107, respiratory rate 26, and an O2 saturation of 94% on CPAP. The patient had significant improvement with breathing treatments of DuoNebs, fluticasone-salmeterol, and the use of methylprednisolone. Additionally, the patient was noted to have significantly elevated eosinophils on initial labs, suggesting an asthmatic source for her acute respiratory failure. However, it was noted that the patient was taking metoprolol, which may be worsening her respiratory status. Her home metoprolol was held, and it was discussed with her warehouse technician, who was agreeable to this plan as he only put her on metoprolol for PVCs. Azithromycin and ceftriaxone was started in the ED due to suspicion of possible pneumonia, however ceftriaxone was discontinued due to low suspicion upon admission. The patient was initially planned to be discharged on 06/02, however when the patient was evaluated, it was noted that she had noticeable tachycardia. Over time, the patient's heart rate did seem to improve, in addition to her respiratory rate as well. In 06/04, the patient was noted to have much improved respiratory status compared to when she first came in. The patient was still slightly tachycardic and slightly tachypneic, however overall clinical picture was much improved. Physical therapy attempted to work with the patient, however the patient noted that she did not want any physical therapy at home and did not want to go to SNF at this time. Oxygen tank on discharge was offered to the patient, however the patient declined stating that oxygen tanks were hazard in the area that she resides at, and noted that she would be all right with her home concentrator and portable concentrator for lung. As such, the patient was medically cleared to be discharged on 06/04 with plans to resume her home medications, start a 5-day course of prednisone prednisone, hold her home metoprolol and alendronate, reviewed proper technique with using spacer inhaler, and heavily advised to follow-up with her outpatient small business sales representative. Discharge Recommendations: - Please take prednisone 40 mg tablet for 5 days for asthma exacerbation - Hold alendronate 70mg every week until you are seen by your accounting assistant - Hold metoprolol succinate 25 mg tablet by mouth daily until you are seen by your warehouse technician - Please follow-up with your Mercury Cracking Tester as soon as possible for better management of your asthma - Follow up with PCP within 1 week of discharge - Continue rest of medications as previously prescribed - Return to the ED or call EMS if symptoms return and/or worsen If you don't have a PCP, you can make an appointment at the [facility]: [address] [place] [address] Hospital Diagnoses: #Acute hypoxic respiratory failure 2/2 #Acute asthma exacerbation #Respiratory acidosis, resolving #Metabolic alkalosis, compensatory #Suspicion for underlying chronic lung disease #HFpEF, EF 65% 10/03/2024 #Sinus tachycardia #Primary hypertension #Leukocytosis #Osteoporosis Patient plan of care was discussed with attending physician Dr. Portia Calderón, PGY-1 Time Spent with Patient Time attestation: Total time spent providing and/or coordinating discharge services: Time spent: Greater than 30 minutes Exam Vital Signs Temp Pulse Resp BP Pulse Ox O2 Del Method O2 Flow Rate 96.8 F 99 19 128/81 97 Nasal Cannula 2 06/04/25 08:00 06/04/25 08:52 06/04/25 08:52 06/04/25 08:07 06/04/25 08:52 06/04/25 08:00 06/04/25 08:52 FiO2 100 06/04/25 01:17 Narrative Exam Physical Exam: General: Alert, no acute distress. Skin: Warm, dry, intact. Head: Normocephalic, atraumatic. Eye: Normal conjunctiva, PERRL. Throat: Oral mucosa dry. No obvious lesions in oropharynx. Cardiovascular: Tachycardic rate and rhythm, no murmur, +S1/S2. Respiratory: Respirations slightly labored on 3L NC, no crackles, diffuse wheezing throughout all lung nayak. Gastrointestinal: Soft, nontender, non-distended. No guarding or rebound tenderness. Extremities: No edema, no cyanosis, no clubbing. Neuro: No focal deficits observed. Conversant, moving all extremities. No overt cerebellar signs/incoordination. Psychiatric: Cooperative, appropriate affect. Discharge Plan Plan Patient Disposition: HOME (Self Care) Patient condition on transfer: Stable Care Plan Goals: Please take prednisone 40 mg tablet for 5 days for asthma exacerbation Hold alendronate 70mg every week until you are seen by your accounting assistant Hold metoprolol succinate 25 mg tablet by mouth daily until you are seen by your warehouse technician Please follow-up with your Mercury Cracking Tester as soon as possible for better management of your asthma/COPD Please follow-up with your PCP within 1 week of discharge or follow-up at the [facility] [address] [place] [address] If your symptoms worsen or if you develop new chest pain, shortness of breath, dizziness or loss of consiousness - please come back to the ED immediately. Prescriptions/Referrals Prescriptions/Med Rec: New prednisone 20 mg tablet 40 mg PO QDAY 5 Days Qty: 10 0RF Rx Instructions: Prednisone 40mg PO daily for 5 days. No taper necessary Continued fexofenadine [Sharon Allergy] 60 mg Tablet 60 mg PO BID clotrimazole-betamethasone 1-0.05 % cream 1 applic topical BID PRN (Reason: cracked skin ) fluticasone furoate-vilanterol [Breo Ellipta] 200-25 mcg/dose blister with device 1 inh INHALATION Q24H amlodipine 2.5 mg tablet 2.5 mg PO .day Patient Comments: TAKE 1 TABLET BY MOUTH EVERY DAY albuterol sulfate 90 mcg/actuation HFA aerosol inhaler 2 puff inhalation Q6H PRN (Reason: shortness of breath or wheezing) Qty: 6.7 2RF Held metoprolol succinate 25 mg tablet extended release 24 hr 25 mg PO HS Hold Instructions: Resume on 06/08/25. Hold until you are seen by Dr. Rojo (warehouse technician); ask why you are taking this medication. alendronate 70 mg tablet 70 mg PO QWEEK Hold Instructions: Resume on 06/15/25. Please follow-up with accounting assistant before restarting Discontinued fluticasone propion-salmeterol [Advair HFA] 115-21 mcg/actuation HFA aerosol inhaler 2 puff inhalation BID Qty: 12 0RF Rx Instructions: administer with spacer Referrals: No Primary/Family,Physician [Primary Care Provider] Patient/Caregiver Discharge Instructions Discharge Activity: activity as tolerated Education Materials: Chronic Lung Disease Preventing ..., Asthma Action Plan, Chronic Lung Disease Nutrition, Chronic Lung Disease Tips for ..., Asthma Trigger Checklist Print Language: Zimbabwean Stand Alone Forms: Shelia Award Info., Patient Portal Info Letter Discharge Order Discharge Orders: Discharge (Routine); Ordered 06/04/25 Ordered By: [place] Hobson Quality Discharge Quality Measures VTE prophylaxis Attestestation Attestation I have discussed and was present for the essential components of the discharge history, physical examination, diagnosis, and discharge treatment plan with the resident. I agree with the patient's discharge care as documented by the resident and amended herein by me. Maurilio Pearce DO. The patient understood all discharge instructions, all questions were answered satisfactorily. The patient was instructed to return to the Emergency Department is symptoms worsened or persisted. Patient was stable, afebrile and tolerating p.o. intake at time of discharge home with a short course of steroids, see resident note above for additional details. Patient will also need pulmonology follow-up which she agrees, she will make an appointment with her small business sales representative upon discharge. Although this document has been carefully reviewed, there may still be some phonetic and other typographical errors. These errors are purely grammatical due to imperfections in the software program and should not be construed in any way to compromise the substance of the patient's medical care during this visit.
--- NOTE | 2025-06-04 13:04 | PC.SS ---
ASSISTANT STORE MANAGER TRAINEE conducted bedside contact with the patient conduct initial assessment and to discuss discharge planning.? Patient confirmed demographic information.? Patient resides at home with spouse, Olman Jansen .? Patient is retired.? Patient does not utilize any form of DME to assist with ambulation.? Patient utilizes home oxygen at night.? Vendor is [employer].? Patient describes the ability to complete ADL?s independently.? Patient identified spouse, Olman Jansen; as medical surrogate decision maker.? Patient?s PCP is [facility]. Ochoa [facility].? Patient?s ingot weigher is Dr. Rojo.? Patient?s news editor is Parish Murray.? Patient does not participate with dialysis.? Patient utilizes [facility] for medication services.? Plan is for the patient to return home at the time of discharge.? Family will provide transportation on behalf of the patient.? No further discharge needs identified by the patient.? No further intervention required at this time, social media sr strategy manager will be available to address any further concerns.? Next of Kin: Olman Inderjit D/C Plan: Home
--- NOTE | 2025-06-04 13:07 | PC.PT ---
Attempt to initiate PT evaluation at 1030. Patient states she just ambulated to the bathroom and back using her walker. She said she is ok , she can ambulate. This is also confirmed by PRINTED CIRCUIT BOARD PANELS PLATER that patient ambulates to the restroom x S/I. She just gets tired easily. She also refused homehealth PT. She uses O2 prn at night. Patient states if there is any changes she will let the nurse know. Patient is alert, oriented and pleasant. Will cancel PT evaluation.
--- NOTE | 2025-06-04 14:54 | PC.NURSE ---
Patient oxygen saturation dropped and maintained at 86% on room air.
--- NOTE | 2025-06-04 15:00 | PC.SS ---
HIDE SPLITTER confirmed with patient that she possesses a concentrator for nighttime use and portable concentrator for as needed use. HIDE SPLITTER informed patient plan to submit referral for portable oxygen tanks for as needed use. Patient declined stating [place]. Patient reiterated that she can utilize concentrator in home for continuous use if needed. HIDE SPLITTER updated residential team. HIDE SPLITTER informed that patient can d/c home since patient has access to home concentrator and portable concentrator and is declining portable oxygen tank. HIDE SPLITTER informed patient to ensure that upon discharge home family has portable concentrator with them in order for the patient to access oxygen on transport home. Patient acknowledged need to have family bring portable oxygen with them upon transporting the patient at discharge. HIDE SPLITTER updated bedside nurs.
== END 2025-06-04 17:01 | disposition home or self-care (01) | DRG 189 ==
LOC: SERX 03:47 → SERHOLD 05:20 → S2NX 09:16
PROVIDERS: Admitting Provider Student in an Organized Health Care Education/Training Program; Emergency Provider Emergency Medicine; Visit Provider Student in an Organized Health Care Education/Training Program
DX: J96.01 Acute respiratory failure with hypoxia (principal); J44.1 Chronic obstructive pulmonary disease with (acute) exacerbation; I50.32 Chronic diastolic (congestive) heart failure; E87.4 Mixed disorder of acid-base balance; M81.0 Age-related osteoporosis without current pathological fracture; D72.829 Elevated white blood cell count, unspecified; Z85.3 Personal history of malignant neoplasm of breast; Z99.81 Dependence on supplemental oxygen; I11.0 Hypertensive heart disease with heart failure; Z66 Do not resuscitate; Z79.83 Long term (current) use of bisphosphonates; Z87.891 Personal history of nicotine dependence; Z90.13 Acquired absence of bilateral breasts and nipples; M95.4 Acquired deformity of chest and rib; I49.3 Ventricular premature depolarization; Z88.2 Allergy status to sulfonamides
CPT/HCPCS: 36415; 36600; 71045; 80048; 80053; 82803; 83735; 83880; 84100; 84145; 84484; 85025; 87205; 87400; 87811; 89220; 94640; 94644; 94660; 96365; 96366; 96372; 96375; 99284; A9270; J0456; J0696; J1644; J1938; J2919; J3475; J7050

== ENCOUNTER 2025-06-24 11:12 | Emergency (ER) | payer MEDICARE, SELFPAY ==
[2025-06-24] VITALS (9 sets, daily range): BP systolic 136–157; BP diastolic 85–97; PULSE 23–119; RESP 16–26; TEMP 36.7–36.9; O2SAT 94–98; BMI 20.3
--- NOTE | 2025-06-24 11:42 | XR_ITS ---
EXAMINATION: PA chest single view TECHNIQUE: Upright PA chest single view Date and time: June 24, 2025, 12:37 p.m., comparison 06/03/2025 INDICATIONS: Shortness of breath today. FINDINGS: Mild enlargement left ventricle Accentuation basilar bronchovascular markings. No lobar pneumonia or pulmonary edema. Prominent osteopenia. IMPRESSION: Basilar bronchitis
--- NOTE | 2025-06-24 11:42 | EKG_ITS ---
[facility] Test Date: 2025-06-24 Pat Name: HONG BORJA Department: Room: - Gender: Female Electric Razor Assembler: : 1945 Requested By: Berenice Bolanos Order Number: [id number] Reading MD: Berenice Bolanos Measurements Intervals [place] Rate: 117 P: 63 MS: 154 QRS: -49 QRSD: 93 T: 58 QT: 340 QTc: 476 Interpretive Statements SINUS TACHYCARDIA POSSIBLE LEFT ATRIAL ENLARGEMENT [-0.1mV P-WAVE IN V1/V2] LEFT AXIS DEVIATION [QRS AXIS < -30] INCOMPLETE RIGHT BUNDLE BRANCH BLOCK [90+ ms QRS DURATION, TERMINAL R IN V1/V2, 40+ ms S IN I/aVL/V4/V5/V6] Compared to ECG 03/29/2025 15:12:37 Incomplete right bundle-branch block now present /store/S0/[id number]
--- NOTE | 2025-06-24 11:44 | EDRME_ITS ---
Rapid Medical Screening Exam [facility] Arrival date/time: 06/24/25 11:12 This is a a 79-year-old female that comes into the emergency room with complaints of difficulty breathing. Patient has a history of asthma. Patient states she has been using her inhalers but they have not been working. Patient was a smoker when she was a lot younger but states she did not do it for very long. Patient also has a history of high blood pressure. Patient reports that she is usually on oxygen at night but not during the day and right now she is currently on 3 L and she is short of breath. I have greeted and performed a focused initial assessment of this patient. Initial appropriate labs ordered at this time. A comprehensive ED assessment and evaluation of the patient and analysis of all test and completion of medical decision making process will be conducted by additional ED provider. Chief Complaint: Shortness of Breath/Dyspnea Time Seen by Provider: 06/24/25 11:20 Vital signs: Vital Signs Temperature 98.1 F 06/24/25 11:31 Pulse Rate 113 H 06/24/25 11:31 Respiratory Rate 18 06/24/25 11:31 Blood Pressure 157/93 H 06/24/25 11:31 Pulse Oximetry (%) 94 L 06/24/25 11:31 Oxygen Delivery Method Nasal Cannula 06/24/25 11:31 Oxygen Flow Rate 3 06/24/25 11:31
[2025-06-24] MEDS: ALBUTEROL/IPRATROPIUM (Duoneb) RT SOL 3 ML NEBU INH (11:55)
[2025-06-24 12:49] LABS: Basophils # (Auto) 0.2 Thou/mm3 (0.0-0.2); Basophils % (Auto) 1 % (0-2.5); Eosinophils # (Auto) 1.4 Thou/mm3 (0.0-0.5); Eosinophils % (Auto) 12 % (0-10); Hematocrit 42.6 % (36.0-46.0); Hemoglobin 13.7 g/dL (12.0-16.0); Immature Granulocytes Auto 0.03 Thou/mm3 (0.00-0.00); Lymphocytes # (Auto) 1.2 Thou/mm3 (1.0-4.8); Lymphocytes % (Auto) 10 % (10-50); Mean Corpuscular HGB Conc 32.2 g/dl (31.0-37.0); Mean Corpuscular Hemoglobin 28.9 pg (25.0-35.0); Mean Corpuscular Volume 90 fL (80-100); Monocytes # (Auto) 1.1 Thou/mm3 (0.0-0.8); Monocytes % (Auto) 9 % (0-12); Neutrophils # (Auto) 8.0 Thou/mm3 (1.8-7.7); Neutrophils % (Auto) 67 % (37-80); Nucleated Red Blood Cell # 0.00 Thou/mm3 (0.00-0.00); Nucleated Red Blood Cell % 0 /100 WBC (0); Platelet Count 324 Thou/mm3 (140-440); RDW Standard Deviation 45.2 fL (36.4-46.3); Red Blood Count 4.74 Miln/mm3 (4.00-5.20); White Blood Count 11.9 Thou/mm3 (3.6-11.0)
[2025-06-24 13:03] LABS: Alanine Aminotransferase 12 U/L (10-49); Albumin, Serum 4.3 gm/dL (3.4-4.8); Albumin/Globulin Ratio 2.2 (1.2-2.2); Alkaline Phosphatase 63 U/L (46-116); Anion Gap 9 (7-16); Aspartate Amino Transferase 26 U/L (0-34); BUN/Creatinine Ratio 14 Ratio (12-20); Bilirubin,Total 0.8 mg/dL (0.3-1.2); Blood Urea Nitrogen 7 mg/dL (9-23); Calcium 9.3 mg/dL (8.3-10.6); Calcium (Corrected) 9.3 mg/dL (8.5-10.1); Carbon Dioxide 30.8 mMol/L (20.0-31.0); Chloride 102 mMol/L (98-107); Creatinine (Component) 0.5 mg/dL (0.6-1.3); Estimated Creatinine Clearance 76.4 mL/min (>60); Globulin 2.0 gm/dL (2.3-3.5); Glucose 90 mg/dL (74-106); Osmolality,Calculated 281 (275-295); Potassium 3.3 mMol/L (3.4-5.1); Sodium 142 mMol/L (136-145); Total Protein 6.3 gm/dL (5.7-8.2); Troponin I < 0.020 ng/mL (0.0-0.045); eGFR > 60 See Note
[2025-06-24 13:18] LABS: B-Type Natriuretic Peptide 20 pg/mL (0-100)
--- NOTE | 2025-06-24 13:21 | PD.EDSOB ---
ED SOB =RME/HPI General Chief Complaint: Shortness of Breath/Dyspnea Stated Complaint: SOB FOR A FEW DAYS GETTING WORSE HX OF ASTHMA Time Seen by Provider: 06/24/25 11:20 Arrival date/time: 06/24/25 11:12 RME / HPI RME / HPI Narrative: 06/24/25 11:12 This is a a 79-year-old female that comes into the emergency room with complaints of difficulty breathing. Patient has a history of asthma. Patient states she has been using her inhalers but they have not been working. Patient was a smoker when she was a lot younger but states she did not do it for very long. Patient also has a history of high blood pressure. Patient reports that she is usually on oxygen at night but not during the day and right now she is currently on 3 L and she is short of breath. I have greeted and performed a focused initial assessment of this patient. Initial appropriate labs ordered at this time. A comprehensive ED assessment and evaluation of the patient and analysis of all test and completion of medical decision making process will be conducted by additional ED provider. DR. CRUZ MAIN ED EVALUATION: 79-year-old female with a history of asthma presents to the Emergency Department for worsening shortness of breath over the past 3 days. She reports her shortness of breath is chronic but has been more pronounced recently. Denies fever, chills, cough, or chest pain. She is a non-smoker and uses 2 liters of oxygen at night at home. No recent illness, travel, or medication changes reported. Related Data Home Medications ?Medication ?Instructions ?Recorded ?Confirmed fexofenadine 60 mg tablet (Sharon 60 mg PO BID 05/02/18 06/01/25 Allergy) clotrimazole-betamethasone 1 1 applic topical BID PRN cracked 01/24/25 06/01/25 %-0.05 % topical cream skin alendronate 70 mg tablet 70 mg PO QWEEK 03/29/25 06/01/25 Held on 06/02/25. Instructions: Resume on 06/15/25. Please follow-up with network strategist before restarting amlodipine 2.5 mg tablet 2.5 mg PO .day 03/29/25 06/01/25 fluticasone furoate 200 1 inh inhalation Q24H 03/29/25 06/01/25 mcg-vilanterol 25 mcg/dose inhalation powder (Breo Ellipta) metoprolol succinate 25 mg 25 mg PO HS 03/29/25 06/01/25 tablet,extended release 24 hr Held on 06/02/25. Instructions: Resume on 06/08/25. Hold until you are seen by Dr. Rojo (training and development rep); ask why you are taking this medication. Previous Rx's ?Medication ?Instructions ?Recorded albuterol sulfate 90 mcg/actuation 2 puff inhalation Q6H PRN 03/01/25 aerosol inhaler shortness of breath or wheezing #6.7 grams Allergies Allergy/AdvReac Type Severity Reaction Status Date / Time shellfish derived Allergy Severe ITCHING,DROP Verified 06/24/25 11:16 IN BP Sulfa (Sulfonamide Allergy Severe HIVES AND Verified 06/24/25 11:16 Antibiotics) SWELLING Review of Systems Review of Systems Systems Reviewed: All systems reviewed, normal except as documented Past Medical History Past Medical History NEUROLOGIC: Positive Neurological Disorders and Migraine CARDIAC: Positive Cardiac Disorders, Cardiac Arrhythmia and Hypertension RESPIRATORY: Positive Asthma and Pneumonia GASTROINTESTINAL: Positive Gastrointestinal Disorders and Diverticulosis REPRODUCTIVE: Positive Breast Cancer and Previous Pregnancies MUSCULOSKELETAL: Positive Musculoskeletal Disorders, Arthritis, Osteoporosis and Fractures HEMATOLOGIC: Positive Blood Disorders, Anemia and Clotting Problems PSYCHO/SOCIAL: Positive Recreational Drug Use and Anxiety OTHER HISTORY: Positive Hospitalization, Anesthesia Reactions, Chicken Pox, Measles, Mumps, Rubella ([place] Measles) and Breast Cancer Family History FAMILY HISTORY: Positive Family Cancer Surgical History SURGICAL: Positive Abdominal Surgery, Joint Replacement, Arthroscopy and Mastectomy (bilateral) Social History SMOKING STATUS: Former smoker SUBSTANCE USE: does not use ALCOHOL: Never ED Exam Narrative Physical exam: GENERAL APPEARANCE: alert and oriented x 4, well-developed, well-nourished, in mild respiratory distress VITALS: All vitals were reviewed and the pulse ox is 95% on room air, which is normal according to my interpretation. HEENT: Normocephalic, atraumatic; pupils equal, round, reactive to light; EOMI; mucous membranes pink, moist; oropharynx clear NECK: Supple LUNGS: Wheezing noted over the left lung field; decreased breath sounds at the right base HEART: Regular rate, regular rhythm; normal S1, S2; no murmurs ABDOMEN: non distended; normal BS; soft, no tenderness, no guarding, no rebound; no masses, no organomegaly, no hernia BACK: no CVA tenderness EXTREMITIES: atraumatic; no edema NEUROLOGIC: awake; alert and oriented x4; cranial nerves II-XII grossly intact; no focal sensory or motor deficits PSYCHIATRIC: appropriate mood and affect SKIN: warm, dry, normal color; no rashes Course Quality Measures none Orders Category Date Time Status EKG (ED ONLY) *Do not use* NOW Care 06/24/25 11:43 Completed EKG (ED Only) Stat Exams 06/24/25 11:42 Draft XR chest 1V Stat Exams 06/24/25 11:42 Completed BNP [B-Type Natriuretic Peptide] Stat Lab 06/24/25 12:15 Completed CBC Stat Lab 06/24/25 12:15 Completed Comprehensive Metabolic Panel Stat Lab 06/24/25 12:15 Completed Magnesium Stat Lab 06/24/25 12:15 Completed Troponin I Stat Lab 06/24/25 12:15 Completed Albuterol/Ipratr Rt Violet [Duoneb Rt Violet] Med 06/24/25 11:42 Discontinued 3 ml INH X1 ONE Dexamethasone Inj [Decadron Inj] Med 06/24/25 13:26 Discontinued 4 mg PO X1 ONE Levalbuterol Rt [Xopenex Rt Violet] Med 06/24/25 13:26 Discontinued 1.25 mg INH X1 ONE Levalbuterol Rt [Xopenex Rt Violet] Med 06/24/25 15:15 Discontinued 1.25 mg INH X1 ONE Sodium Chloride Rt Violet 0.9% [NS Rt Violet 0.9%] Med 06/24/25 13:26 Active 3 ml INH PRN PRN Sodium Chloride Rt Violet 0.9% [NS Rt Violet 0.9%] Med 06/24/25 15:15 Active 3 ml INH PRN PRN Vital Signs Vital signs: Vital Signs Temperature 98.1 F 06/24/25 11:31 Pulse Rate 113 H 06/24/25 11:31 Respiratory Rate 18 06/24/25 11:31 Blood Pressure 157/93 H 06/24/25 11:31 Pulse Oximetry (%) 94 L 06/24/25 11:31 Oxygen Delivery Method Nasal Cannula 06/24/25 11:31 Oxygen Flow Rate 3 06/24/25 11:31 Shortness of Breath / Dyspnea MDM Narrative MDM Narrative:: I, Isatu Leon, am scribing for and in the presence of Dr. Cruz. Patient data External records reviewed:: [facility] previous records Clinical information provided by:: patient Social determinants that could affect healthcare access:: none Patient has the following chronic illnesses:: Asthma How is presenting disease/condition affected by chronic disease/condition?: caused by Evaluation data The following diagnostics were reviewed and interpreted by me:: lab results, radiology exam(s) and EKG tracing(s) (My interpretation: EKG performed at 1143 hours, sinus tachycardia, rate 117, incomplete right bundle branch block) Lab and/or radiology exams considered but not ordered:: none Interpretation Summary: Procedure(s): XR chest 1V Accession Number(s): [id number] cc: Ricardo Eubanks MD; Quinton Ochoa MD; Berenice Bolanos NP~ EXAMINATION: PA chest single view TECHNIQUE: Upright PA chest single view Date and time: June 24, 2025, 12:37 p.m., comparison 06/03/2025 INDICATIONS: Shortness of breath today. FINDINGS: Mild enlargement left ventricle Accentuation basilar bronchovascular markings. No lobar pneumonia or pulmonary edema. Prominent osteopenia. IMPRESSION: Basilar bronchitis Dictated By: Ricardo Eubanks MD Medications / Prescriptions Medications or Prescriptions considered but not ordered:: none Medication administrations:: Medication Administration History Sodium Chloride (Sodium Chloride Rt Violet 0.9% 3 Ml Nebu) 3 ml INH PRN PRN PRN Reason: SOLN Stop: 07/24/25 13:25 Sodium Chloride (Sodium Chloride Rt Violet 0.9% 3 Ml Nebu) 3 ml INH PRN PRN PRN Reason: SOLN Stop: 07/24/25 15:14 Discontinued Medications Albuterol/Ipratropium (Albuterol/Ipratropium (Duoneb) Rt Violet 3 Ml Nebu) 3 ml INH X1 ONE Stop: 06/24/25 11:43 Last Admin: 06/24/25 11:55 Dose: 3 ml Documented By: NESTOR Dexamethasone Sodium Phosphate (Dexamethasone Sod Phos Inj 4 Mg/Ml Vial) 4 mg PO X1 ONE; Protocol Stop: 06/24/25 13:27 Last Admin: 06/24/25 13:39 Dose: 4 mg Documented By: YOKO Comments: given po Levalbuterol HCl (Levalbuterol Rt 1.25 Mg/0.5 Ml Nebu) 1.25 mg INH X1 ONE Stop: 06/24/25 13:27 Last Admin: 06/24/25 14:10 Dose: 1.25 mg Documented By: NESTOR Levalbuterol HCl (Levalbuterol Rt 1.25 Mg/0.5 Ml Nebu) 1.25 mg INH X1 ONE Stop: 06/24/25 15:16 Last Admin: 06/24/25 15:58 Dose: 1.25 mg Documented By: NESTOR see above Consultations Consultation(s) initiated? (list below): No Diagnosis Shortness of Breath Differential Diagnosis: other (Asthma exacerbation, pleural effusion, and pneumonia.) Most likely diagnosis given after review of the tests above:: Acute asthma exacerbation Admission Indicated Admission indicated?: not indicated Admission Request Was there a request for admission?: No Disposition Plan Disposition Plan: Discharge Discharge Attestation Discharge Attestation: The patient and all family members were given an opportunity to ask questions and understood the discharge instructions. Discharge instructions specifically effects, indications for sooner follow up or return to the emergency department, and the expected course of current diagnosis. Patient condition: Stable Discharge Plan Plan Patient Disposition: HOME (Self Care) Prescriptions/Referrals Prescriptions/Med Rec: No Action fexofenadine [Sharon Allergy] 60 mg Tablet 60 mg PO BID clotrimazole-betamethasone 1-0.05 % cream 1 applic topical BID PRN (Reason: cracked skin ) fluticasone furoate-vilanterol [Breo Ellipta] 200-25 mcg/dose blister with device 1 inh INHALATION Q24H metoprolol succinate 25 mg tablet extended release 24 hr 25 mg PO HS amlodipine 2.5 mg tablet 2.5 mg PO .day Patient Comments: TAKE 1 TABLET BY MOUTH EVERY DAY alendronate 70 mg tablet 70 mg PO QWEEK albuterol sulfate 90 mcg/actuation HFA aerosol inhaler 2 puff inhalation Q6H PRN (Reason: shortness of breath or wheezing) Qty: 6.7 2RF Referrals: Quinton Ochoa MD [Primary Care Provider] - In 1 week Problem List Clinical Impression: Acute asthma exacerbation Patient/Caregiver Discharge Instructions Education Materials: Asthma Print Language: [place] Stand Alone Forms: Shelia Award Info., Patient Portal Info Letter
[2025-06-24] MEDS: DEXAMETHASONE SOD PHOS INJ 4 MG/ML VIAL PO (13:39)
[2025-06-24 13:51] LABS: Magnesium 2.1 mg/dL (1.6-2.6)
[2025-06-24] MEDS: LEVALBUTEROL RT 1.25 MG/0.5 ML NEBU INH ×3 (14:10→18:00)
[2025-06-24] MEDS: SODIUM CHLORIDE RT SOL 0.9% 3 ML NEBU INH (18:00)
[2025-06-24] MEDS: MAGNESIUM OXIDE 400 MG TABLET PO (18:55)
== END 2025-06-24 19:00 | disposition home or self-care (01) ==
PROVIDERS: Nurse Practitioner Family; Emergency Provider Emergency Medicine; PCP Family Medicine
DX: J45.901 Unspecified asthma with (acute) exacerbation (principal); Z90.13 Acquired absence of bilateral breasts and nipples; Z96.60 Presence of unspecified orthopedic joint implant
CPT/HCPCS: 36415; 71045; 80053; 83735; 83880; 84484; 85025; 93005; 94640; 99283; A9270; J1100; J7612

== ENCOUNTER 2025-06-26 03:51 | Inpatient (IN) | payer MEDICARE, SELFPAY ==
[2025-06-26] VITALS (18 sets, daily range): BP systolic 119–167; BP diastolic 67–97; PULSE 81–125; RESP 16–28; TEMP 36.6–37.2; O2SAT 95–100; BMI 20.2; BMI 24.4; BMI 19.9
--- NOTE | 2025-06-26 03:54 | PD.EDSOB ---
ED SOB =RME/HPI General Chief Complaint: Shortness of Breath/Dyspnea Stated Complaint: SOB Time Seen by Provider: 06/26/25 04:01 Arrival date/time: 06/26/25 03:51 RME / HPI RME / HPI Narrative: See [facility] for Dr. Rose's HPI Documentation. Related Data Home Medications ?Medication ?Instructions ?Recorded ?Confirmed fexofenadine 60 mg tablet (Sharon 60 mg PO BID 05/02/18 06/26/25 Allergy) clotrimazole-betamethasone 1 1 applic topical BID PRN cracked 01/24/25 06/26/25 %-0.05 % topical cream skin alendronate 70 mg tablet 70 mg PO QWEEK 03/29/25 06/26/25 amlodipine 2.5 mg tablet 2.5 mg PO .day 03/29/25 06/26/25 fluticasone furoate 200 1 inh inhalation Q24H 03/29/25 06/26/25 mcg-vilanterol 25 mcg/dose inhalation powder (Breo Ellipta) metoprolol succinate 25 mg 25 mg PO HS 03/29/25 06/26/25 tablet,extended release 24 hr Held on 06/02/25. Instructions: Resume on 06/08/25. 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 [id number] 250 1 tab PO Q6H PRN migraine headache 06/26/25 06/26/25 mg-250 mg-65 mg tablet (Excedrin Extra Strength) ipratropium 0.5 mg-albuterol 3 mg 3 ml inhalation Q6H PRN shortness 06/26/25 06/26/25 (2.5 mg base)/3 mL nebulization of breath or wheezing soln Previous Rx's ?Medication ?Instructions ?Recorded albuterol sulfate 90 mcg/actuation 2 puff inhalation Q6H PRN 03/01/25 aerosol inhaler shortness of breath or wheezing #6.7 grams Allergies Allergy/AdvReac Type Severity Reaction Status Date / Time shellfish derived Allergy Severe ITCHING,DROP Verified 06/24/25 11:16 IN BP Sulfa (Sulfonamide Allergy Severe HIVES AND Verified 06/24/25 11:16 Antibiotics) SWELLING Review of Systems Review of Systems Systems Reviewed: All systems reviewed, normal except as documented Past Medical History Past Medical History NEUROLOGIC: Positive Neurological Disorders and Migraine CARDIAC: Positive Cardiac Disorders, Cardiac Arrhythmia and Hypertension RESPIRATORY: Positive Asthma and Pneumonia GASTROINTESTINAL: Positive Gastrointestinal Disorders, Diverticulosis and Gastroesophageal Reflux Disease REPRODUCTIVE: Positive Breast Cancer and Previous Pregnancies MUSCULOSKELETAL: Positive Musculoskeletal Disorders, Arthritis and Fractures HEMATOLOGIC: Positive Blood Disorders, Anemia and Clotting Problems PSYCHO/SOCIAL: Positive Recreational Drug Use and Anxiety OTHER HISTORY: Positive Hospitalization, Anesthesia Reactions, Chicken Pox, Measles, Mumps, Rubella ([place] Measles) and Breast Cancer Family History FAMILY HISTORY: Positive Family Cancer Surgical History SURGICAL: Positive Abdominal Surgery, Joint Replacement, Arthroscopy and Mastectomy (bilateral) Social History SMOKING STATUS: Former smoker ED Exam Narrative Physical exam: See MDM for Dr. Rose's Physical Exam Documentation. Course Quality Measures none Orders Category Date Time Status Bedside COVID-19 Antigen Test NOW Care 06/26/25 03:55 Active COVID-19 Screening Questionnaire NOW Care 06/26/25 05:18 Active Decision to Admit X1 Care 06/26/25 05:18 Completed EKG (ED ONLY) *Do not use* NOW Care 06/26/25 03:56 Completed Saline [Insert IV] Q4H START 00 Care 06/26/25 03:56 Active Straight [In and Out Catheter] X1 Care 06/26/25 03:56 Completed EKG (ED Only) Stat Exams 06/26/25 03:56 Draft XR chest 1V portable Stat Exams 06/26/25 03:56 Completed ABG [Arterial Blood Gas] Stat Lab 06/26/25 04:51 Completed BNP [B-Type Natriuretic Peptide] Stat Lab 06/26/25 04:15 Completed Bilirubin,Direct Stat Lab 06/26/25 04:15 Completed Blood Culture (Lab) Stat Lab 06/26/25 04:19 Results CBC Stat Lab 06/26/25 04:15 Completed CMP [Comprehensive Metabolic Panel] Stat Lab 06/26/25 04:15 Completed CRP [C-Reactive Protein] Stat Lab 06/26/25 04:15 Completed D-Dimer Stat Lab 06/26/25 04:15 Completed ESR [Sed Rate (ESR)] Stat Lab 06/26/25 04:15 Completed Influenza A & B Rapid Panel Stat Lab 06/26/25 04:15 Completed Lactate (Lactic Acid) Stat Lab 06/26/25 04:15 Completed Lipase Stat Lab 06/26/25 04:15 Completed Magnesium Stat Lab 06/26/25 04:15 Completed Procalcitonin Stat Lab 06/26/25 04:15 Completed TSH [Thyroid Stimulating Hormone] Stat Lab 06/26/25 04:15 Completed Troponin I Stat Lab 06/26/25 04:15 Completed UA, C/S IF [Urinalysis, C/S if Indicated] Stat Lab 06/26/25 05:24 Completed Azithromycin Inj [Zithromax Inj] 500 mg Med 06/26/25 05:15 Discontinued Sodium Chloride 0.9% 250 ml [Ns] 250 ml IV X1 DiphenhydrAMINE INJ [Benadryl Inj] Med 06/26/25 03:56 Discontinued 50 mg IVP X1 STA Levalbuterol Rt [Xopenex Rt Violet] Med 06/26/25 03:56 Discontinued 2.5 mg INH X1 ONE Magnesium Sulfate 2 GM Ivpb [Magnesium Sulfate Ivpb] Med 06/26/25 03:56 Discontinued 2 gm in 50 ml IV X1 MethylPREDNISolone.* [SoluMEDROL Inj] Med 06/26/25 03:56 Discontinued 125 mg IVP X1 ONE Metoprolol Tartrate [Lopressor] Med 06/26/25 04:13 Discontinued 25 mg PO X1 ONE Ondansetron Inj [Zofran Inj] Med 06/26/25 03:56 Discontinued 4 mg IVP X1 ONE POTASSIUM CHL 10% Liq 15 ML Med 06/26/25 05:14 Discontinued 40 meq PO X1 ONE Ringers Lactated 1000 ml [Lactated Ringers] 1,000 ml Med 06/26/25 05:16 Discontinued IV 250 mls/hr Sodium Chloride Rt Violet 0.9% [NS Rt Violet 0.9%] Med 06/26/25 03:56 Active 12 ml INH PRN PRN cefTRIAXone/D5w 1gm IV premix [Rocephin/D5w 1gm IV Med 06/26/25 05:15 Discontinued premix] 1 g in 50 ml IV X1 Vital Signs Vital signs: Vital Signs Temperature 97.9 F 06/26/25 03:57 Pulse Rate 121 H 06/26/25 03:57 Respiratory Rate 24 H 06/26/25 03:57 Blood Pressure 167/84 H 06/26/25 03:57 Pulse Oximetry (%) 95 06/26/25 03:57 Oxygen Delivery Method Nasal Cannula 06/26/25 03:57 Oxygen Flow Rate 7 06/26/25 03:57 Shortness of Breath / Dyspnea MDM Narrative MDM Narrative:: This section includes all my notes and documentations, including HPI, PE, and ED course. Parish Rose MD HPI: 79 y/o female with Hx of Breast CA, Cardiac Arrhythmia, Hypertension, and Asthma presents with several days of worsening shortness of breath with productive cough of clear phlegm. No fever. No CP. No other complaints. ROS: All negative except as documented in HPI. Physical Exam: General: Alert and oriented. In respiratory distress. Eyes: Conjunctivae and lids clear. ENT: No nasal congestion. Neck: Supple. Heart: RRR. Lungs: Decreased air movement with severe wheezing. Abdomen: Soft and nontender. Normal bowel sounds. No distension. No rebound or guarding. Back: No CVA tenderness. Legs: No edema. Skin: Warm and dry. Neuro: Alert and oriented X 3. I reviewed all diagnostic test results: My interpretation of the EKG is: Sinus tachycardia (119 bpm) with nonspecific ST-T changes. Parish Rose MD My interpretation of the chest x-ray is: Blood tests and urine tests are Covid: Negative. Influenza: Negative. I reviewed EMS notes, given Neb treatment X 3. I reviewed all diagnostic test results: My interpretation of the EKG is sinus tachycardia (119 bpm) no acute ST-T changes. My interpretation of the chest x-ray is increased bronchial markings. Blood tests and urine tests?remarkable for K 3.2 and negative troponin/BNP/dimer. ABG showed pH 7.35, pCO2 57, and pHCO3 32. Covid/Influenza negative. At this point, diagnoses include: Acute on chronic respiratory failure with hypoxia and hypercapnia Hypokalemia Tachycardia Treatment here included: Oxygen Zofran 4 mg IV SuluMedrol 125 mg IV Benadryl 50 mg IV Lopressor 25 mg orally Magnesium sulfate 2 G IV Xopenex 10 mg Neb treatment Some improvement noted. 05:17 - I discussed the case with our hospitalist.? About the presentation and exam and diagnostics and treatments here.? And need of further care in the hospital.? Will accept the patient. Parish Rose MD Patient data External records reviewed:: [facility] previous records (Reviewed prior ED records from 06/24/25. Patient was seen for Acute asthma exacerbation.) Clinical information provided by:: patient Social determinants that could affect healthcare access:: substance use Patient has the following chronic illnesses:: Migraine, Cardiac Arrhythmia, Hypertension, Asthma, Diverticulosis, Gastroesophageal Reflux Disease, Breast Cancer, Arthritis, Anemia, Recreational Drug Use, Anxiety How is presenting disease/condition affected by chronic disease/condition?: exacerbated by Evaluation data The following diagnostics were reviewed and interpreted by me:: EKG tracing(s) (My interpretation of the EKG is: Sinus tachycardia (119 bpm) with nonspecific ST-T changes. Parish Rose MD) Lab and/or radiology exams considered but not ordered:: None Interpretation Summary: I reviewed all diagnostic test results: My interpretation of the EKG is sinus tachycardia (119 bpm) no acute ST-T changes. My interpretation of the chest x-ray is increased bronchial markings. Blood tests and urine tests?remarkable for K 3.2 and negative troponin/BNP/dimer. ABG showed pH 7.35, pCO2 57, and pHCO3 32. Covid/Influenza negative. Medications / Prescriptions Medications or Prescriptions considered but not ordered:: None Medication administrations:: Medication Administration History Acetaminophen (Acetaminophen 325 Mg Tablet) 650 mg PO Q6H PRN PRN Reason: Fever >100.4 Stop: 07/26/25 05:27 Acetaminophen (Acetaminophen 325 Mg Tablet) 650 mg PO Q6H PRN PRN Reason: PAIN SCALE 1-3 (mild Stop: 07/26/25 05:27 Albuterol/Ipratropium (Albuterol/Ipratropium (Duoneb) Rt Violet 3 Ml Nebu) 3 ml INH Q4HRRT SONYA Stop: 07/26/25 06:59 Last Admin: 06/27/25 06:53 Dose: 3 ml Documented By: Admin: 06/27/25 02:48 Dose: 3 ml Documented By: Admin: 06/26/25 23:26 Dose: 3 ml Documented By: Admin: 06/26/25 18:46 Dose: 3 ml Documented By: Admin: 06/26/25 15:54 Dose: 3 ml Documented By: SC Admin: 06/26/25 11:01 Dose: 3 ml Documented By: SC Admin: 06/26/25 06:49 Dose: 3 ml Documented By: SC Albuterol/Ipratropium (Albuterol/Ipratropium (Duoneb) Rt Violet 3 Ml Nebu) 3 ml INH Q2HR PRN PRN Reason: SHORTNESS OF BREATH OR WHEEZE Stop: 07/26/25 05:27 Heparin Sodium (Porcine) (Heparin Sod Inj 5000 Unit/Ml Vial) 5,000 unit SC Q8HR SONYA Stop: 07/10/25 05:59 Last Admin: 06/27/25 05:32 Dose: 5,000 unit Documented By: CTF Co-signed By: OBINNA Admin: 06/26/25 21:16 Dose: 5,000 unit Documented By: CTF Co-signed By: NICO Admin: 06/26/25 14:58 Dose: 5,000 unit Documented By: TD Co-signed By: NADIA Admin: 06/26/25 05:49 Dose: 5,000 unit Documented By: EE Co-signed By: ELAINE Azithromycin 500 mg/ Sodium (Chloride) 250 mls @ 250 mls/hr IV QDAY [facility] Stop: 07/03/25 05:35 Last Admin: 06/27/25 08:54 Dose: 250 mls/hr Documented By: Infusion: 06/26/25 10:50 Dose: Infused Documented By: Admin: 06/26/25 09:50 Dose: 250 mls/hr Documented By: Admin: 06/26/25 05:48 Dose: Not Given Documented By: EE Non-Admin Reason: Duplicate Medication on eMAR Methylprednisolone Sodium Succinate (Methylprednisolone Sod Succ 40 Mg/Ml Vial) 40 mg IVP BID [facility] Stop: 07/03/25 08:59 Last Admin: 06/27/25 08:54 Dose: 40 mg Documented By: Admin: 06/26/25 21:04 Dose: 40 mg Documented By: Admin: 06/26/25 09:53 Dose: 40 mg Documented By: TM Ondansetron HCl (Ondansetron Inj 2 Mg/Ml Inj 2 Ml) 4 mg IVP Q6H PRN; Protocol PRN Reason: NAUSEA OR VOMITING Stop: 07/26/25 05:27 Pantoprazole Sodium (Pantoprazole Inj 40 Mg Vial) 40 mg IVP QDAY SONYA Stop: 07/26/25 17:14 Last Admin: 06/27/25 08:55 Dose: 40 mg Documented By: Admin: 06/26/25 17:37 Dose: 40 mg Documented By: TD Fluticasone/Salmeterol (Fluticasone/Salmeterol 250/50 14 Dose Inh) 1 puff INH BIDRT SONYA On Hold: 06/26/25 19:00 Comment: TORB Stop: 07/26/25 18:59 Sennosides (Senna Tablet) 1 tab PO QDAY SONYA; Protocol Stop: 07/26/25 08:59 Last Admin: 06/27/25 08:54 Dose: 1 tab Documented By: Admin: 06/26/25 09:53 Dose: Not Given Documented By: TM Non-Admin Reason: Patient Refused Sodium Chloride (Sodium Chloride Rt Violet 0.9% 3 Ml Nebu) 12 ml INH PRN PRN PRN Reason: SOLN Stop: 07/26/25 03:55 Discontinued Medications Diphenhydramine HCl (Diphenhydramine Inj 50 Mg/Ml Vial) 50 mg IVP X1 STA Stop: 06/26/25 03:57 Last Admin: 06/26/25 04:09 Dose: 50 mg Documented By: EE Furosemide (Furosemide Inj 10 Mg/Ml Vial 2 Ml) 40 mg IVP X1 ONE Stop: 06/26/25 11:54 Last Admin: 06/26/25 12:12 Dose: 40 mg Documented By: TM Magnesium Sulfate (Magnesium Sulfate Ivpb) 2 gm in 50 mls @ 25 mls/hr IV X1 ONE Stop: 06/26/25 05:55 Last Infusion: 06/26/25 06:26 Dose: Infused Documented By: Admin: 06/26/25 04:09 Dose: 25 mls/hr Documented By: EE Azithromycin 500 mg/ Sodium (Chloride) 250 mls @ 250 mls/hr IV X1 ONE Stop: 06/26/25 06:14 Last Infusion: 06/26/25 07:17 Dose: Infused Documented By: Admin: 06/26/25 05:35 Dose: 250 mls/hr Documented By: EE Ceftriaxone Sodium/Dextrose (Rocephin/D5w 1gm Iv Premix) 1 g in 50 mls @ 100 mls/hr IV X1 ONE Stop: 06/26/25 05:44 Last Infusion: 06/26/25 06:26 Dose: Infused Documented By: Admin: 06/26/25 05:35 Dose: 100 mls/hr Documented By: EE Lactated Ringer's (Lactated Ringers) 1,000 mls @ 250 mls/hr IV .Q4H ONE Stop: 06/26/25 09:15 Last Infusion: 06/26/25 09:50 Dose: Infused Documented By: Admin: 06/26/25 05:50 Dose: 250 mls/hr Documented By: EE Levalbuterol HCl (Levalbuterol Rt 1.25 Mg/0.5 Ml Nebu) 2.5 mg INH X1 ONE Stop: 06/26/25 03:57 Last Admin: 06/26/25 04:31 Dose: 2.5 mg Documented By: NE Methylprednisolone Sodium Succinate (Methylprednisolone Sod Succ 62.5 Mg/Ml 2ml Vial) 125 mg IVP X1 ONE Stop: 06/26/25 03:57 Last Admin: 06/26/25 04:10 Dose: 125 mg Documented By: EE Metoprolol Tartrate (Metoprolol Tartrate 25 Mg Tablet) 25 mg PO X1 ONE Stop: 06/26/25 04:14 Last Admin: 06/26/25 04:30 Dose: 25 mg Documented By: MADHU Ondansetron HCl (Ondansetron Inj 2 Mg/Ml Inj 2 Ml) 4 mg IVP X1 ONE; Protocol Stop: 06/26/25 03:57 Last Admin: 06/26/25 04:10 Dose: 4 mg Documented By: MADHU Potassium Chloride (Potassium Chloride 10% 20 Meq/15 Ml Udc) 40 meq PO X1 ONE Stop: 06/26/25 05:15 Last Admin: 06/26/25 05:50 Dose: Not Given Documented By: EE Non-Admin Reason: Cancelled by Provider Potassium Chloride (Potassium Chloride 20 Meq Tabcr) 40 meq PO X1 ONE Stop: 06/26/25 05:36 Last Admin: 06/26/25 05:48 Dose: 40 meq Documented By: MADHU Treatment here from ok included: Oxygen Zofran 4 mg IV SuluMedrol 125 mg IV Benadryl 50 mg IV Lopressor 25 mg orally Magnesium sulfate 2 G IV Xopenex 10 mg Neb treatment Consultations Consultation(s) initiated? (list below): Yes Consultation #1 (Physician, Specialty, Details): I discussed the case with our hospitalist. About the presentation and exam and diagnostics and treatments here. And need of further care in the hospital. Will accept the patient. Time: 05:17 Diagnosis Shortness of Breath Differential Diagnosis: acute exacerbation of chronic obstructive airways disease, congestive heart failure, community acquired pneumonia, asthma with exacerbation and pulmonary embolism Most likely diagnosis given after review of the tests above:: Acute on chronic respiratory failure with hypoxia and hypercapnia Hypokalemia Admission Indicated Admission indicated?: indicated Explain why admission is indicated or not indicated:: Acute on chronic respiratory failure with hypoxia and hypercapnia Hypokalemia Admission Request Was there a request for admission?: Yes Admission Attestation Admission request attestation: Discussed case with Hospitalist service regarding admission. Discussed patients ED course, exam findings, labs, and radiology results. Agreed to accept the patient for admission. Disposition Plan Disposition Plan: Admit Discharge Plan Plan Patient Disposition: Admit Acute Care w/in Hospital Problem List Clinical Impression: Acute on chronic respiratory failure with hypoxia and hypercapnia, Hypokalemia
--- NOTE | 2025-06-26 03:56 | XR_ITS ---
EXAMINATION: AP chest single view TECHNIQUE: AP portable upright chest single view Date and time: June 26, 2025, 0500 hours INDICATIONS: Shortness of breath today. FINDINGS: Moderate enlargement left ventricle Moderate vascular congestion. No lobar pneumonia or pulmonary edema. Prominent osteopenia IMPRESSION: Moderate enlargement left ventricle Moderate vascular congestion
--- NOTE | 2025-06-26 03:56 | EKG_ITS ---
[facility] Test Date: 2025-06-26 Pat Name: HONG BORJA Department: Room: - Gender: Female [employer]: : 1945 Requested By: Parish Mathews Order Number: [id number] Reading MD: Parish Mathews Measurements Intervals [place] Rate: 119 P: 55 FL: 152 QRS: -47 QRSD: 95 T: 51 QT: 305 QTc: 430 Interpretive Statements SINUS TACHYCARDIA LEFT ATRIAL ENLARGEMENT [-0.15mV P-WAVE IN V1/V2] POSSIBLE RIGHT VENTRICULAR CONDUCTION DELAY [RSR (QR) IN V1/V2] LEFT ANTERIOR FASCICULAR BLOCK [QRS AXIS <= -45, QR IN I, RS IN II] SEPTAL MYOCARDIAL INFARCTION , PROBABLY OLD [40+ ms Q WAVE IN V1/V2] Compared to ECG 06/24/2025 11:43:02 Left anterior fascicular block now present Myocardial infarct finding now present Left-axis deviation no longer present Incomplete right bundle-branch block no longer present /store/S0/[id number]
[2025-06-26] MEDS: Magnesium Sulfate 2 GM Ivpb 2 GM/50 ML BAG IV (04:09)
[2025-06-26] MEDS: ONDANSETRON INJ 2 MG/ML INJ 2 ML 4 MG IVP (04:10)
[2025-06-26] MEDS: MethylPREDNISolone SOD SUCC 62.5 MG/ML 2ML VIAL 125 MG IVP (04:10)
[2025-06-26 04:27] LABS: Lactate (Lactic Acid) 0.9 mMol/L (0.4-2.0)
[2025-06-26] MEDS: METOPROLOL TARTRATE 25 MG TABLET PO (04:30)
[2025-06-26] MEDS: LEVALBUTEROL RT 1.25 MG/0.5 ML NEBU 2.5 MG INH (04:31)
[2025-06-26 04:39] LABS: Sed Rate (ESR) 17 mm/hr (0-30)
[2025-06-26 04:42] LABS: Basophils # (Auto) 0.2 Thou/mm3 (0.0-0.2); Basophils % (Auto) 2 % (0-2.5); Eosinophils # (Auto) 1.5 Thou/mm3 (0.0-0.5); Eosinophils % (Auto) 13 % (0-10); Hematocrit 42.7 % (36.0-46.0); Hemoglobin 14.0 g/dL (12.0-16.0); Immature Granulocytes Auto 0.02 Thou/mm3 (0.00-0.00); Lymphocytes # (Auto) 1.3 Thou/mm3 (1.0-4.8); Lymphocytes % (Auto) 12 % (10-50); Mean Corpuscular HGB Conc 32.8 g/dl (31.0-37.0); Mean Corpuscular Hemoglobin 29.2 pg (25.0-35.0); Mean Corpuscular Volume 89 fL (80-100); Monocytes # (Auto) 0.9 Thou/mm3 (0.0-0.8); Monocytes % (Auto) 8 % (0-12); Neutrophils # (Auto) 7.4 Thou/mm3 (1.8-7.7); Neutrophils % (Auto) 65 % (37-80); Nucleated Red Blood Cell # 0.00 Thou/mm3 (0.00-0.00); Nucleated Red Blood Cell % 0 /100 WBC (0); Platelet Count 345 Thou/mm3 (140-440); RDW Standard Deviation 45.1 fL (36.4-46.3); Red Blood Count 4.80 Miln/mm3 (4.00-5.20); White Blood Count 11.3 Thou/mm3 (3.6-11.0)
[2025-06-26 04:56] LABS: Base Excess 4 (-3-3); HCO3 32 mEq/L (20-26); Inspired Oxygen, FIO2 36 %; O2 Saturation 98 % (91-98); PCO2 57 mmHg (32.0-48.0); PO2 102 mmHg (83-108); pH, Arterial 7.35 (7.35-7.45)
[2025-06-26 04:58] LABS: Allen Test Performed/OK; Puncture Site Right Radial
[2025-06-26 04:58] LABS: Alanine Aminotransferase 10 U/L (10-49); Albumin, Serum 4.4 gm/dL (3.4-4.8); Albumin/Globulin Ratio 2.2 (1.2-2.2); Alkaline Phosphatase 63 U/L (46-116); Anion Gap 10 (7-16); Aspartate Amino Transferase 26 U/L (0-34); BUN/Creatinine Ratio 20 Ratio (12-20); Bilirubin,Direct 0.2 mg/dL (0.0-0.3); Bilirubin,Total 0.7 mg/dL (0.3-1.2); Blood Urea Nitrogen 10 mg/dL (9-23); C-Reactive Protein 1.2 mg/dL (0.0-0.9); Calcium 9.1 mg/dL (8.3-10.6); Calcium (Corrected) 9.1 mg/dL (8.5-10.1); Carbon Dioxide 30.0 mMol/L (20.0-31.0); Chloride 101 mMol/L (98-107); Creatinine (Component) 0.5 mg/dL (0.6-1.3); Estimated Creatinine Clearance 73.2 mL/min (>60); Globulin 2.0 gm/dL (2.3-3.5); Glucose 101 mg/dL (74-106); Lipase 37 U/L (12-53); Magnesium 3.7 mg/dL (1.6-2.6); Osmolality,Calculated 280 (275-295); Potassium 3.2 mMol/L (3.4-5.1); Procalcitonin 0.05 ng/ml (0.0-0.49); Sodium 141 mMol/L (136-145); Thyroid Stimulating Hormone 2.34 uIU/mL (0.55-4.78); Total Protein 6.4 gm/dL (5.7-8.2); Troponin I < 0.020 ng/mL (0.0-0.045); eGFR > 60 See Note
[2025-06-26 05:03] LABS: Influenza A Ag Negative; Influenza B Ag Negative
[2025-06-26 05:09] LABS: D-Dimer < 250 ng/mL (<600)
[2025-06-26 05:11] LABS: B-Type Natriuretic Peptide 29 pg/mL (0-100)
--- NOTE | 2025-06-26 05:31 | ESHP_ITS ---
Documentation for date of: 06/26/25 [facility] History of Present Illness Chief complaint: shortness of breath History of present illness: 79-year-old female with past medical history of asthma, breast cancer, osteoporosis, sinus arrhythmia, eczema, psoriasis who came to the ED due to progressive shortness of breath for about 1 week. Patient states she started having some shortness of breath onset about a week with increased sputum production. Patient does also endorse unable to lay flat and is reclined due to the shortness of breath. Patient denies fevers, chest pain, nausea, vomiting, abdominal pain, urinary changes, diarrhea. Patient will be admitted for acute bronchitis secondary to asthma exacerbation. ED course: ED vitals: 167/84, HR 121, RR 28, O2 sat 98% on 4L ED labs: Leukocytosis, elevated bicarb, AST 69, ABG shows some CO2 retention with normal pH In the ED patient was given Solu-Medrol 125 mg IV x 1, levalbuterol, magnesium, benadryl PMHx: As above SxHx: Bilateral mastectomy, hip replacement, cholecystectomy Social Hx: Smoked for 6 months when she was in college, denies smoking, denies alcohol use, denies illicit drug use including THC FHx: Breast cancer Review of Systems Review of Systems Systems Reviewed: All systems reviewed, normal except as documented Exam Vital Signs Temp Pulse Resp BP Pulse Ox O2 Del Method O2 Flow Rate 98.1 F 117 H 28 H 150/97 H 98 Nasal Cannula 4 06/26/25 04:20 06/26/25 04:33 06/26/25 04:33 06/26/25 04:30 06/26/25 04:33 06/26/25 04:20 06/26/25 04:33 Narrative Exam Physical Exam GENERAL: NAD, AAOx3, frail HEENT: Moist mucosa. Eyes open, symmetrical, & clear CARDIO: Heart RRR, no obvious murmurs PULM: dyspnea, coughing, bilateral wheezing GI: Abdomen soft, nondistended, no pain on palpation. BSx4 SKIN/MSK/EXT: No wounds/rashes/edema/amputations, no pain on palpation. Pedal pulses present B/L NEURO: AAOx3, no focal neuro deficits, able to move all 4 extremities Results: Labs 06/26/25 04:15 06/26/25 04:15 Labs: Short CBC 06/26/25 Range/Units 04:15 WBC 11.3 H (3.6-11.0) Thou/mm3 Hgb 14.0 (12.0-16.0) g/dL Hct 42.7 (36.0-46.0) % Plt Count 345 (140-440) Thou/mm3 BMP 06/26/25 04:15 Sodium 141 Potassium 3.2 L Chloride 101 Carbon Dioxide 30.0 BUN 10 Creatinine 0.5 L Glucose 101 Calcium 9.1 Cardiac Enzymes 06/26/25 Range/Units 04:15 Troponin I < 0.020 (0.0-0.045) ng/mL Liver Function 06/26/25 Range/Units 04:15 Total Bilirubin 0.7 (0.3-1.2) mg/dL Direct Bilirubin 0.2 (0.0-0.3) mg/dL AST 26 (0-34) U/L ALT 10 (10-49) U/L Alkaline Phosphatase 63 (46-116) U/L Albumin 4.4 (3.4-4.8) gm/dL ABG Interpretation ABG results: 06/26/25 04:51 ABG pH 7.35 ABG pCO2 57 H ABG pO2 102 ABG HCO3 32 H ABG O2 Saturation 98 ABG Base Excess 4 H Quality Measures Quality Measures none Advance care planning discussed with:: patient Medications Home Medications and Allergies Home Medications ?Medication ?Instructions ?Recorded ?Confirmed ?Type fexofenadine 60 mg tablet (Sharon 60 mg PO BID 06/01/25 History Allergy) clotrimazole-betamethasone 1 1 applic topical BID PRN cracked 01/24/25 06/01/25 History %-0.05 % topical cream skin alendronate 70 mg tablet 70 mg PO QWEEK 03/29/2505/08 History Held on 06/02/25. Instructions: Resume on 06/15/25. Please follow-up with safety security officer before restarting amlodipine 2.5 mg tablet 2.5 mg PO .day 03/29/2505/08 History fluticasone furoate 200 1 inh inhalation Q24H 06/01/25 History mcg-vilanterol 25 mcg/dose inhalation powder (Breo Ellipta) metoprolol succinate 25 mg 25 mg PO HS 03/29/25 History tablet,extended release 24 hr Held on 06/02/25. Instructions: Resume on 06/08/25. Hold until you are seen by Dr. Rojo (furniture finisher apprentice); ask why you are taking this medication. Allergies Allergy/AdvReac Type Severity Reaction Status Date / Time shellfish derived Allergy Severe ITCHING,DROP Verified 06/24/25 11:16 IN BP Sulfa (Sulfonamide Allergy Severe HIVES AND Verified 06/24/25 11:16 Antibiotics) SWELLING Visit Medications Acetaminophen (Acetaminophen 325 Mg Tablet) 650 mg PO Q6H PRN PRN Reason: Fever >100.4 Stop: 07/26/25 05:27 Albuterol/Ipratropium (Albuterol/Ipratropium (Duoneb) Rt Violet 3 Ml Nebu) 3 ml INH Q4HRRT SONYA Stop: 07/26/25 06:59 Albuterol/Ipratropium (Albuterol/Ipratropium (Duoneb) Rt Violet 3 Ml Nebu) 3 ml INH Q2HR PRN PRN Reason: SHORTNESS OF BREATH OR WHEEZE Stop: 07/26/25 05:27 Magnesium Sulfate (Magnesium Sulfate Ivpb) 2 gm in 50 mls @ 25 mls/hr IV X1 ONE Stop: 06/26/25 05:55 Last Admin: 06/26/25 04:09 Dose: 25 mls/hr Azithromycin 500 mg/ Sodium (Chloride) 250 mls @ 250 mls/hr IV X1 ONE Stop: 06/26/25 06:14 Ceftriaxone Sodium/Dextrose (Rocephin/D5w 1gm Iv Premix) 1 g in 50 mls @ 100 mls/hr IV X1 ONE Stop: 06/26/25 05:44 Lactated Ringer's (Lactated Ringers) 1,000 mls @ 250 mls/hr IV .Q4H ONE Stop: 06/26/25 09:15 Ondansetron HCl (Ondansetron Inj 2 Mg/Ml Inj 2 Ml) 4 mg IVP Q6H PRN; Protocol PRN Reason: NAUSEA OR VOMITING Stop: 07/26/25 05:27 Sodium Chloride (Sodium Chloride Rt Violet 0.9% 3 Ml Nebu) 12 ml INH PRN PRN PRN Reason: SOLN Stop: 07/26/25 03:55 Discontinued Medications Diphenhydramine HCl (Diphenhydramine Inj 50 Mg/Ml Vial) 50 mg IVP X1 STA Stop: 06/26/25 03:57 Last Admin: 06/26/25 04:09 Dose: 50 mg Levalbuterol HCl (Levalbuterol Rt 1.25 Mg/0.5 Ml Nebu) 2.5 mg INH X1 ONE Stop: 06/26/25 03:57 Last Admin: 06/26/25 04:31 Dose: 2.5 mg Methylprednisolone Sodium Succinate (Methylprednisolone Sod Succ 62.5 Mg/Ml 2ml Vial) 125 mg IVP X1 ONE Stop: 06/26/25 03:57 Last Admin: 06/26/25 04:10 Dose: 125 mg Metoprolol Tartrate (Metoprolol Tartrate 25 Mg Tablet) 25 mg PO X1 ONE Stop: 06/26/25 04:14 Last Admin: 06/26/25 04:30 Dose: 25 mg Ondansetron HCl (Ondansetron Inj 2 Mg/Ml Inj 2 Ml) 4 mg IVP X1 ONE; Protocol Stop: 06/26/25 03:57 Last Admin: 06/26/25 04:10 Dose: 4 mg Potassium Chloride (Potassium Chloride 10% 20 Meq/15 Ml Udc) 40 meq PO X1 ONE Stop: 06/26/25 05:15 Assessment & Plan Plan 79-year-old female with past medical history of asthma, sinus arrhythmia, eczema, psoriasis presented to the ED due to shortness of breath that was progressive for 1 week patient also reports orthopnea symptoms. Patient will be admitted for acute bronchitis secondary to asthma exacerbation. 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 Flu negative, COVID-negative -DuoNebs scheduled and as needed -Azithromycin 500 IV mg daily -Methylprednisolone 40 mg IV BID -Follow-up blood cultures #History of sinus arrhythmia #Mitral Regurgitation #Mild Pulmonaary Hypertension #Chronic Diastolic Heart Failure [EF 65%] Patient is seen by Dr. Rojo Patient does have bilateral leg swelling, no crackles though Echo done in september shows: Normal LV size, wall thickness. Estimated EF 65%. RV is normal in size and systolic function. Estimated RVSP, 41mmHg. RAP 5. Mild thickening of the MV leaflets with moderate 2+mitral regurgitation. 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 Franco Naylor MD PGY-2 Attending Provider Attestation/Addendum 79-year-old female with psoriasis, eczema, asthma mitral regurgitation, pulmonary hypertension was admitted for exacerbation asthma/COPD and received bronchodilators with minimal improvement of symptoms..She received IV Solu- Medrol. Patient also has chronic diastolic heart failure. She will be seen by her furniture finisher apprentice Dr. Rojo I discussed with and supervised the resident physician who took care of this patient. I agree with the assessment and plan as above. 3.
[2025-06-26] MEDS: cefTRIAXone/D5w 1gm IV premix 1 G/50 ML BAG IV (05:35)
[2025-06-26] MEDS: AZITHROMYCIN INJ 500 MG in SODIUM CHLORIDE 0.9% 250 ML 250 ML 250 MG IV ×2 (05:35→09:50)
[2025-06-26] MEDS: HEPARIN SOD INJ 5000 UNIT/ML VIAL SC ×3 (05:49→21:16)
[2025-06-26] MEDS: RINGERS LACTATED 1000 ML 1,000 ML 250 ML IV (05:50)
[2025-06-26 06:11] LABS: Collection Type, Urine Clean Catch; Squamous Epithelial Cell,Urine 0 /hpf (0-5)
[2025-06-26 06:16] LABS: Bilirubin,Urine Negative (Negative); Blood,Urine Negative (Negative); Clarity,Urine Clear (Clear/Hazy); Color,Urine Lt-Yellow (Lt Yel-Yel); Culture Indicated,Urine Not Indicated; Glucose, Urine Negative (Negative); Hyaline Casts,Urine < 1 /hpf (0-1); Ketones,Urine Trace (Negative); Leukocyte Esterase,Urine Negative (Negative); Nitrite,Urine Negative (Negative); PH,Urine 6.0 (5.0-7.0); Protein,Urine Negative (Neg - Trace); RBC,Urine 1 /hpf (0-3); Specific Gravity,Urine 1.013 (1.001-1.035); Urobilinogen,Urine Negative mg/dL (0.0-1.0); WBC,Urine 1 /hpf (0-5)
[2025-06-26] MEDS: ALBUTEROL/IPRATROPIUM (Duoneb) RT SOL 3 ML NEBU INH ×5 (06:49→23:26)
--- NOTE | 2025-06-26 07:47 | PC.NURSE ---
PT RESTING DENIES ANY PAIN AT THIS TIME, VSS ON TELE 100% ON 4L. WILL CONT W/POC
[2025-06-26] MEDS: FUROSEMIDE INJ 10 MG/ML VIAL 2 ML 40 MG IVP (12:12)
--- NOTE | 2025-06-26 14:26 | PC.NURSE ---
PT TRANSPORTED TO FLOOR BY THIS RN W/O INCIDENT, PT WAS CONNECTED TO TELE, STAFF AT BEDSIDE TO ASSUME CARE
--- NOTE | 2025-06-26 17:05 | ESPR_ITS ---
<Statement entered by Benjamin Doan MD - 06/26/25 17:31> I have reviewed the note and agree with the resident's assessment & plan with exceptions as below. I have personally reviewed labs, imaging, home meds/prior records, examined the patient, formulated and discussed management plan with my attending Patient was seen and examined at bedside this morning. No acute overnight events. Patient was admitted due to asthma exacerbation. Patient states that she was recently prescribed some antibiotics around 2 weeks ago, but that she has been having increased butyrin production and cough. She also mentioned that she has been having shortness of breath as well. She does not recall having any steroids prescribed in the past. Will continue with azithromycin for now along with DuoNebs and will start patient outpatient on Advair and will continue IV Solu-Medrol for now. Expect possible discharge in the next 24 to 48 hours if patient's O2 requirements remain stable and she does not have any spikes in fevers or WBC. Gave lasix 40mg x1 due to LE swelling, BNP 29 and less,likely CHF exacerbation. Benjamin Doan PGY2 Disclaimer: Even though this this note was dictated by speech recognition and even though it was carefully revised there may still be minor errors in oil burner servicer and installer due to voice recognition software. Documentation for date of: 06/26/25 Subjective Subjective Interval history: Patient admitted overnight. Patient seen and examined at bedside in ED. Patient reported 1 week of progressive shortness of breath despite being adherent to breathing treatments. Has not seen her primary care physician lately. Endorses improved shortness of breath following steroid treatments and breathing treatments. Vitals and labs reviewed. SBP 10/06/1958. HR 80-100. Saturating 98% on 4 L. WBC 11.3, potassium 3.2, creatinine 0.5. Chest x-ray shows moderate vascular congestion. Continue DuoNeb, azithromycin, methylprednisolone 40 mg twice daily. Gave Lasix 40 mg x 1 for lower extremity edema. Hold off on echo for now as patient does not seem to be in heart failure exacerbation being on home O2 and negative BNP. Exam Vital Signs Temp Pulse Resp BP Pulse Ox O2 Del Method O2 Flow Rate 98.7 F 107 H 18 126/80 97 Nasal Cannula 3 06/26/25 16:00 06/26/25 16:00 06/26/25 16:00 06/26/25 16:00 06/26/25 16:00 06/26/25 16:00 06/26/25 16:00 Narrative Exam GENERAL: AOx3, no acute distress, elderly HEENT: mucous membranes moist, bilateral sclera anicteric CARDIOVASCULAR: regular rate and rhythm, S1/S2 present, no murmurs appreciated PULMONARY: diminished breath sounds at bilateral bases, no wheezing appreciated ABDOMINAL: soft, non-tender, non-distended, no rebound/guarding, bowel sounds present EXTREMITIES: 1+ pitting edema BLE SKIN: warm and dry, intact, no rashes NEURO: CN II-XII grossly intact, no focal deficits, alert, following commands Objective Labs 06/27/25 04:45 06/27/25 04:45 Labs: Laboratory Results - last 24 hr 06/26/25 06/26/25 06/26/25 04:15 04:51 05:24 WBC 11.3 H RBC 4.80 Hgb 14.0 Hct 42.7 MCV 89 MCH 29.2 MCHC 32.8 RDW Std Deviation 45.1 Plt Count 345 Neut % (Auto) 65 Lymph % (Auto) 12 [place] % (Auto) 8 Eos % (Auto) 13 H Baso % (Auto) 2 Neut # (Auto) 7.4 Lymph # (Auto) 1.3 [place] # (Auto) 0.9 H Eos # (Auto) 1.5 H Baso # (Auto) 0.2 Immature Gran # (Auto) 0.02 H Absolute Nucleated RBC 0.00 Immature Gran % 0 Nucleated RBC % 0 ESR 17 D-Dimer < 250 Puncture Site Right Radial ABG pH 7.35 ABG pCO2 57 H ABG pO2 102 ABG HCO3 32 H ABG O2 Saturation 98 ABG Base Excess 4 H FiO2 36 Sodium 141 Potassium 3.2 L Chloride 101 Carbon Dioxide 30.0 Anion Gap 10 BUN 10 Creatinine 0.5 L Estim Creat Clear Calc 73.2 eGFR > 60 BUN/Creatinine Ratio 20 Glucose 101 Calculated Osmolality 280 Lactic Acid 0.9 Calcium 9.1 Corrected Calcium 9.1 Magnesium 3.7 H Total Bilirubin 0.7 Direct Bilirubin 0.2 AST 26 ALT 10 Alkaline Phosphatase 63 Troponin I < 0.020 C-Reactive Prot, Quant 1.2 H B-Natriuretic Peptide 29 Total Protein 6.4 Albumin 4.4 Globulin 2.0 L Albumin/Globulin Ratio 2.2 Lipase 37 Procalcitonin 0.05 TSH 2.34 Ur Collection Type Clean Catch Urine Color Lt-Yellow Urine Clarity Clear Urine pH 6.0 Ur Specific [place] 1.013 Urine Protein Negative Urine Glucose (UA) Negative Urine Ketones Trace Urine Blood Negative Urine Nitrite Negative Urine Bilirubin Negative Urine Urobilinogen (Auto) Negative Ur Leukocyte Esterase Negative Urine RBC 1 Urine WBC 1 Ur Squamous Epith Cells 0 Urine Bacteria None Hyaline Casts < 1 Ur Culture Indicated? Not Indicated Influenza A (Rapid) Negative Influenza B (Rapid) Negative ABG Interpretation ABG results: 06/26/25 04:51 ABG pH 7.35 ABG pCO2 57 H ABG pO2 102 ABG HCO3 32 H ABG O2 Saturation 98 ABG Base Excess 4 H Quality Measures Quality Measures none Advance care planning discussed with:: patient Assessment & Plan Assessment Current Active Medications: Generic Name Dose Route Start Last Admin Trade Name Freq PRN Reason Stop Dose Admin Acetaminophen 650 mg 06/26/25 05:28 Acetaminophen 325 Mg Tablet PO 07/26/25 05:27 Q6H PRN Fever >100.4 Acetaminophen 650 mg 06/26/25 05:28 Acetaminophen 325 Mg Tablet PO 07/26/25 05:27 Q6H PRN PAIN SCALE 1-3 (mild Albuterol/Ipratropium 3 ml 06/26/25 07:00 06/26/25 15:54 Albuterol/Ipratropium (Duoneb) Rt Violet 3 Ml Nebu INH 07/26/25 06:59 3 ml Q4HRRT SONYA Administration Albuterol/Ipratropium 3 ml 06/26/25 05:28 Albuterol/Ipratropium (Duoneb) Rt Violet 3 Ml Nebu INH 07/26/25 05:27 Q2HR PRN SHORTNESS OF BREATH OR WHEEZE Heparin Sodium (Porcine) 5,000 unit 06/26/25 06:00 06/26/25 14:58 Heparin Sod Inj 5000 Unit/Ml Vial SC 07/10/25 05:59 5,000 unit Q8HR SONYA Administration Azithromycin 500 mg/ Sodium 250 mls @ 250 mls/hr 06/26/25 05:36 06/26/25 10:50 Chloride IV 07/03/25 05:35 Infused QDAY SONYA Infusion Methylprednisolone Sodium Succinate 40 mg 06/26/25 09:00 06/26/25 09:53 Methylprednisolone Sod Succ 40 Mg/Ml Vial IVP 07/03/25 08:59 40 mg BID SONYA Administration Ondansetron HCl 4 mg 06/26/25 05:28 Ondansetron Inj 2 Mg/Ml Inj 2 Ml IVP 07/26/25 05:27 Q6H PRN NAUSEA OR VOMITING Protocol Sennosides 1 tab 06/26/25 09:00 06/26/25 09:53 Senna Tablet PO 07/26/25 08:59 Not Given QDAY SONYA Protocol Sodium Chloride 12 ml 06/26/25 03:56 Sodium Chloride Rt Violet 0.9% 3 Ml Nebu INH 07/26/25 03:55 PRN PRN SOLN Plan Lisa Jansen 79F with pmhx significant for asthma with multiple hospitalizations on home O2 3L at night, breast CA s/p b/l mastectomy, HFpEF (65% 09/2024), osteoporosis, psoriasis, and eczema presented to [facility] ED on 06/26 due to progressive worsening SOB, admitted for asthma exacerbation. #Asthma exacerbation For the past week he started developing shortness of breath and wheezing with increased sputum production. Completed Zpak course 2 weeks ago with minimal improvement. Endorses adherence to medicaton, using albuterol 2-3 times a day with Breo QD, however on chart review, patient's family endorses noncompliance. 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 Checks x-ray did not show any pneumonia. Flu negative, COVID-negative In ED, patient has very bad bilateral wheezing even after receiving solumedrol 125mg IV in the ED. Plan: - DuoNebs q4h scheduled and q2h prn - Azithromycin 500 IV mg daily - Methylprednisolone 40 mg IV BID - Recommend Advair 250/50 outpatient - Follow-up blood cultures #Chronic Diastolic Heart Failure (EF 65% 09/2024) #History of sinus arrhythmia #Mitral Regurgitation #Mild Pulmonaary Hypertension Patient is seen by Dr. Rojo. Patient does have bilateral leg swelling with long standing hx of orthopnea. trops neg and BNP 29. Echo 09/2024: Normal LV size, wall thickness. Estimated EF 65%. RV is normal in size and systolic function. Estimated RVSP, 41mmHg. RAP 5. Mild thickening of the MV leaflets with moderate 2+mitral regurgitation. 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 Gomes, and PGY-2 Dr. De La Garza. Leesa Wagoner, DO PGY-1 Internal Medicine Attending Provider Attestation/Addendum I have seen and examined the patient. I was physically present for the [place] portions of the services provided including history, physical exam, diagnosis, treatment plans and orders. I agree with assessment and plan of care as documented by residents. Patient is a 79 years old female with past medical history of asthma, multiple hospitalization for asthma exacerbation, breast carcinoma status post bilateral mastectomy, HFpEF, osteoporosis, psoriasis and eczema who presented to the ED with complaint of worsening shortness of breath. She was admitted overnight for management of asthma exacerbation. At bedside this morning, patient appears comfortable, has bilateral wheezing, saturating well on 3 L nasal cannula. We will continue with IV azithromycin, Solu-Medrol, DuoNebs. We will continue to wean down her oxygen as tolerated. Even though this this note was carefully revised there may still be minor errors in oil burner servicer and installer due to voice recognition software. Aileen Gomes MD
[2025-06-27] VITALS (14 sets, daily range): BP systolic 103–135; BP diastolic 61–91; PULSE 87–122; RESP 16–24; TEMP 36.4–37.1; O2SAT 92–100
[2025-06-27] MEDS: ALBUTEROL/IPRATROPIUM (Duoneb) RT SOL 3 ML NEBU INH ×6 (02:48→22:27)
[2025-06-27] MEDS: HEPARIN SOD INJ 5000 UNIT/ML VIAL SC ×3 (05:32→21:10)
[2025-06-27 05:51] LABS: Basophils # (Auto) 0.0 Thou/mm3 (0.0-0.2); Basophils % (Auto) 0 % (0-2.5); Eosinophils # (Auto) 0.0 Thou/mm3 (0.0-0.5); Eosinophils % (Auto) 0 % (0-10); Hematocrit 39.6 % (36.0-46.0); Hemoglobin 12.7 g/dL (12.0-16.0); Immature Granulocytes Auto 0.04 Thou/mm3 (0.00-0.00); Lymphocytes # (Auto) 0.5 Thou/mm3 (1.0-4.8); Lymphocytes % (Auto) 5 % (10-50); Mean Corpuscular HGB Conc 32.1 g/dl (31.0-37.0); Mean Corpuscular Hemoglobin 29.5 pg (25.0-35.0); Mean Corpuscular Volume 92 fL (80-100); Monocytes # (Auto) 0.4 Thou/mm3 (0.0-0.8); Monocytes % (Auto) 4 % (0-12); Neutrophils # (Auto) 9.4 Thou/mm3 (1.8-7.7); Neutrophils % (Auto) 91 % (37-80); Nucleated Red Blood Cell # 0.00 Thou/mm3 (0.00-0.00); Nucleated Red Blood Cell % 0 /100 WBC (0); Platelet Count 327 Thou/mm3 (140-440); RDW Standard Deviation 46.7 fL (36.4-46.3); Red Blood Count 4.31 Miln/mm3 (4.00-5.20); White Blood Count 10.3 Thou/mm3 (3.6-11.0)
[2025-06-27 06:38] LABS: Alanine Aminotransferase 8 U/L (10-49); Albumin, Serum 4.1 gm/dL (3.4-4.8); Albumin/Globulin Ratio 2.6 (1.2-2.2); Alkaline Phosphatase 52 U/L (46-116); Anion Gap 10 (7-16); Aspartate Amino Transferase 19 U/L (0-34); BUN/Creatinine Ratio 22 Ratio (12-20); Bilirubin,Total 0.4 mg/dL (0.3-1.2); Blood Urea Nitrogen 13 mg/dL (9-23); Calcium 9.2 mg/dL (8.3-10.6); Calcium (Corrected) 9.2 mg/dL (8.5-10.1); Carbon Dioxide 33.5 mMol/L (20.0-31.0); Chloride 101 mMol/L (98-107); Creatinine (Component) 0.6 mg/dL (0.6-1.3); Estimated Creatinine Clearance 60.2 mL/min (>60); Globulin 1.6 gm/dL (2.3-3.5); Glucose 150 mg/dL (74-106); Magnesium 2.4 mg/dL (1.6-2.6); Osmolality,Calculated 289 (275-295); Potassium 4.0 mMol/L (3.4-5.1); Sodium 144 mMol/L (136-145); Thyroid Stimulating Hormone 0.46 uIU/mL (0.55-4.78); Total Protein 5.7 gm/dL (5.7-8.2); eGFR > 60 See Note
[2025-06-27] MEDS: AZITHROMYCIN INJ 500 MG in SODIUM CHLORIDE 0.9% 250 ML 250 ML 250 MG IV (08:54)
[2025-06-27 09:57] LABS: Free T4 (Free Thyroxine) 1.53 ng/dL (0.89-1.76)
--- NOTE | 2025-06-27 13:22 | ESDS_ITS ---
<Statement entered by Benjamin Doan MD - 06/27/25 15:24> I have reviewed the note and agree with the resident's assessment & plan with exceptions as below. I have personally reviewed labs, imaging, home meds/prior records, examined the patient, formulated and discussed management plan with my attending Benjamin Doan PGY2 Disclaimer: Even though this this note was dictated by speech recognition and even though it was carefully revised there may still be minor errors in hairspring studder due to voice recognition software. Planned Discharge Date 06/27/25 DS: Providers Provider Date of admission: 06/26/25 05:28 Primary care physician: Quinton Ochoa MD Admitting Provider: Denton Gamez MD Attending Provider on Admission: Aileen Gomes MD Consults: 06/27/25 11:00 Referral Physical Therapy Routine Comment: Physician Instructions: Attending Provider on DC: Aileen Gomes MD Discharging Provider: Aileen Gomes MD DS: Diagnosis Problem List Completed Was Problem List Reviewed/Reconciled?: Yes Hospital Course Hospital Course Hospital course: Summary: Lisa Jansen 79F with pmhx significant for asthma with multiple hospitalizations on home O2 3L at night, breast CA s/p b/l mastectomy, HFpEF (65% 09/2024), osteoporosis, psoriasis, and eczema presented to [facility] ED on 06/26 due to progressive worsening SOB, admitted for asthma exacerbation. For the past week she endorses progressive worsening shortness of breath and wheezing with increased sputum production. Completed Zpak course 2 weeks ago with minimal improvement. Endorses adherence to medicaton, using albuterol 2-3 times a day with Breo QD, however on chart review, patient's family endorses noncompliance. Of note patient has brand representative at [facility], but has not seen her in a few months. Patient was treated with steroids, breathing treatments, supplemental oxygen and gentle diuresus with improvement in breathing. CXR did not show any pneumonia. Flu negative, COVID-negative. Although CXR did not show PNA, patient was treated with antibiotics and will be discharged with one more day of treatment. Of note, patient was found to be tachycardic with history however patient reports she used to take metoprolol, however due to asthma, her PCP told her to discontinue. On discharge, patient is hemodynamically stable, vitals and labs reviewed to be stable, and patient is at baseline oxygen level. Imaging: CXR moderate vascular congestion Discharge Recommendations: - Please take all medications as prescribed - Continue home Breo and home Duonebs - START montelukast for your asthma - TAKE 1 more day of azithromycin for treatment of PNA - Continue all home medications except as above - Please follow up with your PCP within one week of discharge - If your symptoms worsen, please seek immediate medical attention and return to your nearest emergency room. - If you do not have a PCP, you may follow up at the [facility] at [address] [place] [address] [address], [facility] [address], Hospital Diagnoses: #Asthma exacerbation #Chronic Diastolic Heart Failure (EF 65% 09/2024) #History of sinus arrhythmia #Mitral Regurgitation #Mild Pulmonaary Hypertension #History of eczema #History of psoriasis #History of osteoporosis Plan of care discussed with attending Dr. Barreto, and PGY-2 Dr. De La Garza. Leesa Wagoner, DO Internal Medicine, PGY-1 Time Spent with Patient Time attestation: Total time spent providing and/or coordinating discharge services: Time spent: Greater than 30 minutes Exam Vital Signs Temp Pulse Resp BP Pulse Ox O2 Del Method O2 Flow Rate 98.3 F 114 H 19 130/82 93 L Room Air 2 06/27/25 12:00 06/27/25 12:00 06/27/25 12:00 06/27/25 12:00 06/27/25 12:00 06/27/25 12:00 06/27/25 10:14 Narrative Exam GENERAL: AOx3, no acute distress, elderly HEENT: mucous membranes moist, bilateral sclera anicteric CARDIOVASCULAR: regular rate and rhythm, S1/S2 present, no murmurs appreciated PULMONARY: diminished breath sounds at bilateral bases, no wheezing appreciated ABDOMINAL: soft, non-tender, non-distended, no rebound/guarding, bowel sounds present EXTREMITIES: no peripheral edema SKIN: warm and dry, intact, no rashes NEURO: CN II-XII grossly intact, no focal deficits, alert, following commands Discharge Plan Plan Patient Disposition: HOME (Self Care) Care Plan Goals: Please follow up with your primary care physician within 2-3 days We have started you on azithromycin for 1 more day We have started you on montelukast 10mg daily Please use your oxygen during the daytime and night time Please continue taking all other home medications as prescribed It is very important that you are compliant with your Breo as prescribed. Come back to the ER if symptoms persist or worsen. Prescriptions/Referrals Prescriptions/Med Rec: New azithromycin 500 mg tablet 500 mg PO QDAY Qty: 1 0RF montelukast 10 mg tablet 10 mg PO QDAY Qty: 30 0RF Continued fexofenadine [Sharon Allergy] 60 mg Tablet 60 mg PO BID clotrimazole-betamethasone 1-0.05 % cream 1 applic topical BID PRN (Reason: cracked skin ) fluticasone furoate-vilanterol [Breo Ellipta] 200-25 mcg/dose blister with device 1 inh INHALATION Q24H amlodipine 2.5 mg tablet 2.5 mg PO .day Patient Comments: TAKE 1 TABLET BY MOUTH EVERY DAY alendronate 70 mg tablet 70 mg PO QWEEK albuterol sulfate 90 mcg/actuation HFA aerosol inhaler 2 puff inhalation Q6H PRN (Reason: shortness of breath or wheezing) Qty: 6.7 2RF ipratropium-albuterol 0.5 mg-3 mg(2.5 mg base)/3 mL solution for nebulization 3 ml INHALATION Q6H PRN (Reason: shortness of breath or wheezing) Patient Comments: INHALE 3 ML EVERY 6 HOURS NEEDED tmyglqm-bdiykptgufcgk-gkhmztad [Excedrin Extra Strength] 250-250-65 mg tablet 1 tab PO Q6H PRN (Reason: migraine headache) Held metoprolol succinate 25 mg tablet extended release 24 hr 25 mg PO HS Hold Instructions: Resume on 07/04/25. until follow up with nurse first aid Referrals: Quinton Ochoa MD [Primary Care Provider] Patient/Caregiver Discharge Instructions Other Discharge Activity Instructions:: Please follow up with your primary care physician within 2-3 days We have started you on azithromycin for 1 more day We have started you on montelukast 10mg daily Please use your oxygen during the daytime and night time Please continue taking all other home medications as prescribed It is very important that you are compliant with your Breo as prescribed. Come back to the ER if symptoms persist or worsen. Education Materials: Asthma Trigger Checklist, Asthma in Older Adults Print Language: Singaporean Stand Alone Forms: Shelia Award Info., Patient Portal Info Letter Discharge Order Discharge Orders: Discharge (Routine); Ordered 06/27/25 Ordered By: Benjamin Doan Quality Discharge Quality Measures VTE prophylaxis MD Attestestation MD Attestation I have seen and examined the patient. I was physically present for the montgomery portions of the services provided including history, physical exam, diagnosis, treatment plans and orders. I agree with assessment and plan of care as documented by residents. No acute overnight events. Patient seen and examined at bedside this morning, appears comfortable and denies any new complaints. Continues to have mild bilateral wheezing but saturating well on 2 L nasal cannula, speaking in full sentences.Vital signs are stable except for mild tachycardia. Patient was receiving beta-blockers by her nurse first aid, which recently has been on hold due to her frequent asthma exacerbations. Patient is planning to follow-up with her cardiology and rediscuss regarding her options. Lab results are stable, WBC is downtrending, potassium level has improved compared to yesterday. Patient underwent physical therapy evaluation, was able to ambulate well but had tachycardia without the oxygen, we will discharge patient home on oxygen supplementation, Breo Ellipta, as needed DuoNeb nebulization, montelukast. Recommended her to follow-up with her PCP, pulmonology. Even though this this note was carefully revised there may still be minor errors in hairspring studder due to voice recognition software. Aileen Gomes MD
--- NOTE | 2025-06-27 14:01 | PC.PT ---
PT eval only. Patient is I with transfers and S with ambulation without AD.
--- NOTE | 2025-06-27 15:35 | PC.SS ---
rounding note: Patient to d/c home today. No d/c needs.
[2025-06-28] VITALS (11 sets, daily range): BP systolic 122–148; BP diastolic 76–100; PULSE 88–109; RESP 18–28; TEMP 36.3–37; O2SAT 92–100
[2025-06-28] MEDS: ALBUTEROL/IPRATROPIUM (Duoneb) RT SOL 3 ML NEBU INH ×5 (01:36→14:26)
[2025-06-28] MEDS: HEPARIN SOD INJ 5000 UNIT/ML VIAL SC ×2 (05:26→14:30)
[2025-06-28 06:02] LABS: Basophils # (Auto) 0.1 Thou/mm3 (0.0-0.2); Basophils % (Auto) 1 % (0-2.5); Eosinophils # (Auto) 0.1 Thou/mm3 (0.0-0.5); Eosinophils % (Auto) 1 % (0-10); Hematocrit 40.1 % (36.0-46.0); Hemoglobin 13.0 g/dL (12.0-16.0); Immature Granulocytes Auto 0.04 Thou/mm3 (0.00-0.00); Lymphocytes # (Auto) 2.3 Thou/mm3 (1.0-4.8); Lymphocytes % (Auto) 19 % (10-50); Mean Corpuscular HGB Conc 32.4 g/dl (31.0-37.0); Mean Corpuscular Hemoglobin 29.3 pg (25.0-35.0); Mean Corpuscular Volume 90 fL (80-100); Monocytes # (Auto) 1.2 Thou/mm3 (0.0-0.8); Monocytes % (Auto) 10 % (0-12); Neutrophils # (Auto) 8.1 Thou/mm3 (1.8-7.7); Neutrophils % (Auto) 69 % (37-80); Nucleated Red Blood Cell # 0.00 Thou/mm3 (0.00-0.00); Nucleated Red Blood Cell % 0 /100 WBC (0); Platelet Count 333 Thou/mm3 (140-440); RDW Standard Deviation 45.8 fL (36.4-46.3); Red Blood Count 4.44 Miln/mm3 (4.00-5.20); White Blood Count 11.8 Thou/mm3 (3.6-11.0)
[2025-06-28 06:22] LABS: Alanine Aminotransferase 9 U/L (10-49); Albumin, Serum 4.1 gm/dL (3.4-4.8); Albumin/Globulin Ratio 2.2 (1.2-2.2); Alkaline Phosphatase 50 U/L (46-116); Anion Gap 9 (7-16); Aspartate Amino Transferase 19 U/L (0-34); BUN/Creatinine Ratio 24 Ratio (12-20); Bilirubin,Total 0.5 mg/dL (0.3-1.2); Blood Urea Nitrogen 12 mg/dL (9-23); Calcium 9.2 mg/dL (8.3-10.6); Calcium (Corrected) 9.2 mg/dL (8.5-10.1); Carbon Dioxide 32.0 mMol/L (20.0-31.0); Chloride 101 mMol/L (98-107); Creatinine (Component) 0.5 mg/dL (0.6-1.3); Estimated Creatinine Clearance 72.2 mL/min (>60); Globulin 1.9 gm/dL (2.3-3.5); Glucose 81 mg/dL (74-106); Magnesium 2.2 mg/dL (1.6-2.6); Osmolality,Calculated 281 (275-295); Potassium 3.1 mMol/L (3.4-5.1); Sodium 142 mMol/L (136-145); Total Protein 6.0 gm/dL (5.7-8.2); eGFR > 60 See Note
[2025-06-28] MEDS: AZITHROMYCIN INJ 500 MG in SODIUM CHLORIDE 0.9% 250 ML 250 ML 250 MG IV (08:31)
[2025-06-28] MEDS: POTASSIUM CHLORIDE 10% 20 MEQ/15 ML UDC 40 MEQ PO (09:12)
--- NOTE | 2025-06-28 11:45 | PC.SS ---
Patient is alert/oriented. Patient was able to verify demographics. Patient is independent with ADL's. Patient confirmed DME she has is 02 that she uses nocturnal only. Patient confirmed she resides with her . Admitted for SOB. Patient states her has 24 hour careproviders so there is always someone at home. Patient follows with Dr. Ochoa @ [facility]. She also sees Dr. Rojo and has a [employer] in [place]. Discharge plan is to return home. Pharmacy; NEW/ Alt medical decision maker: Moy Narvaez,
--- NOTE | 2025-06-28 14:42 | ESDS_ITS ---
<Statement entered by Benjamin Doan MD - 06/28/25 14:46> I have reviewed the note and agree with the resident's assessment & plan with exceptions as below. I have personally reviewed labs, imaging, home meds/prior records, examined the patient, formulated and discussed management plan with my attending Benjamin Doan PGY2 Disclaimer: Even though this this note was dictated by speech recognition and even though it was carefully revised there may still be minor errors in ultrasonic seaming machine operator due to voice recognition software. Planned Discharge Date 06/28/25 DS: Providers Provider Date of admission: 06/26/25 05:28 Primary care physician: Quinton Ochoa MD Admitting Provider: Denton Gamez MD Attending Provider on Admission: Aileen Gomes MD Consults: 06/27/25 11:00 Referral Physical Therapy Routine Comment: Physician Instructions: Attending Provider on DC: Aileen Gomes MD Discharging Provider: Aileen Gomes MD DS: Diagnosis Problem List Completed Was Problem List Reviewed/Reconciled?: Yes Hospital Course Hospital Course Hospital course: Summary: Lisa Jansen 79F with pmhx significant for asthma with multiple hospitalizations on home O2 3L at night, breast CA s/p b/l mastectomy, HFpEF (65% 09/2024), osteoporosis, psoriasis, and eczema presented to [facility] ED on 06/26 due to progressive worsening SOB, admitted for asthma exacerbation. For the past week she endorses progressive worsening shortness of breath and wheezing with increased sputum production. Completed Zpak course 2 weeks ago with minimal improvement. Endorses adherence to medicaton, using albuterol 2-3 times a day with Breo QD, however on chart review, patient's family endorses noncompliance. Of note patient has field artillery officer at [facility], but has not seen her in a few months. Patient was treated with steroids, breathing treatments, supplemental oxygen and gentle diuresus with improvement in breathing. CXR did not show any pneumonia. Flu negative, COVID-negative. Although CXR did not show PNA, patient was treated with antibiotics and will be discharged with one more day of treatment. Of note, patient was found to be tachycardic with history however patient reports she used to take metoprolol, however due to asthma, her PCP told her to discontinue. On discharge, patient is hemodynamically stable, vitals and labs reviewed to be stable, and patient is at baseline oxygen level. 06/28: No acute overnight events. Patient seen at bedside. Patient was not discharged last night as patient did not have ride home. Patient reports some shortness of breath as well as acid reflux today. No other complaints. Denies chest pain, palpitations or fever/chills. Imaging: CXR moderate vascular congestion Discharge Recommendations: - Please take all medications as prescribed - Continue home Breo and home Duonebs - START steroid dose pack as labelled - Continue all home medications except as above - Please follow up with your PCP within one week of discharge - If your symptoms worsen, please seek immediate medical attention and return to your nearest emergency room. - If you do not have a PCP, you may follow up at the [facility] at [address] [place] [address] [address] [address], Hospital Diagnoses: #Asthma exacerbation #Chronic Diastolic Heart Failure (EF 65% 09/2024) #History of sinus arrhythmia #Mitral Regurgitation #Mild Pulmonaary Hypertension #History of eczema #History of psoriasis #History of osteoporosis Plan of care discussed with attending Dr. Barreto, and PGY-2 Dr. De La Garza. Leesa Wagoner, DO Internal Medicine, PGY-1 Time Spent with Patient Time attestation: Total time spent providing and/or coordinating discharge services: 33 minutes Time spent: Greater than 30 minutes Exam Vital Signs Temp Pulse Resp BP Pulse Ox O2 Del Method O2 Flow Rate 97.4 F 109 H 19 122/76 96 Nasal Cannula 3 06/28/25 11:34 06/28/25 14:26 06/28/25 14:26 06/28/25 11:34 06/28/25 14:26 06/28/25 11:34 06/28/25 14:26 Narrative Exam GENERAL: AOx3, no acute distress, elderly HEENT: mucous membranes moist, bilateral sclera anicteric CARDIOVASCULAR: regular rate and rhythm, S1/S2 present, no murmurs appreciated PULMONARY: diminished breath sounds at bilateral bases, bilateral wheezing ABDOMINAL: soft, non-tender, non-distended, no rebound/guarding, bowel sounds present EXTREMITIES: no peripheral edema SKIN: warm and dry, intact, no rashes NEURO: CN II-XII grossly intact, no focal deficits, alert, following commands Discharge Plan Plan Patient Disposition: HOME (Self Care) Care Plan Goals: Please follow up with your primary care physician within 2-3 days We have started you on montelukast 10mg daily We have started Medrol Lobo, please follow instructions in the dose pack. Please use your oxygen during the daytime and night time Please continue taking all other home medications as prescribed It is very important that you are compliant with your Breo as prescribed. Come back to the ER if symptoms persist or worsen. Prescriptions/Referrals Prescriptions/Med Rec: New montelukast 10 mg tablet 10 mg PO QDAY Qty: 30 0RF methylprednisolone [Medrol (Lobo)] 4 mg tablets,dose pack 4 mg PO QDAY Qty: 21 0RF Rx Instructions: Follow dose pack instructions Continued fexofenadine [Sharon Allergy] 60 mg Tablet 60 mg PO BID clotrimazole-betamethasone 1-0.05 % cream 1 applic topical BID PRN (Reason: cracked skin ) fluticasone furoate-vilanterol [Breo Ellipta] 200-25 mcg/dose blister with device 1 inh INHALATION Q24H amlodipine 2.5 mg tablet 2.5 mg PO .day Patient Comments: TAKE 1 TABLET BY MOUTH EVERY DAY alendronate 70 mg tablet 70 mg PO QWEEK albuterol sulfate 90 mcg/actuation HFA aerosol inhaler 2 puff inhalation Q6H PRN (Reason: shortness of breath or wheezing) Qty: 6.7 2RF ipratropium-albuterol 0.5 mg-3 mg(2.5 mg base)/3 mL solution for nebulization 3 ml INHALATION Q6H PRN (Reason: shortness of breath or wheezing) Patient Comments: INHALE 3 ML EVERY 6 HOURS NEEDED ckbcetv-nmjfqwhaehmbo-anngtjmr [Excedrin Extra Strength] 250-250-65 mg tablet 1 tab PO Q6H PRN (Reason: migraine headache) Held metoprolol succinate 25 mg tablet extended release 24 hr 25 mg PO HS Hold Instructions: Resume on 07/04/25. until follow up with enrollment clerk Referrals: Quinton Ochoa MD [Primary Care Provider] Patient/Caregiver Discharge Instructions Other Discharge Activity Instructions:: Please follow up with your primary care physician within 2-3 days We have started you on montelukast 10mg daily We have started Medrol Lobo, please follow instructions in the dose pack. Please use your oxygen during the daytime and night time Please continue taking all other home medications as prescribed It is very important that you are compliant with your Breo as prescribed. Come back to the ER if symptoms persist or worsen. Education Materials: Controlling Asthma Triggers ..., Discharge Instructions for Asthma, Asthma Trigger Checklist, Asthma in Older Adults, Asthma Print Language: Persian Stand Alone Forms: Shelia Award Info., Patient Portal Info Letter Discharge Order Discharge Orders: Discharge (Routine); Ordered 06/28/25 Ordered By: Benjamin Doan Quality Discharge Quality Measures VTE prophylaxis Attestestation Attestation I have seen and examined the patient. I was physically present for the montgomery portions of the services provided including history, physical exam, diagnosis, treatment plans and orders. I agree with assessment and plan of care as documented by residents. Patient was planned for discharge yesterday but unable to leave as she did not have a ride back home. We will discharge her today, noted to have mild wheezing bilaterally at bedside, saturating well on 3 L nasal cannula which is patient's baseline at home. Lab results remained stable. We will discharge her on her home inhalers, nebulizers, and add steroid taper. Recommended to follow-up with her PCP, pulmonology in 1 to 2 weeks of discharge. Even though this this note was carefully revised there may still be minor errors in ultrasonic seaming machine operator due to voice recognition software. Aileen Gomes MD On
--- NOTE | 2025-06-28 15:50 | PC.SS ---
Follow up note: SS met with patient to inquire if she ever filed an appeal yesterday. Patient verbalized she had not. Patient verbalized she wanted to leave today. Patient has d/c orders for today.
== END 2025-06-28 14:59 | disposition home or self-care (01) | DRG 202 ==
LOC: SERX 05:17 → SERHOLD 05:35 → S3SX 14:22
PROVIDERS: Student in an Organized Health Care Education/Training Program; Admitting Provider Internal Medicine; Emergency Provider Emergency Medicine; PCP Family Medicine; Visit Provider Student in an Organized Health Care Education/Training Program
DX: J20.9 Acute bronchitis, unspecified (principal); E87.29 Other acidosis; I50.32 Chronic diastolic (congestive) heart failure; J44.0 Chronic obstructive pulmonary disease with (acute) lower respiratory infection; J44.1 Chronic obstructive pulmonary disease with (acute) exacerbation; L40.9 Psoriasis, unspecified; Z90.13 Acquired absence of bilateral breasts and nipples; Z85.3 Personal history of malignant neoplasm of breast; I34.0 Nonrheumatic mitral (valve) insufficiency; I11.0 Hypertensive heart disease with heart failure; M81.0 Age-related osteoporosis without current pathological fracture; Z66 Do not resuscitate; K21.9 Gastro-esophageal reflux disease without esophagitis; L30.9 Dermatitis, unspecified; Z79.83 Long term (current) use of bisphosphonates; Z87.891 Personal history of nicotine dependence; Z91.199 Patient's noncompliance with other medical treatment and regimen due to unspecified reason; Z96.649 Presence of unspecified artificial hip joint; E87.6 Hypokalemia; I27.20 Pulmonary hypertension, unspecified
CPT/HCPCS: 36415; 36600; 71045; 80053; 81001; 82248; 82803; 83605; 83690; 83735; 83880; 84145; 84439; 84443; 84484; 85025; 85379; 85652; 86140; 87040; 87081; 87502; 87811; 93005; 93225; 94640; 96361; 96365; 96366; 96372; 96375; 96376; 97162; 99285; A9270; J0456; J0696; J1200; J1644; J1938; J2405; J2470; J2919; J3475; J7050; J7120

== ENCOUNTER 2025-07-17 05:59 | Emergency (ER) | payer MEDICARE, SELFPAY ==
[2025-07-17] VITALS (9 sets, daily range): BP systolic 127–152; BP diastolic 77–98; PULSE 102–122; RESP 16–20; TEMP 36.7; O2SAT 94–98; BMI 21.7
--- NOTE | 2025-07-17 06:06 | EKG_ITS ---
[facility] Test Date: 2025-07-17 Pat Name: HONG BORJA Department: Room: - Gender: Female Lever Miller: : 1945 Requested By: ED Temporary Provider Order Number: [id number] Reading MD: ED Temporary Provider Measurements Intervals Donald Rate: 120 P: 33 WI: 104 QRS: -28 QRSD: 101 T: 56 QT: 321 QTc: 455 Interpretive Statements SINUS TACHYCARDIA WITH SHORT WI INTERVAL BORDERLINE LEFT AXIS DEVIATION [QRS AXIS < -20] MINIMAL VOLTAGE CRITERIA FOR LVH, CONSIDER NORMAL VARIANT [MEETS CRITERIA IN ONE OF: R(aVL), S(V1), R(V5), R(V5/V6)+S(V1)] ST DEPRESSION, CONSIDER SUBENDOCARDIAL INJURY [0.1+ mV ST DEPRESSION] Compared to ECG 06/26/2025 04:05:32 Short WI interval now present ST (T wave) deviation now present Atrial abnormality no longer present Left anterior fascicular block no longer present Myocardial infarct finding no longer present /store/S0/[id number].pdf
--- NOTE | 2025-07-17 06:12 | XR_ITS ---
EXAMINATION: AP chest single view TECHNIQUE: AP portable upright chest single view Date and time: July 17, 2025, 0612 hours, comparison June 26, 2025 INDICATIONS: Shortness of breath today FINDINGS: Mild to moderate enlargement left ventricle Moderate vascular congestion No lobar pneumonia No melissa pulmonary edema Prominent osteopenia IMPRESSION: Mild to moderate enlargement left ventricle Moderate vascular congestion No lobar pneumonia or melissa pulmonary edema:
--- NOTE | 2025-07-17 06:16 | PD.EDSOB ---
ED SOB =RME/HPI General Chief Complaint: Shortness of Breath/Dyspnea Stated Complaint: SOB Time Seen by Provider: 07/17/25 06:13 Arrival date/time: 07/17/25 05:59 RME / HPI RME / HPI Narrative: Dr. Cruz?s Main ED Evaluation: 80yo female with a history of CHF, asthma BIBA from home presents to the ED for a chief complaint of shortness of breath x 2 days. EMS administered an albuterol treatment en route. Denies any fever, chills, chest pain, or any other associated symptoms. Related Data Home Medications ?Medication ?Instructions ?Recorded ?Confirmed fexofenadine 60 mg tablet (Sharon 60 mg PO BID 05/02/18 06/26/25 Allergy) clotrimazole-betamethasone 1 1 applic topical BID PRN cracked 01/24/25 06/26/25 %-0.05 % topical cream skin alendronate 70 mg tablet 70 mg PO QWEEK 03/29/25 06/26/25 amlodipine 2.5 mg tablet 2.5 mg PO .day 03/29/25 06/26/25 fluticasone furoate 200 1 inh inhalation Q24H 03/29/25 06/26/25 mcg-vilanterol 25 mcg/dose inhalation powder (Breo Ellipta) metoprolol succinate 25 mg 25 mg PO HS 03/29/25 06/26/25 tablet,extended release 24 hr Held on 06/27/25. Instructions: Resume on 07/04/25. until follow up with machine bunch maker [id number]-[id number] 250 1 tab PO Q6H PRN migraine headache 06/26/25 06/26/25 mg-250 mg-65 mg tablet (Excedrin Extra Strength) ipratropium 0.5 mg-albuterol 3 mg 3 ml inhalation Q6H PRN shortness 06/26/25 06/26/25 (2.5 mg base)/3 mL nebulization of breath or wheezing soln Previous Rx's ?Medication ?Instructions ?Recorded albuterol sulfate 90 mcg/actuation 2 puff inhalation Q6H PRN 03/01/25 aerosol inhaler shortness of breath or wheezing #6.7 grams montelukast 10 mg tablet 10 mg PO QDAY #30 tabs 10/22/25 methylprednisolone 4 mg tablets in 4 mg PO QDAY #21 tabs 06/28/25 a dose pack (Medrol (Lobo)) Allergies Allergy/AdvReac Type Severity Reaction Status Date / Time shellfish derived Allergy Severe ITCHING,DROP Verified 07/17/25 06:00 IN BP Sulfa (Sulfonamide Allergy Severe HIVES AND Verified 07/17/25 06:00 Antibiotics) SWELLING Review of Systems Review of Systems Systems Reviewed: All systems reviewed, normal except as documented Past Medical History Past Medical History NEUROLOGIC: Positive Neurological Disorders and Migraine; Negative Seizures CARDIAC: Positive Cardiac Disorders, Cardiac Arrhythmia and Hypertension; Negative Congestive Heart Failure RESPIRATORY: Positive Asthma, Bronchitis and Pneumonia; Negative Chronic Obstructive Pulmonary Disease (COPD) GASTROINTESTINAL: Positive Gastrointestinal Disorders, Diverticulosis and Gastroesophageal Reflux Disease GENITOURINARY: Negative Genitourinary Disorders or Renal Disease REPRODUCTIVE: Positive Breast Cancer and Previous Pregnancies MUSCULOSKELETAL: Positive Musculoskeletal Disorders, Arthritis, Osteoporosis and Fractures ENDOCRINE: Negative Endocrine Disorders, Diabetes Mellitus Type 1 or Diabetes Mellitus Type 2 HEMATOLOGIC: Positive Blood Disorders, Anemia and Clotting Problems PSYCHO/SOCIAL: Positive Recreational Drug Use and Anxiety OTHER HISTORY: Positive Hospitalization, Anesthesia Reactions, Chicken Pox, Measles, Mumps, Rubella ([place]oven[place] Measles), Cancer and Breast Cancer; Negative Autoimmune Disease, Down Syndrome, Developmental Delay, Shingles, Falls, Blood Transfusions, Blood Transfusion Reaction, MRSA, VRSA, Vancomycin-Resistant Enterococci or Clostridium Difficile Family History FAMILY HISTORY: Positive Family Cancer Surgical History SURGICAL: Positive Abdominal Surgery, Joint Replacement, Arthroscopy and Mastectomy (bilateral) Social History SMOKING STATUS: Former smoker SUBSTANCE USE: does not use ED Exam Narrative Physical exam: GENERAL APPEARANCE: alert and oriented x 4, well-developed, well-nourished, no acute distress HEENT: Normocephalic, atraumatic; pupils equal, round, reactive to light; EOMI; mucous membranes pink, moist; oropharynx clear NECK: Supple LUNGS: decreased air movement with wheezing HEART: Regular rate, regular rhythm; normal S1, S2; no murmurs ABDOMEN: non distended; normal BS; soft, no tenderness, no guarding, no rebound; no masses, no organomegaly, no hernia BACK: no CVA tenderness EXTREMITIES: atraumatic; no edema NEUROLOGIC: awake; alert and oriented x4; cranial nerves II-XII grossly intact; no focal sensory or motor deficits PSYCHIATRIC: appropriate mood and affect SKIN: warm, dry, normal color; no rashes Course Course Course Narrative: CXR is ordered for determining the etiology of shortness of breath. Quality Measures none Orders Category Date Time Status Billing Collections Specialist NOW Care 07/17/25 06:12 Active EKG (ED ONLY) *Do not use* NOW Care 07/17/25 06:06 Completed Diet Regular Diet 07/17/25 Lunch Active EKG (ED Only) Stat Exams 07/17/25 06:06 Ordered XR chest 1V portable Stat Exams 07/17/25 06:12 Completed B-Type Natriuretic Peptide Stat Lab 07/17/25 06:28 Completed CBC Stat Lab 07/17/25 06:28 Completed Comprehensive Metabolic Panel Stat Lab 07/17/25 06:28 Completed Lipase Stat Lab 07/17/25 06:28 Completed Magnesium Stat Lab 07/17/25 06:28 Completed Partial Thromboplastin Time Stat Lab 07/17/25 06:28 Completed Prothrombin Time with INR Stat Lab 07/17/25 06:28 Completed Troponin I Stat Lab 07/17/25 06:28 Completed ALBUTEROL RT 0.5ml [Proventil Rt 0.5ml] Med 07/17/25 06:10 Discontinued 10 mg INH X1 ONE Ipratropium Banks Rt Violet [Atrovent Rt Violet] Med 07/17/25 06:10 Discontinued 0.5 mg INH X1 ONE Magnesium Sulfate 2 GM Ivpb [Magnesium Sulfate Ivpb] Med 07/17/25 08:11 Discontinued 2 gm in 50 ml IV X1 MethylPREDNISolone.* [SoluMEDROL Inj] Med 07/17/25 06:10 Discontinued 125 mg IVP X1 ONE Sodium Chloride Rt Violet 0.9% [NS Rt Violet 0.9%] Med 07/17/25 06:10 Active 3 ml INH PRN PRN Sodium Chloride Rt Violet 0.9% [NS Rt Violet 0.9%] Med 07/17/25 06:10 Discontinued 3 ml INH PRN PRN Reevaluation(s) Reevaluation #1: Patient is still wheezing, but air movement has improved and patient appears more comfortable. Will continue to observe the patient. Time: 08:13 Reevaluation #2: Patient reports feeling improved, will po trial and if tolerates will DC home. Time: 12:23 Reevaluation #3: Patient tolerated po. Time: 12:30 Vital Signs Vital signs: Vital Signs Temperature 98.0 F 07/17/25 06:00 Pulse Rate 121 H 07/17/25 06:00 Respiratory Rate 20 07/17/25 06:00 Blood Pressure 144/98 H 07/17/25 06:00 Pulse Oximetry (%) 95 07/17/25 06:00 Oxygen Delivery Method Nasal Cannula 07/17/25 06:00 Oxygen Flow Rate 6 07/17/25 06:00 Pulse ox is 95% on 6L nasal cannula which is adequate. Shortness of Breath / Dyspnea MDM Narrative MDM Narrative:: Scribe Attestation: 07/17/25 - [place], am scribing for and in the presence of Dr. Cruz. I, Jing Kong, navin scribing for and in the presence of Dr. Cruz. Patient data External records reviewed:: [facility] previous records (Per chart review, patient was admitted here on 06/26/25 for acute on chronic respiratory failure with hypoxia and hypercapnia.) and EMS form Clinical information provided by:: patient Social determinants that could affect healthcare access:: none Patient has the following chronic illnesses:: asthma with multiple hospitalizations on home O2 3L at night, breast CA s/p b/l mastectomy, HFpEF (65% 09/2024), osteoporosis, psoriasis, and eczema How is presenting disease/condition affected by chronic disease/condition?: exacerbated by Evaluation data The following diagnostics were reviewed and interpreted by me:: lab results, radiology exam(s) and EKG tracing(s) Lab and/or radiology exams considered but not ordered:: none Interpretation Summary: EKG done at 0610, sinus tachycardia, rate of 120, baseline wander, mild ST depression in V5, V6, lead II and III, Q wave in V1 and V2, possible ischemia, according to my interpretation. Medications / Prescriptions Medications or Prescriptions considered but not ordered:: none Medication administrations:: Medication Administration History Sodium Chloride (Sodium Chloride Rt Violet 0.9% 3 Ml Nebu) 3 ml INH PRN PRN PRN Reason: SOLN Stop: 08/16/25 06:09 Discontinued Medications Albuterol (Albuterol Rt 2.5 Mg/0.5 Ml Nebu) 10 mg INH X1 ONE Stop: 07/17/25 06:11 Last Admin: 07/17/25 06:32 Dose: 10 mg Documented By: VIANEY Magnesium Sulfate (Magnesium Sulfate Ivpb) 2 gm in 50 mls @ 25 mls/hr IV X1 ONE Stop: 07/17/25 10:10 Last Infusion: 07/17/25 10:29 Dose: Infused Documented By: Admin: 07/17/25 08:21 Dose: 25 mls/hr Documented By: MALISSA Ipratropium Banks (Ipratropium Rt 0.5 Mg/ 2.5 Ml Nebu) 0.5 mg INH X1 ONE Stop: 07/17/25 06:11 Last Admin: 07/17/25 06:32 Dose: 0.5 mg Documented By: VIANEY Methylprednisolone Sodium Succinate (Methylprednisolone Sod Succ 62.5 Mg/Ml 2ml Vial) 125 mg IVP X1 ONE Stop: 07/17/25 06:11 Last Admin: 07/17/25 06:24 Dose: 125 mg Documented By: ELAINE Sodium Chloride (Sodium Chloride Rt Violet 0.9% 3 Ml Nebu) 3 ml INH PRN PRN PRN Reason: SOLN Stop: 08/16/25 06:09 see above Consultations Consultation(s) initiated? (list below): No Diagnosis Shortness of Breath Differential Diagnosis: acute exacerbation of chronic obstructive airways disease, congestive heart failure and community acquired pneumonia Most likely diagnosis given after review of the tests above:: Acute asthma exacerbation Admission Indicated Admission indicated?: not indicated Explain why admission is indicated or not indicated:: With no condition needing emergent intervention, there was no indication for admission. Admission Request Was there a request for admission?: No Disposition Plan Disposition Plan: Discharge Discharge Attestation Discharge Attestation: The patient and all family members were given an opportunity to ask questions and understood the discharge instructions. Discharge instructions specifically effects, indications for sooner follow up or return to the emergency department, and the expected course of current diagnosis. Patient condition: Stable Discharge Plan Plan Patient Disposition: HOME (Self Care) Prescriptions/Referrals Prescriptions/Med Rec: No Action fexofenadine [Sharon Allergy] 60 mg Tablet 60 mg PO BID clotrimazole-betamethasone 1-0.05 % cream 1 applic topical BID PRN (Reason: cracked skin ) fluticasone furoate-vilanterol [Breo Ellipta] 200-25 mcg/dose blister with device 1 inh INHALATION Q24H metoprolol succinate 25 mg tablet extended release 24 hr 25 mg PO HS amlodipine 2.5 mg tablet 2.5 mg PO .day Patient Comments: TAKE 1 TABLET BY MOUTH EVERY DAY alendronate 70 mg tablet 70 mg PO QWEEK albuterol sulfate 90 mcg/actuation HFA aerosol inhaler 2 puff inhalation Q6H PRN (Reason: shortness of breath or wheezing) Qty: 6.7 2RF ipratropium-albuterol 0.5 mg-3 mg(2.5 mg base)/3 mL solution for nebulization 3 ml INHALATION Q6H PRN (Reason: shortness of breath or wheezing) Patient Comments: INHALE 3 ML EVERY 6 HOURS NEEDED [id number]-bzqygqsjlufee-atbszmhc [Excedrin Extra Strength] 250-250-65 mg tablet 1 tab PO Q6H PRN (Reason: migraine headache) montelukast 10 mg tablet 10 mg PO QDAY Qty: 30 0RF methylprednisolone [Medrol (Lobo)] 4 mg tablets,dose pack 4 mg PO QDAY Qty: 21 0RF Rx Instructions: Follow dose pack instructions Referrals: Quinton Ochoa MD [Primary Care Provider] - In 1 week Problem List Clinical Impression: Acute asthma exacerbation Patient/Caregiver Discharge Instructions Education Materials: ED Asthma, Acute (Adult) Print Language: Latvian Stand Alone Forms: Shelia Award Info., Patient Portal Info Letter
[2025-07-17] MEDS: MethylPREDNISolone SOD SUCC 62.5 MG/ML 2ML VIAL 125 MG IVP (06:24)
[2025-07-17] MEDS: ALBUTEROL RT 2.5 MG/0.5 ML NEBU 10 MG INH (06:32)
[2025-07-17] MEDS: IPRATROPIUM RT 0.5 MG/ 2.5 ML NEBU INH (06:32)
[2025-07-17 07:38] LABS: Basophils # (Auto) 0.2 Thou/mm3 (0.0-0.2); Basophils % (Auto) 2 % (0-2.5); Eosinophils # (Auto) 1.6 Thou/mm3 (0.0-0.5); Eosinophils % (Auto) 14 % (0-10); Hematocrit 41.2 % (36.0-46.0); Hemoglobin 13.7 g/dL (12.0-16.0); Immature Granulocytes Auto 0.04 Thou/mm3 (0.00-0.00); Lymphocytes # (Auto) 0.9 Thou/mm3 (1.0-4.8); Lymphocytes % (Auto) 8 % (10-50); Mean Corpuscular HGB Conc 33.3 g/dl (31.0-37.0); Mean Corpuscular Hemoglobin 29.3 pg (25.0-35.0); Mean Corpuscular Volume 88 fL (80-100); Monocytes # (Auto) 0.8 Thou/mm3 (0.0-0.8); Monocytes % (Auto) 7 % (0-12); Neutrophils # (Auto) 8.2 Thou/mm3 (1.8-7.7); Neutrophils % (Auto) 70 % (37-80); Nucleated Red Blood Cell # 0.00 Thou/mm3 (0.00-0.00); Nucleated Red Blood Cell % 0 /100 WBC (0); Platelet Count 303 Thou/mm3 (140-440); RDW Standard Deviation 44.5 fL (36.4-46.3); Red Blood Count 4.68 Miln/mm3 (4.00-5.20); White Blood Count 11.8 Thou/mm3 (3.6-11.0)
[2025-07-17 07:39] LABS: Alanine Aminotransferase 12 U/L (10-49); Albumin, Serum 4.4 gm/dL (3.4-4.8); Albumin/Globulin Ratio 2.6 (1.2-2.2); Alkaline Phosphatase 60 U/L (46-116); Anion Gap 8 (7-16); Aspartate Amino Transferase 26 U/L (0-34); BUN/Creatinine Ratio 14 Ratio (12-20); Bilirubin,Total 0.9 mg/dL (0.3-1.2); Blood Urea Nitrogen 7 mg/dL (9-23); Calcium 8.9 mg/dL (8.3-10.6); Calcium (Corrected) 8.9 mg/dL (8.5-10.1); Carbon Dioxide 30.8 mMol/L (20.0-31.0); Chloride 103 mMol/L (98-107); Creatinine (Component) 0.5 mg/dL (0.6-1.3); Estimated Creatinine Clearance 68.8 mL/min (>60); Globulin 1.7 gm/dL (2.3-3.5); Glucose 89 mg/dL (74-106); Lipase 31 U/L (12-53); Magnesium 1.8 mg/dL (1.6-2.6); Osmolality,Calculated 280 (275-295); Potassium 3.2 mMol/L (3.4-5.1); Sodium 142 mMol/L (136-145); Total Protein 6.1 gm/dL (5.7-8.2); Troponin I < 0.020 ng/mL (0.0-0.045); eGFR > 60 See Note
[2025-07-17 07:46] LABS: INR 1.0 (0.9-1.3); Partial Thromboplastin Time 31.4 Seconds (22.0-36.0); Prothrombin Time 11.0 Seconds (9.0-12.2)
[2025-07-17 08:01] LABS: B-Type Natriuretic Peptide 25 pg/mL (0-100)
[2025-07-17] MEDS: Magnesium Sulfate 2 GM Ivpb 2 GM/50 ML BAG IV (08:21)
== END 2025-07-17 13:26 | disposition home or self-care (01) ==
PROVIDERS: Emergency Provider Emergency Medicine; PCP Family Medicine
DX: J45.901 Unspecified asthma with (acute) exacerbation (principal); I50.9 Heart failure, unspecified
CPT/HCPCS: 36415; 71045; 80053; 83690; 83735; 83880; 84484; 85025; 85610; 85730; 93005; 94640; 94644; 96365; 96366; 96375; 99284; J2919; J3475; J7644; J7611

== ENCOUNTER 2025-07-19 23:10 | Emergency (ER) | payer MEDICARE, SELFPAY ==
[2025-07-19 23:14] VITALS: BMI 21.7
--- NOTE | 2025-07-19 23:15 | EKG_ITS ---
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: : 1945 Requested By: Parish Mathews Order Number: [id number] Reading MD: Parish Mathews Measurements Intervals Davis Rate: 134 P: 67 IN: 147 QRS: -50 QRSD: 85 T: 25 QT: 290 QTc: 433 Interpretive Statements SINUS TACHYCARDIA POSSIBLE RIGHT VENTRICULAR CONDUCTION DELAY [RSR (QR) IN V1/V2] LEFT ANTERIOR FASCICULAR BLOCK [QRS AXIS <= -45, QR IN I, RS IN II] MINIMAL VOLTAGE CRITERIA FOR LVH, CONSIDER NORMAL VARIANT [MEETS CRITERIA IN ONE OF: R(aVL), S(V1), R(V5), R(V5/V6)+S(V1)] Compared to ECG 07/17/2025 06:10:07 Left anterior fascicular block now present Short IN interval no longer present ST (T wave) deviation no longer present /store/S0/[id number].pdf
[2025-07-19 23:16] VITALS: PULSE 120; RESP 18; O2SAT 98
[2025-07-19 23:20] VITALS: BP 161/121; PULSE 138; RESP 28; TEMP 36.6; O2SAT 95
--- NOTE | 2025-07-19 23:22 | XR_ITS ---
EXAMINATION: AP chest single view TECHNIQUE: AP portable upright chest single view Date and time: July 20, 2025, 12:12 a.m., comparison July 17, 2025 INDICATIONS: Coughing shortness of breath today. FINDINGS: Moderate enlargement left ventricle Ectatic thoracic aorta. Accentuation basilar bronchovascular markings. No lobar pneumonia. Prominent osteopenia IMPRESSION: Basilar bronchitis pattern
[2025-07-19 23:27] VITALS: PULSE 136
[2025-07-19] MEDS: IPRATROPIUM RT 0.5 MG/ 2.5 ML NEBU 1 MG INH (23:27)
[2025-07-19] MEDS: ALBUTEROL RT 2.5 MG/0.5 ML NEBU 10 MG INH (23:27)
[2025-07-19 23:28] VITALS: PULSE 85; RESP 20; O2SAT 97
--- NOTE | 2025-07-19 23:42 | PD.EDSOB ---
ED SOB =RME/HPI General Chief Complaint: Shortness of Breath/Dyspnea Stated Complaint: SOB Time Seen by Provider: 07/19/25 23:24 Arrival date/time: 07/19/25 23:10 RME / HPI RME / HPI Narrative: CC: SOB Patient is a 80-year-old female with a past medical HTN, history of asthma, recurrent hospitilizations for asthma exacerbation w/ overlapping features of COPD, CHF HFpEF 65% (10/03/2024) following Dr. Rojo, history of sinus tachycardia, Moderate Mitral Regurgitation, and RVSP 41 mg RAP who presented to the emergency room with chief complain of shortness of breath. Patient stated shortness of breath started this evening with increased work of breathing and cough. Denied recent sick contacts. Denied fever or chills at home. Denied hematemesis or hemotysis. No diarrhea. No dysuria. EMS noted spO2 84-86% Related Data Home Medications ?Medication ?Instructions ?Recorded ?Confirmed fexofenadine 60 mg tablet (Sharon 60 mg PO BID 05/02/18 06/26/25 Allergy) clotrimazole-betamethasone 1 1 applic topical BID PRN cracked 01/24/25 06/26/25 %-0.05 % topical cream skin alendronate 70 mg tablet 70 mg PO QWEEK 03/29/25 06/26/25 amlodipine 2.5 mg tablet 2.5 mg PO .day 03/29/25 06/26/25 fluticasone furoate 200 1 inh inhalation Q24H 03/29/25 06/26/25 mcg-vilanterol 25 mcg/dose inhalation powder (Breo Ellipta) [id number]-zhysroztnfozv-nxfwfwlm 250 1 tab PO Q6H PRN migraine headache 06/26/25 06/26/25 mg-250 mg-65 mg tablet (Excedrin Extra Strength) ipratropium 0.5 mg-albuterol 3 mg 3 ml inhalation Q6H PRN shortness 06/26/25 06/26/25 (2.5 mg base)/3 mL nebulization of breath or wheezing soln Previous Rx's ?Medication ?Instructions ?Recorded albuterol sulfate 90 mcg/actuation 2 puff inhalation Q6H PRN 03/01/25 aerosol inhaler shortness of breath or wheezing #6.7 grams montelukast 10 mg tablet 10 mg PO QDAY #30 tabs 06/27/25 prednisone 20 mg tablet 40 mg PO BID 3 days #12 tabs 07/20/25 Allergies Allergy/AdvReac Type Severity Reaction Status Date / Time shellfish derived Allergy Severe ITCHING,DROP Verified 07/19/25 23:13 IN BP Sulfa (Sulfonamide Allergy Severe HIVES AND Verified 07/19/25 23:13 Antibiotics) SWELLING Review of Systems Review of Systems Narrative Review of Systems: General appearance: NO weight change, NO fatigue, NO weakness, NO fever, NO chills, NO night sweats, Yes cough Skin: NO rash, NO itching, NO sores, NO moles HEENT: NO Trauma, NO nausea, NO vomiting, NO visual changes, NO blurry vision, NO double vision, NO tinnitus, NO vertigo, NO ear discharge, NO rhinorrhea, NO stuffiness, NO sneezing, NO allergy, NO epistaxis. NO Hoarseness, NO sore throat, NO swollen neck. Cardiac: NO Palpitations, NO dyspnea on exertion, NO orthopnea, NO paroxysmal nocturnal dyspnea, NO edema Respiratory: Yes Shortness of Breath, Yes Wheezing, Yes Cough, NO Sputum, NO hemoptysis GI:NO appetite, NO nausea, NO vomiting, NO dysphagia, NO changes in bowel frequency, NO stool color, NO diarrhea, NO constipation, NO hemetemesis, NO hemorrhoids, NO melena, NO hematechezia, NO abdominal pain, NO jaundice Renal: NO frequency, NO hesitancy, NO urgency, NO hematuria, NO nocturia, NO incontinence MSK: NO muscle weakness, NO gout, NO arthritis, NO muscle stiffness Neuro: NO headaches, NO tremors, NO weakness, NO paralysis, NO seizures, NO loss of consciousness, NO numbness. Hem: NO anemia, NO easy bruising/bleeding, NO petechiae, NO purpura Endo: NO heat/cold intolerance, NO excessive sweating, NO polyuria, NO polydipsia, NO polyphagia, NO thyroid problems, NO diabetes Pysch: NO mood, NO anxiety, NO depression ED Exam Narrative Physical exam: General Appearance: Alert & Oriented X3, thin female who is lying in bed in acute distress secondary to shortness of breath HEENT: Skull symmetrical and atraumatic. Conjunctivae pin and moist. Pupils equal, round, reactive to light and accommodation (PERRL). External ear without lesion or discharge. Straight, nares patient, mucosa pink, no discharge. Cardio: Normal Rate and Rhythm with S1 and S2 heart sounds. No murmurs or extra heart sounds auscultated. No bruits on carotid auscultation. No peripheral edema or cyanosis. Lungs: Decreased expansion. Chest and back non-tender. Reduced vesicular breath sounds bilaterally with wheezing throughout all lung nayak. Abdomen: Non-tender, Non-distended, Normal Reactive Bowel Sounds Neuro: Alert, cooperative, oriented to person, place, and time. Speech clear. CN grossly intact. Upper motor strength 5/5 and Lower motor strength 5/5. Sensation intact. 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 00 Care 07/19/25 23:26 Active EKG (ED ONLY) *Do not use* NOW Care 07/19/25 23:15 Completed IV [Insert IV] NOW Care 07/19/25 23:21 Active EKG (ED Only) Stat Exams 07/19/25 23:15 Draft XR chest 1V portable Stat Exams 07/19/25 23:22 Taken Arterial Blood Gas Stat Lab 07/19/25 23:38 Completed B-Type Natriuretic Peptide Stat Lab 07/19/25 23:27 Completed CBC Stat Lab 07/19/25 23:27 Completed Cocci Serology IgM with reflex to IgG [Cocci Serology, Lab 07/19/25 23:54 Received Unk History] Stat Comprehensive Metabolic Panel Stat Lab 07/19/25 23:27 Completed D-Dimer Stat Lab 07/19/25 23:27 Completed Drug Screen,Urine Stat Lab 07/19/25 23:23 Ordered FLU A&B [Influenza A & B Rapid Panel] Stat Lab 07/19/25 23:43 Completed Magnesium Stat Lab 07/19/25 23:27 Completed TSH [Thyroid Stimulating Hormone] Stat Lab 07/19/25 23:27 Completed Troponin I Stat Lab 07/19/25 23:27 Completed ALBUTEROL RT 0.5ml [Proventil Rt 0.5ml] Med 07/19/25 23:17 Discontinued 10 mg .ROUTE .STK-MED ONE ALBUTEROL RT 0.5ml [Proventil Rt 0.5ml] Med 07/19/25 23:21 Discontinued 10 mg INH X1 ONE Albuterol/Ipratr Rt Violet [Duoneb Rt Violet] Med 07/19/25 23:20 Discontinued 10 ml INH X1 ONE Ipratropium [place] Rt Violet [Atrovent Rt Violet] Med 07/19/25 23:21 Discontinued 1 mg INH X1 ONE Magnesium Sulfate 2 GM Ivpb [Magnesium Sulfate Ivpb] Med 07/19/25 23:40 Discontinued 2 gm in 50 ml IV X1 MethylPREDNISolone. [SoluMEDROL Inj] Med 07/19/25 23:20 Discontinued 125 mg IVP X1 ONE Metoprolol Tartrate Inj [Lopressor Inj] Med 07/19/25 23:41 Discontinued 2.5 mg IVP X1 ONE Metoprolol Tartrate [Lopressor] Med 07/19/25 23:41 Discontinued 50 mg PO X1 ONE Sodium Chloride Rt Violet 0.9% [NS Rt Violet 0.9%] Med 07/19/25 23:21 Active 3 ml INH PRN PRN guaiFENesin SYRUP [Robitussin Syrup] Med 07/19/25 23:29 Discontinued 100 mg PO X1 ONE Vital Signs Vital signs: Vital Signs Temperature 97.9 F 07/19/25 23:20 Pulse Rate 138 H 07/19/25 23:20 Respiratory Rate 28 H 07/19/25 23:20 Blood Pressure 161/121 H 07/19/25 23:20 Pulse Oximetry (%) 95 07/19/25 23:20 Oxygen Delivery Method Nasal Cannula 07/19/25 23:20 Oxygen Flow Rate 6 07/19/25 23:20 Shortness of Breath / Dyspnea Patient data External records reviewed:: [facility] previous records and EMS form Clinical information provided by:: patient Social determinants that could affect healthcare access:: none Patient has the following chronic illnesses:: Asthma, CHFHFpEF, mitral reg, pulmonary HTN, and hx of breast cancer. How is presenting disease/condition affected by chronic disease/condition?: exacerbated by (asthma ) Evaluation data The following diagnostics were reviewed and interpreted by me:: lab results, radiology exam(s) and EKG tracing(s) Lab and/or radiology exams considered but not ordered:: None Interpretation Summary: Patient is a 80-year-old female with a past medical HTN, history of asthma, recurrent hospitilizations for asthma exacerbation w/ overlapping features of COPD, CHF HFpEF 65% (10/03/2024) following Dr. Rojo, history of sinus tachycardia, Moderate Mitral Regurgitation, and RVSP 41 mg RAP who presented with cheif complain of shortness of breath and wheezing. Patient was started on 1 hour long breathing treatment with methylprednisone 125 mg IV X 1. On physical exam, patient had increased work of breathing, using accessory muscle, and with decreased breath sounds through out all lung nayak and wheezing bilaterally. Mild Leukocytosis. NO ST elvation on EKG. No Troponin elevation. Chest x-ray no pneumonia noted. #Acute Hypoxic & Hypercapnic Respiratory Failure #Asthma Exacerbation Medications / Prescriptions Medications or Prescriptions considered but not ordered:: None Medication administrations:: Medication Administration History Sodium Chloride (Sodium Chloride Rt Violet 0.9% 3 Ml Nebu) 3 ml INH PRN PRN PRN Reason: SOLN Stop: 08/18/25 23:20 Discontinued Medications Albuterol (Albuterol Rt 2.5 Mg/0.5 Ml Nebu) 10 mg INH X1 ONE Stop: 07/19/25 23:22 Last Admin: 07/19/25 23:27 Dose: 10 mg Documented By: ARJUN Albuterol (Albuterol Rt 2.5 Mg/0.5 Ml Nebu) Confirm Administered Dose 10 mg .ROUTE .STK-MED ONE Stop: 07/19/25 23:18 Last Admin: 07/19/25 23:27 Dose: Not Given Documented By: ARJUN Non-Admin Reason: Duplicate Medication on eMAR Albuterol/Ipratropium (Albuterol/Ipratropium (Duoneb) Rt Violet 3 Ml Nebu) 10 ml INH X1 ONE Stop: 07/19/25 23:21 Last Admin: 07/19/25 23:32 Dose: Not Given Documented By: MUSA Non-Admin Reason: Discontinued Guaifenesin (Guaifenesin Syrup 200 Mg/10 Ml Udc) 100 mg PO X1 ONE; Protocol Stop: 07/19/25 23:30 Last Admin: 07/20/25 00:04 Dose: 100 mg Documented By: MUSA Magnesium Sulfate (Magnesium Sulfate Ivpb) 2 gm in 50 mls @ 25 mls/hr IV X1 ONE Stop: 07/20/25 01:39 Last Infusion: 07/20/25 02:14 Dose: Infused Documented By: Admin: 07/20/25 00:09 Dose: 25 mls/hr Documented By: MUSA Ipratropium [place] (Ipratropium Rt 0.5 Mg/ 2.5 Ml Nebu) 1 mg INH X1 ONE Stop: 07/19/25 23:22 Last Admin: 07/19/25 23:27 Dose: 1 mg Documented By: ARJUN Methylprednisolone Sodium Succinate (Methylprednisolone Sod Succ 40 Mg/Ml Vial) 125 mg IVP X1 ONE Stop: 07/19/25 23:21 Last Admin: 07/19/25 23:28 Dose: 125 mg Documented By: ELAINE Metoprolol Tartrate (Metoprolol Tartrate Inj 1 Mg/Ml Amp 5 Ml) 2.5 mg IVP X1 ONE Stop: 07/19/25 23:42 Last Admin: 07/20/25 00:09 Dose: 2.5 mg Documented By: MUSA Metoprolol Tartrate (Metoprolol Tartrate 25 Mg Tablet) 50 mg PO X1 ONE Stop: 07/19/25 23:42 Last Admin: 07/20/25 00:05 Dose: 50 mg Documented By: MUSA same as above Consultations Consultation(s) initiated? (list below): No Diagnosis Shortness of Breath Differential Diagnosis: congestive heart failure, community acquired pneumonia and asthma with exacerbation Most likely diagnosis given after review of the tests above:: Patient is a 80-year-old female with a past medical HTN, history of asthma, recurrent hospitilizations for asthma exacerbation w/ overlapping features of COPD, CHF HFpEF 65% (10/03/2024) following Dr. Rojo, history of sinus tachycardia, Moderate Mitral Regurgitation, and RVSP 41 mg RAP who presented with cheif complain of shortness of breath and wheezing. Patient was started on 1 hour long breathing treatment with methylprednisone 125 mg IV X 1. On physical exam, patient had increased work of breathing, using accessory muscle, and with decreased breath sounds through out all lung nayak and wheezing bilaterally. Mild Leukocytosis. NO ST elvation on EKG. No Troponin elevation. Chest x-ray no pneumonia noted. #Acute Hypoxic & Hypercapnic Respiratory Failure #Asthma Exacerbation Admission Indicated Admission indicated?: indicated Explain why admission is indicated or not indicated:: Asthma exacerbation, continue work of breathing and wheezing through out all lung nayak. Admission Request Was there a request for admission?: Yes Admission Attestation Admission request attestation: Discussed case with [] from Hospitalist service regarding admission. Discussed patients ED course, exam findings, labs, and radiology results. The Hospitalist [agrees,declines] to accept the patient for admission. Disposition Plan Disposition Plan: Discharge Discharge Attestation Discharge Attestation: The patient and all family members were given an opportunity to ask questions and understood the discharge instructions. Discharge instructions specifically effects, indications for sooner follow up or return to the emergency department, and the expected course of current diagnosis. Patient condition: Stable Discharge Plan Plan Patient Disposition: HOME (Self Care) Patient condition on transfer: Stable Health Concerns: Instructions: -You are treated for severe asthma attack. -No physical exertion for 3 days to help rest the lungs. ?No smoking or exposure to smoking or pets or dust or cold or humidity. -Prednisone to help decrease the swelling in the airways. -Neb treatment every 4-6 hours for 3 days to help keep the airways open. Then as needed for cough or shortness of breath. -Use oxygen 2 L [id number] for 48 hours then as needed. -See a private doctor on 07/23/2025 for recheck. -Ask for help until you are completely better. -Ask to review all test results and official radiology reports, to make sure you receive all necessary follow-ups and monitoring. -Seek immediate medical care with worsening or with any concerns. Prescriptions/Referrals Prescriptions/Med Rec: New prednisone 20 mg tablet 40 mg PO BID 3 Days Qty: 12 0RF Taper: Prednisone Taper 20 mg DAILY for 2 Days and 0 Hour 10 mg DAILY for 2 Days and 0 Hour 5 mg DAILY for 7 Days and 0 Hour Continued fexofenadine [Sharon Allergy] 60 mg Tablet 60 mg PO BID clotrimazole-betamethasone 1-0.05 % cream 1 applic topical BID PRN (Reason: cracked skin ) fluticasone furoate-vilanterol [Breo Ellipta] 200-25 mcg/dose blister with device 1 inh INHALATION Q24H amlodipine 2.5 mg tablet 2.5 mg PO .day Patient Comments: TAKE 1 TABLET BY MOUTH EVERY DAY alendronate 70 mg tablet 70 mg PO QWEEK albuterol sulfate 90 mcg/actuation HFA aerosol inhaler 2 puff inhalation Q6H PRN (Reason: shortness of breath or wheezing) Qty: 6.7 2RF ipratropium-albuterol 0.5 mg-3 mg(2.5 mg base)/3 mL solution for nebulization 3 ml INHALATION Q6H PRN (Reason: shortness of breath or wheezing) Patient Comments: INHALE 3 ML EVERY 6 HOURS NEEDED cpaiyuh-xvpjvkwriynux-lvishkeg [Excedrin Extra Strength] 250-250-65 mg tablet 1 tab PO Q6H PRN (Reason: migraine headache) montelukast 10 mg tablet 10 mg PO QDAY Qty: 30 0RF Discontinued metoprolol succinate 25 mg tablet extended release 24 hr 25 mg PO HS methylprednisolone [Medrol (Lobo)] 4 mg tablets,dose pack 4 mg PO QDAY Qty: 21 0RF Rx Instructions: Follow dose pack instructions Referrals: Quinton Ochoa MD [Primary Care Provider] - In 1 week Problem List Clinical Impression: Acute asthma exacerbation Patient/Caregiver Discharge Instructions Discharge Activity: activity as tolerated Education Materials: ED Asthma, Acute (Adult) Print Language: Italian Stand Alone Forms: Shelia Award Info., Patient Portal Info Letter
[2025-07-19 23:43] LABS: Basophils # (Auto) 0.2 Thou/mm3 (0.0-0.2); Basophils % (Auto) 1 % (0-2.5); Eosinophils # (Auto) 2.0 Thou/mm3 (0.0-0.5); Eosinophils % (Auto) 15 % (0-10); Hematocrit 45.9 % (36.0-46.0); Hemoglobin 15.1 g/dL (12.0-16.0); Immature Granulocytes Auto 0.04 Thou/mm3 (0.00-0.00); Lymphocytes # (Auto) 1.7 Thou/mm3 (1.0-4.8); Lymphocytes % (Auto) 13 % (10-50); Mean Corpuscular HGB Conc 32.9 g/dl (31.0-37.0); Mean Corpuscular Hemoglobin 29.1 pg (25.0-35.0); Mean Corpuscular Volume 88 fL (80-100); Monocytes # (Auto) 1.0 Thou/mm3 (0.0-0.8); Monocytes % (Auto) 7 % (0-12); Neutrophils # (Auto) 8.7 Thou/mm3 (1.8-7.7); Neutrophils % (Auto) 64 % (37-80); Nucleated Red Blood Cell # 0.00 Thou/mm3 (0.00-0.00); Nucleated Red Blood Cell % 0 /100 WBC (0); Platelet Count 314 Thou/mm3 (140-440); RDW Standard Deviation 44.1 fL (36.4-46.3); Red Blood Count 5.19 Miln/mm3 (4.00-5.20); White Blood Count 13.6 Thou/mm3 (3.6-11.0)
[2025-07-19 23:49] VITALS: BP 156/96; PULSE 124; RESP 22; O2SAT 97
[2025-07-19 23:51] LABS: Base Excess 5 (-3-3); HCO3 32 mEq/L (20-26); Inspired Oxygen, FIO2 38 %; O2 Saturation 99 % (91-98); PCO2 53 mmHg (32.0-48.0); PO2 117 mmHg (83-108); pH, Arterial 7.38 (7.35-7.45)
[2025-07-19 23:55] LABS: Allen Test Performed/OK; Puncture Site Left Radial
[2025-07-20] MEDS: guaiFENesin SYRUP 200 MG/10 ML UDC 100 MG PO (00:04)
[2025-07-20 00:05] VITALS: BP 139/97; PULSE 127
[2025-07-20] MEDS: METOPROLOL TARTRATE 25 MG TABLET 50 MG PO (00:05)
[2025-07-20 00:06] LABS: D-Dimer < 250 ng/mL (<600)
[2025-07-20 00:09] VITALS: BP 139/97; PULSE 122
[2025-07-20] MEDS: METOPROLOL TARTRATE INJ 1 MG/ML AMP 5 ML 2.5 MG IVP (00:09)
[2025-07-20] MEDS: Magnesium Sulfate 2 GM Ivpb 2 GM/50 ML BAG IV (00:09)
[2025-07-20 00:13] LABS: Alanine Aminotransferase 14 U/L (10-49); Albumin, Serum 4.9 gm/dL (3.4-4.8); Albumin/Globulin Ratio 2.1 (1.2-2.2); Alkaline Phosphatase 69 U/L (46-116); Anion Gap 8 (7-16); Aspartate Amino Transferase 31 U/L (0-34); BUN/Creatinine Ratio 15 Ratio (12-20); Bilirubin,Total 0.6 mg/dL (0.3-1.2); Blood Urea Nitrogen 9 mg/dL (9-23); Calcium 10.0 mg/dL (8.3-10.6); Calcium (Corrected) 10.0 mg/dL (8.5-10.1); Carbon Dioxide 31.8 mMol/L (20.0-31.0); Chloride 102 mMol/L (98-107); Creatinine (Component) 0.6 mg/dL (0.6-1.3); Estimated Creatinine Clearance 57.4 mL/min (>60); Globulin 2.3 gm/dL (2.3-3.5); Glucose 106 mg/dL (74-106); Magnesium 2.2 mg/dL (1.6-2.6); Osmolality,Calculated 281 (275-295); Potassium 3.8 mMol/L (3.4-5.1); Sodium 142 mMol/L (136-145); Thyroid Stimulating Hormone 2.48 uIU/mL (0.55-4.78); Total Protein 7.2 gm/dL (5.7-8.2); Troponin I < 0.020 ng/mL (0.0-0.045); eGFR > 60 See Note
[2025-07-20 00:19] LABS: Influenza A Ag Negative; Influenza B Ag Negative
[2025-07-20 00:30] LABS: B-Type Natriuretic Peptide < 20 pg/mL (0-100)
[2025-07-20 02:13] VITALS: BP 128/84; PULSE 80; RESP 17; TEMP 37; O2SAT 93
[2025-07-20 02:49] LABS: Amphetamine/Methamp Scrn,U Negative (Negative); Barbiturate Screen,Urine Negative (Negative); Benzodiazepines Screen,Urine Negative (Negative); Benzoylecgonine Screen, Ur Negative (Negative); Fentanyl Screen,Urine Negative (Negative); Opiate Screen,Urine Negative (Negative); THC Screen,Urine Negative (Negative)
[2025-07-20 11:47] LABS: Cocci Serology, IgM Negative (Negative)
[2025-07-21 14:06] LABS: Cocci Serology, IgG Negative (Negative)
== END 2025-07-20 02:30 | disposition home or self-care (01) ==
PROVIDERS: Emergency Provider Emergency Medicine; PCP Family Medicine
DX: J44.1 Chronic obstructive pulmonary disease with (acute) exacerbation (principal); J45.901 Unspecified asthma with (acute) exacerbation; I11.0 Hypertensive heart disease with heart failure; I16.1 Hypertensive emergency; I34.0 Nonrheumatic mitral (valve) insufficiency; J96.02 Acute respiratory failure with hypercapnia; J96.01 Acute respiratory failure with hypoxia; I50.32 Chronic diastolic (congestive) heart failure
CPT/HCPCS: 94640; 36415; 36600; 71045; 80053; 80307; 82803; 83735; 83880; 84443; 84484; 85025; 85379; 86331; 86635; 87502; 87635; 93005; 94644; 96365; 96366; 96375; 99284; J2919; J3475; J3490; J7644; A9270

== ENCOUNTER 2025-08-26 04:24 | Inpatient (IN) | payer MEDICARE, SELFPAY ==
[2025-08-26] VITALS (18 sets, daily range): BP systolic 119–151; BP diastolic 69–95; PULSE 99–128; RESP 15–24; TEMP 36.6–37.1; O2SAT 95–100
--- NOTE | 2025-08-26 04:29 | XR_ITS ---
EXAMINATION: AP chest single view TECHNIQUE: AP portable upright chest single view Date and time: August 26, 2025, 0444 hours, comparison July 20, 2025 INDICATIONS: Chest pain shortness of breath today FINDINGS: Mild enlargement cardiac contour Prominent vascular congestion. Mild septal edema at the lung bases. No lobar pneumonia IMPRESSION: Mild heart failure
--- NOTE | 2025-08-26 04:29 | EKG_ITS ---
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: : [id number] Requested By: Danny Lopez Order Number: [id number] Reading MD: Danny Lopez Measurements Intervals [place] Rate: 115 P: 66 NH: 144 QRS: -53 QRSD: 93 T: 35 QT: 356 QTc: 493 Interpretive Statements SINUS TACHYCARDIA POSSIBLE LEFT ATRIAL ENLARGEMENT [-0.1mV P-WAVE IN V1/V2] LOW QRS VOLTAGE IN PRECORDIAL LEADS [QRS DEFLECTION < 1.0 mV IN CHEST LEADS] INCOMPLETE RIGHT BUNDLE BRANCH BLOCK [90+ ms QRS DURATION, TERMINAL R IN V1/V2, 40+ ms S IN I/aVL/V4/V5/V6] LEFT ANTERIOR FASCICULAR BLOCK [QRS AXIS <= -45, QR IN I, RS IN II] POSSIBLE ANTERIOR MYOCARDIAL INFARCTION , OF INDETERMINATE AGE [30 ms Q WAVE IN V3/V4, OR R < 0.2 mV IN V4] Compared to ECG 07/19/2025 23:17:36 Low QRS voltage now present Incomplete right bundle-branch block now present Myocardial infarct finding now present /store/S0/[id number].pdf
[2025-08-26] MEDS: IPRATROPIUM RT 0.5 MG/ 2.5 ML NEBU 1 MG INH (04:33)
[2025-08-26] MEDS: ALBUTEROL RT 2.5 MG/0.5 ML NEBU 10 MG INH (04:33)
[2025-08-26] MEDS: MethylPREDNISolone SOD SUCC 62.5 MG/ML 2ML VIAL 125 MG IVP (05:10)
[2025-08-26 05:18] LABS: Lactate (Lactic Acid) 1.2 mMol/L (0.4-2.0)
--- NOTE | 2025-08-26 05:18 | PD.ASTHM ---
ED Asthma RME/HPI General Stated Complaint: sob Time Seen by Provider: 08/26/25 04:27 Arrival date/time: 08/26/25 04:24 RME / HPI RME / HPI Narrative: 80-year-old female who states that she has not smoked since college presents with dyspnea for the last 1 day. No previous hospitalizations for pneumonia. She is on oxygen as needed at home. She has had to be admitted in the past for her asthma. Paramedics gave the patient albuterol and Atrovent breathing treatments x 3 while and route after finding the patient to be dyspneic and tachypneic. Original O2 saturation was 80% on room air. Patient was also given 2 g of magnesium sulfate IV by paramedics and route. Related Data Home Medications ?Medication ?Instructions ?Recorded ?Confirmed fexofenadine 60 mg tablet (Sharon 60 mg PO BID 05/02/18 06/26/25 Allergy) clotrimazole-betamethasone 1 1 applic topical BID PRN cracked 01/24/25 06/26/25 %-0.05 % topical cream skin alendronate 70 mg tablet 70 mg PO QWEEK 03/29/25 06/26/25 amlodipine 2.5 mg tablet 2.5 mg PO .day 03/29/25 06/26/25 fluticasone furoate 200 1 inh inhalation Q24H 03/29/25 06/26/25 mcg-vilanterol 25 mcg/dose inhalation powder (Breo Ellipta) glzctzu-rdewsolfiwjkz-ulzdbrez 250 1 tab PO Q6H PRN migraine headache 06/26/25 06/26/25 mg-250 mg-65 mg tablet (Excedrin Extra Strength) ipratropium 0.5 mg-albuterol 3 mg 3 ml inhalation Q6H PRN shortness 06/26/25 06/26/25 (2.5 mg base)/3 mL nebulization of breath or wheezing soln Previous Rx's ?Medication ?Instructions ?Recorded albuterol sulfate 90 mcg/actuation 2 puff inhalation Q6H PRN 03/01/25 aerosol inhaler shortness of breath or wheezing #6.7 grams montelukast 10 mg tablet 10 mg PO QDAY #30 tabs 06/27/25 Allergies Allergy/AdvReac Type Severity Reaction Status Date / Time shellfish derived Allergy Severe ITCHING,DROP Verified 07/19/25 23:13 IN BP Sulfa (Sulfonamide Allergy Severe HIVES AND Verified 07/19/25 23:13 Antibiotics) SWELLING Review of Systems Review of Systems Systems Reviewed: All systems reviewed, normal except as documented ED Exam Narrative Physical exam: Generally patient is alert dyspneic and tachypneic, heart tachycardic rate with regular rhythm, lungs show rhonchi bilaterally with end expiratory wheezes with fair air exchange, abdomen is soft nontender, extremities show no edema with delayed capillary refill, skin is warm pale and dry, neurologic exam shows Riaz Coma Scale 15 without focal motor deficit Course Quality Measures none Orders Category Date Time Status Bedside COVID-19 Antigen Test NOW Care 08/26/25 04:29 Active Bedside Influenza A&B Antigen Test NOW Care 08/26/25 04:29 Completed Bedside RSV Test NOW Care 08/26/25 04:29 Completed EKG (ED ONLY) *Do not use* NOW Care 08/26/25 04:29 Completed EKG (ED Only) Stat Exams 08/26/25 04:29 Draft XR chest 1V portable Stat Exams 08/26/25 04:29 Taken Blood Culture (Lab) Stat Lab 08/26/25 04:40 Received CBC Stat Lab 08/26/25 05:00 Received CMP [Comprehensive Metabolic Panel] Stat Lab 08/26/25 05:00 Received Lactic Acid [Lactate (Lactic Acid)] Stat Lab 08/26/25 05:00 Received Troponin I Stat Lab 08/26/25 05:00 Received ALBUTEROL RT 0.5ml [Proventil Rt 0.5ml] Med 08/26/25 04:30 Discontinued 10 mg .ROUTE .STK-MED ONE ALBUTEROL RT 0.5ml [Proventil Rt 0.5ml] Med 08/26/25 04:28 Discontinued 10 mg INH X1 ONE Ipratropium [place] Rt Violet [Atrovent Rt Violet] Med 08/26/25 04:30 Discontinued 1 mg .ROUTE .STK-MED ONE Ipratropium [place] Rt Violet [Atrovent Rt Violet] Med 08/26/25 04:28 Discontinued 1 mg INH X1 ONE MethylPREDNISolone. [SoluMEDROL Inj] Med 08/26/25 04:28 Discontinued 125 mg IV X1 ONE MethylPREDNISolone.* [SoluMEDROL Inj] Med 08/26/25 05:06 Discontinued 125 mg IVP X1 ONE Sodium Chloride Rt Violet 0.9% [NS Rt Violet 0.9%] Med 08/26/25 04:28 Active 3 ml INH PRN PRN Vital Signs Vital signs: Vital Signs Pulse Rate 115 H 08/26/25 04:33 Asthma MDM Narrative MDM Narrative:: I interpreted all labs. Here in the emergency room the patient immediately was placed on 10 mg of albuterol and 1 mg of Atrovent breathing treatment over 1 hour. Patient already received mag sulfate 2 g IV by paramedics. Patient was also given Solu-Medrol 125 mg IV. COVID flu and RSV testing were all negative. Patient showed improvement with the above named treatment. Electrolytes showed no acute abnormality. Troponin is not elevated. I discussed this case with the hospitalist and the patient will require admission to the hospital for further treatment and evaluation for her apparent asthma exacerbation. Patient does not have a leukocytosis and is without fever. I do not see an infiltrative process on the chest x-ray. I have held off on antibiotic treatment at this time. Lactic acid level is not elevated. Patient data External records reviewed:: Other (specify) Clinical information provided by:: none Social determinants that could affect healthcare access:: none Patient has the following chronic illnesses:: None How is presenting disease/condition affected by chronic disease/condition?: no chronic disease Evaluation data The following diagnostics were reviewed and interpreted by me:: other (specify) Lab and/or radiology exams considered but not ordered:: None Interpretation Summary: None Medications / Prescriptions Medications or Prescriptions considered but not ordered:: None Medication administrations:: Medication Administration History Sodium Chloride (Sodium Chloride Rt Violet 0.9% 3 Ml Nebu) 3 ml INH PRN PRN PRN Reason: SOLN Stop: 09/25/25 04:27 Discontinued Medications Albuterol (Albuterol Rt 2.5 Mg/0.5 Ml Nebu) 10 mg INH X1 ONE Stop: 08/26/25 04:29 Last Admin: 08/26/25 04:33 Dose: 10 mg Documented By: RACHEL Albuterol (Albuterol Rt 2.5 Mg/0.5 Ml Nebu) Confirm Administered Dose 10 mg .ROUTE .STK-MED ONE Stop: 08/26/25 04:31 Ipratropium [place] (Ipratropium Rt 0.5 Mg/ 2.5 Ml Nebu) 1 mg INH X1 ONE Stop: 12/21/25 04:29 Last Admin: 08/26/25 04:33 Dose: 1 mg Documented By: RACHEL Ipratropium [place] (Ipratropium Rt 0.5 Mg/ 2.5 Ml Nebu) Confirm Administered Dose 1 mg .ROUTE .STK-MED ONE Stop: 08/26/25 04:31 Methylprednisolone Sodium Succinate (Methylprednisolone Sod 500 Mg/8 Ml Vial) 125 mg IV X1 ONE Stop: 08/26/25 04:29 Methylprednisolone Sodium Succinate (Methylprednisolone Sod Succ 62.5 Mg/Ml 2ml Vial) 125 mg IVP X1 ONE Stop: 08/26/25 05:07 Last Admin: 08/26/25 05:10 Dose: 125 mg Documented By: RACHEL(2) Consultations Consultation(s) initiated? (list below): No Diagnosis Most likely diagnosis given after review of the tests above:: None Admission Indicated Admission indicated?: indicated Admission Request Was there a request for admission?: Yes Admission Attestation Admission request attestation: Discussed case with [] from Hospitalist service regarding admission. Discussed patients ED course, exam findings, labs, and radiology results. The Hospitalist [agrees,declines] to accept the patient for admission. Disposition Plan Disposition Plan: Admit Critical Care Time Critical Care Time Critical Care Time: Yes Total Critical Care Time (min.): 35 Attestation: Excluding other billable procedures Discharge Plan Plan Patient Disposition: Admit Acute Care w/in Hospital Prescriptions/Referrals Prescriptions/Med Rec: No Action fexofenadine [Sharon Allergy] 60 mg Tablet 60 mg PO BID clotrimazole-betamethasone 1-0.05 % cream 1 applic topical BID PRN (Reason: cracked skin ) fluticasone furoate-vilanterol [Breo Ellipta] 200-25 mcg/dose blister with device 1 inh INHALATION Q24H amlodipine 2.5 mg tablet 2.5 mg PO .day Patient Comments: TAKE 1 TABLET BY MOUTH EVERY DAY alendronate 70 mg tablet 70 mg PO QWEEK albuterol sulfate 90 mcg/actuation HFA aerosol inhaler 2 puff inhalation Q6H PRN (Reason: shortness of breath or wheezing) Qty: 6.7 2RF ipratropium-albuterol 0.5 mg-3 mg(2.5 mg base)/3 mL solution for nebulization 3 ml INHALATION Q6H PRN (Reason: shortness of breath or wheezing) Patient Comments: INHALE 3 ML EVERY 6 HOURS NEEDED xhttxua-goqezvqhxcjxg-ojbbxtrm [Excedrin Extra Strength] 250-250-65 mg tablet 1 tab PO Q6H PRN (Reason: migraine headache) montelukast 10 mg tablet 10 mg PO QDAY Qty: 30 0RF Problem List Clinical Impression: Acute asthma exacerbation Patient/Caregiver Discharge Instructions Print Language: Scottish Stand Alone Forms: Shelia Award Info., Patient Portal Info Letter
[2025-08-26 05:20] LABS: Basophils # (Auto) 0.2 Thou/mm3 (0.0-0.2); Basophils % (Auto) 2 % (0-2.5); Eosinophils # (Auto) 1.4 Thou/mm3 (0.0-0.5); Eosinophils % (Auto) 14 % (0-10); Hematocrit 43.2 % (36.0-46.0); Hemoglobin 14.0 g/dL (12.0-16.0); Immature Granulocytes Auto 0.03 Thou/mm3 (0.00-0.00); Lymphocytes # (Auto) 1.2 Thou/mm3 (1.0-4.8); Lymphocytes % (Auto) 11 % (10-50); Mean Corpuscular HGB Conc 32.4 g/dl (31.0-37.0); Mean Corpuscular Hemoglobin 28.8 pg (25.0-35.0); Mean Corpuscular Volume 89 fL (80-100); Monocytes # (Auto) 0.9 Thou/mm3 (0.0-0.8); Monocytes % (Auto) 8 % (0-12); Neutrophils # (Auto) 6.9 Thou/mm3 (1.8-7.7); Neutrophils % (Auto) 65 % (37-80); Nucleated Red Blood Cell # 0.00 Thou/mm3 (0.00-0.00); Nucleated Red Blood Cell % 0 /100 WBC (0); Platelet Count 306 Thou/mm3 (140-440); RDW Standard Deviation 44.3 fL (36.4-46.3); Red Blood Count 4.86 Miln/mm3 (4.00-5.20); White Blood Count 10.6 Thou/mm3 (3.6-11.0)
[2025-08-26 05:38] LABS: Alanine Aminotransferase 14 U/L (10-49); Albumin, Serum 4.5 gm/dL (3.4-4.8); Albumin/Globulin Ratio 2.0 (1.2-2.2); Alkaline Phosphatase 69 U/L (46-116); Anion Gap 10 (7-16); Aspartate Amino Transferase 29 U/L (0-34); BUN/Creatinine Ratio 17 Ratio (12-20); Bilirubin,Total 0.7 mg/dL (0.3-1.2); Blood Urea Nitrogen 10 mg/dL (9-23); Calcium 9.1 mg/dL (8.3-10.6); Calcium (Corrected) 9.1 mg/dL (8.5-10.1); Carbon Dioxide 29.7 mMol/L (20.0-31.0); Chloride 101 mMol/L (98-107); Creatinine (Component) 0.6 mg/dL (0.6-1.3); Globulin 2.3 gm/dL (2.3-3.5); Glucose 100 mg/dL (74-106); Osmolality,Calculated 280 (275-295); Potassium 3.4 mMol/L (3.4-5.1); Sodium 141 mMol/L (136-145); Total Protein 6.8 gm/dL (5.7-8.2); Troponin I < 0.020 ng/mL (0.0-0.045); eGFR > 60 See Note
--- NOTE | 2025-08-26 06:13 | ECHO_ITS ---
Patient Info Name: Lisa Jansen Age: 80 years : 1945 Gender: Female Ht: 157 cm Wt: 58 kg BSA: 1.60 m2 BP: 119 / 82 mmHg HR: 107 bpm Exam Date: 08/26/2025 4:09 PM Admit Date: 08/26/2025 Site: [facility] Room Number: [id number] Patient Status: I Exam Type: CA echo doppler complete Top Frame Fitter: Skyla Koenig Ordering Physician: Boyd Calderón Study Info Indications HFpEF f/u - Primary Location: [id number] Left Ventricular Outflow Tract Name Value Normal LVOT 2D LVOT Diameter 1.9 cm LVOT Doppler LVOT Peak Velocity 114 cm/s LVOT Mean Gradient 2 mmHg LVOT VTI 19 cm LVOT VTI/AV VTI Ratio 0.7 LVOT Stroke Volume 52 ml Pulmonic Valve Name Value Normal PV Doppler PV Peak Velocity 92 cm/s Mitral Valve Name Value Normal MV Regurgitation Doppler MV EROA (PISA) 0.29 cm2 MR Volume (PISA) 34 ml MV Annular TDI MV Septal e' Velocity 7.6 cm/s MV Lateral e' Velocity 6.0 cm/s MV e' Average 6.80 cm/s Tricuspid Valve Name Value Normal TV Regurgitation Doppler TR Peak Velocity 246 cm/s Estimated PAP/RSVP RA Pressure 5 mmHg <=5 PA Systolic Pressure 29 mmHg <36 RV Systolic Pressure 29 mmHg <36 Aortic Valve Name Value Normal AV 2D/MM AV Cusp Sep (MM) 1.2 cm AV Doppler AV Peak Velocity 157 cm/s AV Mean Gradient 5 mmHg AV VTI 26 cm AV Area (Cont Eq VTI) 2.0 cm2 >=3.0 AV Area (Cont Eq Maximilian) 2.1 cm2 AV DI (Maximilian) 0.73 AV Regurgitation 2D LVOT Area 2.8 cm2 Ventricles Name Value Normal LV Dimensions 2D/MM IVS Diastolic Thickness (2D) 0.9 cm 0.6-0.9 LVID Diastole (2D) 4.3 cm 3.8-5.2 LVIW Diastolic Thickness (2D) 0.7 cm 0.6-0.9 LVID Systole (2D) 2.7 cm 2.2-3.5 LVOT Diameter 1.9 cm LV Mass (2D Cubed) 105.33 g 67.00-162.00 LV Mass Index (2D Cubed) 66 g/m2 43-95 Relative Wall Thickness (2D) 0.33 <=0.42 IVS/LVIW Diastolic Thickness (2D) 1.29 0.00-1.50 LV Fractional Shortening/Ejection Fraction 2D/MM LV Fractional Shortening (2D) 37 % 27-45 LV EF (2D Teichholz) 67 % Atria Name Value Normal LA Dimensions LA Volume (4C A-L) 35 ml LA Volume (BP A-L) 32 ml Left Ventricle Left ventricular chamber dimension is normal. Left ventricular systolic function is normal with visually estimated ejection fraction of 60-65%. There is normal geometry noted in the left ventricle. Left ventricular segmental wall motion is normal. There is normal diastolic function in the left ventricle. Right Ventricle Right ventricular chamber dimension is normal. Right ventricular systolic function is normal. Left Atrium Left atrial chamber dimension is normal. Right Atrium Right atrial chamber dimension is normal. Aortic Valve The aortic valve is trileaflet. There is mild aortic valve sclerosis. There is no aortic valve stenosis with a peak velocity of 157 cm/s, mean gradient of 5 mmHg, and aortic valve area of 2.0 cm2. There is no aortic valve regurgitation. Pulmonic Valve The pulmonic valve is normal. There is no pulmonic valve stenosis. There is no pulmonic regurgitation. Mitral Valve The mitral valve has thickened leaflets. There is no mitral valve stenosis. There is mild to moderate mitral valve regurgitation. Tricuspid Valve The tricuspid valve leaflets are normal. There is no tricuspid valve stenosis. There is mild to moderate tricuspid valve regurgitation. No pulmonary hypertension, estimated pulmonary arterial systolic pressure is 29 mmHg and systemic blood pressure of 119 mmHg in systole. Pericardium/Pleural The pericardium appears normal. There is no pericardial effusion. No pleural effusion visualized. Inferior Vena Cava Normal inferior vena cava with >50% collapse upon inspiration consistent with normal right atrial pressure, 5 mmHg. Aorta The aortic measurements are indexed to age and body surface area. The aortic root at the sinus of Valsalva is not well visualized. The prox ascending aorta is not well visualized. Summary 1. Left ventricle size is normal and systolic function is normal. Estimated ejection fraction is 60-65%. There is indeterminate diastolic function. 2. Right ventricle chamber size is normal and systolic function is normal. Estimated RVSP is 29 mmHg. 3. There is mild aortic valve sclerosis with no stenosis and no regurgitation. 4. Mild MAC with mildly thickened mitral leaflets. There is mild to moderate mitral and tricuspid valve regurgitation. 5. Normal IVC with estimated RA pressure 5 mmHg. Report Signatures Finalized by Vikash Linder on 08/26/2025 08:10 PM
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
[2025-08-26] MEDS: ALBUTEROL/IPRATROPIUM (Duoneb) RT SOL 3 ML NEBU INH ×5 (06:44→22:33)
[2025-08-26] MEDS: FUROSEMIDE INJ 10 MG/ML 4ML VIAL 20 MG IVP (07:29)
[2025-08-26] MEDS: HEPARIN SOD INJ 5000 UNIT/ML VIAL SC ×2 (07:30→18:07)
--- NOTE | 2025-08-26 07:35 | PC.NURSE ---
Pt is GCS 15, is resting comfortably, and denies pain at this time.
[2025-08-26] MEDS: Magnesium Sulfate 2 GM Ivpb 2 GM/50 ML BAG IV (07:38)
[2025-08-26] MEDS: MONTELUKAST SODIUM 10 MG TABLET PO (08:45)
[2025-08-26] MEDS: FLUTICASONE/SALMETEROL 250/50 14 DOSE INH 1 PUFF INH (08:54)
--- NOTE | 2025-08-26 10:05 | PC.NURSE ---
Son of pt arrived to bedside
--- NOTE | 2025-08-26 10:43 | PC.NURSE ---
Attempted to call floor to give report for pt twice but no answer. Will attempt again in a few minutes
--- NOTE | 2025-08-26 11:49 | PC.NURSE ---
This RN spoke with ELSA Hills to give report. Per ELSA Hills will give a call back in a few minutes for report on pt
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
[2025-08-26 14:15] LABS: Cocci Serology, IgM Negative (Negative)
[2025-08-27] VITALS (17 sets, daily range): BP systolic 109–129; BP diastolic 72–82; PULSE 80–118; RESP 16–22; TEMP 36.2–36.9; O2SAT 94–100
--- NOTE | 2025-08-27 01:25 | PC.NURSE ---
pt woke up wanting to use restroom, disoriented- reorientation done, refused to do mrsa nasal swab at this time.
[2025-08-27] MEDS: guaiFENesin/DM TABLET 1 EACH PO (01:28)
[2025-08-27] MEDS: ALBUTEROL/IPRATROPIUM (Duoneb) RT SOL 3 ML NEBU INH ×6 (03:04→22:46)
[2025-08-27] MEDS: HEPARIN SOD INJ 5000 UNIT/ML VIAL SC ×2 (05:56→18:26)
[2025-08-27 06:21] LABS: Basophils # (Auto) 0.0 Thou/mm3 (0.0-0.2); Basophils % (Auto) 0 % (0-2.5); Eosinophils # (Auto) 0.0 Thou/mm3 (0.0-0.5); Eosinophils % (Auto) 0 % (0-10); Hematocrit 38.7 % (36.0-46.0); Hemoglobin 12.8 g/dL (12.0-16.0); Immature Granulocytes Auto 0.07 Thou/mm3 (0.00-0.00); Lymphocytes # (Auto) 0.6 Thou/mm3 (1.0-4.8); Lymphocytes % (Auto) 4 % (10-50); Mean Corpuscular HGB Conc 33.1 g/dl (31.0-37.0); Mean Corpuscular Hemoglobin 29.5 pg (25.0-35.0); Mean Corpuscular Volume 89 fL (80-100); Monocytes # (Auto) 0.6 Thou/mm3 (0.0-0.8); Monocytes % (Auto) 5 % (0-12); Neutrophils # (Auto) 11.4 Thou/mm3 (1.8-7.7); Neutrophils % (Auto) 90 % (37-80); Nucleated Red Blood Cell # 0.00 Thou/mm3 (0.00-0.00); Nucleated Red Blood Cell % 0 /100 WBC (0); Platelet Count 304 Thou/mm3 (140-440); RDW Standard Deviation 44.6 fL (36.4-46.3); Red Blood Count 4.34 Miln/mm3 (4.00-5.20); White Blood Count 12.7 Thou/mm3 (3.6-11.0)
[2025-08-27 06:22] LABS: Albumin, Serum 3.9 gm/dL (3.4-4.8); Anion Gap 8 (7-16); BUN/Creatinine Ratio 25 Ratio (12-20); Blood Urea Nitrogen 15 mg/dL (9-23); Calcium 9.3 mg/dL (8.3-10.6); Calcium (Corrected) 9.4 mg/dL (8.5-10.1); Carbon Dioxide 31.3 mMol/L (20.0-31.0); Chloride 103 mMol/L (98-107); Creatinine (Component) 0.6 mg/dL (0.6-1.3); Glucose 142 mg/dL (74-106); Magnesium 2.5 mg/dL (1.6-2.6); Osmolality,Calculated 285 (275-295); Phosphorous 3.7 mg/dL (2.4-5.1); Potassium 4.0 mMol/L (3.4-5.1); Sodium 142 mMol/L (136-145); eGFR > 60 See Note
[2025-08-27] MEDS: guaiFENesin SYRUP 200 MG/10 ML UDC 100 MG PO ×2 (10:33→20:46)
[2025-08-27] MEDS: FLUTICASONE/SALMETEROL 250/50 14 DOSE INH 1 PUFF INH ×2 (11:13→19:29)
--- NOTE | 2025-08-27 13:04 | PC.PT ---
PT eval received. Chart reviewed done. Patient was approached at 1000. Patient states she is able to ambulate. She cannot ambulate far but she can and that she is Independent. No need for PT evaluation. Will cancel PT evaluation.
[2025-08-27 14:10] LABS: Cocci Serology, IgG Negative (Negative)
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
--- NOTE | 2025-08-27 16:01 | PC.SS ---
rounding note: Patient has dx: copd. Pending cultures. On home 02.
[2025-08-28] VITALS (15 sets, daily range): BP systolic 103–133; BP diastolic 72–82; PULSE 84–111; RESP 18–23; TEMP 36–36.9; O2SAT 93–100
[2025-08-28] MEDS: ALBUTEROL/IPRATROPIUM (Duoneb) RT SOL 3 ML NEBU INH ×6 (02:23→22:31)
[2025-08-28] MEDS: HEPARIN SOD INJ 5000 UNIT/ML VIAL SC ×2 (05:44→17:19)
[2025-08-28] MEDS: FLUTICASONE/SALMETEROL 250/50 14 DOSE INH 1 PUFF INH ×2 (06:15→18:29)
[2025-08-28 06:28] LABS: Albumin, Serum 4.2 gm/dL (3.4-4.8); Anion Gap 9 (7-16); BUN/Creatinine Ratio 22 Ratio (12-20); Blood Urea Nitrogen 13 mg/dL (9-23); Calcium 8.9 mg/dL (8.3-10.6); Calcium (Corrected) 8.9 mg/dL (8.5-10.1); Carbon Dioxide 31.5 mMol/L (20.0-31.0); Chloride 103 mMol/L (98-107); Creatinine (Component) 0.6 mg/dL (0.6-1.3); Glucose 140 mg/dL (74-106); Magnesium 2.2 mg/dL (1.6-2.6); Osmolality,Calculated 287 (275-295); Phosphorous 3.3 mg/dL (2.4-5.1); Potassium 4.3 mMol/L (3.4-5.1); Sodium 143 mMol/L (136-145); eGFR > 60 See Note
[2025-08-28 06:31] LABS: Basophils # (Auto) 0.0 Thou/mm3 (0.0-0.2); Basophils % (Auto) 0 % (0-2.5); Eosinophils # (Auto) 0.0 Thou/mm3 (0.0-0.5); Eosinophils % (Auto) 0 % (0-10); Hematocrit 39.0 % (36.0-46.0); Hemoglobin 12.8 g/dL (12.0-16.0); Immature Granulocytes Auto 0.05 Thou/mm3 (0.00-0.00); Lymphocytes # (Auto) 0.5 Thou/mm3 (1.0-4.8); Lymphocytes % (Auto) 4 % (10-50); Mean Corpuscular HGB Conc 32.8 g/dl (31.0-37.0); Mean Corpuscular Hemoglobin 29.4 pg (25.0-35.0); Mean Corpuscular Volume 90 fL (80-100); Monocytes # (Auto) 0.4 Thou/mm3 (0.0-0.8); Monocytes % (Auto) 3 % (0-12); Neutrophils # (Auto) 11.7 Thou/mm3 (1.8-7.7); Neutrophils % (Auto) 92 % (37-80); Nucleated Red Blood Cell # 0.00 Thou/mm3 (0.00-0.00); Nucleated Red Blood Cell % 0 /100 WBC (0); Platelet Count 286 Thou/mm3 (140-440); RDW Standard Deviation 45.2 fL (36.4-46.3); Red Blood Count 4.35 Miln/mm3 (4.00-5.20); White Blood Count 12.7 Thou/mm3 (3.6-11.0)
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
[2025-08-28] MEDS: cefTRIAXone/D5w 1gm IV premix 1 GM/50 ML BAG IV (12:52)
[2025-08-28] MEDS: AZITHROMYCIN INJ 500 MG in SODIUM CHLORIDE 0.9% 250 ML 250 ML 250 MG IV (12:52)
--- NOTE | 2025-08-28 15:40 | PC.SS ---
Patient is alert/oriented. Patient was able to verify demographics. Patient was admitted for [facility]. Patient states she resides with her . Patient is independent with ADL's. Patient states she does not use any DME. Patient uses 02 at night ([employer]). Patient follows with Dr. Ochoa @ [facility]. Last appt was last week. Patient follows with Dr. Alia whitley sees a Associate Loan Officer in [place]. Patient drives herself to appointments. Discharge plan is to return home. Alt medical decision maker: , Olman,
[2025-08-28] MEDS: ONDANSETRON INJ 2 MG/ML INJ 2 ML 4 MG IVP (17:18)
[2025-08-28] MEDS: guaiFENesin SYRUP 200 MG/10 ML UDC 100 MG PO (20:40)
[2025-08-29] VITALS (17 sets, daily range): BP systolic 109–140; BP diastolic 68–84; PULSE 84–112; RESP 17–24; TEMP 36.2–36.5; O2SAT 90–108
[2025-08-29] MEDS: ALBUTEROL/IPRATROPIUM (Duoneb) RT SOL 3 ML NEBU INH ×8 (00:47→23:04)
[2025-08-29 05:38] LABS: Basophils # (Auto) 0.0 Thou/mm3 (0.0-0.2); Basophils % (Auto) 0 % (0-2.5); Eosinophils # (Auto) 0.0 Thou/mm3 (0.0-0.5); Eosinophils % (Auto) 0 % (0-10); Hematocrit 40.0 % (36.0-46.0); Hemoglobin 12.9 g/dL (12.0-16.0); Immature Granulocytes Auto 0.06 Thou/mm3 (0.00-0.00); Lymphocytes # (Auto) 0.4 Thou/mm3 (1.0-4.8); Lymphocytes % (Auto) 4 % (10-50); Mean Corpuscular HGB Conc 32.3 g/dl (31.0-37.0); Mean Corpuscular Hemoglobin 29.2 pg (25.0-35.0); Mean Corpuscular Volume 91 fL (80-100); Monocytes # (Auto) 0.3 Thou/mm3 (0.0-0.8); Monocytes % (Auto) 3 % (0-12); Neutrophils # (Auto) 9.3 Thou/mm3 (1.8-7.7); Neutrophils % (Auto) 92 % (37-80); Nucleated Red Blood Cell # 0.00 Thou/mm3 (0.00-0.00); Nucleated Red Blood Cell % 0 /100 WBC (0); Platelet Count 291 Thou/mm3 (140-440); RDW Standard Deviation 45.9 fL (36.4-46.3); Red Blood Count 4.42 Miln/mm3 (4.00-5.20); White Blood Count 10.1 Thou/mm3 (3.6-11.0)
[2025-08-29] MEDS: HEPARIN SOD INJ 5000 UNIT/ML VIAL SC ×2 (05:49→17:12)
[2025-08-29 05:54] LABS: Albumin, Serum 4.1 gm/dL (3.4-4.8); Anion Gap 10 (7-16); BUN/Creatinine Ratio 27 Ratio (12-20); Blood Urea Nitrogen 16 mg/dL (9-23); Calcium 8.9 mg/dL (8.3-10.6); Calcium (Corrected) 8.9 mg/dL (8.5-10.1); Carbon Dioxide 31.2 mMol/L (20.0-31.0); Chloride 102 mMol/L (98-107); Creatinine (Component) 0.6 mg/dL (0.6-1.3); Glucose 174 mg/dL (74-106); Magnesium 2.2 mg/dL (1.6-2.6); Osmolality,Calculated 290 (275-295); Phosphorous 3.3 mg/dL (2.4-5.1); Potassium 4.4 mMol/L (3.4-5.1); Sodium 143 mMol/L (136-145); eGFR > 60 See Note
[2025-08-29] MEDS: FLUTICASONE/SALMETEROL 250/50 14 DOSE INH 1 PUFF INH ×2 (07:17→18:09)
[2025-08-29] MEDS: cefTRIAXone/D5w 1gm IV premix 1 GM/50 ML BAG IV (09:02)
[2025-08-29] MEDS: AZITHROMYCIN INJ 500 MG in SODIUM CHLORIDE 0.9% 250 ML 250 ML 250 MG IV (09:02)
--- NOTE | 2025-08-29 09:58 | PC.SS ---
rounding note: Patient to d/c home today. No d/c needs.
[2025-08-29] MEDS: FUROSEMIDE INJ 10 MG/ML VIAL 2 ML 20 MG IVP (12:44)
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
[2025-08-29] MEDS: guaiFENesin SYRUP 200 MG/10 ML UDC 100 MG PO (21:17)
[2025-08-30] VITALS (13 sets, daily range): BP systolic 125–140; BP diastolic 77–94; PULSE 87–122; RESP 17–23; TEMP 36.2–36.5; O2SAT 90–98
[2025-08-30] MEDS: ALBUTEROL/IPRATROPIUM (Duoneb) RT SOL 3 ML NEBU INH ×6 (02:30→22:23)
[2025-08-30 05:10] LABS: Basophils # (Auto) 0.0 Thou/mm3 (0.0-0.2); Basophils % (Auto) 0 % (0-2.5); Eosinophils # (Auto) 0.0 Thou/mm3 (0.0-0.5); Eosinophils % (Auto) 0 % (0-10); Hematocrit 40.6 % (36.0-46.0); Hemoglobin 13.3 g/dL (12.0-16.0); Immature Granulocytes Auto 0.03 Thou/mm3 (0.00-0.00); Lymphocytes # (Auto) 0.5 Thou/mm3 (1.0-4.8); Lymphocytes % (Auto) 5 % (10-50); Mean Corpuscular HGB Conc 32.8 g/dl (31.0-37.0); Mean Corpuscular Hemoglobin 29.6 pg (25.0-35.0); Mean Corpuscular Volume 90 fL (80-100); Monocytes # (Auto) 0.3 Thou/mm3 (0.0-0.8); Monocytes % (Auto) 3 % (0-12); Neutrophils # (Auto) 9.3 Thou/mm3 (1.8-7.7); Neutrophils % (Auto) 92 % (37-80); Nucleated Red Blood Cell # 0.00 Thou/mm3 (0.00-0.00); Nucleated Red Blood Cell % 0 /100 WBC (0); Platelet Count 300 Thou/mm3 (140-440); RDW Standard Deviation 46.0 fL (36.4-46.3); Red Blood Count 4.50 Miln/mm3 (4.00-5.20); White Blood Count 10.1 Thou/mm3 (3.6-11.0)
[2025-08-30 05:32] LABS: Albumin, Serum 4.0 gm/dL (3.4-4.8); Anion Gap 11 (7-16); BUN/Creatinine Ratio 28 Ratio (12-20); Blood Urea Nitrogen 17 mg/dL (9-23); Calcium 8.8 mg/dL (8.3-10.6); Calcium (Corrected) 8.8 mg/dL (8.5-10.1); Carbon Dioxide 32.5 mMol/L (20.0-31.0); Chloride 100 mMol/L (98-107); Creatinine (Component) 0.6 mg/dL (0.6-1.3); Glucose 170 mg/dL (74-106); Magnesium 2.1 mg/dL (1.6-2.6); Osmolality,Calculated 290 (275-295); Phosphorous 3.4 mg/dL (2.4-5.1); Potassium 4.1 mMol/L (3.4-5.1); Sodium 143 mMol/L (136-145); eGFR > 60 See Note
[2025-08-30] MEDS: HEPARIN SOD INJ 5000 UNIT/ML VIAL SC ×2 (05:47→17:51)
[2025-08-30] MEDS: FLUTICASONE/SALMETEROL 250/50 14 DOSE INH 1 PUFF INH (06:13)
[2025-08-30] MEDS: cefTRIAXone/D5w 1gm IV premix 1 GM/50 ML BAG IV (09:10)
[2025-08-30] MEDS: AZITHROMYCIN INJ 500 MG in SODIUM CHLORIDE 0.9% 250 ML 250 ML 250 MG IV (10:24)
--- NOTE | 2025-08-30 10:29 | XR_ITS ---
Examination: CT chest, without intravenous contrast. Sagittal and coronal 2-D reconstructions. Exam date and time: August 30, 2025, 1310 hours INDICATIONS: SOB today CTDI:vol (mGy) 5.7 DLP: (mGycm) 207 Technique: Multiple 3.0 mm axial sections of the chest to been obtained. Bone and lung density settings are obtained. Sagittal and coronal 2-D reconstructions have been obtained. Low dose protocols were performed. One or more of the following dose reduction techniques were used; automated exposure control, adjustment of the mA and/or KV according to patient size, use of iterative reconstruction technique. Findings: No thoracic aortic aneurysmal dilatation or dissection Pulmonary artery segments are not enlarged Mild enlargement cardiac contour Biapical pleural-parenchymal scarring Atelectasis versus mild pneumonia left base No pulmonary edema No visualized liver or splenic lesion Absent gallbladder No pancreatic mass No hydronephrosis IMPRESSION: Atelectasis versus mild pneumonia left base, clinical correlation advised
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
--- NOTE | 2025-08-30 15:32 | PC.SS ---
Rounding note: CT scan ordered, results pending. May need home oxygen. Discharging home when medically clear.
[2025-08-30] MEDS: FLUTICASONE/SALMETEROL 500/50 60 DOSE INH 2 PUFF INH (19:27)
[2025-08-31] VITALS (13 sets, daily range): BP systolic 109–136; BP diastolic 66–84; PULSE 90–112; RESP 18–22; TEMP 36.1–36.8; O2SAT 93–99
[2025-08-31] MEDS: ALBUTEROL/IPRATROPIUM (Duoneb) RT SOL 3 ML NEBU INH ×6 (03:08→22:47)
[2025-08-31] MEDS: HEPARIN SOD INJ 5000 UNIT/ML VIAL SC ×2 (05:36→17:17)
[2025-08-31 05:38] LABS: Basophils # (Auto) 0.0 Thou/mm3 (0.0-0.2); Basophils % (Auto) 0 % (0-2.5); Eosinophils # (Auto) 0.0 Thou/mm3 (0.0-0.5); Eosinophils % (Auto) 0 % (0-10); Hematocrit 41.0 % (36.0-46.0); Hemoglobin 13.4 g/dL (12.0-16.0); Immature Granulocytes Auto 0.03 Thou/mm3 (0.00-0.00); Lymphocytes # (Auto) 0.5 Thou/mm3 (1.0-4.8); Lymphocytes % (Auto) 6 % (10-50); Mean Corpuscular HGB Conc 32.7 g/dl (31.0-37.0); Mean Corpuscular Hemoglobin 29.2 pg (25.0-35.0); Mean Corpuscular Volume 89 fL (80-100); Monocytes # (Auto) 0.3 Thou/mm3 (0.0-0.8); Monocytes % (Auto) 4 % (0-12); Neutrophils # (Auto) 7.7 Thou/mm3 (1.8-7.7); Neutrophils % (Auto) 90 % (37-80); Nucleated Red Blood Cell # 0.00 Thou/mm3 (0.00-0.00); Nucleated Red Blood Cell % 0 /100 WBC (0); Platelet Count 312 Thou/mm3 (140-440); RDW Standard Deviation 44.9 fL (36.4-46.3); Red Blood Count 4.59 Miln/mm3 (4.00-5.20); White Blood Count 8.5 Thou/mm3 (3.6-11.0)
[2025-08-31 05:56] LABS: Albumin, Serum 4.0 gm/dL (3.4-4.8); Anion Gap 9 (7-16); BUN/Creatinine Ratio 34 Ratio (12-20); Blood Urea Nitrogen 17 mg/dL (9-23); Calcium 9.0 mg/dL (8.3-10.6); Calcium (Corrected) 9.0 mg/dL (8.5-10.1); Carbon Dioxide 32.6 mMol/L (20.0-31.0); Chloride 102 mMol/L (98-107); Creatinine (Component) 0.5 mg/dL (0.6-1.3); Glucose 143 mg/dL (74-106); Magnesium 2.1 mg/dL (1.6-2.6); Osmolality,Calculated 290 (275-295); Phosphorous 3.8 mg/dL (2.4-5.1); Potassium 4.1 mMol/L (3.4-5.1); Sodium 144 mMol/L (136-145); eGFR > 60 See Note
[2025-08-31] MEDS: FLUTICASONE/SALMETEROL 500/50 60 DOSE INH 2 PUFF INH ×2 (06:57→18:43)
[2025-08-31] MEDS: cefTRIAXone/D5w 1gm IV premix 1 GM/50 ML BAG IV (09:33)
[2025-08-31] MEDS: AZITHROMYCIN INJ 500 MG in SODIUM CHLORIDE 0.9% 250 ML 250 ML 250 MG IV (10:53)
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
[2025-09-01] VITALS (15 sets, daily range): BP systolic 117–152; BP diastolic 75–93; PULSE 82–113; RESP 17–90; TEMP 36.1–37; O2SAT 92–112
[2025-09-01] MEDS: ALBUTEROL/IPRATROPIUM (Duoneb) RT SOL 3 ML NEBU INH ×6 (02:22→22:50)
[2025-09-01] MEDS: HEPARIN SOD INJ 5000 UNIT/ML VIAL SC ×2 (05:29→17:24)
[2025-09-01 06:01] LABS: Basophils # (Auto) 0.0 Thou/mm3 (0.0-0.2); Basophils % (Auto) 0 % (0-2.5); Eosinophils # (Auto) 0.0 Thou/mm3 (0.0-0.5); Eosinophils % (Auto) 0 % (0-10); Hematocrit 39.9 % (36.0-46.0); Hemoglobin 13.2 g/dL (12.0-16.0); Immature Granulocytes Auto 0.04 Thou/mm3 (0.00-0.00); Lymphocytes # (Auto) 0.5 Thou/mm3 (1.0-4.8); Lymphocytes % (Auto) 5 % (10-50); Mean Corpuscular HGB Conc 33.1 g/dl (31.0-37.0); Mean Corpuscular Hemoglobin 29.7 pg (25.0-35.0); Mean Corpuscular Volume 90 fL (80-100); Monocytes # (Auto) 0.3 Thou/mm3 (0.0-0.8); Monocytes % (Auto) 3 % (0-12); Neutrophils # (Auto) 8.7 Thou/mm3 (1.8-7.7); Neutrophils % (Auto) 91 % (37-80); Nucleated Red Blood Cell # 0.00 Thou/mm3 (0.00-0.00); Nucleated Red Blood Cell % 0 /100 WBC (0); Platelet Count 293 Thou/mm3 (140-440); RDW Standard Deviation 45.1 fL (36.4-46.3); Red Blood Count 4.45 Miln/mm3 (4.00-5.20); White Blood Count 9.6 Thou/mm3 (3.6-11.0)
[2025-09-01 06:25] LABS: Albumin, Serum 3.7 gm/dL (3.4-4.8); Anion Gap 9 (7-16); BUN/Creatinine Ratio 28 Ratio (12-20); Blood Urea Nitrogen 17 mg/dL (9-23); Calcium 8.9 mg/dL (8.3-10.6); Calcium (Corrected) 9.1 mg/dL (8.5-10.1); Carbon Dioxide 31.9 mMol/L (20.0-31.0); Chloride 102 mMol/L (98-107); Creatinine (Component) 0.6 mg/dL (0.6-1.3); Glucose 158 mg/dL (74-106); Magnesium 2.1 mg/dL (1.6-2.6); Osmolality,Calculated 289 (275-295); Phosphorous 3.7 mg/dL (2.4-5.1); Potassium 4.2 mMol/L (3.4-5.1); Sodium 143 mMol/L (136-145); eGFR > 60 See Note
[2025-09-01] MEDS: FLUTICASONE/SALMETEROL 500/50 60 DOSE INH 2 PUFF INH ×2 (06:28→18:18)
[2025-09-01] MEDS: cefTRIAXone/D5w 1gm IV premix 1 GM/50 ML BAG IV (08:02)
[2025-09-01] MEDS: AZITHROMYCIN INJ 500 MG in SODIUM CHLORIDE 0.9% 250 ML 250 ML 250 MG IV (09:18)
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
--- NOTE | 2025-09-01 12:51 | PC.PT ---
PT eval only. Patient is xI with bed mobility, transfers, and ambulation with no AD. Patient is safe to ambulate to the bathroom and in the halls with no AD and no staff. RN made aware.
[2025-09-01] MEDS: guaiFENesin SYRUP 200 MG/10 ML UDC 100 MG PO (20:19)
[2025-09-02] VITALS (13 sets, daily range): BP systolic 117–123; BP diastolic 68–81; PULSE 80–113; RESP 14–23; TEMP 36.4–36.7; O2SAT 91–99
[2025-09-02] MEDS: ALBUTEROL/IPRATROPIUM (Duoneb) RT SOL 3 ML NEBU INH ×6 (03:19→23:07)
[2025-09-02] MEDS: HEPARIN SOD INJ 5000 UNIT/ML VIAL SC ×2 (05:32→17:31)
[2025-09-02] MEDS: guaiFENesin SYRUP 200 MG/10 ML UDC 100 MG PO (05:35)
[2025-09-02 06:09] LABS: Basophils # (Auto) 0.0 Thou/mm3 (0.0-0.2); Basophils % (Auto) 0 % (0-2.5); Eosinophils # (Auto) 0.0 Thou/mm3 (0.0-0.5); Eosinophils % (Auto) 0 % (0-10); Hematocrit 42.7 % (36.0-46.0); Hemoglobin 13.7 g/dL (12.0-16.0); Immature Granulocytes Auto 0.06 Thou/mm3 (0.00-0.00); Lymphocytes # (Auto) 0.6 Thou/mm3 (1.0-4.8); Lymphocytes % (Auto) 5 % (10-50); Mean Corpuscular HGB Conc 32.1 g/dl (31.0-37.0); Mean Corpuscular Hemoglobin 28.9 pg (25.0-35.0); Mean Corpuscular Volume 90 fL (80-100); Monocytes # (Auto) 0.4 Thou/mm3 (0.0-0.8); Monocytes % (Auto) 4 % (0-12); Neutrophils # (Auto) 11.2 Thou/mm3 (1.8-7.7); Neutrophils % (Auto) 91 % (37-80); Nucleated Red Blood Cell # 0.00 Thou/mm3 (0.00-0.00); Nucleated Red Blood Cell % 0 /100 WBC (0); Platelet Count 333 Thou/mm3 (140-440); RDW Standard Deviation 45.7 fL (36.4-46.3); Red Blood Count 4.74 Miln/mm3 (4.00-5.20); White Blood Count 12.2 Thou/mm3 (3.6-11.0)
[2025-09-02] MEDS: FLUTICASONE/SALMETEROL 500/50 60 DOSE INH 2 PUFF INH ×2 (06:28→19:22)
[2025-09-02 06:31] LABS: Albumin, Serum 4.0 gm/dL (3.4-4.8); Anion Gap 10 (7-16); BUN/Creatinine Ratio 34 Ratio (12-20); Blood Urea Nitrogen 17 mg/dL (9-23); Calcium 9.0 mg/dL (8.3-10.6); Calcium (Corrected) 9.0 mg/dL (8.5-10.1); Carbon Dioxide 31.7 mMol/L (20.0-31.0); Chloride 102 mMol/L (98-107); Creatinine (Component) 0.5 mg/dL (0.6-1.3); Glucose 147 mg/dL (74-106); Magnesium 2.2 mg/dL (1.6-2.6); Osmolality,Calculated 291 (275-295); Phosphorous 4.8 mg/dL (2.4-5.1); Potassium 4.4 mMol/L (3.4-5.1); Sodium 144 mMol/L (136-145); eGFR > 60 See Note
[2025-09-02] MEDS: cefTRIAXone/D5w 1gm IV premix 1 GM/50 ML BAG IV (09:00)
--- NOTE | 2025-09-02 09:21 | ESPR_ITS ---
Documentation for date of: 09/02/25 Subjective - Hospitalist Subjective Interval history: No acute events overnight, vital signs stable, patient afebrile, patient on room air this morning, SpO2 94% at time of bedside visit. Patient has no subjective complaints, she does want to go home. Exam Vital Signs Temp Pulse Resp BP Pulse Ox O2 Del Method O2 Flow Rate 97.6 F 91 18 123/74 92 L Room Air 3 09/02/25 08:00 09/02/25 08:59 09/02/25 08:00 09/02/25 08:59 09/02/25 08:00 09/02/25 08:00 09/02/25 06:28 Narrative GENERAL APPEARANCE: NAD, resting comfortably HEENT: Normocephalic, atraumatic, extraocular movements intact. Pupils: Equal reacting to light and accommodation NECK: Supple, no JVD or bruits. CARDIOVASULAR: NSR, S1, S2 heard without S3-S4 or murmur no rubs or gallops. LUNGS/CHEST: Some mild wheezing bilaterally, no rhonchi or crackles ABDOMEN: Soft, nontender, with normal bowel sounds. No pulsatile masses. No rebound, rigidity, or guarding. EXTREMITIES: Thin extremities, grossly normal NEURO: Alert, awake and oriented x3. PSYCHIATRIC: Mood and affect normal Objective - Hospitalist Labs Diagram: 09/02/25 04:30 09/02/25 04:30 Labs: Laboratory Results - last 24 hr 09/02/25 04:30 WBC 12.2 H RBC 4.74 Hgb 13.7 Hct 42.7 MCV 90 MCH 28.9 MCHC 32.1 RDW Std Deviation 45.7 Plt Count 333 D Neut % (Auto) 91 H Lymph % (Auto) 5 L [place] % (Auto) 4 Eos % (Auto) 0 Baso % (Auto) 0 Neut # (Auto) 11.2 H Lymph # (Auto) 0.6 L [place] # (Auto) 0.4 Eos # (Auto) 0.0 Baso # (Auto) 0.0 Immature Gran # (Auto) 0.06 H Absolute Nucleated RBC 0.00 Immature Gran % 1 H Nucleated RBC % 0 Sodium 144 Potassium 4.4 Chloride 102 Carbon Dioxide 31.7 H Anion Gap 10 BUN 17 Creatinine 0.5 L Estim Creat Clear Calc Not Performed. eGFR > 60 BUN/Creatinine Ratio 34 H Glucose 147 H Calculated Osmolality 291 Calcium 9.0 Corrected Calcium 9.0 Phosphorus 4.8 Magnesium 2.2 Albumin 4.0 Assessment & Plan Assessment: This patient is a 80-year-old female who is well-known to this hospital with history of asthma requiring multiple hospitalizations for exacerbations (on home O2 3 L at night), breast cancer status post bilateral mastectomy, HFpEF (65% 09/2024), osteoporosis, psoriasis, and eczema who presented to [facility] ED on 08/26 for shortness of breath. The patient was admitted for management of acute hypoxic respiratory failure secondary to acute asthma exacerbation. #Acute hypoxic respiratory failure -resolved #COPD exacerbation #Allergic asthma #Left Base Pneumonia -improved Plan - DuoNeb every 4 hours with additional DuoNebs every 2 hours as needed - 250/50 Fluticasone/salmeterol 1 puff twice daily--> 500/50 2 puff twice daily - Start prednisone 40 mg daily through 09/06/2025 - Guaifenesin 60 mg p.o. 4 times daily syrup for cough - Montelukast 10 mg nightly - Incentive spirometry - Antibiotics discontinued - Alpha-1 antitrypsin, IgE level, and aspergillus pending - Upon discharge, follow-up with pot tender -may benefit from biologics agents like omalizumab #?Cognitive impairment, patient has yet to be diagnosed -Per the patient's daughter, she has been more forgetful which has become worse over the last couple years, the family is worried about her driving and does have concerns whether she is compliant with her medications Plan: Recommended to the patient's daughter that she follow-up with a photogravure press operator or neurologist for further cognitive testing #HFpEF, 65% 08/26/2025 Patient noted to have a history of chronic diastolic heart failure with mild regurgitant and mild pulmonary hypertension. The patient sees Dr. Rojo in [place] for cardiology. Patient was noted to have 1+ bilateral lower extremity edema up to her knees on initial examination. - Patient received IV Lasix 20 mg x 1 Plan - Keep potassium above 4 and magnesium above 2 - Cardiac diet modification - Echocardiogram ordered-ejection fraction 65%, mild aortic valve sclerosis #Osteoporosis Patient noted to have history of cirrhosis that she takes alendronate at home for. Plan -Patient to follow-up outpatient #Hypertension Patient possibly has a history of hypertension for which she takes amlodipine for. Plan -amlodipine 2.5 mg daily #leukocytosis (resolve) Hospital management: Lines: peripheral IV Diet: Cardiac Bowel: Senna/docusate DVT prophylaxis: Heparin subcu Disposition: Likely DC in 1 to 2 days pending serologies CODE STATUS: DNR Time Spent with Patient Time: Total time spent is greater than 50% in coordination of care (as documented) at patient's floor/unit and/or counseling patient: Time with patient: 25 - 35 minutes Reason for Continued Stay Reason for continued stay: further monitoring and further dx testing Quality Measures Quality Measures VTE prophylaxis Advance care planning discussed with:: patient
[2025-09-03] VITALS (13 sets, daily range): BP systolic 115–124; BP diastolic 65–85; PULSE 82–107; RESP 18–93; TEMP 36.2–36.8; O2SAT 90–100
[2025-09-03] MEDS: ALBUTEROL/IPRATROPIUM (Duoneb) RT SOL 3 ML NEBU INH ×6 (02:52→22:22)
[2025-09-03] MEDS: HEPARIN SOD INJ 5000 UNIT/ML VIAL SC ×2 (05:16→17:18)
[2025-09-03 06:02] LABS: Basophils # (Auto) 0.0 Thou/mm3 (0.0-0.2); Basophils % (Auto) 0 % (0-2.5); Eosinophils # (Auto) 0.0 Thou/mm3 (0.0-0.5); Eosinophils % (Auto) 0 % (0-10); Hematocrit 40.0 % (36.0-46.0); Hemoglobin 13.1 g/dL (12.0-16.0); Immature Granulocytes Auto 0.22 Thou/mm3 (0.00-0.00); Lymphocytes # (Auto) 2.3 Thou/mm3 (1.0-4.8); Lymphocytes % (Auto) 16 % (10-50); Mean Corpuscular HGB Conc 32.8 g/dl (31.0-37.0); Mean Corpuscular Hemoglobin 29.2 pg (25.0-35.0); Mean Corpuscular Volume 89 fL (80-100); Monocytes # (Auto) 1.4 Thou/mm3 (0.0-0.8); Monocytes % (Auto) 9 % (0-12); Neutrophils # (Auto) 10.7 Thou/mm3 (1.8-7.7); Neutrophils % (Auto) 73 % (37-80); Nucleated Red Blood Cell # 0.00 Thou/mm3 (0.00-0.00); Nucleated Red Blood Cell % 0 /100 WBC (0); Platelet Count 318 Thou/mm3 (140-440); RDW Standard Deviation 45.8 fL (36.4-46.3); Red Blood Count 4.49 Miln/mm3 (4.00-5.20); White Blood Count 14.6 Thou/mm3 (3.6-11.0)
[2025-09-03] MEDS: FLUTICASONE/SALMETEROL 500/50 60 DOSE INH 2 PUFF INH ×2 (06:40→18:36)
[2025-09-03 06:44] LABS: Albumin, Serum 3.2 gm/dL (3.4-4.8); Anion Gap 9 (7-16); BUN/Creatinine Ratio 40 Ratio (12-20); Blood Urea Nitrogen 20 mg/dL (9-23); Calcium 8.6 mg/dL (8.3-10.6); Calcium (Corrected) 9.2 mg/dL (8.5-10.1); Carbon Dioxide 29.5 mMol/L (20.0-31.0); Chloride 103 mMol/L (98-107); Creatinine (Component) 0.5 mg/dL (0.6-1.3); Glucose 86 mg/dL (74-106); Magnesium 2.1 mg/dL (1.6-2.6); Osmolality,Calculated 282 (275-295); Phosphorous 3.4 mg/dL (2.4-5.1); Potassium 3.9 mMol/L (3.4-5.1); Sodium 141 mMol/L (136-145); eGFR > 60 See Note
--- NOTE | 2025-09-03 09:34 | PD.RESDS ---
Planned Discharge Date 09/03/25 DS: Providers Provider Date of admission: 08/26/25 06:35 Primary care physician: Quinton Ochoa MD Admitting Provider: Kashif Kearney DO Attending Provider on Admission: Fadia Goldstein DO Consults: 08/26/25 13:37 [facility] Referral - Knowledge Deficit Routine Comment: Positive screening for knowledge deficit needs. [facility] Referral - Transportation Routine Comment: Positive screening for transportation needs. 08/30/25 15:55 Consult to Pulmonology Routine Comment: [facility] Consulting Provider: Rajeev Olsen I 09/01/25 10:24 PT [Referral Physical Therapy] Routine Comment: Physician Instructions: Attending Provider on DC: Micheal Clemente MD Discharging Provider: Micheal Clemente MD Hospital Course Hospital Course Hospital course: No acute event overnight. Patient seen and examined at bedside improved shortness of breath saturating 100% on 2 L nasal cannula. Labs noted bicarb improved 31.9. Still pending further workup for asthma due to hx of recurrent exacerbation, wheezing minimally responding to steroids and eosinophilia noted on admission. Will continue with IV antibiotic, Solu-Medroland breathing treatment. Pending Aspergillus, alpha-1 antitrypsin and IgE. Time Spent with Patient Time attestation: Total time spent providing and/or coordinating discharge services: Exam Vital Signs Temp Pulse Resp BP Pulse Ox O2 Del Method O2 Flow Rate 97.3 F 94 19 116/82 94 L Nasal Cannula 3 09/03/25 08:00 09/03/25 09:02 09/03/25 08:00 09/03/25 09:02 09/03/25 08:00 09/03/25 08:00 09/03/25 08:00 Discharge Plan Prescriptions/Referrals Prescriptions/Med Rec: No Action fexofenadine [Sharon Allergy] 60 mg Tablet 60 mg PO BID PRN (Reason: sob/asthma getting worse) clotrimazole-betamethasone 1-0.05 % cream 1 applic topical BID PRN (Reason: cracked skin ) fluticasone furoate-vilanterol [Breo Ellipta] 200-25 mcg/dose blister with device 1 inh INHALATION Q24H amlodipine 2.5 mg tablet 2.5 mg PO .day Patient Comments: TAKE 1 TABLET BY MOUTH EVERY DAY alendronate 70 mg tablet 70 mg PO QWEEK albuterol sulfate 90 mcg/actuation HFA aerosol inhaler 2 puff inhalation Q6H PRN (Reason: shortness of breath or wheezing) Qty: 6.7 2RF ipratropium-albuterol 0.5 mg-3 mg(2.5 mg base)/3 mL solution for nebulization 3 ml INHALATION Q6H PRN (Reason: shortness of breath or wheezing) Patient Comments: INHALE 3 ML EVERY 6 HOURS NEEDED iucboba-jvnvixsmbqfde-fowpbmam [Excedrin Extra Strength] 250-250-65 mg tablet 1 tab PO Q6H PRN (Reason: migraine headache) montelukast 10 mg tablet 10 mg PO QDAY Qty: 30 0RF Referrals: Quinton Ochoa MD [Primary Care Provider] Patient/Caregiver Discharge Instructions Print Language: Grenadian
--- NOTE | 2025-09-03 11:22 | PD.RESPRO ---
Documentation for date of: 09/03/25 Subjective Subjective Interval history: No acute overnight events. Seen and examined at bedside and patient overall appears comfortable but some labored breathing noted and currently on 3 L nasal cannula. Other vital signs stable. CBC shows slight increase in leukocytosis but overall stable. CHEM panel showing improving alkalosis and otherwise unremarkable. Aspergillus serologies pending as well as alpha 1 antitrypsin. Will monitor for 1 more day and follow-up on labs tomorrow. Continue DuoNebs, fluticasone/salmeterol, montelukast and transitioned from Solu-Medrol to prednisone 40 mg daily. Exam Vital Signs Temp Pulse Resp BP Pulse Ox O2 Del Method O2 Flow Rate 97.3 F 86 22 H 116/82 97 Nasal Cannula 3 09/03/25 08:00 09/03/25 10:38 09/03/25 10:38 09/03/25 09:02 09/03/25 10:38 09/03/25 08:00 09/03/25 10:38 Narrative Exam General: AOx3, no acute distress, able to speak full sentences with mildly labored breathing HEENT: NC/AT, mucous membranes moist, bilateral sclera anicteric Cardiovascular: regular rate and rhythm, S1/S2 present, no murmurs appreciated Pulmonary: clear to auscultation bilaterally, no rales/rhonchi/wheezes Abdominal: soft, non-tender, non-distended, no rebound/guarding, normal bowel sounds present Musculoskeletal: normal ROM, no peripheral edema Skin: warm and dry, intact, no rashes Neuro: CN II-XII intact, no focal deficits Objective Labs 09/03/25 05:03 09/03/25 05:03 Labs: Laboratory Results - last 24 hr 09/03/25 05:03 WBC 14.6 H RBC 4.49 Hgb 13.1 Hct 40.0 MCV 89 MCH 29.2 MCHC 32.8 RDW Std Deviation 45.8 Plt Count 318 Neut % (Auto) 73 Lymph % (Auto) 16 Porter % (Auto) 9 Eos % (Auto) 0 Baso % (Auto) 0 Neut # (Auto) 10.7 H Lymph # (Auto) 2.3 Porter # (Auto) 1.4 H Eos # (Auto) 0.0 Baso # (Auto) 0.0 Immature Gran # (Auto) 0.22 H Absolute Nucleated RBC 0.00 Immature Gran % 2 H Nucleated RBC % 0 Sodium 141 Potassium 3.9 D Chloride 103 Carbon Dioxide 29.5 Anion Gap 9 BUN 20 Creatinine 0.5 L Estim Creat Clear Calc Not Performed. eGFR > 60 BUN/Creatinine Ratio 40 H Glucose 86 D Calculated Osmolality 282 Calcium 8.6 Corrected Calcium 9.2 Phosphorus 3.4 Magnesium 2.1 Albumin 3.2 L D Quality Measures Quality Measures VTE prophylaxis Advance care planning discussed with:: patient and child Assessment & Plan Assessment Current Active Medications: Generic Name Dose Route Start Last Admin Trade Name Freq PRN Reason Stop Dose Admin Acetaminophen 650 mg 08/26/25 06:08 Acetaminophen 325 Mg Tablet PO 09/25/25 06:07 Q6H PRN Fever >101.5 or pain 1-3 Albuterol/Ipratropium 3 ml 08/26/25 07:00 09/03/25 10:37 Albuterol/Ipratropium (Duoneb) Rt Violet 3 Ml Nebu INH 09/25/25 06:59 3 ml Q4HRRT SONYA Administration Albuterol/Ipratropium 3 ml 08/26/25 06:08 08/30/25 17:07 Albuterol/Ipratropium (Duoneb) Rt Violet 3 Ml Nebu INH 09/25/25 06:07 3 ml Q2HR PRN Administration SHORTNESS OF BREATH OR WHEEZE Amlodipine Besylate 2.5 mg 08/26/25 09:00 09/03/25 09:02 Amlodipine Besylate 2.5 Mg Tablet PO 09/25/25 08:59 2.5 mg QDAY SONYA Administration Guaifenesin 100 mg 08/27/25 10:02 09/02/25 05:35 Guaifenesin Syrup 200 Mg/10 Ml Udc PO 09/26/25 10:01 100 mg QID PRN Administration COUGH Protocol Heparin Sodium (Porcine) 5,000 unit 08/26/25 06:15 09/03/25 05:16 Heparin Sod Inj 5000 Unit/Ml Vial SC 09/09/25 06:14 5,000 unit Q12H SONYA Administration Montelukast Sodium 10 mg 08/26/25 21:00 09/02/25 20:33 Montelukast Sodium 10 Mg Tablet PO 09/25/25 20:59 Not Given HS SONYA Ondansetron HCl 4 mg 08/28/25 16:37 08/28/25 17:18 Ondansetron Inj 2 Mg/Ml Inj 2 Ml IVP 09/27/25 16:36 4 mg Q6HR PRN Administration NAUSEA OR VOMITING Protocol Prednisone 40 mg 09/03/25 09:00 09/03/25 09:02 Prednisone 20 Mg Tablet PO 09/06/25 08:59 40 mg QDAY SONYA Administration Fluticasone/Salmeterol 2 puff 08/30/25 19:00 09/03/25 06:40 Fluticasone/Salmeterol 500/50 60 Dose Inh INH 09/29/25 18:59 2 puff BIDRT SONYA Administration Sennosides 1 tab 08/26/25 06:50 Senna/Docusate Sod 1 Tab Tablet PO 09/25/25 06:49 QDAY PRN CONSTIPATION Protocol Sodium Chloride 3 ml 08/26/25 04:28 Sodium Chloride Rt Violet 0.9% 3 Ml Nebu INH 09/25/25 04:27 PRN PRN SOLN Plan 80-year-old female who is well-known to this hospital with history of asthma requiring multiple hospitalizations for exacerbations (on home O2 3 L at night), breast cancer status post bilateral mastectomy, HFpEF (65% 09/2024), osteoporosis, psoriasis, and eczema who presented to [facility] ED on 08/26 for shortness of breath. The patient was admitted for management of acute hypoxic respiratory failure secondary to acute asthma exacerbation. #Acute hypoxic respiratory failure -resolved #COPD exacerbation #Allergic asthma #Left base pneumonia, improved ? DuoNeb every 4 hours with additional DuoNebs every 2 hours as needed ? Fluticasone/salmeterol 500/50 2 puff twice daily ? Prednisone 40 mg daily through 09/06/2025 ? Guaifenesin 60 mg p.o. 4 times daily syrup for cough ? Montelukast 10 mg nightly ? Incentive spirometry ? Alpha-1 antitrypsin, IgE level, and aspergillus pending ? Upon discharge, follow-up with flaker operator (may benefit from biologics agents, i.e. omalizumab) #? Cognitive impairment, patient has yet to be diagnosed Per patient's daughter, has been more forgetful which has become worse over last couple years and family is worried about her driving and does have concerns whether she is compliant with her medications ? Recommended to patient's daughter that she follow-up with a interactive art director or neurologist for further cognitive testing #HFpEF, 65% 08/26/2025 Noted to have history of diastolic heart failure with mild pulmonary hypertension. Sees Dr. Rojo in [place] for cardiology. Noted to have 1+ bilateral lower extremity edema up to her knees on initial examination. Received IV Lasix 20 mg x 1. ? Keep potassium above 4 and magnesium above 2 ? Cardiac diet modification ? Echocardiogram ordered: ejection fraction 65%, mild aortic valve sclerosis #Osteoporosis Patient noted to have history of osteoporosis that she takes alendronate at home for. ? Follow-up outpatient #Hypertension Possibly has a history of hypertension for which she takes amlodipine for. ? Amlodipine 2.5 mg daily #Leukocytosis (resolved) Hospital management: Lines: peripheral IV Diet: Cardiac Bowel: Senna/docusate DVT prophylaxis: Heparin subcu Disposition: Likely DC in 1 to 2 days pending serologies CODE STATUS: DNR ----- Plan discussed with attending physician Dr. Portia Clemente MD PGY-2 Internal Medicine Attending Provider Attestation/Addendum I have discussed and was present for the essential components of the history, physical examination, diagnosis, and treatment plan with the resident. I agree with the patient's care as documented by the resident and amended herein by me. Maurilio Pearce DO. Although this document has been carefully reviewed, there may still be some phonetic and other typographical errors. These errors are purely grammatical due to imperfections in the software program and should not be construed in any way to compromise the substance of the patient's medical care during this visit.
[2025-09-04] VITALS (12 sets, daily range): BP systolic 107–176; BP diastolic 66–79; PULSE 84–98; RESP 17–95; TEMP 36.2–36.4; O2SAT 93–100
[2025-09-04] MEDS: ALBUTEROL/IPRATROPIUM (Duoneb) RT SOL 3 ML NEBU INH ×4 (03:04→15:23)
[2025-09-04] MEDS: HEPARIN SOD INJ 5000 UNIT/ML VIAL SC (05:25)
[2025-09-04 06:08] LABS: Basophils # (Auto) 0.0 Thou/mm3 (0.0-0.2); Basophils % (Auto) 0 % (0-2.5); Eosinophils # (Auto) 0.1 Thou/mm3 (0.0-0.5); Eosinophils % (Auto) 1 % (0-10); Hematocrit 39.0 % (36.0-46.0); Hemoglobin 12.9 g/dL (12.0-16.0); Immature Granulocytes Auto 0.15 Thou/mm3 (0.00-0.00); Lymphocytes # (Auto) 2.6 Thou/mm3 (1.0-4.8); Lymphocytes % (Auto) 21 % (10-50); Mean Corpuscular HGB Conc 33.1 g/dl (31.0-37.0); Mean Corpuscular Hemoglobin 29.7 pg (25.0-35.0); Mean Corpuscular Volume 90 fL (80-100); Monocytes # (Auto) 1.2 Thou/mm3 (0.0-0.8); Monocytes % (Auto) 10 % (0-12); Neutrophils # (Auto) 8.3 Thou/mm3 (1.8-7.7); Neutrophils % (Auto) 67 % (37-80); Nucleated Red Blood Cell # 0.00 Thou/mm3 (0.00-0.00); Nucleated Red Blood Cell % 0 /100 WBC (0); Platelet Count 323 Thou/mm3 (140-440); RDW Standard Deviation 46.3 fL (36.4-46.3); Red Blood Count 4.35 Miln/mm3 (4.00-5.20); White Blood Count 12.4 Thou/mm3 (3.6-11.0)
[2025-09-04 06:29] LABS: Albumin, Serum 3.4 gm/dL (3.4-4.8); Anion Gap 7 (7-16); BUN/Creatinine Ratio 34 Ratio (12-20); Blood Urea Nitrogen 17 mg/dL (9-23); Calcium 8.9 mg/dL (8.3-10.6); Calcium (Corrected) 9.4 mg/dL (8.5-10.1); Carbon Dioxide 31.6 mMol/L (20.0-31.0); Chloride 102 mMol/L (98-107); Creatinine (Component) 0.5 mg/dL (0.6-1.3); Glucose 76 mg/dL (74-106); Magnesium 2.3 mg/dL (1.6-2.6); Osmolality,Calculated 281 (275-295); Phosphorous 3.4 mg/dL (2.4-5.1); Potassium 3.8 mMol/L (3.4-5.1); Sodium 141 mMol/L (136-145); eGFR > 60 See Note
[2025-09-04] MEDS: FLUTICASONE/SALMETEROL 500/50 60 DOSE INH 2 PUFF INH (06:47)
--- NOTE | 2025-09-04 09:57 | PD.RESDS ---
Planned Discharge Date 09/04/25 DS: Providers Provider Date of admission: 08/26/25 06:35 Primary care physician: Quinton Ochoa MD Admitting Provider: Kashif Kearney DO Attending Provider on Admission: Fadia Goldstein DO Consults: 08/26/25 13:37 [facility] Referral - Knowledge Deficit Routine Comment: Positive screening for knowledge deficit needs. [facility]ity Referral - Transportation Routine Comment: Positive screening for transportation needs. 08/30/25 15:55 Consult to Pulmonology Routine Comment: [facility] Consulting Provider: Rajeev Olsen I 09/01/25 10:24 PT [Referral Physical Therapy] Routine Comment: Physician Instructions: Attending Provider on DC: Micheal Clemente MD Discharging Provider: Micheal Clemente MD DS: Diagnosis Problem List Completed Was Problem List Reviewed/Reconciled?: Yes Hospital Course Hospital Course Hospital course: 80-year-old female who is well-known to this hospital with history of asthma requiring multiple hospitalizations for exacerbations (on home O2 3 L at night), breast cancer status post bilateral mastectomy, HFpEF (65% 09/2024), osteoporosis, psoriasis, and eczema who was admitted for management of acute hypoxic respiratory failure secondary to acute asthma exacerbation. Was around several people with a cough recently and developed a cough herself. Additionally, she sees a delphi programmer at [facility], but has not seen her recently in person as that would take a multiple day trip. She was started on duonebs, fluticasone/salmeterol, solumedrol, and resumed home montelukast. Work-up included Cocci IgM/IgG, COVID and influenza, all of which were negative. Also ordered Aspergillus due to eosinophilia as well as alpha-1 antitrypsin. Initial lack in improvement so pulmonology was curbsided and recommended increasing HANANE/ICS and CT chest that showed left basilar pneumonia for which she completed coverage for CAP with azithro/rocephin and steroids tapered down to 40 mg daily. Afterwards, patient improved and was ultimately deemed stable for discharge as she was saturating in mid-90s on room air and no wheezing appreciated on exam. She will be discharged on Medrol lobo and continue her home medications, including fluticasone/vilanterol as she is maxed out on this, duonebs, montelukast, and as needed albuterol. Of note, daughter communicated worries that patient is not complaint with her medications at home due to possible underlying dementia. Recommended patient obtain referral to neurologist/torpedo shooter outpatient for formal evaluation, to closely follow-up with her delphi programmer at [facility], and follow-up with her PCP regarding aspergillus and alpha-1 antitrypsin results. Diagnoses during admission: #Acute hypoxic respiratory failure -resolved #COPD exacerbation #Allergic asthma #Left base pneumonia, improved #? Cognitive impairment, patient has yet to be diagnosed #HFpEF, 65% 08/26/2025 #Osteoporosis #Hypertension #Leukocytosis (resolved) Discharge instructions: ? Take steroids as prescribed to complete course ? Continue taking all other home medications as prescribed ? Follow-up with PCP within 1-2 weeks of discharge and follow-up on labs (Aspergillus and alpha-1 antitrypsin) ? Follow-up with your delphi programmer at [facility] within 1-2 weeks of discharge ? Recommend to obtain referral to neurologist or torpedo shooter for formal cognitive evaluation ? If you do not have a PCP, you can follow-up at the [facility] (you can call [phone] to make an appointment) ? Return to ED if symptoms worsen or recur ----- Plan discussed with attending physician Dr. Ana Clemente MD PGY-2 Internal Medicine Time Spent with Patient Time attestation: Total time spent providing and/or coordinating discharge services: Time spent: Greater than 30 minutes Exam Vital Signs Temp Pulse Resp BP Pulse Ox O2 Del Method O2 Flow Rate 97.2 F 87 17 110/66 94 L Room Air 3 09/04/25 07:25 09/04/25 08:18 09/04/25 07:25 09/04/25 08:18 09/04/25 07:25 09/04/25 07:25 09/04/25 04:00 Narrative Exam General: AOx3, no acute distress, able to speak full sentences with mildly labored breathing HEENT: NC/AT, mucous membranes moist, bilateral sclera anicteric Cardiovascular: regular rate and rhythm, S1/S2 present, no murmurs appreciated Pulmonary: clear to auscultation bilaterally, no rales/rhonchi/wheezes Abdominal: soft, non-tender, non-distended, no rebound/guarding, normal bowel sounds present Musculoskeletal: normal ROM, no peripheral edema Skin: warm and dry, intact, no rashes Neuro: CN II-XII intact, no focal deficits Discharge Plan Plan Patient Disposition: HOME (Self Care) Patient condition on transfer: Stable Care Plan Goals: ? Take steroids as prescribed to complete course ? Continue taking all other home medications as prescribed ? Follow-up with PCP within 1-2 weeks of discharge and follow-up on labs (Aspergillus and alpha-1 antitrypsin) ? Follow-up with your delphi programmer at [facility] within 1-2 weeks of discharge ? Recommend to obtain referral to neurologist or torpedo shooter for formal cognitive evaluation ? If you do not have a PCP, you can follow-up at the [facility] (you can call [phone] to make an appointment) ? Return to ED if symptoms worsen or recur Prescriptions/Referrals Prescriptions/Med Rec: New methylprednisolone [Medrol (Lobo)] 4 mg tablets,dose pack 4 mg PO QDAY Qty: 21 0RF Continued fexofenadine [Sharon Allergy] 60 mg Tablet 60 mg PO BID PRN (Reason: sob/asthma getting worse) clotrimazole-betamethasone 1-0.05 % cream 1 applic topical BID PRN (Reason: cracked skin ) fluticasone furoate-vilanterol [Breo Ellipta] 200-25 mcg/dose blister with device 1 inh INHALATION Q24H amlodipine 2.5 mg tablet 2.5 mg PO .day Patient Comments: TAKE 1 TABLET BY MOUTH EVERY DAY albuterol sulfate 90 mcg/actuation HFA aerosol inhaler 2 puff inhalation Q6H PRN (Reason: shortness of breath or wheezing) Qty: 6.7 2RF ipratropium-albuterol 0.5 mg-3 mg(2.5 mg base)/3 mL solution for nebulization 3 ml INHALATION Q6H PRN (Reason: shortness of breath or wheezing) Patient Comments: INHALE 3 ML EVERY 6 HOURS NEEDED [id number] [Excedrin Extra Strength] 250-250-65 mg tablet 1 tab PO Q6H PRN (Reason: migraine headache) montelukast 10 mg tablet 10 mg PO QDAY Qty: 30 0RF Held alendronate 70 mg tablet 70 mg PO QWEEK Hold Instructions: Hold until you see orthopedic doctor Referrals: Quinton Ochoa MD [Primary Care Provider] Patient/Caregiver Discharge Instructions Education Materials: Asthma and COPD, Shortness of Breath Coping, Asthma Print Language: Spanish Stand Alone Forms: Shelia Award Info., Patient Portal Info Letter Discharge Order Discharge Orders: Discharge (Routine); Ordered 09/04/25 Ordered By: Micheal Wagoner Njedy Quality Discharge Quality Measures VTE prophylaxis MD Attestestation MD Attestation I have examined the patient, reviewed labs and imaging findings, discussed the case with the resident(s), and reviewed entered orders. I agree with the plan of care as outlined in this note. Time Spent; [address] Ana MD
--- NOTE | 2025-09-04 10:35 | PC.NURSE ---
Pending MD to round to DC patient
[2025-09-05 15:32] LABS: Index Value <0.50
[2025-09-10 07:17] LABS: Aspergillus Ag, Ser* NOT DETECTED
[2025-09-10 07:26] LABS: Alpha-1-Antitrypsin* 131 mg/dL (83-199); IgE, Serum* 283 kU/L (114 OR LESS)
== END 2025-09-04 15:40 | disposition home or self-care (01) | DRG 202 ==
LOC: SERX 05:57 → SERHOLD 06:38 → S3SX 12:47
PROVIDERS: Admitting Provider Internal Medicine; Emergency Provider Emergency Medicine; PCP Family Medicine; Visit Provider Internal Medicine
DX: J45.51 Severe persistent asthma with (acute) exacerbation (principal); J18.9 Pneumonia, unspecified organism; J96.01 Acute respiratory failure with hypoxia; J44.1 Chronic obstructive pulmonary disease with (acute) exacerbation; I50.32 Chronic diastolic (congestive) heart failure; J44.0 Chronic obstructive pulmonary disease with (acute) lower respiratory infection; E87.3 Alkalosis; Z90.13 Acquired absence of bilateral breasts and nipples; Z88.2 Allergy status to sulfonamides; Z99.81 Dependence on supplemental oxygen; I11.0 Hypertensive heart disease with heart failure; I27.20 Pulmonary hypertension, unspecified; D72.10 Eosinophilia, unspecified; M81.0 Age-related osteoporosis without current pathological fracture; K74.60 Unspecified cirrhosis of liver; Z66 Do not resuscitate; Z79.83 Long term (current) use of bisphosphonates; Z85.3 Personal history of malignant neoplasm of breast
CPT/HCPCS: 36415; 71045; 71250; 80053; 80069; 82103; 82785; 83605; 83735; 84484; 85025; 86331; 86635; 87040; 87081; 87305; 87502; 87634; 87635; 93005; 93306; 94640; 94644; 94664; 96374; 97162; 99284; A9270; J0456; J0696; J1644; J1938; J2405; J2919; J3475; J7050; J7512